=== PATIENT | female | born 1950 | race Caucasian/White ===

== ENCOUNTER 2016-11-23 06:41 | Day surgery (SDC) | payer MEDICARE, OTHER ==
[2016-11-20 14:09] VITALS: BMI 34.7
[~2016-11-23 06:41] MED LIST: LACTATED RINGERS 1,000 ML IV SCH
[2016-11-23 07:15] VITALS: TEMP 98
[2016-11-23 07:21] LABS: Glucose,Whole Blood 236 mg/dL (75-99)
[2016-11-23] MEDS ORDERED: INSULIN LISPRO (humaLOG) 300 UNIT/3 ML VIAL SQ ONE ×2 (07:42→07:45)
[2016-11-23] MEDS ORDERED: PROPOFOL 10 MG/ML 20 ML VIAL IV ONE (07:44)
[2016-11-23] MEDS ORDERED: MIDAZOLAM 2 MG/2 ML VIAL ONE (07:44)
[2016-11-23] MEDS ORDERED: fentaNYL (PF) 50 MCG/ML 2 ML AMP ONE (07:44)
[2016-11-23] MEDS ORDERED: LIDOCAINE 1% INJ 10MG/ML (20 ML MDV) ONE (07:44)
--- NOTE | 2016-11-23 07:48 | P.GSHP ---
History of Present Illness H&P Date: 11/23/16 Chief Complaint: Constipation, screening colonoscopy This is a 66-year-old female for from Dr. Tej Bojorquez. Patient presents today for screening colonoscopy. She's had issues with constipation. Patient states that she has had some pain in her pelvic area. The patient states that her last colonoscopy was approximately 10 years ago. - Constitutional Constitutional: Reports as per HPI Past Medical History Past Medical History: Diabetes Mellitus, GERD/Reflux, Hyperlipidemia, Hypertension, Skin Disorder Additional Past Medical History / Comment(s): uti(ecoli 02-04-16) chronic dermatitis, chronic pain,hiatal hernia History of Any Multi-Drug Resistant Organisms: None Reported Date of last positivie culture/infection: None MDRO Source:: None Past Surgical History: Cholecystectomy, Hysterectomy Additional Past Surgical History / Comment(s): 05-09-15 LAP CHOLEY. hemorroidectomy, colonoscopy-normal; egd, LAP GUCCI FUNDLOPLICATION Past Anesthesia/Blood Transfusion Reactions: No Reported Reaction Additional Past Anesthesia/Blood Transfusion Reaction / Comment(s): Pt has never recieved blood. CLAUSTERPHOBIA Past Psychological History: Anxiety, Depression Additional Psychological History / Comment(s): Pt states she lives with her daughter. She is normally independent. She no longer drives a car, her jorge drives her places. She has anxiety and depression and has had panic attacks in the past.currently denies any any thoughts of harming self. feels maintained by meds. Smoking Status: Never smoker Past Alcohol Use History: None Reported Past Drug Use History: None Reported - Past Family History Father Family Medical History: Diabetes Mellitus Mother Family Medical History: Diabetes Mellitus Medications and Allergies Home Medications Medication Instructions Recorded Confirmed Type Oxybutynin Chloride 5 mg PO BID 02/05/15 11/23/16 History Potassium Chloride [Klor-Con 20] 20 meq PO BID 02/28/15 11/23/16 History Cranberry Conc/C/Bacill Coag 1 tab PO BID 05/09/15 11/23/16 History [Cranberry Tablet] Multivitamins, Thera [Multivitamin] 1 tab PO DAILY 05/09/15 11/23/16 History Magnesium Gluconate [Magonate] 500 mg PO PC-SUPPER 05/29/15 11/23/16 History FLUoxetine HCL [PROzac] 20 mg PO BID 08/02/15 11/23/16 History busPIRone HCL 15 mg PO QID 08/03/15 11/23/16 History HYDROcodone/APAP 10-325MG [[place] 1 tab PO TID PRN 02/06/16 11/23/16 History 10-325] Omeprazole 20 mg PO DAILY 02/06/16 11/23/16 History ALPRAZolam 1 mg PO TID PRN 06/04/16 11/23/16 History Atorvastatin [Lipitor] 40 mg PO HS 11/20/16 11/23/16 History Cyclobenzaprine [Flexeril] 5 mg PO HS 11/20/16 11/23/16 History Empagliflozin [Jardiance] 10 mg PO DAILY 11/20/16 11/23/16 History Metoclopramide [Reglan] 10 mg PO ACHS 11/20/16 11/23/16 History Allergies Allergy/AdvReac Type Severity Reaction Status Date / Time benactyzine AdvReac Abdominal Verified 11/20/16 14:01 Pain levofloxacin [From Levaquin] AdvReac Abdominal Verified 11/20/16 14:01 Pain Penicillins AdvReac Confusion Verified 11/20/16 14:01 prednisone AdvReac anxiety Verified 11/20/16 14:01 sulfamethoxazole AdvReac Nausea & Verified 11/20/16 14:01 [From Bactrim] Vomiting tamsulosin HCl [From Flomax] AdvReac Nausea & Verified 11/20/16 14:01 Vomiting trimethoprim [From Bactrim] AdvReac Nausea & Verified 11/20/16 14:01 Vomiting Surgical - Exam Vital Signs Temp Pulse Resp BP Pulse Ox 98.0 F 91 18 129/80 95 11/23/16 07:09 11/23/16 07:09 11/23/16 07:09 11/23/16 07:09 11/23/16 07:09 - General well developed, no distress - Eyes PERRL - ENT normal pinna - Neck no masses - Respiratory normal expansion - Cardiovascular Rhythm: regular - Abdomen Abdomen: soft, non tender Results - Labs Abnormal Lab Results - Last 24 Hours (Table) 11/23/16 Range/Units 07:13 POC Glucose (mg/dL) 236 H (75-99) mg/dL Assessment and Plan Plan: Constipation We'll perform screening colonoscopy.
[2016-11-23] MEDS ORDERED: IV FLUID CONTINUATION 1,000 ML IV ONE (08:07)
--- NOTE | 2016-11-23 08:08 | P.OP ---
Date of Procedure: 11/23/16 Preoperative Diagnosis: Screening colonoscopy Constipation Postoperative Diagnosis: Mild diverticulosis Mild internal and external hemorrhoids Procedure(s) Performed: Colonoscopy Anesthesia: MAC Surgeon: Nick Kat Pathology: none sent Condition: stable Disposition: PACU Description of Procedure: The patient's placed on the endoscopy table in the lateral position. She received IV sedation. Digital rectal exam was performed which revealed internal and external hemorrhoids. Flexible colonoscope was then placed patient anus and passed throughout the entire colon. The ileocecal valve was visualized. The cecum, ascending and transverse colon appeared normal. In the descending and sigmoid colon There was mild diverticular changes. The scope was then brought back into the rectum and this appeared normal. The scope was then withdrawn from the rectum and internal and external hemorrhoids are noted.
[2016-11-23 08:15] LABS: Glucose,Whole Blood 207 mg/dL (75-99)
[2016-11-23 08:22] VITALS: BP 135/88; PULSE 79; RESP 18
== END 2016-11-23 08:53 | disposition home or self-care (01) ==
LOC: ORWHC2ENDO 06:41
PROVIDERS: ATTEND Surgery
DX: K64.8 Other hemorrhoids (principal); K64.4 Residual hemorrhoidal skin tags; K57.30 Diverticulosis of large intestine without perforation or abscess without bleeding; K59.00 Constipation, unspecified; E11.9 Type 2 diabetes mellitus without complications; K21.9 Gastro-esophageal reflux disease without esophagitis; E78.5 Hyperlipidemia, unspecified; I10 Essential (primary) hypertension; G89.29 Other chronic pain; F41.9 Anxiety disorder, unspecified; F32.9 Major depressive disorder, single episode, unspecified; Z79.84 Long term (current) use of oral hypoglycemic drugs; Z79.891 Long term (current) use of opiate analgesic; Z79.899 Other long term (current) drug therapy; Z88.1 Allergy status to other antibiotic agents; Z88.8 Allergy status to other drugs, medicaments and biological substances
CPT/HCPCS: 45378; J2250; J2001; J3010; J2704

== ENCOUNTER 2017-02-16 11:49 | Emergency (ER) | payer MEDICARE, OTHER ==
[2017-02-16] MEDS ORDERED: ONDANSETRON 4 MG/2 ML VIAL IVP STA (12:18)
[2017-02-16] MEDS ORDERED: HYDROmorphone 1 MG/ML 1 ML SYRINGE IVP STA (12:18)
--- NOTE | 2017-02-16 12:24 | ED ---
General Adult HPI - General Chief complaint: Abdominal Pain Stated complaint: CHEST PAIN, ABDOMINAL, BLADDER AND KIDNEY PAIN Time Seen by Provider: 02/16/17 12:02 Source: patient, family, RN notes reviewed, old records reviewed Mode of arrival: ambulatory Limitations: no limitations - History of Present Illness Initial comments: Chief complaint and history of present illness is a 66-year-old female to history of anxiety and depression. Here because of the suprapubic area pain. The patient took an [id number] medication and has turned the urine orange. The patient has had history of frequent urinary tract infections radiate toward the back. The patient's denying frequency urgency or dysuria at this time. States she is nauseated but not vomiting no diarrhea. Often has trouble with constipation she is on [place]. - Related Data Home Medications Medication Instructions Recorded Confirmed Oxybutynin Chloride 5 mg PO BID 02/05/15 02/16/17 Potassium Chloride [Klor-Con 20] 20 meq PO BID 02/28/15 02/16/17 Magnesium Gluconate [Magonate] 500 mg PO PC-SUPPER 05/29/15 02/16/17 FLUoxetine HCL [PROzac] 20 mg PO BID 08/02/15 02/16/17 busPIRone HCL 15 mg PO QID 08/03/15 02/16/17 HYDROcodone/APAP 10-325MG [[place] 1 tab PO TID PRN 02/06/16 02/16/17 10-325] Omeprazole 20 mg PO QAM 02/06/16 02/16/17 ALPRAZolam 1 mg PO QID 06/04/16 02/16/17 Atorvastatin [Lipitor] 40 mg PO QAM 11/20/16 02/16/17 Cyclobenzaprine [Flexeril] 5 mg PO DAILY PRN 11/20/16 02/16/17 Metoclopramide [Reglan] 10 mg PO AC-BRKFST 11/20/16 02/16/17 Cranberry Fruit Extract [Cranberry] 1,000 mg PO BID 02/16/17 02/16/17 Empagliflozin [Jardiance] 25 mg PO HS 02/16/17 02/16/17 Insulin Glargine [Lantus] 30 unit SQ HS 02/16/17 02/16/17 Metoclopramide [Reglan] 5 mg PO TID 02/16/17 02/16/17 Multivitamins, Thera [Multivitamin 1 tab PO DAILY 02/16/17 02/16/17 (formulary)] Allergies Allergy/AdvReac Type Severity Reaction Status Date / Time benactyzine AdvReac Abdominal Verified 02/16/17 11:57 Pain dicyclomine [From Bentyl] AdvReac Abdominal Verified 02/16/17 13:03 Pain levofloxacin [From Levaquin] AdvReac Abdominal Verified 02/16/17 13:03 Pain Penicillins AdvReac "Passed Verified 02/16/17 13:03 out" prednisone AdvReac Abdominal Verified 02/16/17 13:03 Pain sulfamethoxazole AdvReac Abdominal Verified 02/16/17 13:03 [From Bactrim] Pain tamsulosin HCl [From Flomax] AdvReac Abdominal Verified 02/16/17 13:03 Pain trimethoprim [From Bactrim] AdvReac Abdominal Verified 02/16/17 13:03 Pain Review of Systems ROS Statement: Those systems with pertinent positive or pertinent negative responses have been documented in the HPI. Review of systems patient's anxious, history of anxiety. Denying any headache or visual acuity changes she has chest pain and mild palpation of the anterior chest wall. Rare cough. Nausea no vomiting no diarrhea she states showed a bowel movement yesterday she is taking medications to treat her constipation problems. Low back discomfort and superior pubic area discomfort. No complaint of any discomfort to the extremities. All systems were reviewed. Past medical problems significant for insulin diabetes mellitus, GERD, hyperlipidemia, hypertension, patient picks at her skin due to anxiety. She also has frequent urinary tract infections. Positive for E. coli 2 years ago. The patient's surgeries include hemorrhoids, closed cystectomy, partial hysterectomy, knee some plication. Family history father and uncle also had colon cancer. The patient recently had a colonoscopy. Results are not available this time. The patient has ALLERGIES as listed. Mostly upset stomach symptoms. ROS Other: All systems not noted in ROS Statement are negative. Past Medical History Past Medical History: Diabetes Mellitus, GERD/Reflux, Hyperlipidemia, Hypertension, Skin Disorder Additional Past Medical History / Comment(s): uti(ecoli 5-14-16) chronic dermatitis, chronic pain,hiatal hernia History of Any Multi-Drug Resistant Organisms: None Reported Date of last positivie culture/infection: None MDRO Source:: None Past Surgical History: Cholecystectomy, Hysterectomy Additional Past Surgical History / Comment(s): 05-09-15 LAP CHOLEY. hemorroidectomy, colonoscopy-normal; egd, LAP GUCCI FUNDLOPLICATION Past Anesthesia/Blood Transfusion Reactions: No Reported Reaction Additional Past Anesthesia/Blood Transfusion Reaction / Comment(s): Pt has never recieved blood. CLAUSTERPHOBIA Past Psychological History: Anxiety, Depression Additional Psychological History / Comment(s): Pt states she lives with her daughter. She is normally independent. She no longer drives a car, her jorge drives her places. She has anxiety and depression and has had panic attacks in the past.currently denies any any thoughts of harming self. feels maintained by meds. Smoking Status: Never smoker Past Alcohol Use History: None Reported Past Drug Use History: None Reported - Past Family History Father Family Medical History: Diabetes Mellitus Mother Family Medical History: Diabetes Mellitus General Exam - General Exam Comments Initial Comments: General: The patient is awake and alert, history of anxiety. Patient is crying on and off. Complaining of suprapubic discomfort. States she's had the same symptoms for years. Gets treated for urinary tract infection goes away for short while. She states she has had a cystoscopy and colonoscopy. Patient's vital signs show temperature 98.2 pulse 107 respiratory rate 22 pulse ox 94% room air blood pressure 173/119. This will be repeated. Eye: Pupils are equal, round and reactive to light, extra-ocular movements are intact ; there is normal conjunctiva bilaterally. No signs of icterus. Ears, nose, mouth and throat: There are moist mucous membranes and no oral lesions. Neck: The neck is supple, there is no tenderness , no anterior cervical lymphadenopathy. Cardiovascular: There is a regular rate and rhythm. No murmur, rub or gallop is appreciated. Just mild palpation of the anterior chest wall causes discomfort. Respiratory: Lungs are clear to auscultation, respirations are non-labored, breath sounds are equal. No wheezes, stridor, rales, or rhonchi. Gastrointestinal: Complains discomfort with palpation in the suprapubic region. There is no rebound or guarding present. No CVA tenderness. Bowel sounds are unremarkable. Back: There is no tenderness to palpation in the midline. There is no obvious deformity. No rashes noted. Low back discomfort. No rashes noted. Musculoskeletal: Normal ROM, no tenderness, There is no pedal edema. There is no calf tenderness or swelling. Patient has a nervous habit of picking at her skin Neurological: No complaints of or any evidence of neuro deficits. Skin: Patient picks at her skin. Psychiatric: History of anxiety depression. On medications. Limitations: no limitations Course Vital Signs 02/16/17 02/16/17 11:54 12:49 Temperature 98.2 F Pulse Rate 107 H 98 Respiratory 22 20 Rate Blood Pressure 173/119 135/65 O2 Sat by Pulse 94 L 94 L Oximetry Medical Decision Making - Medical Decision Making Medical decision making; patient's white count 7.2 hemoglobin 15 hematocrit of 47 urine clean 4+ glucose. Patient's sugar is 196. Potassium 4.1 with a BUN 14 creatinine 0.8 GFR greater than 60. X-ray of the abdomen was done and reviewed by radiologist his impression is lung bases are clear there are air fluid levels without bowel distention. No pneumoperitoneum or bowel obstruction. Probable vascular calcifications within the pelvis. Impression; nonobstructive bowel gas pattern. Consider ileus, enteritis. As read by Dr. Hernandez Patient reports she's had this same problem on again off again. Usually give antibiotics and goes away. The patient will be treated with Cipro and Flagyl for one week. Advised to follow-up with her family physician. We discussed enteritis mild diverticulitis. In reviewing the patient's ALLERGIES she states her medications like Levaquin upset her stomach she does not have difficulty breathing she does not have low blood pressure she does not have hives with these medications. The patient will be placed on Cipro 500 twice a day for a week as well as Flagyl. Advised return emergency room if there are any changes. Otherwise follow-up with her family physician - Lab Data Result diagrams: 02/16/17 12:41 02/16/17 12:41 Lab Results 02/16/17 02/16/17 02/16/17 Range/Units 12:41 12:41 12:41 WBC 7.2 (3.8-10.6) k/uL RBC 4.87 (3.80-5.40) m/uL Hgb 15.3 (11.4-16.0) gm/dL Hct 47.8 H (34.0-46.0) % MCV 98.3 (80.0-100.0) fL MCH 31.4 (25.0-35.0) pg MCHC 32.0 (31.0-37.0) g/dL RDW 13.7 (11.5-15.5) % Plt Count 319 (150-450) k/uL Neutrophils % 59 % Lymphocytes % 32 % Monocytes % 5 % Eosinophils % 2 % Basophils % 1 % Neutrophils # 4.2 (1.3-7.7) k/uL Lymphocytes # 2.3 (1.0-4.8) k/uL Monocytes # 0.4 (0-1.0) k/uL Eosinophils # 0.2 (0-0.7) k/uL Basophils # 0.1 (0-0.2) k/uL Sodium 141 (137-145) mmol/L Potassium 4.1 (3.5-5.1) mmol/L Chloride 105 (98-107) mmol/L Carbon Dioxide 20 L (22-30) mmol/L Anion Gap 16 mmol/L BUN 14 (7-17) mg/dL Creatinine 0.78 (0.52-1.04) mg/dL Est GFR (MDRD) Af Amer >60 (>60 ml/min/1.73 sqM) Est GFR (MDRD) Non-Af >60 (>60 ml/min/1.73 sqM) Glucose 196 H (74-99) mg/dL Plasma Lactic Acid Reginald 1.6 (0.7-2.0) mmol/L Calcium 10.3 H (8.4-10.2) mg/dL Total Bilirubin 1.0 (0.2-1.3) mg/dL AST 27 (14-36) U/L ALT 31 (9-52) U/L Alkaline Phosphatase 89 (38-126) U/L Total Protein 8.4 H (6.3-8.2) g/dL Albumin 4.9 (3.5-5.0) g/dL Amylase 62 (30-110) U/L Lipase 113 (23-300) U/L Urine Color Urine Appearance (Clear) Urine pH (5.0-8.0) Ur Specific [place] (1.001-1.035) Urine Protein (Negative) Urine Glucose (UA) (Negative) Urine Ketones (Negative) Urine Blood (Negative) Urine Nitrite (Negative) Urine Bilirubin (Negative) Urine Urobilinogen (<2.0) mg/dL Ur Leukocyte Esterase (Negative) 02/16/17 Range/Units 12:41 WBC (3.8-10.6) k/uL RBC (3.80-5.40) m/uL Hgb (11.4-16.0) gm/dL Hct (34.0-46.0) % MCV (80.0-100.0) fL MCH (25.0-35.0) pg MCHC (31.0-37.0) g/dL RDW (11.5-15.5) % Plt Count (150-450) k/uL Neutrophils % % Lymphocytes % % Monocytes % % Eosinophils % % Basophils % % Neutrophils # (1.3-7.7) k/uL Lymphocytes # (1.0-4.8) k/uL Monocytes # (0-1.0) k/uL Eosinophils # (0-0.7) k/uL Basophils # (0-0.2) k/uL Sodium (137-145) mmol/L Potassium (3.5-5.1) mmol/L Chloride (98-107) mmol/L Carbon Dioxide (22-30) mmol/L Anion Gap mmol/L BUN (7-17) mg/dL Creatinine (0.52-1.04) mg/dL Est GFR (MDRD) Af Amer (>60 ml/min/1.73 sqM) Est GFR (MDRD) Non-Af (>60 ml/min/1.73 sqM) Glucose (74-99) mg/dL Plasma Lactic Acid Reginald (0.7-2.0) mmol/L Calcium (8.4-10.2) mg/dL Total Bilirubin (0.2-1.3) mg/dL AST (14-36) U/L ALT (9-52) U/L Alkaline Phosphatase (38-126) U/L Total Protein (6.3-8.2) g/dL Albumin (3.5-5.0) g/dL Amylase (30-110) U/L Lipase (23-300) U/L Urine Color Brown Urine Appearance Clear (Clear) Urine pH 5.0 (5.0-8.0) Ur Specific [place] 1.023 (1.001-1.035) Urine Protein Negative (Negative) Urine Glucose (UA) 4+ H (Negative) Urine Ketones Negative (Negative) Urine Blood Negative (Negative) Urine Nitrite Negative (Negative) Urine Bilirubin Negative (Negative) Urine Urobilinogen <2.0 (<2.0) mg/dL Ur Leukocyte Esterase Negative (Negative) Disposition Clinical Impression: Enteritis Disposition: HOME SELF-CARE Condition: Fair Instructions: Enteritis (ED) Referrals: Tej Bojorquez MD [Primary Care Provider] - 1-2 days Time of Disposition: 14:32
[2017-02-16 12:50] VITALS: RESP 20
[2017-02-16 13:00] LABS: Basophils # (A) 0.1 k/uL (0-0.2); Basophils % (A) 1 %; CH 32.7; CHCM 33.4; Eosinophils # (A) 0.2 k/uL (0-0.7); Eosinophils % (A) 2 %; HCT 47.8 % (34.0-46.0); HDW 2.48; HGB 15.3 gm/dL (11.4-16.0); Luc # (Auto) 0.14; Luc % (Auto) 2; Lymphocytes # (A) 2.3 k/uL (1.0-4.8); Lymphocytes % (A) 32 %; MCH 31.4 pg (25.0-35.0); MCV 98.3 fL (80.0-100.0); Monocytes # (A) 0.4 k/uL (0-1.0); Monocytes % (A) 5 %; Neutrophils # (A) 4.2 k/uL (1.3-7.7); Neutrophils % (A) 59 %; RBC 4.87 m/uL (3.80-5.40); RDW 13.7 % (11.5-15.5); WBC 7.2 k/uL (3.8-10.6); WBC (Perox) 7.12
[2017-02-16 13:01] LABS: Appearance,Urine Clear (Clear); Bilirubin,Urine Negative (Negative); Glucose,Urine (UA) 4+ (Negative); Ketones,Urine Negative (Negative); Leukocyte Esterase,Urine Negative (Negative); Nitrite,Urine Negative (Negative); Protein,Urine Negative (Negative); Specific Gravity,Urine 1.023 (1.001-1.035); UA Billing (MACRO vs. MICRO) CHEM; Urobilinogen,Urine <2.0 mg/dL (<2.0)
--- NOTE | 2017-02-16 13:10 | XR ---
2 view abdomen HISTORY: Lower abdominal pain 2 views of the abdomen on 3 images correlated to prior exam dated 04 March 2016 Lung bases are clear. There are air-fluid levels without bowel distention. No pneumoperitoneum or bow el obstruction. Probable vascular calcifications within the pelvis. IMPRESSION: Nonobstructive bowel gas pattern. Consider ileus, enteritis.
[2017-02-16 13:13] LABS: ALT 31 U/L (9-52); AST 27 U/L (14-36); Alkaline Phosphatase 89 U/L (38-126); Amylase 62 U/L (30-110); Anion Gap 16 mmol/L; Blood Urea Nitrogen 14 mg/dL (7-17); Calcium 10.3 mg/dL (8.4-10.2); Carbon Dioxide 20 mmol/L (22-30); Chloride 105 mmol/L (98-107); Glucose 196 mg/dL (74-99); Non-African American GFR(MDRD) >60 (>60 ml/min/1.73 sqM); Potassium 4.1 mmol/L (3.5-5.1); Sodium 141 mmol/L (137-145); Total Protein 8.4 g/dL (6.3-8.2)
[2017-02-16] MEDS ORDERED: metroNIDAZOLE-NS PMX 500 MG in SALINE 1 100ML.BAG IVPB STA (14:23)
[2017-02-16] MEDS ORDERED: CIPROFLOXACIN HCL 500 MG TAB PO STA (14:27)
[2017-02-16] MEDS ORDERED: metroNIDAZOLE 500 MG TAB PO STA (14:45)
[2017-02-16 14:58] VITALS: BP 133/65; PULSE 90; TEMP 98
== END 2017-02-16 14:56 | disposition home or self-care (01) ==
LOC: EC 11:49
DX: K52.9 Noninfective gastroenteritis and colitis, unspecified (principal); E11.9 Type 2 diabetes mellitus without complications; K21.9 Gastro-esophageal reflux disease without esophagitis; E78.5 Hyperlipidemia, unspecified; I10 Essential (primary) hypertension; F32.9 Major depressive disorder, single episode, unspecified; F41.9 Anxiety disorder, unspecified; Z79.4 Long term (current) use of insulin; Z79.899 Other long term (current) drug therapy; Z88.0 Allergy status to penicillin; Z88.2 Allergy status to sulfonamides; Z88.1 Allergy status to other antibiotic agents; Z88.8 Allergy status to other drugs, medicaments and biological substances; Z90.49 Acquired absence of other specified parts of digestive tract; Z90.710 Acquired absence of both cervix and uterus
CPT/HCPCS: 99284; 96374; 96375; 36415; 80053; 82150; 83605; 83690; 85025; 81003; 87086; 74020; J2405; J1170

== ENCOUNTER 2017-02-20 10:51 | Inpatient (IN) | payer MEDICARE, OTHER ==
[2017-02-20] MEDS ORDERED: SODIUM CHLORIDE 0.9% 1,000 ML IV ONE (12:24)
[2017-02-20 12:40] LABS: Basophils # (A) 0.1 k/uL (0-0.2); Basophils % (A) 1 %; CH 33.2; CHCM 34.1; Eosinophils # (A) 0.1 k/uL (0-0.7); Eosinophils % (A) 1 %; HCT 44.7 % (34.0-46.0); HDW 2.63; HGB 15.2 gm/dL (11.4-16.0); Luc # (Auto) 0.11; Luc % (Auto) 2; Lymphocytes # (A) 1.3 k/uL (1.0-4.8); Lymphocytes % (A) 22 %; MCH 33.2 pg (25.0-35.0); MCV 97.7 fL (80.0-100.0); Mean Platelet Volume 6.7; Monocytes # (A) 0.3 k/uL (0-1.0); Monocytes % (A) 5 %; Neutrophils # (A) 4.2 k/uL (1.3-7.7); Neutrophils % (A) 69 %; RBC 4.57 m/uL (3.80-5.40); RDW 13.4 % (11.5-15.5); WBC 6.1 k/uL (3.8-10.6); WBC (Perox) 5.71
[2017-02-20 12:59] LABS: ALT 42 U/L (9-52); AST 43 U/L (14-36); Alkaline Phosphatase 76 U/L (38-126); Amylase 47 U/L (30-110); Anion Gap 16 mmol/L; Blood Urea Nitrogen 11 mg/dL (7-17); Calcium 10.3 mg/dL (8.4-10.2); Carbon Dioxide 21 mmol/L (22-30); Chloride 105 mmol/L (98-107); Glucose 204 mg/dL (74-99); Magnesium 1.9 mg/dL (1.6-2.3); Non-African American GFR(MDRD) >60 (>60 ml/min/1.73 sqM); Potassium 4.5 mmol/L (3.5-5.1); Sodium 142 mmol/L (137-145); Total Bilirubin 0.9 mg/dL (0.2-1.3); Total Protein 8.2 g/dL (6.3-8.2)
[2017-02-20] MEDS ORDERED: RX INFO: IV CONTRAST WAS GIVEN 1 EACH MISC MISCELLANE PRN (13:04)
--- NOTE | 2017-02-20 13:07 | ED ---
Nausea/Vomiting/Diarrhea HPI <AndrewOrtiz - Last Filed: 02/20/17 15:53> - General Source: patient, RN notes reviewed Mode of arrival: wheelchair Limitations: no limitations <Rekha Pleitez - Last Filed: 02/20/17 16:12> - General Chief complaint: Nausea/Vomiting/Diarrhea Stated complaint: DIARRHEA, DARK IN COLOR, ABDOMINAL PAIN Time Seen by Provider: 02/20/17 12:24 - History of Present Illness Initial comments: Patient is a 66-year-old female presents emergency room for evaluation. Patient states he was here on Saturday for all over body pain, bladder pain. Patient states she was told she had enteritis was sent home with Cipro/Flagyl. Patient states on Saturday she began with excessive diarrhea. Patient states she has been having diarrhea 3 times a day for the past 2 days. Patient states she still having pain in her bladder. Patient states she thinks she is ALLERGIC to the antibiotics that were given to her. Patient denies fevers or chills. Patient denies nausea or vomiting. Patient states her stools are dark. Patient denies trying new foods. Patient denies recent travel outside the country. ( Rekha Pleitez) - Related Data Home Medications Medication Instructions Recorded Confirmed Oxybutynin Chloride 5 mg PO BID 02/05/15 02/20/17 Potassium Chloride [Klor-Con 20] 20 meq PO BID 02/28/15 02/20/17 Magnesium Gluconate [Magonate] 500 mg PO PC-SUPPER 05/29/15 02/20/17 FLUoxetine HCL [PROzac] 20 mg PO BID 08/02/15 02/20/17 busPIRone HCL 15 mg PO QID 08/03/15 02/20/17 HYDROcodone/APAP 10-325MG [Index 1 tab PO TID PRN 02/06/16 02/20/17 10-325] Omeprazole 20 mg PO QAM 02/06/16 02/20/17 ALPRAZolam 1 mg PO QID 06/04/16 02/20/17 Atorvastatin [Lipitor] 40 mg PO QAM 11/20/16 02/20/17 Cyclobenzaprine [Flexeril] 5 mg PO DAILY PRN 11/20/16 02/20/17 Metoclopramide [Reglan] 10 mg PO AC-BRKT 11/20/16 02/20/17 Cranberry Fruit Extract [Cranberry] 1,000 mg PO BID 02/16/17 02/20/17 Empagliflozin [Jardiance] 25 mg PO HS 02/16/17 02/20/17 Insulin Glargine [Lantus] 30 unit SQ HS 02/16/17 02/20/17 Metoclopramide [Reglan] 5 mg PO TID 02/16/17 02/20/17 Multivitamins, Thera [Multivitamin 1 tab PO DAILY 02/16/17 02/20/17 (formulary)] Previous Rx's Medication Instructions Recorded Ciprofloxacin HCl [Cipro] 500 mg PO Q12HR #14 tablet 02/16/17 metroNIDAZOLE [Flagyl] 500 mg PO QID #28 tab 02/16/17 Allergies Allergy/AdvReac Type Severity Reaction Status Date / Time benactyzine AdvReac Abdominal Verified 02/20/17 12:05 Pain dicyclomine [From Bentyl] AdvReac Abdominal Verified 02/20/17 12:05 Pain levofloxacin [From Levaquin] AdvReac Abdominal Verified 02/20/17 12:05 Pain Penicillins AdvReac "Passed Verified 02/20/17 12:05 out" prednisone AdvReac Abdominal Verified 02/20/17 12:05 Pain sulfamethoxazole AdvReac Abdominal Verified 02/20/17 12:05 [From Bactrim] Pain tamsulosin HCl [From Flomax] AdvReac Abdominal Verified 02/20/17 12:05 Pain trimethoprim [From Bactrim] AdvReac Abdominal Verified 02/20/17 12:05 Pain Review of Systems ROS Other: All systems not noted in ROS Statement are negative. <Ortiz Morales - Last Filed: 02/20/17 15:53> ROS Other: All systems not noted in ROS Statement are negative. <Rekha Pleitez - Last Filed: 02/20/17 16:12> ROS Statement: Those systems with pertinent positive or pertinent negative responses have been documented in the HPI. Past Medical History Past Medical History: Diabetes Mellitus, GERD/Reflux, Hyperlipidemia, Hypertension, Skin Disorder Additional Past Medical History / Comment(s): uti(ecoli 5-14-16) chronic dermatitis, chronic pain,hiatal hernia History of Any Multi-Drug Resistant Organisms: None Reported Date of last positivie culture/infection: None MDRO Source:: None Past Surgical History: Cholecystectomy, Hysterectomy Additional Past Surgical History / Comment(s): 05-09-15 LAP CHOLEY. hemorroidectomy, colonoscopy-normal; egd, LAP GUCCI FUNDLOPLICATION Past Anesthesia/Blood Transfusion Reactions: No Reported Reaction Additional Past Anesthesia/Blood Transfusion Reaction / Comment(s): Pt has never recieved blood. CLAUSTERPHOBIA Past Psychological History: Anxiety, Depression Additional Psychological History / Comment(s): Pt states she lives with her daughter. She is normally independent. She no longer drives a car, her jorge drives her places. She has anxiety and depression and has had panic attacks in the past.currently denies any any thoughts of harming self. feels maintained by meds. Smoking Status: Never smoker Past Alcohol Use History: None Reported Past Drug Use History: None Reported - Past Family History Father Family Medical History: Diabetes Mellitus Mother Family Medical History: Diabetes Mellitus <Rekha Pleitez - Last Filed: 02/20/17 16:12> General Exam <Ortiz Morales - Last Filed: 02/20/17 15:53> Limitations: no limitations General appearance: alert, in no apparent distress Head exam: Present: atraumatic, normocephalic, normal inspection Eye exam: Present: normal appearance ENT exam: Present: normal exam Neck exam: Present: normal inspection Respiratory exam: Present: normal lung sounds bilaterally. Absent: respiratory distress Cardiovascular Exam: Present: regular rate, normal rhythm, normal heart sounds GI/Abdominal exam: Present: soft, tenderness (diffuse tenderness on palpation), normal bowel sounds. Absent: distended, guarding, rebound, rigid Extremities exam: Present: normal inspection Back exam: Present: normal inspection Neurological exam: Present: alert, oriented X3, CN II-XII intact, normal gait Psychiatric exam: Present: normal affect, normal mood Skin exam: Present: warm, dry, intact, normal color. Absent: rash <Rekha Pleitez - Last Filed: 02/20/17 16:12> - General Exam Comments Initial Comments: sitting in exam room, no acute distress. (Rekha Pleitez) Medical Decision Making - Lab Data Result diagrams: 02/20/17 12:00 02/20/17 12:00 <Ortiz Morales - Last Filed: 02/20/17 15:53> - Lab Data Result diagrams: 02/20/17 12:00 02/20/17 12:00 <Rekha Pleitez - Last Filed: 02/20/17 16:12> - Medical Decision Making Medical decision making; patient return emergency room today after being on Flagyl and Cipro for several days. She states she's had on-again off-again diarrhea and some cramping. They noticed some what appeared to be some blood mixed in the loose stool today. Continues with mild lower abdominal cramping. Reexamination finds no guarding or rebound with examination but normal bowel sounds rectal examination done with the help med tech found reddish colored mucousy stool. Guaiac positive. Culture still pending. Case discussed with her attending Dr. Bojorquez patient admitted to his service with GI bleed, infectious diarrhea. Dr. Morales (Ortiz Morales) - Lab Data Lab Results 02/20/17 02/20/17 02/20/17 Range/Units 12:00 12:00 12:00 WBC 6.1 (3.8-10.6) k/uL RBC 4.57 (3.80-5.40) m/uL Hgb 15.2 (11.4-16.0) gm/dL Hct 44.7 (34.0-46.0) % MCV 97.7 (80.0-100.0) fL MCH 33.2 (25.0-35.0) pg MCHC 34.0 (31.0-37.0) g/dL RDW 13.4 (11.5-15.5) % Plt Count 351 (150-450) k/uL Neutrophils % 69 % Lymphocytes % 22 % Monocytes % 5 % Eosinophils % 1 % Basophils % 1 % Neutrophils # 4.2 (1.3-7.7) k/uL Lymphocytes # 1.3 (1.0-4.8) k/uL Monocytes # 0.3 (0-1.0) k/uL Eosinophils # 0.1 (0-0.7) k/uL Basophils # 0.1 (0-0.2) k/uL Sodium 142 (137-145) mmol/L Potassium 4.5 (3.5-5.1) mmol/L Chloride 105 (98-107) mmol/L Carbon Dioxide 21 L (22-30) mmol/L Anion Gap 16 mmol/L BUN 11 (7-17) mg/dL Creatinine 0.93 (0.52-1.04) mg/dL Est GFR (MDRD) Af Amer >60 (>60 ml/min/1.73 sqM) Est GFR (MDRD) Non-Af >60 (>60 ml/min/1.73 sqM) Glucose 204 H (74-99) mg/dL Plasma Lactic Acid Reginald 2.1 H (0.7-2.0) mmol/L Calcium 10.3 H (8.4-10.2) mg/dL Magnesium 1.9 (1.6-2.3) mg/dL Total Bilirubin 0.9 (0.2-1.3) mg/dL AST 43 H (14-36) U/L ALT 42 (9-52) U/L Alkaline Phosphatase 76 (38-126) U/L Total Protein 8.2 (6.3-8.2) g/dL Albumin 5.0 (3.5-5.0) g/dL Amylase 47 (30-110) U/L Lipase 151 (23-300) U/L Stool Occult Blood (Negative) 02/20/17 Range/Units 15:35 WBC (3.8-10.6) k/uL RBC (3.80-5.40) m/uL Hgb (11.4-16.0) gm/dL Hct (34.0-46.0) % MCV (80.0-100.0) fL MCH (25.0-35.0) pg MCHC (31.0-37.0) g/dL RDW (11.5-15.5) % Plt Count (150-450) k/uL Neutrophils % % Lymphocytes % % Monocytes % % Eosinophils % % Basophils % % Neutrophils # (1.3-7.7) k/uL Lymphocytes # (1.0-4.8) k/uL Monocytes # (0-1.0) k/uL Eosinophils # (0-0.7) k/uL Basophils # (0-0.2) k/uL Sodium (137-145) mmol/L Potassium (3.5-5.1) mmol/L Chloride (98-107) mmol/L Carbon Dioxide (22-30) mmol/L Anion Gap mmol/L BUN (7-17) mg/dL Creatinine (0.52-1.04) mg/dL Est GFR (MDRD) Af Amer (>60 ml/min/1.73 sqM) Est GFR (MDRD) Non-Af (>60 ml/min/1.73 sqM) Glucose (74-99) mg/dL Plasma Lactic Acid Reginald (0.7-2.0) mmol/L Calcium (8.4-10.2) mg/dL Magnesium (1.6-2.3) mg/dL Total Bilirubin (0.2-1.3) mg/dL AST (14-36) U/L ALT (9-52) U/L Alkaline Phosphatase (38-126) U/L Total Protein (6.3-8.2) g/dL Albumin (3.5-5.0) g/dL Amylase (30-110) U/L Lipase (23-300) U/L Stool Occult Blood Positive H (Negative) Disposition <Ortiz Morales - Last Filed: 02/20/17 15:53> Decision Date: 02/20/17 <Rekha Pleitez - Last Filed: 02/20/17 16:12> Clinical Impression: Infectious diarrhea Disposition: ADMITTED IP TO THIS [facility] Condition: Stable Referrals: Tej Bojorquez MD [Primary Care Provider] - 1-2 days
[2017-02-20] MEDS ORDERED: HYDROmorphone 1 MG/ML 1 ML SYRINGE IVP STA ×2 (13:52→15:37)
--- NOTE | 2017-02-20 13:56 | CT ---
EXAMINATION TYPE: CT abdomen pelvis w con DATE OF EXAM: 02/20/2017 COMPARISON: 06/03/2016 INDICATION: Diarrhea, dark in color, abdominal pain DLP: 1203.1 mGycm, Automated exposure control for dose reduction was used. CONTRAST: 100 mL of Omnipaque 300. Study performed without Oral Contrast TECHNIQUE: Axial images were obtained from above the diaphragm to the pubic rami in the axial plane a t 5 mm thick sections. Reconstructed images are reviewed on the computer in the coronal plane. FINDINGS: Limited CT sections are obtained the lung bases. The lung bases are clear. CT ABDOMEN: Liver: There is mild fatty infiltration liver. No discrete masses or cysts are evident. Spleen: Normal Pancreas: Normal Adrenal glands: There is a 2.0 cm intermediate to low density area on the posterior left adrenal glan d. Right adrenal gland is normal. Gallbladder: Absent Kidneys: No masses are evident. No hydronephrosis is present. No cysts are present. Delayed images were obtained through the kidneys, which remain unremarkable. Aorta: Vascular calcification is within the aorta. Inferior vena cava: Normal. CT PELVIS: Loops of bowel within the abdomen and pelvis are normal. There are some scattered diverticuli wit hin the sigmoid colon. No suspicious bowel loops are evident. Appendix: Not visualized Urinary bladder: Normal. Genitourinary structures: Uterus is not identified. Adnexal regions are clear. No free fluid is withi n the pelvis. Osseous structures: No suspicious lytic or sclerotic lesions. Couple of small sclerotic areas within the vertebral bodies could be related to bone islands. Hemangiomas within a mid left vertebral body. Degenerative disc changes are present L5-S1. IMPRESSIONS: 1. No suspicious acute changes CT abdomen pelvis
[2017-02-20] MEDS ORDERED: ONDANSETRON 4 MG/2 ML VIAL IVP PRN (15:56)
[2017-02-20] MEDS ORDERED: NALOXONE 0.4 MG/ML 1 ML VIAL IV PRN (15:56)
[2017-02-20] MEDS ORDERED: metroNIDAZOLE-NS PMX 500 MG in SALINE 1 100ML.BAG IVPB STA (15:59)
[2017-02-20] MEDS: SODIUM CHLORIDE 0.9% 1,000 ML IV SCH (17:11)
[2017-02-20] MEDS ORDERED: CYCLOBENZAPRINE 5 MG TAB PO PRN (17:28)
[2017-02-20] MEDS: ALPRAZolam 0.5 MG TAB PO SCH ×2 (18:37→20:46)
[2017-02-20] MEDS: busPIRone HCl 5 MG TAB PO SCH ×2 (18:37→20:46)
[2017-02-20] MEDS: OXYBUTYNIN CHLORIDE 5 MG TAB PO SCH (20:46)
[2017-02-20] MEDS: FLUoxetine HCL 20 MG CAP PO SCH (20:46)
[2017-02-20] MEDS: METOCLOPRAMIDE 5 MG TAB PO SCH (20:46)
[2017-02-20] MEDS: HYDROcodone/APAP 10-325MG 1 EACH TAB PO PRN (20:57)
[2017-02-20] MEDS ORDERED: NON-FORMULARY DRUG (Empagliflozin [Jardiance] 25 MG) PO SCH (21:00)
[2017-02-21] MEDS: HYDROmorphone 1 MG/ML 1 ML SYRINGE IV PRN ×3 (00:35→23:45)
[2017-02-21] MEDS: metroNIDAZOLE-NS PMX 500 MG in SALINE 1 100ML.BAG IVPB SCH ×4 (00:37→23:40)
[2017-02-21] MEDS: SODIUM CHLORIDE 0.9% 1,000 ML IV SCH ×3 (02:11→21:14)
[2017-02-21] MEDS: HYDROcodone/APAP 10-325MG 1 EACH TAB PO PRN ×3 (03:36→19:46)
[2017-02-21] MEDS: ALPRAZolam 0.5 MG TAB PO SCH ×4 (06:45→21:13)
--- NOTE | 2017-02-21 07:31 | HP ---
DATE OF ADMISSION: 02/20/2017 CHIEF COMPLAINT: A 66-year-old white female presents to the emergency room 3 to 4 days ago with body pain, bladder pain and sent home with Ayse and Abhinav for gastroenteritis. Saturday she began excessive diarrhea 3 times in the past 2 days. She was brought to the ER and found to have Hemoccult positive stools. She thought she was allergic to antibiotics I have given her. Denies fever or chills. Denies travel or new foods. MEDICATIONS: 1. Oxybutynin 5 mg b.i.d. 2. Potassium chloride 20 mEq b.i.d. 3. Magnesium 500 mg daily. 4. Prozac 20 mg b.i.d. 5. BuSpar 15 mg q.i.d. 6. Gillespie 10/325 t.i.d. 7. Omeprazole 20 daily. 8. Alprazolam 1 mg q.i.d. 9. Lipitor 40 daily. 10. Flexeril 5 mg daily. 11. Reglan 10 mg a.c. and at bedtime. 12. Jardiance 25 mg daily. 13. Lantus 30 ( ) daily. 14. Reglan as mentioned above. 15. Multivitamin daily. Allergies are to BENACTYZINE, BENTYL, LEVAQUIN, PENICILLINS, PREDNISONE, BACTRIM, FLOMAX. Fourteen-point review of systems negative except for as mentioned in HPI. PAST MEDICAL HISTORY: Diabetes mellitus, GERD, dyslipidemia, hypertension, chronic ( ) disorder, recurrent UTIs, hiatal hernia. SURGICAL HISTORY: Hysterectomy, cholecystectomy, lap cholecystectomy, hemorrhoidectomy, lap Yung. History of anxiety and depression. SOCIAL HISTORY: Lives with her daughter, independent, drives a care. Depression, panic attacks, not suicidal, no homicidal. No smoking. No alcohol. No illicit drugs. FAMILY HISTORY: Father had diabetes mellitus. PHYSICAL EXAM: Vital signs are reviewed. CARDIOVASCULAR: S1, S2. LUNGS: Clear. GI: Increased bowel sounds x4, soft, nontender. HEMATOLOGIC: Negative Homans. PSYCH: Fair mood and affect. NEUROLOGIC: Alert and oriented x3. OPHTHALMOLOGIC: Pupils equal, round and react to light and accommodation. NEUROLOGIC: Alert and oriented x3. VASCULAR: Normal dorsalis pedis, posterior tibial and radial pulse. : No suprapubic tenderness. INTEGUMENT: Some papules and pustules and sores. GI: Soft, nontender. Labs were reviewed. Stool cultures pending. ASSESSMENT AT THIS TIME: 1. Hemoccult positive stools, possible gastroenteritis, gastrointestinal bleed. 2. Rule out Clostridium difficile colitis. Stool cultures are pending. IV Flagyl has been ordered. Serial CBCs have been ordered.
[2017-02-21] MEDS: busPIRone HCl 5 MG TAB PO SCH ×4 (07:48→21:12)
[2017-02-21] MEDS: PANTOPRAZOLE 40 MG TABLET PO SCH (07:49)
[2017-02-21] MEDS: FLUoxetine HCL 20 MG CAP PO SCH ×2 (07:49→21:13)
[2017-02-21] MEDS: ATORVASTATIN 40 MG TAB PO SCH (07:49)
[2017-02-21] MEDS: METOCLOPRAMIDE 10 MG TAB PO SCH (07:49)
[2017-02-21] MEDS: OXYBUTYNIN CHLORIDE 5 MG TAB PO SCH ×2 (07:49→21:13)
[2017-02-21 09:28] LABS: Basophils % (A) 1 %; CHCM 33.8; Eosinophils # (A) 0.1 k/uL (0-0.7); Eosinophils % (A) 2 %; HCT 40.8 % (34.0-46.0); HDW 2.64; HGB 13.5 gm/dL (11.4-16.0); Luc # (Auto) 0.08; Luc % (Auto) 2; Lymphocytes # (A) 1.2 k/uL (1.0-4.8); Lymphocytes % (A) 24 %; MCH 32.4 pg (25.0-35.0); MCHC 33.1 g/dL (31.0-37.0); Mean Platelet Volume 6.4; Monocytes # (A) 0.2 k/uL (0-1.0); Monocytes % (A) 5 %; Neutrophils # (A) 3.5 k/uL (1.3-7.7); Neutrophils % (A) 67 %; RBC 4.16 m/uL (3.80-5.40); RDW 13.4 % (11.5-15.5); WBC 5.3 k/uL (3.8-10.6); WBC (Perox) 5.59
[2017-02-21 09:52] LABS: ALT 40 U/L (9-52); AST 40 U/L (14-36); Alkaline Phosphatase 52 U/L (38-126); Anion Gap 15 mmol/L; Blood Urea Nitrogen 8 mg/dL (7-17); Carbon Dioxide 18 mmol/L (22-30); Chloride 106 mmol/L (98-107); Glucose 136 mg/dL (74-99); Non-African American GFR(MDRD) >60 (>60 ml/min/1.73 sqM); Potassium 4.2 mmol/L (3.5-5.1); Sodium 139 mmol/L (137-145); Total Bilirubin 0.8 mg/dL (0.2-1.3)
[2017-02-21] MEDS: MULTIVITAMINS, THERA 1 EACH TAB PO SCH (12:01)
[2017-02-21] MEDS: METOCLOPRAMIDE 5 MG TAB PO SCH ×3 (12:01→21:13)
[2017-02-21 13:48] LABS: Hemoglobin A1C 9.3 % (4.2-6.1)
--- NOTE | 2017-02-21 14:24 | P.GSCN ---
History of Present Illness Consult date: 02/20/17 Reason for Consult: GI bleed Requesting physician: Tje Bojorquez History of present illness: Patient is a 66-year-old female, referred from Dr. Tej Bojorquez, admitted through the emergency department with chief complaint of "bladder pain radiating up into my chest" and diarrhea. Patient states abdominal pain started Saturday of last week. Patient states she was evaluated in the emergency department on Saturday where she was told she had enteritis and was discharged home on Cipro and Flag. Patient states that on Saturday she started having diarrhea and it was dark in color. Patient states she had a couple of episodes of dry heaves associated with nausea. Denies chills, fevers, shortness of breath, chest pain. KUB from 02/16/2017 with evidence of nonobstructive bowel gas pattern consider ileus, enteritis. CT of abdomen and pelvis from 02/20/2017 with evidence of scattered diverticuli within the sigmoid colon otherwise no suspicious acute changes. Stool for occult blood positive. C. difficile toxin negative. Patient afebrile. No evidence of leukocytosis. Upon exam, patient mostly complains of "bladder pain." Patient states she had one loose watery stool this morning. Currently denies chills, fevers, nausea, vomiting, shortness of breath, or chest pain. Patient denies dysuria, hematuria , or urgency. Patient's last colonoscopy in November 2016 with evidence of mild diverticulosis and mild internal and external hemorrhoids. Past Medical History Past Medical History: Diabetes Mellitus, GERD/Reflux, Hyperlipidemia, Hypertension, Skin Disorder Additional Past Medical History / Comment(s): uti(ecoli ) chronic dermatitis, chronic pain,hiatal hernia(had sx), diverticulosis History of Any Multi-Drug Resistant Organisms: None Reported Year Discovered:: None MDRO Source:: None Past Surgical History: Cholecystectomy, Hysterectomy Additional Past Surgical History / Comment(s): 05-09-15 LAP CHOLEY. hemorroidectomy, colonoscopy-normal; egd, LAP GUCCI FUNDLOPLICATION Past Anesthesia/Blood Transfusion Reactions: No Reported Reaction Additional Past Anesthesia/Blood Transfusion Reaction / Comm: Pt has never recieved blood. CLAUSTERPHOBIA Past Psychological History: Anxiety, Depression Additional Psychological History / Comment(s): Pt states she lives with her daughter kb in a single level home . no steps. no pets. She is normally independent. no homecare services, no medical equipment. She no longer drives a car, her jorge drives her places. She has anxiety and depression and has had panic attacks in the past.currently denies any any thoughts of harming self. feels maintained by meds. Smoking Status: Never smoker Past Alcohol Use History: None Reported Past Drug Use History: None Reported - Past Family History Father Family Medical History: Diabetes Mellitus Mother Family Medical History: Diabetes Mellitus Medications and Allergies Home Medications Medication Instructions Recorded Confirmed Type Oxybutynin Chloride 5 mg PO BID 02/05/15 02/20/17 History Potassium Chloride [Klor-Con 20] 20 meq PO BID 02/28/15 02/20/17 History Magnesium Gluconate [Magonate] 500 mg PO PC-SUPPER 05/29/15 02/20/17 History FLUoxetine HCL [PROzac] 20 mg PO BID 08/02/15 02/20/17 History busPIRone HCL 15 mg PO QID 08/03/15 02/20/17 History HYDROcodone/APAP 10-325MG [[place] 1 tab PO TID PRN 02/06/16 02/20/17 History 10-325] Omeprazole 20 mg PO QAM 02/06/16 02/20/17 History ALPRAZolam 1 mg PO QID 06/04/16 02/20/17 History Atorvastatin [Lipitor] 40 mg PO QAM 11/20/16 02/20/17 History Cyclobenzaprine [Flexeril] 5 mg PO DAILY PRN 11/20/16 02/20/17 History Metoclopramide [Reglan] 10 mg PO AC-BRKFST 11/20/16 02/20/17 History Cranberry Fruit Extract [Cranberry] 1,000 mg PO BID 02/16/17 02/20/17 History Empagliflozin [Jardiance] 25 mg PO HS 02/16/17 02/20/17 History Insulin Glargine [Lantus] 30 unit SQ HS 02/16/17 02/20/17 History Metoclopramide [Reglan] 5 mg PO TID 02/16/17 02/20/17 History Multivitamins, Thera [Multivitamin 1 tab PO DAILY 02/16/17 02/20/17 History (formulary)] Allergies Allergy/AdvReac Type Severity Reaction Status Date / Time benactyzine AdvReac Abdominal Verified 02/20/17 12:05 Pain dicyclomine [From Bentyl] AdvReac Abdominal Verified 02/20/17 12:05 Pain levofloxacin [From Levaquin] AdvReac Abdominal Verified 02/20/17 12:05 Pain Penicillins AdvReac "Passed Verified 02/20/17 12:05 out" prednisone AdvReac Abdominal Verified 02/20/17 12:05 Pain sulfamethoxazole AdvReac Abdominal Verified 02/20/17 12:05 [From Bactrim] Pain tamsulosin HCl [From Flomax] AdvReac Abdominal Verified 02/20/17 12:05 Pain trimethoprim [From Bactrim] AdvReac Abdominal Verified 02/20/17 12:05 Pain Surgical - Exam Vital Signs Temp Pulse Resp BP Pulse Ox 98.2 F 105 H 20 145/77 99 02/20/17 11:39 02/20/17 11:39 02/20/17 11:39 02/20/17 11:39 02/20/17 11:39 GENERAL: Pt awake and alert, well-appearing, well-nourished, and in no acute distress. LUNGS: Breath sounds clear to auscultation bilaterally. No wheezes, rales, or rhonchi. HEART: Heart S1, S2, no S3 or S4. Regular rate and rhythm. No murmurs, rubs or gallops. ABDOMEN: Soft, mild diffuse tenderness, nondistended, normoactive bowel sounds. No guarding, no rebound. NEUROLOGICAL: Pt oriented x 3. Results - Labs 02/21/17 08:25 02/21/17 08:25 Abnormal Lab Results - Last 24 Hours (Table) 02/20/17 02/21/17 02/21/17 Range/Units 15:35 08:25 08:25 Carbon Dioxide 18 L (22-30) mmol/L Glucose 136 H (74-99) mg/dL Hemoglobin A1c 9.3 H (4.2-6.1) % AST 40 H (14-36) U/L Stool Occult Blood Positive H (Negative) Diabetes panel 02/21/17 02/21/17 Range/Units 08:25 08:25 Sodium 139 (137-145) mmol/L Potassium 4.2 (3.5-5.1) mmol/L Chloride 106 (98-107) mmol/L Carbon Dioxide 18 L (22-30) mmol/L BUN 8 (7-17) mg/dL Creatinine 0.69 (0.52-1.04) mg/dL Glucose 136 H (74-99) mg/dL Hemoglobin A1c 9.3 H (4.2-6.1) % Calcium 9.0 (8.4-10.2) mg/dL AST 40 H (14-36) U/L ALT 40 (9-52) U/L Alkaline Phosphatase 52 (38-126) U/L Total Protein 7.0 (6.3-8.2) g/dL Albumin 4.2 (3.5-5.0) g/dL Calcium panel 02/21/17 Range/Units 08:25 Calcium 9.0 (8.4-10.2) mg/dL Albumin 4.2 (3.5-5.0) g/dL Pituitary panel 02/21/17 Range/Units 08:25 Sodium 139 (137-145) mmol/L Potassium 4.2 (3.5-5.1) mmol/L Chloride 106 (98-107) mmol/L Carbon Dioxide 18 L (22-30) mmol/L BUN 8 (7-17) mg/dL Creatinine 0.69 (0.52-1.04) mg/dL Glucose 136 H (74-99) mg/dL Calcium 9.0 (8.4-10.2) mg/dL Adrenal panel 02/21/17 Range/Units 08:25 Sodium 139 (137-145) mmol/L Potassium 4.2 (3.5-5.1) mmol/L Chloride 106 (98-107) mmol/L Carbon Dioxide 18 L (22-30) mmol/L BUN 8 (7-17) mg/dL Creatinine 0.69 (0.52-1.04) mg/dL Glucose 136 H (74-99) mg/dL Calcium 9.0 (8.4-10.2) mg/dL Total Bilirubin 0.8 (0.2-1.3) mg/dL AST 40 H (14-36) U/L ALT 40 (9-52) U/L Alkaline Phosphatase 52 (38-126) U/L Total Protein 7.0 (6.3-8.2) g/dL Albumin 4.2 (3.5-5.0) g/dL - Imaging Abdominal x-ray: report reviewed CT scan - abdomen: report reviewed CT scan - pelvis: report reviewed Assessment and Plan Plan: Impression: 1. Abdominal pain associated with diarrhea and nausea with stool positive for occult blood. C. difficile toxin negative. 2. History of diverticulosis. 3. History of internal and external hemorrhoids. 4. History of hiatal hernia. Plan: Patient will undergo EGD and colonoscopy tomorrow. Patient will be kept nothing by mouth after midnight. Patient will be started on GoLYTELY bowel prep this afternoon. Repeat labs in a.m. The above impression and plan have been discussed and directed by Dr. Reilly. Jhony GARCÍA acting as scribe for Dr. Kat.
[2017-02-21 14:47] VITALS: RESP 18
--- NOTE | 2017-02-21 15:35 | P.PN ---
Subjective 66-year-old female presented as a direct admission from Dr. Gao's office. Patient was in the emergency room 3-4 days prior. At that time the patient was seen for generalized body aches decreased endurance with bladder discomfort. Patient reportedly was given a prescription for antibiotics Cipro and Flagyl for treatment of gastroenteritis. Patient stated she had 3-4 loose watery stools. In the emergency room stool is noted to be positive for heel Hemoccult blood in stool obtained this admission was negative for C. diff it was noted the patient did have a CAT scan of the abdomen pelvis on the which showed evidence of diverticuli within the sigmoid colon otherwise no acute changes. Chief complaint this morning patient states continues to have loose stool improving. But reports having a bladder discomfort. He was noted to the patient's last colonoscopy was in November 2016 it showed evidence of mild diverticulosis with internal/external mild hemorrhoids surgical consultation has been requested. Objective - Vital Signs Vital signs: Vital Signs Temp 98.4 F 02/21/17 14:46 Pulse 95 02/21/17 14:46 Resp 18 02/21/17 14:46 BP 125/60 02/21/17 14:46 Pulse Ox 95 02/21/17 14:46 Intake & Output 02/20/17 02/21/17 02/21/17 18:59 06:59 18:59 Intake Total 240 Balance 240 Weight 81.647 kg Intake: Oral 240 Other: Voiding Method Toilet # Voids 1 3 # Bowel Movements 0 1 - Exam Physical exam 66-year-old female awake alert oriented 3 appears in no acute distress Lungs essentially clear adequate air movement Heart S1-S2 audible and regular Abdomen soft slight bilateral tenderness to the abdominal wall states urinating no difficulty no reports of nausea vomiting states had 1 liquid stool this morning no blood noted Extremities no edema - Labs CBC & Chem 7: 02/22/17 08:38 02/22/17 08:38 Labs: Abnormal Lab Results - Last 24 Hours (Table) 02/20/17 02/21/17 02/21/17 Range/Units 15:35 08:25 08:25 Carbon Dioxide 18 L (22-30) mmol/L Glucose 136 H (74-99) mg/dL Hemoglobin A1c 9.3 H (4.2-6.1) % AST 40 H (14-36) U/L Stool Occult Blood Positive H (Negative) Assessment and Plan Plan: Impression Present on admission diffuse abdominal pain with nausea and loose stool stool positive for occult blood History of esophageal reflux Colonoscopy November 2016 showed mild diverticulosis with mild internal/external hemorrhoids C. diff colitis ruled out stool specimen negative for C. diff Type 2 diabetes insulin requiring Plan Continue recommendations by surgical service Resume home meds as appropriate Pain control IV Flagyl as ordered DVT and GI prophylaxis Further recommendations pending will follow npo after midnight tonight for colonoscopy by surgical service The above dictated assessment and findings were discussed with dr gao . Impression and the plan of care have been dictated as directed. Soni Flower nurse practitioner acting as a scribe for dr gao
[2017-02-21 16:51] LABS: Glucose,Whole Blood 155 mg/dL (75-99)
[2017-02-21] MEDS ORDERED: PEG 3350-NA SULF,BICARB,CL/KCL 4,000 ML BOTTLE PO ONE ×2 (17:00)
[2017-02-21] MEDS: INSULIN LISPRO (humaLOG) 300 UNIT/3 ML VIAL SQ SCH ×2 (17:48→21:13)
[2017-02-21 20:41] LABS: Glucose,Whole Blood 169 mg/dL (75-99)
[2017-02-22] MEDS: HYDROmorphone 1 MG/ML 1 ML SYRINGE IV PRN ×4 (03:07→12:44)
[2017-02-22 07:18] LABS: Glucose,Whole Blood 197 mg/dL (75-99)
[2017-02-22] MEDS: ATORVASTATIN 40 MG TAB PO SCH (07:46)
[2017-02-22] MEDS: busPIRone HCl 5 MG TAB PO SCH ×2 (07:46→13:15)
[2017-02-22] MEDS: OXYBUTYNIN CHLORIDE 5 MG TAB PO SCH (07:46)
[2017-02-22] MEDS: METOCLOPRAMIDE 10 MG TAB PO SCH (07:46)
[2017-02-22] MEDS: PANTOPRAZOLE 40 MG TABLET PO SCH (07:47)
[2017-02-22] MEDS: ALPRAZolam 0.5 MG TAB PO SCH ×2 (07:47→13:15)
[2017-02-22] MEDS: FLUoxetine HCL 20 MG CAP PO SCH (07:47)
[2017-02-22] MEDS: metroNIDAZOLE-NS PMX 500 MG in SALINE 1 100ML.BAG IVPB SCH (07:47)
[2017-02-22] MEDS: INSULIN LISPRO (humaLOG) 300 UNIT/3 ML VIAL SQ SCH ×2 (07:51→13:14)
[2017-02-22] MEDS: SODIUM CHLORIDE 0.9% 1,000 ML IV SCH (07:52)
[2017-02-22 08:55] LABS: Basophils % (A) 1 %; CHCM 32.8; Eosinophils # (A) 0.1 k/uL (0-0.7); Eosinophils % (A) 2 %; HCT 43.4 % (34.0-46.0); HDW 2.47; HGB 14.1 gm/dL (11.4-16.0); Luc # (Auto) 0.07; Luc % (Auto) 1; Lymphocytes # (A) 1.1 k/uL (1.0-4.8); Lymphocytes % (A) 20 %; MCH 32.8 pg (25.0-35.0); MCHC 32.4 g/dL (31.0-37.0); MCV 101.2 fL (80.0-100.0); Macrocytosis Slight; Mean Platelet Volume 6.6; Monocytes # (A) 0.2 k/uL (0-1.0); Monocytes % (A) 4 %; Neutrophils # (A) 3.9 k/uL (1.3-7.7); Neutrophils % (A) 72 %; RBC 4.29 m/uL (3.80-5.40); RDW 13.8 % (11.5-15.5); WBC 5.5 k/uL (3.8-10.6); WBC (Perox) 5.71
[2017-02-22 09:16] LABS: Anion Gap 11 mmol/L; Blood Urea Nitrogen 9 mg/dL (7-17); Calcium 9.2 mg/dL (8.4-10.2); Carbon Dioxide 22 mmol/L (22-30); Chloride 108 mmol/L (98-107); Glucose 224 mg/dL (74-99); Non-African American GFR(MDRD) >60 (>60 ml/min/1.73 sqM); Potassium 4.1 mmol/L (3.5-5.1); Sodium 141 mmol/L (137-145)
[2017-02-22] MEDS ORDERED: ACETAMINOPHEN IV (For NPO) 1,000 MG in EMPTY BAG 1 BAG IVPB ONE (11:12)
[2017-02-22 12:03] LABS: Glucose,Whole Blood 158 mg/dL (75-99)
[2017-02-22] MEDS: METOCLOPRAMIDE 5 MG TAB PO SCH (13:15)
[2017-02-22] MEDS: MULTIVITAMINS, THERA 1 EACH TAB PO SCH (13:15)
[2017-02-22 13:22] VITALS: BMI 32.9
[2017-02-22] MEDS ORDERED: PROPOFOL 10 MG/ML 20 ML VIAL IV ONE (14:06)
[2017-02-22] MEDS ORDERED: LIDOCAINE 1% INJ 10MG/ML (20 ML MDV) ONE (14:06)
[2017-02-22] MEDS ORDERED: IV FLUID CONTINUATION 100 ML IV ONE (14:08)
[2017-02-22] MEDS ORDERED: LACTATED RINGERS 1,000 ML IV ONE (14:09)
--- NOTE | 2017-02-22 14:26 | P.DS ---
Providers Date of admission: 02/20/17 15:54 Expected date of discharge: 02/22/17 Attending physician: Tej Bojorquez Consults: 02/20/17 22:41 Consult Physician Routine Consulting Provider: Nick Rogers Consult Reason/Comments: gi bleed Do you want consulting provider notified?: Yes Primary care physician: [facility] Course: 66-year-old female who was a direct admission from Dr. Bojorquez's office on February 20 with a chief complaint of frequent loose stools. Additionally patient stated she was having bladder pain. Patient stated she had abdominal pain that started last Saturday of the prior week. Patient reportedly was seen in the emergency room on Saturday this week was told she had in the right as was discharged home on and . Patient stated within 24 hours started having diarrhea with start color. Patient states she had a couple episodes where she felt nauseated with dry heaves. A CAT scan of the abdomen and pelvis done on February 20 showed evidence of scattered diverticuli within the sigmoid colon otherwise no suspicious acute changes. The stool obtained this admission for occult blood was positive. C. diff toxin negative. Patient had no evidence of leukocytosis. Patient did undergo a colonoscopy on February [address] rogers patient reported the abdominal pain had improved. On February 22 the hemoglobin was 14.1. Electrolytes were normal no abnormality noted. In the white count 5.4. Patient was afebrile Patient was felt to be hemodynamically stable and appropriate to proceed with a discharge to home Impression Present on admission diffuse abdominal pain with nausea and loose stool stool positive for occult blood History of esophageal reflux Colonoscopy November 2016 showed mild diverticulosis with mild internal/external hemorrhoids C. diff colitis ruled out stool specimen negative for C. diff Type 2 diabetes insulin requiring hemoglobin A1c 9.3 Status post colonoscopy done on February 21 The above dictated assessment and findings were discussed with Dr. Sandoval as covering for Dr. Bojorquez Impression and the plan of care have been dictated as directed. Soni Flower nurse practitioner acting as a scribe for dr sandoval covering for Dr. Bojorquez Patient Condition at Discharge: Stable Plan - Discharge Summary New Discharge Prescriptions: Continue Oxybutynin Chloride 5 mg PO BID Potassium Chloride [Klor-Con 20] 20 meq PO BID Magnesium Gluconate [Magonate] 500 mg PO PC-SUPPER FLUoxetine HCL [PROzac] 20 mg PO BID busPIRone HCL 15 mg PO QID Omeprazole 20 mg PO QAM HYDROcodone/APAP 10-325MG [Kenefic 10-325] 1 tab PO TID PRN PRN Reason: Pain ALPRAZolam 1 mg PO QID Metoclopramide [Reglan] 10 mg PO AC-BRKFST Atorvastatin [Lipitor] 40 mg PO QAM Cyclobenzaprine [Flexeril] 5 mg PO DAILY PRN PRN Reason: Pain Cranberry Fruit Extract [Cranberry] 1,000 mg PO BID Empagliflozin [Jardiance] 25 mg PO HS Insulin Glargine [Lantus] 30 unit SQ HS Metoclopramide [Reglan] 5 mg PO TID Multivitamins, Thera [Multivitamin (formulary)] 1 tab PO DAILY Ciprofloxacin HCl [Cipro] 500 mg PO Q12HR #14 tablet metroNIDAZOLE [Flagyl] 500 mg PO QID #28 tab Discharge Medication List Oxybutynin Chloride 5 mg PO BID 02/05/15 [History] Potassium Chloride [Klor-Con 20] 20 meq PO BID 02/28/15 [History] Magnesium Gluconate [Magonate] 500 mg PO PC-SUPPER 05/29/15 [History] FLUoxetine HCL [PROzac] 20 mg PO BID 08/02/15 [History] busPIRone HCL 15 mg PO QID 08/03/15 [History] HYDROcodone/APAP 10-325MG [Kenefic 10-325] 1 tab PO TID PRN 02/06/16 [History] Omeprazole 20 mg PO QAM 02/06/16 [History] ALPRAZolam 1 mg PO QID 06/04/16 [History] Atorvastatin [Lipitor] 40 mg PO QAM 11/20/16 [History] Cyclobenzaprine [Flexeril] 5 mg PO DAILY PRN 11/20/16 [History] Metoclopramide [Reglan] 10 mg PO AC-BRKFST 11/20/16 [History] Ciprofloxacin HCl [Cipro] 500 mg PO Q12HR #14 tablet 02/16/17 [Rx] Cranberry Fruit Extract [Cranberry] 1,000 mg PO BID 02/16/17 [History] Empagliflozin [Jardiance] 25 mg PO HS 02/16/17 [History] Insulin Glargine [Lantus] 30 unit SQ HS 02/16/17 [History] Metoclopramide [Reglan] 5 mg PO TID 02/16/17 [History] Multivitamins, Thera [Multivitamin (formulary)] 1 tab PO DAILY 02/16/17 [History ] metroNIDAZOLE [Flagyl] 500 mg PO QID #28 tab 02/16/17 [Rx] Follow up Appointment(s)/Referral(s): Tej Bojorquez MD [Primary Care Provider] - 02/25/17 Nick Rogers MD [STAFF PHYSICIAN] - 1 Week Patient Instructions/Handouts: Diverticulosis Diet (GEN), Anxiety (GEN) Activity/Diet/Wound Care/Special Instructions: Cardiac, diabetic diet. Discharge Disposition: HOME SELF-CARE
--- NOTE | 2017-02-22 14:53 | P.OP ---
Date of Procedure: 02/22/17 Preoperative Diagnosis: Epigastric abdominal pain Dysphagia Diarrhea Postoperative Diagnosis: Mild antral gastritis No evidence of gastric outlet obstruction No evidence of GE junction stricture Diverticulosis Procedure(s) Performed: EGD with balloon dilation Colonoscopy Implants: Anesthesia: MAC Surgeon: Nick Kat Pathology: other (Antrum) Condition: stable Disposition: PACU Indications for Procedure: Operative Findings: Description of Procedure: The patient's placed on the endoscopy table lateral position. She received IV sedation. The gastroscope some placed oropharynx passed in the esophagus and into the stomach. Scope was then placed through the pylorus. The first and second portion of the duodenum appeared normal. Scope was then brought back the antrum and there was mild antral gastritis seen. This was biopsied. Scope was then retroflexed and the remainder of the stomach appeared normal. The patient had a previous hiatal hernia. The fundoplication appeared to be the appropriate position. There is no evidence of any stricture. The 20 mm balloon was placed across the GE junction and was passed easily back and forth above and below the GE junction. The distal esophagus. Normal. The proximal esophagus appeared normal. Scope was then withdrawn. Next digital rectal exam was performed which revealed no abnormalities. The flexible colonoscope was then placed the patient's anus and passed throughout the entire colon. The ileocecal valve was. There was a large amount stool in the right colon. The scope was withdrawn the right colon, transverse colon and descending colon appeared normal. In the sigmoid colon there is extensive diverticular changes. There is known to the active diverticulitis. Scope was then back the rectum and this appeared normal. Scope was withdrawn for patient.
[2017-02-22 15:33] VITALS: BP 132/70; PULSE 86; TEMP 97.4
== END 2017-02-22 15:36 | disposition home or self-care (01) | DRG 392 ==
LOC: EC 10:51 → 4MS4W 15:54
PROVIDERS: ADMIT Family Medicine; ATTEND Family Medicine
PROC: 0D748ZZ Dilation of Esophagogastric Junction, Via Natural or Artificial Opening Endoscopic (ICD-10-PCS; principal; 2017-02-22 14:30)
PROC: 0DJD8ZZ Inspection of Lower Intestinal Tract, Via Natural or Artificial Opening Endoscopic (ICD-10-PCS; 2017-02-22 14:30)
PROC: 0DB68ZX Excision of Stomach, Via Natural or Artificial Opening Endoscopic, Diagnostic (ICD-10-PCS; 2017-02-22 14:30)
DX: K57.30 Diverticulosis of large intestine without perforation or abscess without bleeding (principal); R13.10 Dysphagia, unspecified; I10 Essential (primary) hypertension; K29.60 Other gastritis without bleeding; K64.8 Other hemorrhoids; E78.5 Hyperlipidemia, unspecified; G89.29 Other chronic pain; L30.9 Dermatitis, unspecified; E11.9 Type 2 diabetes mellitus without complications; F32.9 Major depressive disorder, single episode, unspecified; F41.0 Panic disorder [episodic paroxysmal anxiety]; K21.9 Gastro-esophageal reflux disease without esophagitis; Z90.49 Acquired absence of other specified parts of digestive tract; Z87.440 Personal history of urinary (tract) infections; Z90.710 Acquired absence of both cervix and uterus; Z79.84 Long term (current) use of oral hypoglycemic drugs; Z79.4 Long term (current) use of insulin; Z79.899 Other long term (current) drug therapy
CPT/HCPCS: 36415; 43239; 43249; 74177; 80048; 80053; 82150; 82272; 83036; 83605; 83690; 83735; 85025; 87324; 88305; 88342; 89055; 96361; 96374; 99285

== ENCOUNTER → 2017-06-04 | Outpatient (CLI) | payer MEDICARE, OTHER ==
--- NOTE | 2017-06-04 14:19 | BD ---
EXAMINATION TYPE: MG DEXA axial skeleton. DATE OF EXAM: 06/04/2017 COMPARISON: Prior DEXA bone scan report November 30, 2004. CLINICAL HISTORY: Postmenopausal female Height: 194 Weight: 5 FT 3 1/2IN FRAX RISK QUESTIONS: Alcohol (3 or more units per day): NO Family History (Parent hip fracture): NO Glucocorticoids (More than 3mos): NO (Ex: prednisone, prednisolone, methylprednisolone, dexamethasone, and hydrocortisone). History of Fracture in Adulthood: YES Secondary Osteoporosis: 1. Type 1 Diabetes: NO 2. Hyperthyroidism: NO 3. Menopause before 45: YES 4. Malnutrition: NO 5. Chronic liver disease: NO Rheumatoid Arthritis: NO Current Tobacco Use: NO RISK FACTORS HISTORY OF: History of Wrist Fracture: RT WRIST X2 When: IN HER 30'S Active: YES Postmenopausal woman: PART HYST AGE 26 MEDICATIONS: Thyroid Medications: Which medication: How Long: Osteoporosis Medications: Which medication: How Long: Additional Medications: INSULIN, MUSCLE RELAXER NEEDED, XANAX, FLUOXITINE HCL, MAGNESIUM, OMEPRAZO LE, OXYBUTYNIN, POTASSIUM, BUSPAR, JARDIANCE, HYDROCODONE, METOCLOPRAMINE,ATORVASTATIN, ANXIETY MEDS, Additional History: EXAM MEASUREMENTS: Bone mineral densitometry was performed using the [employer] System. Bone mineral density as measured about the Lumbar spine is: ----- L1-L4(G/cm2): 0.926 T Score Values are as follows: ----- L2: -1.6 ----- L3: -1.5 ----- L4: -2.6 ----- L1-L4: -2.1 Bone mineral density has: Decreased -10.5% since study of: 2004 Bone mineral density about the R hip (g/cm2): 0.561 Bone mineral density about the L hip (g/cm2): 0.664 T Score values are as follows: -----R Neck: -3.4 -----L Neck: -2.7 -----R Total: -2.8 -----L Total: -2.0 Bone mineral density has: Decreased -24.2% since study of: 2004 IMPRESSION: Osteoporosis (T Score less than -2.5) as noted by T Score values at the femoral neck level in both hi ps. Bone density is is significantly decreased or diminished from prior study report. There is increa sed fracture risk and therapy is usually indicated based on age. Re-Screen 1-2 years. NOTE: T-SCORE=SD OF THE YOUNG ADULT MEAN.
--- NOTE | 2017-06-05 10:47 | MM ---
Reason for exam: screening (asymptomatic). Last mammogram was performed 9 years and 5 months ago. History: Patient is postmenopausal. Benign left mammotome panel of the left breast, December 27, 2006. Physical Findings: A clinical breast exam by your physician is recommended on an annual basis and results should be correlated with mammographic findings. MG Screening Mammo w CAD Bilateral CC and MLO view(s) were taken. XCCL view(s) were taken of the right breast. Prior study comparison: December 29, 2007, bilateral digital screening mammogram. August 26, 2007, left diagnostic mammogram w/CAD. There are scattered fibroglandular densities. Previous mammotome biopsy within the left breast. There is no discrete abnormality. No significant changes when compared with prior studies. ASSESSMENT: Negative, BI-RAD 1 RECOMMENDATION: Routine screening mammogram of both breasts in 1 year.
== END | disposition home or self-care (01) ==
LOC: RADMAMWWP 09:43
PROVIDERS: ATTEND Family Medicine
DX: Z12.31 Encounter for screening mammogram for malignant neoplasm of breast (principal); M81.0 Age-related osteoporosis without current pathological fracture; N95.1 Menopausal and female climacteric states
CPT/HCPCS: 77080; G0202

== ENCOUNTER → 2017-08-07 | Outpatient (CLI) | payer MEDICARE, OTHER ==
[2017-08-07 12:53] LABS: EKG EKG PERFORMED
[2017-08-07 13:57] LABS: CH 32.9; CHCM 32.6; HCT 44.6 % (34.0-46.0); HDW 2.52; HGB 14.5 gm/dL (11.4-16.0); MCH 32.9 pg (25.0-35.0); MCHC 32.5 g/dL (31.0-37.0); MCV 101.3 fL (80.0-100.0); WBC 6.4 k/uL (3.8-10.6)
[2017-08-07 14:03] LABS: Appearance,Urine Clear (Clear); Bilirubin,Urine Negative (Negative); Glucose,Urine (UA) 4+ (Negative); Ketones,Urine Negative (Negative); Leukocyte Esterase,Urine Moderate (Negative); Mucus,Urine Rare /hpf; Nitrite,Urine Negative (Negative); PH, Urine 5.5 (5.0-8.0); Particle Count 1318; Protein,Urine Negative (Negative); RBC,Urine 3 /hpf (0-5); Specific Gravity,Urine 1.027 (1.001-1.035); Squamous Epithelial Cell,Urine 3 /hpf (0-4); UA Billing (MACRO vs. MICRO) MICRO; Urobilinogen,Urine <2.0 mg/dL (<2.0); WBC,Urine 8 /hpf (0-5)
[2017-08-07 14:09] LABS: Prothrombin Time 10.6 sec (9.0-12.0)
[2017-08-07 14:13] LABS: ALT 33 U/L (9-52); AST 29 U/L (14-36); Alkaline Phosphatase 77 U/L (38-126); Anion Gap 12 mmol/L; Blood Urea Nitrogen 11 mg/dL (7-17); Calcium 10.5 mg/dL (8.4-10.2); Carbon Dioxide 27 mmol/L (22-30); Chloride 103 mmol/L (98-107); Glucose 189 mg/dL (74-99); Non-African American GFR(MDRD) >60 (>60 ml/min/1.73 sqM); Potassium 4.8 mmol/L (3.5-5.1); Sodium 142 mmol/L (137-145); Total Bilirubin 0.5 mg/dL (0.2-1.3); Total Protein 8.2 g/dL (6.3-8.2)
== END | disposition home or self-care (01) ==
LOC: LABPAT 12:17
PROVIDERS: ATTEND Orthopaedic Surgery
DX: Z01.810 Encounter for preprocedural cardiovascular examination (principal); R94.31 Abnormal electrocardiogram [ECG] [EKG]; Z79.01 Long term (current) use of anticoagulants; Z01.812 Encounter for preprocedural laboratory examination
CPT/HCPCS: 36415; 80053; 81001; 85027; 85610; 85730; 87070; 93005

== ENCOUNTER 2017-08-12 17:10 | Emergency (ER) | payer MEDICARE, OTHER ==
[2017-08-12 17:37] VITALS: BP 136/69; PULSE 108; RESP 20; TEMP 98.4
[2017-08-12] MEDS ORDERED: HYDROmorphone 0.5 MG/0.5 ML SYRINGE IM STA (18:30)
--- NOTE | 2017-08-12 18:39 | ED ---
Extremity Problem HPI - General Chief complaint: Extremity Problem,Nontraumatic Stated complaint: RT KNEE SWELLING Time Seen by Provider: 08/12/17 18:26 Source: patient, RN notes reviewed Mode of arrival: wheelchair Limitations: physical limitation - History of Present Illness Initial comments: 67-year-old female presents emergency department for right knee pain. Patient has Demetrio knee and states that she is scheduled for surgery but not until September 03. She states the pain has been worse last couple days with no injury. She states that she may have due to more walking usual. Patient denies any calf pain swelling. Patient states that this is his her chronic pain in her Dilworth is not helping. - Related Data Home Medications Medication Instructions Recorded Confirmed Oxybutynin Chloride 5 mg PO BID 02/05/15 02/20/17 Potassium Chloride [Klor-Con 20] 20 meq PO BID 02/28/15 02/20/17 Magnesium Gluconate [Magonate] 500 mg PO PC-SUPPER 05/29/15 02/20/17 FLUoxetine HCL [PROzac] 20 mg PO BID 08/02/15 02/20/17 busPIRone HCL 15 mg PO QID 08/03/15 02/20/17 HYDROcodone/APAP 10-325MG [Dilworth 1 tab PO TID PRN 02/06/16 02/20/17 10-325] Omeprazole 20 mg PO QAM 02/06/16 02/20/17 ALPRAZolam 1 mg PO QID 06/04/16 02/20/17 Atorvastatin [Lipitor] 40 mg PO QAM 11/20/16 02/20/17 Cyclobenzaprine [Flexeril] 5 mg PO DAILY PRN 11/20/16 02/20/17 Metoclopramide [Reglan] 10 mg PO AC-BRKFST 11/20/16 02/20/17 Cranberry Fruit Extract [Cranberry] 1,000 mg PO BID 02/16/17 02/20/17 Empagliflozin [Jardiance] 25 mg PO HS 02/16/17 02/20/17 Insulin Glargine [Lantus] 30 unit SQ HS 02/16/17 02/20/17 Metoclopramide [Reglan] 5 mg PO TID 02/16/17 02/20/17 Multivitamins, Thera [Multivitamin 1 tab PO DAILY 02/16/17 02/20/17 (formulary)] Previous Rx's Medication Instructions Recorded Ciprofloxacin HCl [Cipro] 500 mg PO Q12HR #14 tablet 02/16/17 metroNIDAZOLE [Flagyl] 500 mg PO QID #28 tab 02/16/17 Allergies Allergy/AdvReac Type Severity Reaction Status Date / Time benactyzine AdvReac Abdominal Verified 08/12/17 17:37 Pain dicyclomine [From Bentyl] AdvReac Abdominal Verified 08/12/17 17:37 Pain levofloxacin [From Levaquin] AdvReac Abdominal Verified 08/12/17 17:37 Pain Penicillins AdvReac "Passed Verified 08/12/17 17:37 out" prednisone AdvReac Abdominal Verified 08/12/17 17:37 Pain sulfamethoxazole AdvReac Abdominal Verified 08/12/17 17:37 [From Bactrim] Pain tamsulosin HCl [From Flomax] AdvReac Abdominal Verified 08/12/17 17:37 Pain trimethoprim [From Bactrim] AdvReac Abdominal Verified 08/12/17 17:37 Pain Review of Systems ROS Statement: Those systems with pertinent positive or pertinent negative responses have been documented in the HPI. ROS Other: All systems not noted in ROS Statement are negative. Past Medical History Past Medical History: Diabetes Mellitus, GERD/Reflux, Hyperlipidemia, Hypertension, Skin Disorder Additional Past Medical History / Comment(s): uti(ecoli ) chronic dermatitis, chronic pain,hiatal hernia(had sx), diverticulosis History of Any Multi-Drug Resistant Organisms: None Reported Date of last positivie culture/infection: None MDRO Source:: None Past Surgical History: Cholecystectomy, Hysterectomy Additional Past Surgical History / Comment(s): 05-09-15 LAP CHOLEY. hemorroidectomy, colonoscopy-normal; egd, LAP GUCCI FUNDLOPLICATION Past Anesthesia/Blood Transfusion Reactions: No Reported Reaction Additional Past Anesthesia/Blood Transfusion Reaction / Comment(s): Pt has never recieved blood. CLAUSTERPHOBIA Past Psychological History: Anxiety, Depression Smoking Status: Never smoker Past Alcohol Use History: None Reported Past Drug Use History: None Reported - Past Family History Father Family Medical History: Diabetes Mellitus Mother Family Medical History: Diabetes Mellitus General Exam Limitations: physical limitation General appearance: alert, in no apparent distress Respiratory exam: Present: normal lung sounds bilaterally. Absent: respiratory distress, wheezes, rales, rhonchi, stridor Cardiovascular Exam: Present: regular rate, normal rhythm, normal heart sounds. Absent: systolic murmur, diastolic murmur, rubs, gallop, clicks Extremities exam: Present: other (Right knee pain with range of motion neurovascular intact minimal swelling or erythema no warmth no rashes over the joint) Course Vital Signs 08/12/17 17:34 Temperature 98.4 F Pulse Rate 108 H Respiratory 20 Rate Blood Pressure 136/69 O2 Sat by Pulse 96 Oximetry Medical Decision Making - Medical Decision Making 59-year-old female was in the emergency from for right knee pain. Patient has tried multiple things at home including heat and ice elevation Dilworth with no relief. Patient be given an injection of pain medications at discharge. She is advised to follow-up with Dr. Becerra for change of her pain medication as she currently takes Dilworth 10/325. Patient is scheduled for surgery. Disposition Clinical Impression: Chronic knee pain Disposition: HOME SELF-CARE Condition: Stable Instructions: Knee Pain (ED) Additional Instructions: Follow-up with your PCP or orthopedic doctor for change in your pain medication or additional pain medications.Please return to the Emergency Department if symptoms worsen or any other concerns. Referrals: Tej Bojorquez MD [Primary Care Provider] - 1-2 days Time of Disposition: 18:38
== END 2017-08-12 18:50 | disposition home or self-care (01) ==
LOC: EC 17:10
DX: G89.29 Other chronic pain (principal); M25.561 Pain in right knee; M79.89 Other specified soft tissue disorders; E11.9 Type 2 diabetes mellitus without complications; K21.9 Gastro-esophageal reflux disease without esophagitis; E78.5 Hyperlipidemia, unspecified; I10 Essential (primary) hypertension; F41.9 Anxiety disorder, unspecified; F32.9 Major depressive disorder, single episode, unspecified; Z88.0 Allergy status to penicillin; Z88.1 Allergy status to other antibiotic agents; Z88.5 Allergy status to narcotic agent; Z79.4 Long term (current) use of insulin; Z79.84 Long term (current) use of oral hypoglycemic drugs; Z79.899 Other long term (current) drug therapy
CPT/HCPCS: 99283; 96372; J1170

== ENCOUNTER 2017-12-23 13:25 | Emergency (ER) | payer MEDICARE, OTHER ==
--- NOTE | 2017-12-23 13:43 | ED ---
General Adult HPI - General Chief complaint: Abdominal Pain Stated complaint: Abd/Lower Back Pain Time Seen by Provider: 12/23/17 13:42 Source: patient Mode of arrival: wheelchair Limitations: no limitations - History of Present Illness Initial comments: Sherly is a 67 yo F with PMH listed below who presents to the ED today for evaluation of abdominal pain, nausea, vomiting. Patient reports that she suffers from chronic diarrhea, today she has not had any bowel movements because it is experiencing extreme pain radiates throughout her entire abdomen into her back bilaterally. Patient describes it as feeling as though she has pain into her kidneys. Patient reports the pain began yesterday but has progressively worsened today. It is associated with persistent nausea and a couple of episodes of nonbloody nonbilious emesis. Pain is constant without relieving or exacerbating factors. Patient also reports she is experiencing urinary frequency, burning and hesitancy. Patient denies any chest pain, trouble breathing, any lightheadedness or passing out. She denies any history of bowel obstructions are bowel surgery. She has had a hysterectomy in the past. - Related Data Home Medications Medication Instructions Recorded Confirmed Oxybutynin Chloride 5 mg PO BID 02/05/15 12/23/17 Potassium Chloride [Klor-Con 20] 20 meq PO BID 02/28/15 12/23/17 FLUoxetine HCL [PROzac] 20 mg PO BID 08/02/15 12/23/17 busPIRone HCL 15 mg PO QID@01,07,,08/03/15 12/23/17 ALPRAZolam 1 mg PO QID@,07,,06/04/16 12/23/17 Atorvastatin [Lipitor] 40 mg PO QAM 11/20/16 12/23/17 Empagliflozin [Jardiance] 25 mg PO HS 02/16/17 12/23/17 Multivitamins, Thera [Multivitamin 1 tab PO DAILY 02/16/17 12/23/17 (formulary)] QUEtiapine [SEROquel] 12.5 mg PO BID 08/27/17 12/23/17 Insulin Glargine [Lantus] 40 unit SQ DAILY 09/03/17 12/23/17 Alendronate Sodium [Fosamax] 70 mg PO Q7D 12/23/17 12/23/17 Cranberry Fruit Extract [Cranberry] 1,000 mg PO BID 12/23/17 12/23/17 HYDROcodone/APAP 10-325MG [West 1 tab PO TID PRN 12/23/17 12/23/17 10-325] Magnesium Oxide [Mag-Ox] 500 mg PO AC-SUPPER 12/23/17 12/23/17 Omeprazole 20 mg PO DAILY 12/23/17 12/23/17 Previous Rx's Medication Instructions Recorded Cyclobenzaprine [Flexeril] 5 mg PO DAILY PRN tab 09/06/17 Nitrofurantoin Monohyd/M-Cryst 100 mg PO Q12HR #14 cap 12/23/17 [Macrobid] Phenazopyridine HCl [Pyridium] 200 mg PO BID #6 tablet 12/23/17 Allergies Allergy/AdvReac Type Severity Reaction Status Date / Time benactyzine AdvReac Abdominal Verified 12/23/17 14:36 Pain ciprofloxacin [From Cipro] AdvReac Abdominal Verified 12/23/17 14:36 Pain dicyclomine [From Bentyl] AdvReac Abdominal Verified 12/23/17 14:36 Pain levofloxacin [From Levaquin] AdvReac Abdominal Verified 12/23/17 14:36 Pain Penicillins AdvReac "Passed Verified 12/23/17 14:36 out" prednisone AdvReac Abdominal Verified 12/23/17 14:36 Pain sulfamethoxazole AdvReac Abdominal Verified 12/23/17 14:36 [From Bactrim] Pain tamsulosin HCl [From Flomax] AdvReac Abdominal Verified 12/23/17 14:36 Pain trimethoprim [From Bactrim] AdvReac Abdominal Verified 12/23/17 14:36 Pain Review of Systems ROS Statement: Those systems with pertinent positive or pertinent negative responses have been documented in the HPI. ROS Other: All systems not noted in ROS Statement are negative. Constitutional: Reports: chills. Denies: fever ENT: Denies: ear pain, throat pain Respiratory: Denies: cough, dyspnea Cardiovascular: Denies: chest pain, palpitations Endocrine: Reports: fatigue Gastrointestinal: Reports: abdominal pain, nausea, vomiting, diarrhea Genitourinary: Reports: urgency, dysuria, frequency Musculoskeletal: Denies: back pain Skin: Denies: rash, lesions Neurological: Denies: headache, weakness Psychiatric: Denies: anxiety, depression Hematological/Lymphatic: Denies: easy bleeding, easy bruising Past Medical History Past Medical History: Diabetes Mellitus, GERD/Reflux, Hyperlipidemia, Hypertension, Osteoarthritis (OA), Skin Disorder Additional Past Medical History / Comment(s): chronic dermatitis ,hx of hiatal hernia with surgery, diverticulosis, no current BP meds., constipation. History of Any Multi-Drug Resistant Organisms: None Reported Date of last positivie culture/infection: None MDRO Source:: None Past Surgical History: Cholecystectomy, Hysterectomy, Joint Replacement Additional Past Surgical History / Comment(s): hemorroidectomy, colonoscopy, egd , LAP GUCCI FUNDLOPLICATION knee replacement Past Anesthesia/Blood Transfusion Reactions: No Reported Reaction Additional Past Anesthesia/Blood Transfusion Reaction / Comment(s): . Past Psychological History: Anxiety, Depression Smoking Status: Never smoker Past Alcohol Use History: None Reported Past Drug Use History: None Reported - Past Family History Father Family Medical History: Diabetes Mellitus Mother Family Medical History: Diabetes Mellitus General Exam Limitations: no limitations General appearance: alert, other (appears uncomfortable) Head exam: Present: atraumatic, normocephalic Eye exam: Present: normal appearance, PERRL ENT exam: Absent: mucous membranes moist Neck exam: Present: normal inspection Respiratory exam: Present: normal lung sounds bilaterally. Absent: respiratory distress Cardiovascular Exam: Present: regular rate, tachycardia GI/Abdominal exam: Present: soft, distended, tenderness. Absent: guarding, rebound Rectal exam: Present: deferred Neurological exam: Present: alert, oriented X3 Psychiatric exam: Present: agitated Skin exam: Present: warm, dry, intact Course Vital Signs 12/23/17 12/23/17 12/23/17 13:36 15:33 17:32 Temperature 99.1 F 98.3 F 97.8 F Pulse Rate 108 H 99 89 Respiratory 18 20 16 Rate Blood Pressure 154/88 143/93 115/57 O2 Sat by Pulse 97 97 95 Oximetry Medical Decision Making - Medical Decision Making Patient was seen and evaluated, history obtained from patient and family at bedside Physical exam with somewhat distended abdomen with diffuse tenderness Labs, acute abdominal series ordered. Zofran, morphine and IV fluids ordered Labs with mild lactic acidosis of 2.2, no leukocytosis, normal kidney function Hypermagnesemia, hyperkalemia however there does note to be some hemolysis noted Urinalysis with evidence of a urinary tract infection, urine culture was ordered as well as IV Rocephin Acute abdominal series with air-fluid level suggestive of enteritis IV fluids infusing Patient was reevaluated, reports minimal improvement with Zofran and morphine At this time I will pursue a computed tomography scan for further evaluation CT with evidence of fluid in the bowel, consistent with patient's history of chronic diarrhea. Addition there is free air in the bladder which is consistent with her urinary tract infection. Urine cultures have been obtained patient has received an IV dose of Rocephin. Is also discussed with the patient and options for admission or discharge were discussed, at this time the patient will prefer to go home, I reviewed her ALLERGIES and determined that options for antibiotics including Keflex or Macrobid. She was prescribed Macrobid as well as Pyridium as I feel that most of her discomfort is secondary to urinary bladder discomfort. Advised the patient that she needs to take antibiotics as prescribed and follow up with her primary care physician for repeat evaluation and urinalysis. Advised patient that if she develops any worsening discomfort, fevers, chills, nausea, vomiting inability tolerate her oral antibiotics or any new or concerning symptoms she needs to return to the emergency department for reevaluation. All questions pertaining to care were answered best my ability patient was discharged home. - Lab Data Result diagrams: 12/23/17 14:10 12/23/17 14:10 Lab Results 12/23/17 12/23/17 12/23/17 Range/Units 14:10 14:10 14:10 WBC 5.4 (3.8-10.6) k/uL RBC 5.04 (3.80-5.40) m/uL Hgb 15.4 (11.4-16.0) gm/dL Hct 46.6 H (34.0-46.0) % MCV 92.5 (80.0-100.0) fL MCH 30.6 (25.0-35.0) pg MCHC 33.0 (31.0-37.0) g/dL RDW 14.5 (11.5-15.5) % Plt Count 273 (150-450) k/uL Neutrophils % 67 % Lymphocytes % 22 % Monocytes % 7 % Eosinophils % 2 % Basophils % 1 % Neutrophils # 3.6 (1.3-7.7) k/uL Lymphocytes # 1.2 (1.0-4.8) k/uL Monocytes # 0.4 (0-1.0) k/uL Eosinophils # 0.1 (0-0.7) k/uL Basophils # 0.0 (0-0.2) k/uL Sodium 142 (137-145) mmol/L Potassium 5.9 H (3.5-5.1) mmol/L Chloride 104 (98-107) mmol/L Carbon Dioxide 18 L (22-30) mmol/L Anion Gap 20 mmol/L BUN 13 (7-17) mg/dL Creatinine 0.80 (0.52-1.04) mg/dL Est GFR (CKD-EPI)AfAm 88 (>60 ml/min/1.73 sqM) Est GFR (CKD-EPI)NonAf 76 (>60 ml/min/1.73 sqM) Glucose 180 H (74-99) mg/dL Plasma Lactic Acid Reginald 2.2 H* (0.7-2.0) mmol/L Calcium 10.6 H (8.4-10.2) mg/dL Magnesium 3.1 H (1.6-2.3) mg/dL Total Bilirubin 0.8 (0.2-1.3) mg/dL AST 42 H (14-36) U/L ALT 26 (9-52) U/L Alkaline Phosphatase 78 (38-126) U/L Total Protein 8.6 H (6.3-8.2) g/dL Albumin 4.8 (3.5-5.0) g/dL Lipase 121 (23-300) U/L Urine Color Urine Appearance (Clear) Urine pH (5.0-8.0) Ur Specific [place] (1.001-1.035) Urine Protein (Negative) Urine Glucose (UA) (Negative) Urine Ketones (Negative) Urine Blood (Negative) Urine Nitrite (Negative) Urine Bilirubin (Negative) Urine Urobilinogen (<2.0) mg/dL Ur Leukocyte Esterase (Negative) Urine RBC (0-5) /hpf Urine WBC (0-5) /hpf Urine WBC Clumps (None) /hpf Ur Squamous Epith Cells (0-4) /hpf Urine Mucus (None) /hpf 12/23/17 Range/Units 14:10 WBC (3.8-10.6) k/uL RBC (3.80-5.40) m/uL Hgb (11.4-16.0) gm/dL Hct (34.0-46.0) % MCV (80.0-100.0) fL MCH (25.0-35.0) pg MCHC (31.0-37.0) g/dL RDW (11.5-15.5) % Plt Count (150-450) k/uL Neutrophils % % Lymphocytes % % Monocytes % % Eosinophils % % Basophils % % Neutrophils # (1.3-7.7) k/uL Lymphocytes # (1.0-4.8) k/uL Monocytes # (0-1.0) k/uL Eosinophils # (0-0.7) k/uL Basophils # (0-0.2) k/uL Sodium (137-145) mmol/L Potassium (3.5-5.1) mmol/L Chloride (98-107) mmol/L Carbon Dioxide (22-30) mmol/L Anion Gap mmol/L BUN (7-17) mg/dL Creatinine (0.52-1.04) mg/dL Est GFR (CKD-EPI)AfAm (>60 ml/min/1.73 sqM) Est GFR (CKD-EPI)NonAf (>60 ml/min/1.73 sqM) Glucose (74-99) mg/dL Plasma Lactic Acid Reginald (0.7-2.0) mmol/L Calcium (8.4-10.2) mg/dL Magnesium (1.6-2.3) mg/dL Total Bilirubin (0.2-1.3) mg/dL AST (14-36) U/L ALT (9-52) U/L Alkaline Phosphatase (38-126) U/L Total Protein (6.3-8.2) g/dL Albumin (3.5-5.0) g/dL Lipase (23-300) U/L Urine Color Yellow Urine Appearance Cloudy H (Clear) Urine pH 5.0 (5.0-8.0) Ur Specific [place] 1.021 (1.001-1.035) Urine Protein Negative (Negative) Urine Glucose (UA) 4+ H (Negative) Urine Ketones Negative (Negative) Urine Blood Trace H (Negative) Urine Nitrite Positive H (Negative) Urine Bilirubin Negative (Negative) Urine Urobilinogen <2.0 (<2.0) mg/dL Ur Leukocyte Esterase Large H (Negative) Urine RBC 14 H (0-5) /hpf Urine WBC >182 H (0-5) /hpf Urine WBC Clumps Moderate H (None) /hpf Ur Squamous Epith Cells 1 (0-4) /hpf Urine Mucus Rare H (None) /hpf Disposition Clinical Impression: Urinary tract infection Disposition: HOME SELF-CARE Condition: Good Prescriptions: Nitrofurantoin Monohyd/M-Cryst [Macrobid] 100 mg PO Q12HR #14 cap Phenazopyridine HCl [Pyridium] 200 mg PO BID #6 tablet Referrals: Tej Bojorquez MD [Primary Care Provider] - 1-2 days Time of Disposition: 17:21
[2017-12-23] MEDS ORDERED: MORPHINE SULF 5MG/10ML VL IVP STA (14:18)
[2017-12-23] MEDS ORDERED: SODIUM CHLORIDE 0.9% 1,000 ML IV ONE (14:18)
[2017-12-23] MEDS ORDERED: ONDANSETRON 4 MG/2 ML VIAL IVP STA (14:18)
[2017-12-23] MEDS ORDERED: MORPHINE SULF 5MG/10ML VL ONE (14:22)
[2017-12-23 14:41] LABS: Albumin 4.8 g/dL (3.5-5.0); Appearance,Urine Cloudy (Clear); Bilirubin,Urine Negative (Negative); Blood,Urine Trace (Negative); Calcium 10.6 mg/dL (8.4-10.2); Color,Urine Yellow; Glucose,Urine (UA) 4+ (Negative); Ketones,Urine Negative (Negative); Leukocyte Esterase,Urine Large (Negative); Magnesium 3.1 mg/dL (1.6-2.3); Mucus,Urine Rare /hpf; Nitrite,Urine Positive (Negative); Protein,Urine Negative (Negative); RBC,Urine 14 /hpf (0-5); Specific Gravity,Urine 1.021 (1.001-1.035); Squamous Epithelial Cell,Urine 1 /hpf (0-4); Total Bilirubin 0.8 mg/dL (0.2-1.3); Total Protein 8.6 g/dL (6.3-8.2); Urobilinogen,Urine <2.0 mg/dL (<2.0); WBC,Urine >182 /hpf (0-5)
--- NOTE | 2017-12-23 14:45 | XR ---
EXAMINATION TYPE: Acute abdominal series DATE OF EXAM: 12/23/2017 COMPARISON: NONE HISTORY: 67-year-old female chest and abdominal pain, constipation TECHNIQUE: 4 views FINDINGS: Frontal view of the chest shows normal heart size, aorta, and pulmonary vasculature. Mild interstitia l prominence as a chronic appearance. No consolidation or pleural effusion. No evidence for free intraperitoneal air. Colonic air-fluid levels are present throughout the right side of the abdomen and in the epigastric r egion. No dilated small bowel loops or small bowel air-fluid level seen. Some air is present within t he rectum. No suspicious calcifications identified. Pelvic phleboliths are noted. IMPRESSION: 1. Chest without acute cardiopulmonary process. 2. No evidence for free air or bowel obstruction. 3. Air-fluid levels throughout nondilated right hemicolon suggests enteritis with liquid stool or an ileus.
[2017-12-23 14:46] LABS: Potassium 5.9 mmol/L (3.5-5.1)
[2017-12-23] MEDS ORDERED: cefTRIAXone IN SWFI 1,000 MG/10 ML SYRINGE IVP STA (14:57)
[2017-12-23 14:58] LABS: Basophils % (A) 1 %; Eosinophils # (A) 0.1 k/uL (0-0.7); Eosinophils % (A) 2 %; HCT 46.6 % (34.0-46.0); HGB 15.4 gm/dL (11.4-16.0); Lymphocytes # (A) 1.2 k/uL (1.0-4.8); Lymphocytes % (A) 22 %; MCH 30.6 pg (25.0-35.0); MCV 92.5 fL (80.0-100.0); Mean Platelet Volume 7.8; Monocytes # (A) 0.4 k/uL (0-1.0); Monocytes % (A) 7 %; Neutrophils # (A) 3.6 k/uL (1.3-7.7); Neutrophils % (A) 67 %; Platelet Count 273 k/uL (150-450); RBC 5.04 m/uL (3.80-5.40); RDW 14.5 % (11.5-15.5); WBC 5.4 k/uL (3.8-10.6)
[2017-12-23] MEDS ORDERED: RX INFO: IV CONTRAST WAS GIVEN 1 EACH MISC MISCELLANE PRN (15:42)
--- NOTE | 2017-12-23 16:23 | CT ---
EXAMINATION TYPE: CT abdomen pelvis w con DATE OF EXAM: 12/23/2017 HISTORY: Stomach pains, back pain and hematuria CT DLP: 1326.9mGycm Automated Exposure Control for Dose Reduction was Utilized. CONTRAST: CT scan of the abdomen and pelvis is performed with IV Contrast, patient injected with 100 mL of Isov ue 300. COMPARISON: 03/01/2016 and 02/20/2017. FINDINGS: LUNG BASES: No significant abnormality is appreciated. LIVER/GB: No significant abnormality is appreciated. PANCREAS: No significant abnormality is seen. No ductal dilatation. SPLEEN: No significant abnormality is seen. Small splenule is present adjacent to the [place] spleen. ADRENALS: Left adrenal gland nodule again measures up to 1.6 cm, stable from the prior exam of 03/01/20 16. This remains indeterminant as it has a Hounsfield unit of 31. Right adrenal gland is unremarkable . KIDNEYS: No significant abnormality is seen. BOWEL: Postsurgical changes seen at the gastroesophageal junction. Postsurgical changes also seen in the cecum. Numerous air-fluid levels are noted within the nondilated colon. Stool is noted within the mildly dilated rectosigmoid junction measuring 6.3 cm. Fluid-filled loops of nondilated small bowel are also identified. UTERUS/ADNEXA: Uterus appears surgically absent. LYMPH NODES: No greater than 1cm abdominal or pelvic lymph nodes are appreciated. OSSEOUS STRUCTURES: Vertebral body hemangioma seen of L3. Osseous structures are grossly intact. OTHER: There is seen within the urinary bladder. IMPRESSION: 1. Air within the urinary bladder is concerning for infectious etiology without recent history of ins trumentation. Correlate with urinalysis. 2. Numerous colonic air-fluid levels are suggestive of colonic malabsorption and can be seen in the s etting of diarrhea with mild dilatation of the rectosigmoid junction up to 6.3 cm. No obstruction. 3. Indeterminate left adrenal gland nodule is stable dating back to 03/01/2016.
[2017-12-23 17:33] VITALS: BP 115/57; PULSE 89; RESP 16; TEMP 97.8
== END 2017-12-23 17:51 | disposition home or self-care (01) ==
LOC: EC 13:25
DX: N39.0 Urinary tract infection, site not specified (principal); E87.2 Acidosis; R45.1 Restlessness and agitation; R00.0 Tachycardia, unspecified; R14.0 Abdominal distension (gaseous); R11.2 Nausea with vomiting, unspecified; M54.5 Low back pain; E78.5 Hyperlipidemia, unspecified; I10 Essential (primary) hypertension; E11.9 Type 2 diabetes mellitus without complications; K21.9 Gastro-esophageal reflux disease without esophagitis; F32.9 Major depressive disorder, single episode, unspecified; F41.9 Anxiety disorder, unspecified; Z79.4 Long term (current) use of insulin; Z79.899 Other long term (current) drug therapy; Z88.0 Allergy status to penicillin; Z88.1 Allergy status to other antibiotic agents; Z88.8 Allergy status to other drugs, medicaments and biological substances; Z90.710 Acquired absence of both cervix and uterus; Z90.49 Acquired absence of other specified parts of digestive tract
CPT/HCPCS: 99284; 96374; 96375 ×2; 96361; 36415; 80053; 83605; 83690; 83735; 85025; 81001; 87086; 74022; 74177; J2405; J0696; Q9967; J2270; 87077; 87186

== ENCOUNTER 2018-02-06 10:02 | Observation (INO) | payer MEDICARE, OTHER ==
[2018-02-06] MEDS ORDERED: SODIUM CHLORIDE 0.9% 1,000 ML IV STA (10:38)
[2018-02-06] MEDS ORDERED: KETOROLAC 30 MG/ML 1 ML VIAL IVP STA ×2 (10:38→14:17)
--- NOTE | 2018-02-06 10:44 | ED ---
Chest Pain HPI - General Chief Complaint: Chest Pain Stated Complaint: Chest pain Time Seen by Provider: 02/06/18 10:05 Source: patient, family, RN notes reviewed Mode of arrival: wheelchair Limitations: no limitations - History of Present Illness Initial Comments: This is a 59-year-old female who presents with multiple complaints she first complains of chronic abdominal pain is on-and-off in the epigastric area for quite some time she states she had the onset this morning of sharp lower midsternal and upper epigastric pain around 3 AM this morning severe associated with any fevers chills or sweats some nausea. She states she's had decreased food intake but has been drinking fluids okay. She states she has had her gallbladder out she has had a hysterectomy. No history of heart or lung disease. No history of abdominal disease otherwise. No dysuria no hematuria she also states she has some bladder pain she points her lower abdominal area. She is very anxious on presentation. Also she is tearful. MD Complaint: chest pain, other - Related Data Home Medications Medication Instructions Recorded Confirmed Oxybutynin Chloride 5 mg PO BID 02/05/15 02/06/18 Potassium Chloride [Klor-Con 20] 20 meq PO BID 02/28/15 02/06/18 FLUoxetine HCL [PROzac] 20 mg PO BID 08/02/15 02/06/18 busPIRone HCL 15 mg PO QID@01,07,,08/03/15 02/06/18 ALPRAZolam 1 mg PO QID@01,07,,19 06/04/16 02/06/18 Atorvastatin [Lipitor] 40 mg PO QAM 11/20/16 02/06/18 Empagliflozin [Jardiance] 25 mg PO HS 02/16/17 02/06/18 Multivitamins, Thera [Multivitamin 1 tab PO DAILY 02/16/17 02/06/18 (formulary)] QUEtiapine [SEROquel] 12.5 mg PO BID 08/27/17 02/06/18 Insulin Glargine [Lantus] 40 unit SQ DAILY 09/03/17 02/06/18 Alendronate Sodium [Fosamax] 70 mg PO MO 12/23/17 02/06/18 Cranberry Fruit Extract [Cranberry] 1,000 mg PO BID 12/23/17 02/06/18 HYDROcodone/APAP 10-325MG [[place] 1 tab PO TID PRN 12/23/17 02/06/18 10-325] Magnesium Oxide [Mag-Ox] 500 mg PO AC-SUPPER 12/23/17 02/06/18 Omeprazole 20 mg PO DAILY 12/23/17 02/06/18 Previous Rx's Medication Instructions Recorded Cyclobenzaprine [Flexeril] 5 mg PO DAILY PRN tab 09/06/17 Allergies Allergy/AdvReac Type Severity Reaction Status Date / Time benactyzine AdvReac Abdominal Verified 02/06/18 11:07 Pain ciprofloxacin [From Cipro] AdvReac Abdominal Verified 02/06/18 11:07 Pain dicyclomine [From Bentyl] AdvReac Abdominal Verified 02/06/18 11:07 Pain levofloxacin [From Levaquin] AdvReac Abdominal Verified 02/06/18 11:07 Pain Penicillins AdvReac "Passed Verified 02/06/18 11:07 out" prednisone AdvReac Abdominal Verified 02/06/18 11:07 Pain sulfamethoxazole AdvReac Abdominal Verified 02/06/18 11:07 [From Bactrim] Pain tamsulosin HCl [From Flomax] AdvReac Abdominal Verified 02/06/18 11:07 Pain trimethoprim [From Bactrim] AdvReac Abdominal Verified 02/06/18 11:07 Pain Review of Systems ROS Statement: Those systems with pertinent positive or pertinent negative responses have been documented in the HPI. ROS Other: All systems not noted in ROS Statement are negative. EKG Findings - EKG Results: EKG: interpreted by ERMTrip, sinus rhythm (Sinus rhythm at 90. Interval 160 QRS duration 70 QT since QTC of 370/452 low-voltage QRS poor R-wave progression) Past Medical History Past Medical History: Diabetes Mellitus, GERD/Reflux, Hyperlipidemia, Hypertension, Osteoarthritis (OA), Skin Disorder Additional Past Medical History / Comment(s): chronic dermatitis ,hx of hiatal hernia with surgery, diverticulosis, no current BP meds., constipation. History of Any Multi-Drug Resistant Organisms: None Reported Date of last positivie culture/infection: None MDRO Source:: None Past Surgical History: Cholecystectomy, Hysterectomy, Joint Replacement Additional Past Surgical History / Comment(s): hemorroidectomy, colonoscopy, egd , LAP GUCCI FUNDLOPLICATION knee replacement Past Anesthesia/Blood Transfusion Reactions: No Reported Reaction Additional Past Anesthesia/Blood Transfusion Reaction / Comment(s): . Past Psychological History: Anxiety, Depression Smoking Status: Never smoker Past Alcohol Use History: None Reported Past Drug Use History: None Reported - Past Family History Father Family Medical History: Diabetes Mellitus Mother Family Medical History: Diabetes Mellitus General Exam - General Exam Comments Initial Comments: This is a well-developed well-nourished awake alert oriented 3 female Limitations: no limitations General appearance: alert, anxious Head exam: Present: atraumatic, normocephalic, normal inspection Eye exam: Present: normal appearance, PERRL, EOMI. Absent: scleral icterus, conjunctival injection, periorbital swelling ENT exam: Present: mucous membranes dry Neck exam: Present: normal inspection. Absent: tenderness, meningismus, lymphadenopathy Respiratory exam: Present: normal lung sounds bilaterally. Absent: respiratory distress, wheezes, rales, rhonchi, stridor Cardiovascular Exam: Present: regular rate, normal rhythm, normal heart sounds. Absent: systolic murmur, diastolic murmur, rubs, gallop, clicks GI/Abdominal exam: Present: soft, normal bowel sounds. Absent: distended, tenderness, guarding, rebound, rigid Extremities exam: Present: normal inspection, full ROM, normal capillary refill. Absent: tenderness, pedal edema, joint swelling, calf tenderness Back exam: Present: normal inspection Neurological exam: Present: alert, oriented X3, CN II-XII intact Psychiatric exam: Present: normal affect, normal mood Skin exam: Present: warm, dry, intact, normal color. Absent: rash Course Vital Signs 02/06/18 02/06/18 02/06/18 10:03 10:29 12:12 Temperature 100.5 F H Pulse Rate 94 88 86 Respiratory 20 16 24 Rate Blood Pressure 144/83 151/106 163/74 O2 Sat by Pulse 99 97 98 Oximetry 02/06/18 14:43 Temperature 98.8 F Pulse Rate 77 Respiratory 22 Rate Blood Pressure 170/77 O2 Sat by Pulse 97 Oximetry Chest Pain MDM - MDM I did review the imaging and reports no definite acute findings. I did reevaluate patient several occasions patient did require CT was shows no evidence of PE. Still having some chest pain there is some evidence of distal esophageal findings patient will be admitted for evaluation for chest pain also her surgical be consulted. Additionally there is some evidence of a urinary tract infection she'll be placed on IV antibiotics have an elevated temperature upon arrival she will have urine cultures Disposition Clinical Impression: Chest pain, Urinary tract infection, Abdominal pain Disposition: ADMITTED IP TO THIS HOSP Condition: Stable Referrals: Tej Bojorquez MD [Primary Care Provider] - 1-2 days
[2018-02-06] MEDS: SODIUM CHLORIDE 0.9% 1,000 ML IV STA ×2 (10:47→18:14)
[2018-02-06 10:57] LABS: Basophils # (A) 0.1 k/uL (0-0.2); Basophils % (A) 1 %; Eosinophils # (A) 0.2 k/uL (0-0.7); Eosinophils % (A) 3 %; HCT 43.8 % (34.0-46.0); HGB 14.3 gm/dL (11.4-16.0); Lymphocytes # (A) 2.3 k/uL (1.0-4.8); Lymphocytes % (A) 37 %; MCH 31.3 pg (25.0-35.0); MCHC 32.6 g/dL (31.0-37.0); MCV 96.2 fL (80.0-100.0); Mean Platelet Volume 6.6; Monocytes # (A) 0.3 k/uL (0-1.0); Monocytes % (A) 4 %; Neutrophils # (A) 3.3 k/uL (1.3-7.7); Neutrophils % (A) 53 %; Platelet Count 369 k/uL (150-450); RBC 4.56 m/uL (3.80-5.40); RDW 14.4 % (11.5-15.5); WBC 6.3 k/uL (3.8-10.6)
[2018-02-06 11:16] LABS: Albumin 4.5 g/dL (3.5-5.0); Calcium 10.1 mg/dL (8.4-10.2); Magnesium 2.4 mg/dL (1.6-2.3); Potassium 4.7 mmol/L (3.5-5.1); Total Bilirubin 0.4 mg/dL (0.2-1.3); Total Protein 7.5 g/dL (6.3-8.2)
[2018-02-06 11:19] LABS: Creatine Kinase 171 U/L (30-135)
--- NOTE | 2018-02-06 11:21 | XR ---
EXAMINATION TYPE: XR chest 2V DATE OF EXAM: 02/06/2018 COMPARISON: 06/04/2016 HISTORY: Chest pain TECHNIQUE: Frontal and lateral views of the chest are obtained. FINDINGS: There is no focal air space opacity, pleural effusion, or pneumothorax seen. The cardiac silhouette size is within normal limits. Prominent epicardial fat pad is seen on the left. This is s imilar to the prior exam. The osseous structures are intact. IMPRESSION: No acute cardiopulmonary process.
[2018-02-06 11:27] LABS: Partial Thromboplastin Time 23.6 sec (22.0-30.0); Prothrombin Time 9.7 sec (9.0-12.0)
--- NOTE | 2018-02-06 11:28 | XR ---
EXAMINATION TYPE: XR abdomen 1V DATE OF EXAM: 02/06/2018 11:13 AM CLINICAL HISTORY: Abdominal pain today. TECHNIQUE: Two Upright KUB images of the abdomen are obtained. COMPARISON: CT abdomen and pelvis December 23, 2017. FINDINGS: Scattered gas is seen in non-distended stomach and small bowel loops. Gas and fecal materia l is seen in non-distended colon. There is no visceromegaly, pneumoperitoneum, or abnormal calcificat ion appreciated. The lung bases are clear and the osseous structures are intact. IMPRESSION: Overall nonobstructive bowel gas pattern.
[2018-02-06 11:33] LABS: Troponin I <0.012 ng/mL (0.000-0.034)
[2018-02-06 11:34] LABS: Creatine Kinase MB 8.5 ng/mL (0.0-2.4)
[2018-02-06 11:55] LABS: D-Dimer 1.02 mg/L FEU (<0.60)
[2018-02-06] MEDS ORDERED: RX INFO: IV CONTRAST WAS GIVEN 1 EACH MISC MISCELLANE PRN (12:32)
[2018-02-06 13:51] LABS: Appearance,Urine Cloudy (Clear); Bacteria,Urine Many /hpf; Bilirubin,Urine Negative (Negative); Blood,Urine Trace (Negative); Color,Urine Yellow; Glucose,Urine (UA) 4+ (Negative); Ketones,Urine Trace (Negative); Leukocyte Esterase,Urine Large (Negative); Nitrite,Urine Negative (Negative); PH, Urine 6.5 (5.0-8.0); Protein,Urine Trace (Negative); RBC,Urine 3 /hpf (0-5); Specific Gravity,Urine 1.025 (1.001-1.035); Urobilinogen,Urine <2.0 mg/dL (<2.0); WBC,Urine 170 /hpf (0-5)
--- NOTE | 2018-02-06 14:55 | CT ---
EXAMINATION TYPE: CT angio chest DATE OF EXAM: 02/06/2018 COMPARISON: 12/23/2017 HISTORY: Epigastric pains CT DLP: 460.8 mGycm. Automated Exposure Control for Dose Reduction was Utilized. CONTRAST: CTA scan of the thorax is performed with IV Contrast, patient injected with 100 mL of Isovue 370, pul monary embolism protocol. MIP Images are created on CT scanner and reviewed. FINDINGS: LUNGS: The lungs are grossly clear, there is no concerning parenchymal mass or nodule identified. The re is minimal scattered subsegmental atelectasis. There is no pleural effusion or pneumothorax seen. The tracheobronchial tree is patent. MEDIASTINUM: There is satisfactory enhancement of the pulmonary artery and its branches, there is no CT evidence for pulmonary embolism. There are no greater than 1 cm hilar or mediastinal lymph nodes. No cardiomegaly or pericardial effusion is seen. OTHER: There is distal esophageal mucosal thickening that is mild circumferential this appears only m inimally increased in comparison to the prior. Surgical changes are seen of the Yung fundoplication . There is mild diffuse hypoattenuation of the hepatic parenchyma compatible with hepatic steatosis. 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 Small splenule seen adjacent to the [place] spleen. Prominent, Kaveh is a gain noted of the right kidney. Lower thoracic indeterminant sclerotic lesion is seen, however this m ost likely relates to benign bone island as it is solitary. IMPRESSION: 1. No evidence of pulmonary embolism. 2. Minimal increase in distal esophageal mucosal thickening in comparison to the prior exam. This cou ld relate to esophagitis although other etiologies are possible. If there is further clinical concern direct visualization could be performed. Postsurgical changes of a Yung fundoplication are seen di stal to this. No proximal dilatation of the esophagus to suggest stricture.
[2018-02-06] MEDS ORDERED: cefTRIAXone IN SWFI 1,000 MG/10 ML SYRINGE IVP STA (15:55)
[2018-02-06] MEDS ORDERED: HYDROmorphone 0.5 MG/0.5 ML SYRINGE IVP STA (15:57)
[2018-02-06] MEDS ORDERED: NITROGLYCERIN SL TABS 0.4 MG TAB SUBLINGUAL PRN (16:02)
[2018-02-06] MEDS ORDERED: HEPARIN SODIUM,PORCINE 5,000 UNIT/ML 1 ML VIAL IV ONE (16:02)
[2018-02-06] MEDS ORDERED: CYCLOBENZAPRINE 5 MG TAB PO PRN (16:05)
[2018-02-06] MEDS ORDERED: HEPARIN SODIUM,PORCINE/D5W PMX 25,000 UNIT in DEXTROSE/WATER 1 500ML.BAG IV SCH (16:15)
[2018-02-06] MEDS ORDERED: SODIUM CHLORIDE 0.9% 1,000 ML IV SCH (16:15)
[2018-02-06 17:22] LABS: Glucose,Whole Blood 94 mg/dL (75-99)
[2018-02-06] MEDS ORDERED: MAGNESIUM OXIDE 400 MG TAB PO SCH (17:30)
[2018-02-06 17:43] LABS: Creatine Kinase 144 U/L (30-135)
[2018-02-06 17:55] LABS: Troponin I <0.012 ng/mL (0.000-0.034)
[2018-02-06] MEDS: NITROGLYCERIN OINT 1 INCH/GM PACKET TOPICAL SCH (19:50)
[2018-02-06] MEDS: busPIRone HCl 5 MG TAB PO SCH (20:19)
[2018-02-06] MEDS: HYDROcodone/APAP 10-325MG 1 EACH TAB PO PRN (20:19)
[2018-02-06] MEDS: FLUoxetine HCL 20 MG CAP PO SCH (20:19)
[2018-02-06] MEDS: ALPRAZolam 1 MG TAB PO SCH (20:20)
[2018-02-06] MEDS: OXYBUTYNIN CHLORIDE 5 MG TAB PO SCH (20:20)
[2018-02-06] MEDS: POTASSIUM CHLORIDE ER 20 MEQ TAB.ER PO SCH (20:20)
[2018-02-06] MEDS: QUEtiapine 25 MG TAB PO SCH (20:20)
[2018-02-06] MEDS ORDERED: CRANBERRY FRUIT EXTRACT 1000 MG PO SCH (21:00)
[2018-02-06] MEDS ORDERED: NON-FORMULARY DRUG (Empagliflozin [Jardiance] 25 MG) PO SCH (21:00)
[2018-02-06 23:44] LABS: Creatine Kinase 139 U/L (30-135)
[2018-02-06 23:57] LABS: Troponin I <0.012 ng/mL (0.000-0.034)
[2018-02-06 23:58] LABS: Creatine Kinase MB 5.5 ng/mL (0.0-2.4)
[2018-02-07] MEDS: NITROGLYCERIN OINT 1 INCH/GM PACKET TOPICAL SCH ×2 (00:41→05:31)
[2018-02-07] MEDS: busPIRone HCl 5 MG TAB PO SCH ×3 (00:47→13:09)
[2018-02-07] MEDS: ALPRAZolam 1 MG TAB PO SCH ×3 (00:47→13:09)
[2018-02-07 01:45] LABS: Cholesterol 183 mg/dL (<200); HDL Cholesterol 56 mg/dL (40-60); Triglycerides 439 mg/dL (<150)
[2018-02-07] MEDS: HYDROcodone/APAP 10-325MG 1 EACH TAB PO PRN ×2 (05:53→11:42)
[2018-02-07 06:46] LABS: Glucose,Whole Blood 128 mg/dL (75-99)
[2018-02-07] MEDS ORDERED: PANTOPRAZOLE 40 MG TABLET PO SCH (07:30)
[2018-02-07 08:12] VITALS: RESP 16
--- NOTE | 2018-02-07 08:52 | P.CRDCN ---
History of Present Illness History of present illness: Patient admitted with chest discomfort. ECG normal. Troponins normal and CPK elevated. Febrile. When I examined her she told me she had chest pain and she pointed to her epigastrium. When I touch the epigastrium she winced. She has epigastric discomfort no chest discomfort Proceed with abdominal evaluation and evaluation of fever. 2-D echo and Doppler studies been ordered Past Medical History Past Medical History: Diabetes Mellitus, GERD/Reflux, Hyperlipidemia, Hypertension, Osteoarthritis (OA), Skin Disorder Additional Past Medical History / Comment(s): chronic dermatitis/past cellulitis arms/ace, past falls,gout ,hx of hiatal hernia with surgery, diverticulosis, no current BP meds., constipation.djd rt knee, History of Any Multi-Drug Resistant Organisms: None Reported Date of last positivie culture/infection: None MDRO Source:: None Past Surgical History: Cholecystectomy, Hysterectomy, Joint Replacement Additional Past Surgical History / Comment(s): hemorroidectomy, colonoscopy, egd , LAP GUCCI FUNDLOPLICATION,rt knee replacement Past Anesthesia/Blood Transfusion Reactions: No Reported Reaction Additional Past Anesthesia/Blood Transfusion Reaction / Comment(s): . Smoking Status: Never smoker - Past Family History Father Family Medical History: Diabetes Mellitus Mother Family Medical History: Diabetes Mellitus Medications and Allergies Home Medications Medication Instructions Recorded Confirmed Type Oxybutynin Chloride 5 mg PO BID 02/05/15 02/06/18 History Potassium Chloride [Klor-Con 20] 20 meq PO BID 02/28/15 02/06/18 History FLUoxetine HCL [PROzac] 20 mg PO BID 08/02/15 02/06/18 History busPIRone HCL 15 mg PO QID@,07,,19 08/03/15 02/06/18 History ALPRAZolam 1 mg PO QID@,07,13,19 06/04/16 02/06/18 History Atorvastatin [Lipitor] 40 mg PO QAM 11/20/16 02/06/18 History Empagliflozin [Jardiance] 25 mg PO HS 02/16/17 02/06/18 History Multivitamins, Thera [Multivitamin 1 tab PO DAILY 02/16/17 02/06/18 History (formulary)] QUEtiapine [SEROquel] 12.5 mg PO BID 08/27/17 02/06/18 History Insulin Glargine [Lantus] 40 unit SQ DAILY 09/03/17 02/06/18 History Cyclobenzaprine [Flexeril] 5 mg PO DAILY PRN tab 09/06/17 02/06/18 Rx Alendronate Sodium [Fosamax] 70 mg PO MO 12/23/17 02/06/18 History Cranberry Fruit Extract [Cranberry] 1,000 mg PO BID 12/23/17 02/06/18 History HYDROcodone/APAP 10-325MG [[place] 1 tab PO TID PRN 12/23/17 02/06/18 History 10-325] Magnesium Oxide [Mag-Ox] 500 mg PO AC-SUPPER 12/23/17 02/06/18 History Omeprazole 20 mg PO DAILY 12/23/17 02/06/18 History Allergies Allergy/AdvReac Type Severity Reaction Status Date / Time benactyzine AdvReac Abdominal Verified 02/06/18 11:07 Pain ciprofloxacin [From Cipro] AdvReac Abdominal Verified 02/06/18 11:07 Pain dicyclomine [From Bentyl] AdvReac Abdominal Verified 02/06/18 11:07 Pain levofloxacin [From Levaquin] AdvReac Abdominal Verified 02/06/18 11:07 Pain Penicillins AdvReac "Passed Verified 02/06/18 11:07 out" prednisone AdvReac Abdominal Verified 02/06/18 11:07 Pain sulfamethoxazole AdvReac Abdominal Verified 02/06/18 11:07 [From Bactrim] Pain tamsulosin HCl [From Flomax] AdvReac Abdominal Verified 02/06/18 11:07 Pain trimethoprim [From Bactrim] AdvReac Abdominal Verified 02/06/18 11:07 Pain Physical Exam Vitals: Vital Signs Temp Pulse Pulse Resp BP BP Pulse Ox 02/07/18 08:00 99 F 81 16 129/63 97 02/07/18 03:30 97.7 F 62 16 93/55 95 02/07/18 00:00 97.5 F L 78 16 94/55 94 L 02/06/18 20:00 18 02/06/18 17:29 98.8 F 76 18 117/56 97 02/06/18 17:00 98.8 F 72 18 130/60 98 02/06/18 16:10 56 L 18 139/67 98 02/06/18 14:43 98.8 F 77 22 170/77 97 02/06/18 12:12 86 24 163/74 98 02/06/18 10:29 88 16 151/106 97 02/06/18 10:03 100.5 F H 94 20 144/83 99 Intake and Output 02/06/18 02/07/18 02/07/18 22:59 06:59 14:59 Other: # Voids 1 1 Weight 93.1 kg Results 02/06/18 10:24 02/06/18 10:24 Cardiac Enzymes 02/06/18 02/06/18 02/06/18 Range/Units 10:24 10:24 17:01 AST 28 (14-36) U/L CK-MB (CK-2) 8.5 H* 6.0 H* (0.0-2.4) ng/mL Troponin I <0.012 <0.012 (0.000-0.034) ng/mL 02/06/18 Range/Units 23:17 AST (14-36) U/L CK-MB (CK-2) 5.5 H* (0.0-2.4) ng/mL Troponin I <0.012 (0.000-0.034) ng/mL Coagulation 02/06/18 02/06/18 02/07/18 Range/Units 10:24 23:17 06:25 PT 9.7 (9.0-12.0) sec APTT 23.6 70.7 H 45.8 H (22.0-30.0) sec Lipids 02/06/18 Range/Units 10:24 Triglycerides 439 H (<150) mg/dL Cholesterol 183 (<200) mg/dL HDL Cholesterol 56 (40-60) mg/dL CBC 02/06/18 Range/Units 10:24 WBC 6.3 (3.8-10.6) k/uL RBC 4.56 (3.80-5.40) m/uL Hgb 14.3 (11.4-16.0) gm/dL Hct 43.8 (34.0-46.0) % Plt Count 369 (150-450) k/uL Comprehensive Metabolic Panel 02/06/18 Range/Units 10:24 Sodium 141 (137-145) mmol/L Potassium 4.7 (3.5-5.1) mmol/L Chloride 102 (98-107) mmol/L Carbon Dioxide 23 (22-30) mmol/L BUN 17 (7-17) mg/dL Creatinine 0.90 (0.52-1.04) mg/dL Glucose 160 H (74-99) mg/dL Calcium 10.1 (8.4-10.2) mg/dL AST 28 (14-36) U/L ALT 34 (9-52) U/L Alkaline Phosphatase 85 (38-126) U/L Total Protein 7.5 (6.3-8.2) g/dL Albumin 4.5 (3.5-5.0) g/dL Current Medications Generic Name Dose Route Start Last Admin Trade Name Freq PRN Reason Stop Dose Admin Hydrocodone Bitart/Acetaminophen 1 each 02/06/18 16:05 02/07/18 05:53 [place] 10 PO 1 each TID PRN Administration Pain Alprazolam 1 mg 02/06/18 19:00 02/07/18 05:54 Xanax PO 1 mg 0100,0700,1300,1900 [facility] Administration Aspirin 325 mg 02/07/18 09:00 Aspirin PO DAILY [facility] Atorvastatin Calcium 40 mg 02/07/18 09:00 Lipitor PO QAM [facility] Buspirone HCl 15 mg 02/06/18 19:00 02/07/18 05:53 Buspar PO 15 mg 0100,0700,1300,1900 [facility] Administration Ceftriaxone Sodium 1,000 mg 02/07/18 09:00 Rocephin IVP Q24HR [facility] Cyclobenzaprine HCl 5 mg 02/06/18 16:05 Flexeril PO DAILY PRN MUSCLE Pain Fluoxetine HCl 20 mg 02/06/18 21:00 02/06/18 20:19 Prozac PO 20 mg BID [facility] Administration Heparin Sodium/Dextrose 25,000 500 mls @ 20 mls/hr 02/06/18 16:15 02/06/18 18 :09 unit/ IV Solution IV 11.604 units/kg/hr .Q24H [facility] 20 mls/hr Protocol Administration 11.604 UNITS/KG/HR Sodium Chloride 1,000 mls @ 20 mls/hr 02/06/18 16:15 02/06/18 18:22 Saline 0.9% IV Not Given .Q24H [facility] Insulin Detemir 40 unit 02/07/18 09:00 Levemir SQ DAILY [facility] Magnesium Oxide 400 mg 02/06/18 17:30 02/06/18 20:20 Mag-Ox PO 400 mg AC-SUPPER [facility] Administration Miscellaneous Information 1 each 02/06/18 12:32 Rx Info: Iv Contrast Was Given MISCELLANE 02/08/18 12:32 DAILY PRN Per Protocol Multivitamins 1 each 02/07/18 12:00 Theragran PO DAILY@1200 [facility] Nitroglycerin 1 inch 02/06/18 18:00 02/07/18 05:31 Nitro-Bid Oint TOPICAL Not Given Q6HR [facility] Nitroglycerin 0.4 mg 02/06/18 16:02 Nitrostat SUBLINGUAL Q5M PRN Chest Pain Non-Formulary Medication 70 mg 02/10/18 12:00 Alendronate Sodium [Fosamax] PO MO [facility] Non-Formulary Medication 25 mg 02/06/18 21:00 02/06/18 20:20 Empagliflozin [Jardiance] PO Not Given HS [facility] Oxybutynin Chloride 5 mg 02/06/18 21:00 02/06/18 20:20 Ditropan PO 5 mg BID [facility] Administration Pantoprazole Sodium 40 mg 02/07/18 07:30 02/07/18 07:33 Protonix PO 40 mg AC-BRKFST [facility] Administration Potassium Chloride 20 meq 02/06/18 21:00 02/06/18 20:20 K-Dur 20 PO 20 meq BID [facility] Administration Quetiapine Fumarate 12.5 mg 02/06/18 21:00 02/06/18 20:20 Seroquel PO 12.5 mg BID [facility] Administration Intake and Output 02/06/18 02/07/18 02/07/18 22:59 06:59 14:59 Other: # Voids 1 1 Weight 93.1 kg 02/06/18 10:24 02/06/18 10:24
[2018-02-07] MEDS ORDERED: ASPIRIN 325 MG TAB PO SCH (09:00)
[2018-02-07] MEDS ORDERED: ATORVASTATIN 40 MG TAB PO SCH (09:00)
[2018-02-07] MEDS ORDERED: INSULIN DETEMIR 100 UNIT/ML 10 ML VIAL SQ SCH (09:00)
[2018-02-07] MEDS ORDERED: cefTRIAXone IN SWFI 1,000 MG/10 ML SYRINGE IVP SCH (09:00)
[2018-02-07] MEDS: FLUoxetine HCL 20 MG CAP PO SCH (09:10)
[2018-02-07] MEDS: OXYBUTYNIN CHLORIDE 5 MG TAB PO SCH (09:11)
[2018-02-07] MEDS: QUEtiapine 25 MG TAB PO SCH (09:11)
[2018-02-07] MEDS: POTASSIUM CHLORIDE ER 20 MEQ TAB.ER PO SCH (09:11)
--- NOTE | 2018-02-07 09:39 | ECHOF ---
Referral Reason:cp, lower extremity edema MEASUREMENTS -------- HEIGHT: 157.5 cm WEIGHT: 93.0 kg BP: 129/63 RVIDd: 3.2 cm (< 3.3) IVSd: 1.0 cm (0.6 - 1.1) LVIDd: 4.2 cm (3.9 - 5.3) LVPWd: 1.1 cm (0.6 - 1.1) IVSs: 1.4 cm LVIDs: 2.9 cm LVPWs: 1.5 cm LA Diam: 3.2 cm (2.7 - 3.8) LAESV Index (A-L): 28.38 ml/m Ao Diam: 3.3 cm (2.0 - 3.7) AV Cusp: 2.2 cm (1.5 - 2.6) MV EXCURSION: 14.881 mm (> 18.000) MV EF SLOPE: 112 mm/s (70 - 150) EPSS: 0.3 cm MV E Rico: 0.80 m/s MV DecT: 226 ms MV A Rico: 0.90 m/s MV E/A Ratio: 0.89 RAP: 5.00 mmHg RVSP: 27.32 mmHg FINDINGS -------- Sinus rhythm. This was a technically adequate study. The left ventricular size is normal. Left ventricular wall thickness is normal. Overall left vent ricular systolic function is normal with, an EF between 55 - 60 %. The right ventricle is normal in size. Normal LA size by volume 22+/-6 ml/m2. The right atrium is normal in size. The aortic valve is trileaflet and appears structurally normal. There is trace to mild mitral regurgitation. Mild tricuspid regurgitation present. Right ventricular systolic pressure is normal at < 35 mmHg. There is no pulmonic regurgitation present. The aortic root size is normal. IVC Not well visulized. There is no pericardial effusion. CONCLUSIONS -------- 1. Sinus rhythm. 2. This was a technically adequate study. 3. The left ventricular size is normal. 4. Left ventricular wall thickness is normal. 5. Overall left ventricular systolic function is normal with, an EF between 55 - 60 %. 6. The right ventricle is normal in size. 7. Normal LA size by volume 22+/-6 ml/m2. 8. The right atrium is normal in size. 9. The aortic valve is trileaflet and appears structurally normal. 10. There is trace to mild mitral regurgitation. 11. Mild tricuspid regurgitation present. 12. Right ventricular systolic pressure is normal at < 35 mmHg. 13. There is no pulmonic regurgitation present. 14. The aortic root size is normal. 15. IVC Not well visulized. 16. There is no pericardial effusion. DIRECTOR LOSS PREVENTION: Antonella Liu RDCS
--- NOTE | 2018-02-07 10:01 | P.CRDCN ---
History of Present Illness Consult date: 02/07/18 History of present illness: Mrs. Currie is a pleasant 67-year-old female past medical history hypertension, dyslipidemia, diabetes mellitus, anxiety, depression and obesity. She denies history of coronary artery disease and has never seen a miter sawyer for any reason. We have been asked to see her in consultation for chest pain. She states last night while laying in bed she developed sharp, stabbing type epigastric pain that radiated down the left arm. She states she has been having lower abdominal pain off and on for 2-3 days with nausea, dizziness, palpitations, fever/chills. Upon arrival temperature of 100.5F with evidence of a urinary tract infection. She has been started on antibiotics. She has had no further symptoms of epigastric pain since admission. On examination the epigastric region is tender to palpation. EKG reveals sinus mechanism with no acute ST or T-wave abnormalities. Chest x-ray is negative for an acute cardiopulmonary process. CT angios negative for pulmonary embolism. Laboratory data reviewed, cardiac enzymes negative 3, hemoglobin 14.3, platelets 369, d-dimer 1.02, sodium 141, potassium 4.7, creatinine 0.9, lactic acid on admission 2. 3 repeat 1.8, elevated CK-MB a 0.5, 6.0, 5.5. Current cardiac medications include atorvastatin 40 mg daily. Review of Systems At the time of my exam: CONSTITUTIONAL: Denies fever. Denies chills. EYES: Denies blurred vision. Denies vision changes. Denies eye pain. EARS, NOSE, MOUTH & THROAT: Denies headache. Denies sore throat. Denies ear pain. CARDIOVASCULAR: Denies chest pain. Denies shortness of breath. Denies orthopnea. Denies PND. Denies palpitations. RESPIRATORY: Denies cough. GASTROINTESTINAL: Denies abdominal pain. Denies diarrhea. Denies constipation. Denies nausea. Denies vomiting. MUSCULOSKELETAL: Denies myalgias. INTEGUMENTARY: Denies pruitis. Denies rash. NEUROLOGIC: Denies numbness. Denies tingling. Denies weakness. PSYCHIATRIC: Denies anxiety. Denies depression. ENDOCRINE: Denies fatigue. Denies weight change. Denies polydipsia. Denies polyurina. GENITOURINARY: Denies burning, hematuria or urgency with micturation. HEMATOLOGIC: Denies history of anemia. Denies bleeding. Past Medical History Past Medical History: Diabetes Mellitus, GERD/Reflux, Hyperlipidemia, Hypertension, Osteoarthritis (OA), Skin Disorder Additional Past Medical History / Comment(s): chronic dermatitis/past cellulitis arms/ace, past falls,gout ,hx of hiatal hernia with surgery, diverticulosis, no current BP meds., constipation.djd rt knee, History of Any Multi-Drug Resistant Organisms: None Reported Date of last positivie culture/infection: None MDRO Source:: None Past Surgical History: Cholecystectomy, Hysterectomy, Joint Replacement Additional Past Surgical History / Comment(s): hemorroidectomy, colonoscopy, egd , LAP GUCCI FUNDLOPLICATION,rt knee replacement Past Anesthesia/Blood Transfusion Reactions: No Reported Reaction Additional Past Anesthesia/Blood Transfusion Reaction / Comment(s): . Smoking Status: Never smoker - Past Family History Father Family Medical History: Diabetes Mellitus Mother Family Medical History: Diabetes Mellitus Medications and Allergies Home Medications Medication Instructions Recorded Confirmed Type Oxybutynin Chloride 5 mg PO BID 02/05/15 02/06/18 History Potassium Chloride [Klor-Con 20] 20 meq PO BID 02/28/15 02/06/18 History FLUoxetine HCL [PROzac] 20 mg PO BID 08/02/15 02/06/18 History busPIRone HCL 15 mg PO QID@01,07,,19 08/03/15 02/06/18 History ALPRAZolam 1 mg PO QID@01,07,13,19 06/04/16 02/06/18 History Atorvastatin [Lipitor] 40 mg PO QAM 11/20/16 02/06/18 History Empagliflozin [Jardiance] 25 mg PO HS 02/16/17 02/06/18 History Multivitamins, Thera [Multivitamin 1 tab PO DAILY 02/16/17 02/06/18 History (formulary)] QUEtiapine [SEROquel] 12.5 mg PO BID 08/27/17 02/06/18 History Insulin Glargine [Lantus] 40 unit SQ DAILY 09/03/17 02/06/18 History Cyclobenzaprine [Flexeril] 5 mg PO DAILY PRN tab 09/06/17 02/06/18 Rx Alendronate Sodium [Fosamax] 70 mg PO MO 12/23/17 02/06/18 History Cranberry Fruit Extract [Cranberry] 1,000 mg PO BID 12/23/17 02/06/18 History HYDROcodone/APAP 10-325MG [[place] 1 tab PO TID PRN 12/23/17 02/06/18 History 10-325] Magnesium Oxide [Mag-Ox] 500 mg PO AC-SUPPER 12/23/17 02/06/18 History Omeprazole 20 mg PO DAILY 12/23/17 02/06/18 History Allergies Allergy/AdvReac Type Severity Reaction Status Date / Time benactyzine AdvReac Abdominal Verified 02/06/18 11:07 Pain ciprofloxacin [From Cipro] AdvReac Abdominal Verified 02/06/18 11:07 Pain dicyclomine [From Bentyl] AdvReac Abdominal Verified 02/06/18 11:07 Pain levofloxacin [From Levaquin] AdvReac Abdominal Verified 02/06/18 11:07 Pain Penicillins AdvReac "Passed Verified 02/06/18 11:07 out" prednisone AdvReac Abdominal Verified 02/06/18 11:07 Pain sulfamethoxazole AdvReac Abdominal Verified 02/06/18 11:07 [From Bactrim] Pain tamsulosin HCl [From Flomax] AdvReac Abdominal Verified 02/06/18 11:07 Pain trimethoprim [From Bactrim] AdvReac Abdominal Verified 02/06/18 11:07 Pain Physical Exam Vitals: Vital Signs Temp Pulse Pulse Resp BP BP Pulse Ox 02/07/18 08:00 99 F 81 16 129/63 97 02/07/18 03:30 97.7 F 62 16 93/55 95 02/07/18 00:00 97.5 F L 78 16 94/55 94 L 02/06/18 20:00 18 02/06/18 17:29 98.8 F 76 18 117/56 97 02/06/18 17:00 98.8 F 72 18 130/60 98 02/06/18 16:10 56 L 18 139/67 98 02/06/18 14:43 98.8 F 77 22 170/77 97 02/06/18 12:12 86 24 163/74 98 02/06/18 10:29 88 16 151/106 97 02/06/18 10:03 100.5 F H 94 20 144/83 99 Intake and Output 02/06/18 02/07/18 02/07/18 22:59 06:59 14:59 Other: # Voids 1 1 Weight 93.1 kg Blood pressure 129/63 heart rate 81 afebrile maintaining oxygen saturation on room air GENERAL: This is a 67-year-old female in no apparent distress at the time of my examination. Obese. HEENT: Head is atraumatic, normocephalic. Pupils are equal, round. Sclerae anicteric. Conjunctivae are clear. Mucous membranes of the mouth are moist. Neck is supple. There is no jugular venous distention. No carotid bruit is heard. LUNGS: Clear to auscultation no wheezes, rales or rhonchi. No chest wall tenderness is noted on palpation or with deep breathing. HEART: Regular rate and rhythm without murmurs, rubs or gallops. S1 and S2 heard. ABDOMEN: Soft, nontender. Bowel sounds are heard. No organomegaly noted. EXTREMITIES: Trace bilateral lower extremity nonpitting peripheral edema and no calf tenderness noted. VASCULAR: Radial and dorsalis pedis pulses palpated, no evidence of clubbing. NEUROLOGIC: Patient is awake, alert and oriented x3. Results 02/06/18 10:24 02/06/18 10:24 Cardiac Enzymes 02/06/18 02/06/18 02/06/18 Range/Units 10:24 10:24 17:01 AST 28 (14-36) U/L CK-MB (CK-2) 8.5 H* 6.0 H* (0.0-2.4) ng/mL Troponin I <0.012 <0.012 (0.000-0.034) ng/mL 02/06/18 Range/Units 23:17 AST (14-36) U/L CK-MB (CK-2) 5.5 H* (0.0-2.4) ng/mL Troponin I <0.012 (0.000-0.034) ng/mL Coagulation 02/06/18 02/06/18 02/07/18 Range/Units 10:24 23:17 06:25 PT 9.7 (9.0-12.0) sec APTT 23.6 70.7 H 45.8 H (22.0-30.0) sec Lipids 02/06/18 Range/Units 10:24 Triglycerides 439 H (<150) mg/dL Cholesterol 183 (<200) mg/dL HDL Cholesterol 56 (40-60) mg/dL CBC 02/06/18 Range/Units 10:24 WBC 6.3 (3.8-10.6) k/uL RBC 4.56 (3.80-5.40) m/uL Hgb 14.3 (11.4-16.0) gm/dL Hct 43.8 (34.0-46.0) % Plt Count 369 (150-450) k/uL Comprehensive Metabolic Panel 02/06/18 Range/Units 10:24 Sodium 141 (137-145) mmol/L Potassium 4.7 (3.5-5.1) mmol/L Chloride 102 (98-107) mmol/L Carbon Dioxide 23 (22-30) mmol/L BUN 17 (7-17) mg/dL Creatinine 0.90 (0.52-1.04) mg/dL Glucose 160 H (74-99) mg/dL Calcium 10.1 (8.4-10.2) mg/dL AST 28 (14-36) U/L ALT 34 (9-52) U/L Alkaline Phosphatase 85 (38-126) U/L Total Protein 7.5 (6.3-8.2) g/dL Albumin 4.5 (3.5-5.0) g/dL Current Medications Generic Name Dose Route Start Last Admin Trade Name Freq PRN Reason Stop Dose Admin Hydrocodone Bitart/Acetaminophen 1 each 02/06/18 16:05 02/07/18 05:53 [place] 10 PO 1 each TID PRN Administration Pain Alprazolam 1 mg 02/06/18 19:00 02/07/18 05:54 Xanax PO 1 mg 0100,0700,1300,1900 [facility] Administration Aspirin 325 mg 02/07/18 09:00 Aspirin PO DAILY [facility] Atorvastatin Calcium 40 mg 02/07/18 09:00 Lipitor PO QAM [facility] Buspirone HCl 15 mg 02/06/18 19:00 02/07/18 05:53 Buspar PO 15 mg 0100,0700,1300,1900 [facility] Administration Ceftriaxone Sodium 1,000 mg 02/07/18 09:00 Rocephin IVP Q24HR [facility] Cyclobenzaprine HCl 5 mg 02/06/18 16:05 Flexeril PO DAILY PRN MUSCLE Pain Fluoxetine HCl 20 mg 02/06/18 21:00 02/06/18 20:19 Prozac PO 20 mg BID [facility] Administration Heparin Sodium/Dextrose 25,000 500 mls @ 20 mls/hr 02/06/18 16:15 02/06/18 18 :09 unit/ IV Solution IV 11.604 units/kg/hr .Q24H [facility] 20 mls/hr Protocol Administration 11.604 UNITS/KG/HR Sodium Chloride 1,000 mls @ 20 mls/hr 02/06/18 16:15 02/06/18 18:22 Saline 0.9% IV Not Given .Q24H [facility] Insulin Detemir 40 unit 02/07/18 09:00 Levemir SQ DAILY [facility] Magnesium Oxide 400 mg 02/06/18 17:30 02/06/18 20:20 Mag-Ox PO 400 mg AC-SUPPER [facility] Administration Miscellaneous Information 1 each 02/06/18 12:32 Rx Info: Iv Contrast Was Given MISCELLANE 02/08/18 12:32 DAILY PRN Per Protocol Multivitamins 1 each 02/07/18 12:00 Theragran PO DAILY@1200 [facility] Nitroglycerin 1 inch 02/06/18 18:00 02/07/18 05:31 Nitro-Bid Oint TOPICAL Not Given Q6HR [facility] Nitroglycerin 0.4 mg 02/06/18 16:02 Nitrostat SUBLINGUAL Q5M PRN Chest Pain Non-Formulary Medication 70 mg 02/10/18 12:00 Alendronate Sodium [Fosamax] PO MO [facility] Non-Formulary Medication 25 mg 02/06/18 21:00 02/06/18 20:20 Empagliflozin [Jardiance] PO Not Given HS [facility] Oxybutynin Chloride 5 mg 02/06/18 21:00 02/06/18 20:20 Ditropan PO 5 mg BID [facility] Administration Pantoprazole Sodium 40 mg 02/07/18 07:30 02/07/18 07:33 Protonix PO 40 mg AC-BRKFST [facility] Administration Potassium Chloride 20 meq 02/06/18 21:00 02/06/18 20:20 K-Dur 20 PO 20 meq BID [facility] Administration Quetiapine Fumarate 12.5 mg 02/06/18 21:00 02/06/18 20:20 Seroquel PO 12.5 mg BID [facility] Administration Intake and Output 02/06/18 02/07/18 02/07/18 22:59 06:59 14:59 Other: # Voids 1 1 Weight 93.1 kg 02/06/18 10:24 02/06/18 10:24 Assessment and Plan Assessment: ASSESSMENT 1. Epigastric pain, reproducible 2. Hypertension 3. Dyslipidemia 4. Diabetes mellitus 5. Anxiety 6. Obesity PLAN Acute coronary event has been ruled out with EKG evidence of ischemia and abnormal cardiac enzymes. Presentation very atypical for an acute coronary syndrome. Obtain 2-D echo cardiogram and Doppler study to assess cardiac structure and function. Ongoing medical management of epigastric pain, fever and urinary tract infection. Follow-up with primary care physician upon discharge. Thank you kindly for this consultation. Nurse Practitioner note has been reviewed, I agree with a documented findings and plan of care. Patient was seen and examined.
[2018-02-07] MEDS ORDERED: ASPIRIN 81 MG PO SCH (10:15)
[2018-02-07 11:49] VITALS: BP 140/70; PULSE 74; TEMP 97.9
[2018-02-07] MEDS ORDERED: MULTIVITAMINS, THERA 1 EACH TAB PO SCH (12:00)
[2018-02-07 12:42] LABS: Glucose,Whole Blood 96 mg/dL (75-99)
[2018-02-10] MEDS ORDERED: NON-FORMULARY DRUG (Alendronate Sodium [Fosamax] 70 MG) PO SCH (12:00)
--- NOTE | 2018-04-03 22:18 | HP ---
HISTORY AND PHYSICAL CHIEF COMPLAINT: This is a 67-year-old white female with chronic abdominal pain. She presented to the hospital with low midsternal epigastric pain of unclear etiology. She had severe pain, at which time she was admitted to the hospital for recommendations for surgical. HOME MEDICINES: 1. Oxybutynin. 2. Klor-Constitutional. 3. Prozac. 4. BuSpar. 5. Lipitor. 6. Jardiance. 7. Multivitamin. 8. Seroquel. 9. Lantus. 10.Fosamax. 11.Cranberry. 12.[place]. 13.Mag oxide. ALLERGIES: 1. BENACTYZINE. 2. CIPRO. 3. BENTYL. 4. LEVAQUIN. PENICILLIN. 5. PREDNISONE. 6. BACTRIM. 7. FLOMAX. REVIEW OF SYSTEMS: Fourteen-point review of systems negative except for mentioned in HPI. PAST MEDICAL HISTORY: 1. Diabetes mellitus. 2. GERD. 3. Dyslipidemia. 4. Hypertension. 5. Osteoarthritis. 6. Skin disorder. 7. Chronic dermatitis. 8. Diverticulosis. 9. Constipation. 10.Cholecystectomy. 11.Hysterectomy. 12.Joint replacement. 13.Hemorrhoidectomy. 14.Colonoscopy. 15.Laparoscopic [place]ung. 16.Anxiety. 17.Depression. SOCIAL HISTORY: Never smoked. No alcohol. No illicit drugs. FAMILY HISTORY: Father had diabetes mellitus. PHYSICAL EXAMINATION: VITAL SIGNS: Temperature 100.5, pulse 86 to 94, respiratory rate 16 to 24, blood pressures 140s to 160s over 70s to 80s. Oxygen 97% to 99% on room air. CARDIOVASCULAR: S1, S2. Lungs show scattered wheeze x4/ GI: Diffuse tenderness to palpation. EXTREMITIES: No cyanosis, clubbing, edema. Integument shows some areas where you can see fresh scabs and scars and open wounds from picking. She is well nourished, well developed. No acute distress. PSYCH: Fair mood and affect. ASSESSMENT: 1. Chest pain. 2. Urinary tract infection. 3. Abdominal pain. PLAN: Admit the patient to hospital. IV antibiotics. Rule out myocardial infarction. Await urine cultures. See cardiology and infectious disease consults. MMODL / IJN: [id number] /
--- NOTE | 2018-04-03 23:33 | DS ---
DISCHARGE SUMMARY DATE OF ADMISSION: 02/06/2018 DATE OF DISCHARGE: 02/07/2018. HOME MEDICATIONS: Oxybutynin 5 mg b.i.d., Klor-Con 20 mEq b.i.d., Prozac 20 mg b.i.d., BuSpar 15 q.i.d., Alprazolam 1 mg q.i.d., Lipitor 40 mg daily, 25 mg daily, multivitamin one daily, Seroquel XR 12.5 b.i.d., Lantus 40 units daily, Flexeril 5 mg daily, cranberry extract daily, Fosamax 70 mg weekly, omeprazole 20 mg daily, Mag oxide 500 mg supper, [place] 10/325 t.i.d. CONDITION: Stable. PROGNOSIS: Guarded. Ambulate as tolerated. Discharged to follow up Dr. Bojorquez in 1-2 days. DISCHARGE DIAGNOSES: 1. Atypical chest pain. 2. Urinary tract infection. 3. Anxiety, depression. 4. Pancreas disease. 5. Insulin-dependent diabetes mellitus. She was admitted to hospital. Cardiac saw and ruled her out for myocardial infarction. Echo showed preserved ejection fraction. Cleared by Cardiology for discharge home. Antibiotics were arranged. Chest CTA showed no pulmonary embolism. After stabilized, discharged home to follow up as an outpatient. MMODL / IJN: [id number] /
== END 2018-02-07 14:12 | disposition home or self-care (01) ==
LOC: EC 10:02 → 3OBS 16:02
PROVIDERS: ADMIT Family Medicine; ATTEND Family Medicine
DX: R07.89 Other chest pain (principal); R10.13 Epigastric pain; R10.30 Lower abdominal pain, unspecified; N39.0 Urinary tract infection, site not specified; E11.9 Type 2 diabetes mellitus without complications; G89.29 Other chronic pain; R74.8 Abnormal levels of other serum enzymes; R11.0 Nausea; R42 Dizziness and giddiness; R00.2 Palpitations; R61 Generalized hyperhidrosis; R50.9 Fever, unspecified; K21.9 Gastro-esophageal reflux disease without esophagitis; E78.5 Hyperlipidemia, unspecified; I10 Essential (primary) hypertension; M19.90 Unspecified osteoarthritis, unspecified site; F41.9 Anxiety disorder, unspecified; F32.9 Major depressive disorder, single episode, unspecified; E66.9 Obesity, unspecified; Z68.37 Body mass index [BMI] 37.0-37.9, adult; M10.9 Gout, unspecified; M17.11 Unilateral primary osteoarthritis, right knee; Z79.899 Other long term (current) drug therapy; Z79.4 Long term (current) use of insulin; Z79.83 Long term (current) use of bisphosphonates; Z79.84 Long term (current) use of oral hypoglycemic drugs; Z88.1 Allergy status to other antibiotic agents; Z88.0 Allergy status to penicillin; Z88.2 Allergy status to sulfonamides; Z88.8 Allergy status to other drugs, medicaments and biological substances; Z98.890 Other specified postprocedural states; Z91.81 History of falling; Z86.19 Personal history of other infectious and parasitic diseases; Z90.49 Acquired absence of other specified parts of digestive tract; K86.9 Disease of pancreas, unspecified
CPT/HCPCS: 96375 ×4; 96376 ×3; 96361 ×4; 96374 ×2; 99285 ×2; 93005 ×2; 36415; 93306; 85379; 83880; 80061; 80053; 82150; 82550; 82553; 83605; 83690; 83735; 84484; 85025; 85610; 85730 ×2; 81001; 87040; 71046; 74018; 71275; G0378 ×2; J1644 ×2; J0696 ×2; J1885; J1170; Q9967

== ENCOUNTER 2018-03-27 03:53 | Inpatient (IN) | payer MEDICARE, OTHER ==
[2018-03-27] MEDS ORDERED: HYDROcodone/APAP 10-325MG 1 EACH TAB PO ONE (04:43)
[2018-03-27 04:59] LABS: Basophils # (A) 0.1 k/uL (0-0.2); Basophils % (A) 1 %; Eosinophils # (A) 0.4 k/uL (0-0.7); Eosinophils % (A) 4 %; HCT 47.4 % (34.0-46.0); HGB 15.5 gm/dL (11.4-16.0); Lymphocytes # (A) 2.4 k/uL (1.0-4.8); Lymphocytes % (A) 29 %; MCH 31.4 pg (25.0-35.0); MCHC 32.8 g/dL (31.0-37.0); MCV 95.8 fL (80.0-100.0); Mean Platelet Volume 6.8; Monocytes # (A) 0.4 k/uL (0-1.0); Monocytes % (A) 5 %; Neutrophils # (A) 5.1 k/uL (1.3-7.7); Neutrophils % (A) 61 %; Platelet Count 388 k/uL (150-450); RBC 4.94 m/uL (3.80-5.40); RDW 13.4 % (11.5-15.5); WBC 8.4 k/uL (3.8-10.6)
--- NOTE | 2018-03-27 05:06 | ED ---
Fall HPI - General Chief Complaint: Fall Stated Complaint: Fall Time Seen by Provider: 03/27/18 04:25 Source: patient, family Mode of arrival: wheelchair - History of Present Illness Initial Comments: This patient is 67-year-old woman who presents with complaint that she is having "pain all over." The patient attributes this to having a fall. She states that yesterday, a bit over 24 hours ago she had gotten out of bed, and fallen on between 2 beds in the room and was unable to get up. The patient states that they contacted EMS and EMS came and got her up. The patient was denying any pain or injury at the time. She states over the course of tonight she is having worsening pain "everywhere." MD Complaint: fall Onset/Timin -: hour(s) When Fall Occurred: 24 hours [employer]EE [employer] Fall Witnessed: yes, by family Place Fall Occurred: home Loss of Consciousness: none Prolonged Down Time?: no Symptoms Prior to Fall: none Location: back Severity: severe Quality: aching - Related Data Home Medications Medication Instructions Recorded Confirmed Oxybutynin Chloride 5 mg PO BID 02/05/15 03/27/18 Potassium Chloride [Klor-Con 20] 20 meq PO BID 02/28/15 03/27/18 busPIRone HCL 15 mg PO QID@,,,08/03/15 03/27/18 ALPRAZolam 1 mg PO QID@,,,06/04/16 03/27/18 Atorvastatin [Lipitor] 40 mg PO QAM 11/20/16 03/27/18 Empagliflozin [Jardiance] 25 mg PO HS 02/16/17 03/27/18 Multivitamins, Thera [Multivitamin 1 tab PO DAILY 02/16/17 03/27/18 (formulary)] Insulin Glargine [Lantus] 40 unit SQ BID 09/03/17 03/27/18 Cranberry Fruit Extract [Cranberry] 1,000 mg PO BID 12/23/17 03/27/18 HYDROcodone/APAP 10-325MG [[place] 1 tab PO TID@0700,1300,1900 12/23/17 03/27/18 10-325] Magnesium Oxide [Mag-Ox] 500 mg PO AC-SUPPER 12/23/17 03/27/18 Omeprazole 20 mg PO DAILY 12/23/17 03/27/18 Aspirin 81 mg PO DAILY 03/27/18 03/27/18 QUEtiapine [SEROquel] 50 mg PO BID 03/27/18 03/27/18 Sucralfate [Carafate] 1 gm PO AC-TID 03/27/18 03/27/18 Vortioxetine Hydrobromide 10 mg PO DAILY 03/27/18 03/27/18 [Trintellix] Previous Rx's Medication Instructions Recorded Cyclobenzaprine [Flexeril] 5 mg PO DAILY PRN tab 09/06/17 Allergies Allergy/AdvReac Type Severity Reaction Status Date / Time benactyzine AdvReac Abdominal Verified 03/27/18 06:56 Pain ciprofloxacin [From Cipro] AdvReac Abdominal Verified 03/27/18 06:56 Pain dicyclomine [From Bentyl] AdvReac Abdominal Verified 03/27/18 06:56 Pain levofloxacin [From Levaquin] AdvReac Abdominal Verified 03/27/18 06:56 Pain Penicillins AdvReac "Passed Verified 03/27/18 06:56 out" prednisone AdvReac Abdominal Verified 03/27/18 06:56 Pain sulfamethoxazole AdvReac Abdominal Verified 03/27/18 06:56 [From Bactrim] Pain tamsulosin HCl [From Flomax] AdvReac Abdominal Verified 03/27/18 06:56 Pain trimethoprim [From Bactrim] AdvReac Abdominal Verified 03/27/18 06:56 Pain Review of Systems ROS Statement: Those systems with pertinent positive or pertinent negative responses have been documented in the HPI. ROS Other: All systems not noted in ROS Statement are negative. Constitutional: Denies: fever, weakness Respiratory: Denies: cough, dyspnea Cardiovascular: Denies: chest pain, palpitations, edema Gastrointestinal: Denies: abdominal pain Musculoskeletal: Reports: as per HPI, back pain, myalgia Skin: Denies: rash Neurological: Denies: headache, weakness, numbness Past Medical History Past Medical History: Diabetes Mellitus, GERD/Reflux, Hyperlipidemia, Hypertension, Osteoarthritis (OA), Skin Disorder Additional Past Medical History / Comment(s): chronic dermatitis/past cellulitis arms/ace, past falls,gout ,hx of hiatal hernia with surgery, diverticulosis, no current BP meds., constipation.djd rt knee, History of Any Multi-Drug Resistant Organisms: None Reported Date of last positivie culture/infection: None MDRO Source:: None Past Surgical History: Cholecystectomy, Hysterectomy, Joint Replacement Additional Past Surgical History / Comment(s): hemorroidectomy, colonoscopy, egd , LAP GUCCI FUNDLOPLICATION,rt knee replacement Past Anesthesia/Blood Transfusion Reactions: No Reported Reaction Additional Past Anesthesia/Blood Transfusion Reaction / Comment(s): . Past Psychological History: Anxiety, Depression Smoking Status: Never smoker - Past Family History Father Family Medical History: Diabetes Mellitus Mother Family Medical History: Diabetes Mellitus General Exam Limitations: no limitations General appearance: alert, in no apparent distress Head exam: Present: atraumatic, normocephalic Eye exam: Present: normal appearance. Absent: scleral icterus, conjunctival injection Neck exam: Present: normal inspection, full ROM. Absent: tenderness Respiratory exam: Present: normal lung sounds bilaterally. Absent: respiratory distress, wheezes, rales, rhonchi, stridor, chest wall tenderness Cardiovascular Exam: Present: regular rate, normal rhythm, normal heart sounds. Absent: systolic murmur, diastolic murmur, rubs, gallop GI/Abdominal exam: Present: soft. Absent: distended, tenderness, guarding, rebound, mass Back exam: Present: normal inspection, paraspinal tenderness. Absent: CVA tenderness (R), CVA tenderness (L), vertebral tenderness Neurological exam: Present: alert Skin exam: Present: warm, dry, intact, normal color. Absent: rash Course Vital Signs 03/27/18 03/27/18 03/27/18 04:13 05:46 06:00 Temperature 98.2 F Pulse Rate 111 H 98 100 Respiratory 28 H 20 22 Rate Blood Pressure 137/89 149/66 136/99 O2 Sat by Pulse 98 97 95 Oximetry 03/27/18 03/27/18 03/27/18 06:21 06:28 07:23 Temperature 98 F Pulse Rate 89 94 99 Respiratory 20 18 20 Rate Blood Pressure 178/78 136/69 129/93 O2 Sat by Pulse 97 97 95 Oximetry Medical Decision Making - Lab Data Result diagrams: 03/27/18 04:45 03/27/18 04:45 Lab Results 07/05/18 07/05/18 07/05/18 Range/Units 04:45 04:45 04:45 WBC 8.4 (3.8-10.6) k/uL RBC 4.94 (3.80-5.40) m/uL Hgb 15.5 (11.4-16.0) gm/dL Hct 47.4 H (34.0-46.0) % MCV 95.8 (80.0-100.0) fL MCH 31.4 (25.0-35.0) pg MCHC 32.8 (31.0-37.0) g/dL RDW 13.4 (11.5-15.5) % Plt Count 388 (150-450) k/uL Neutrophils % 61 % Lymphocytes % 29 % Monocytes % 5 % Eosinophils % 4 % Basophils % 1 % Neutrophils # 5.1 (1.3-7.7) k/uL Lymphocytes # 2.4 (1.0-4.8) k/uL Monocytes # 0.4 (0-1.0) k/uL Eosinophils # 0.4 (0-0.7) k/uL Basophils # 0.1 (0-0.2) k/uL D-Dimer (<0.60) mg/L FEU Sodium 144 (137-145) mmol/L Potassium 4.7 (3.5-5.1) mmol/L Chloride 105 (98-107) mmol/L Carbon Dioxide 22 (22-30) mmol/L Anion Gap 17 mmol/L BUN 12 (7-17) mg/dL Creatinine 0.99 (0.52-1.04) mg/dL Est GFR (CKD-EPI)AfAm 68 (>60 ml/min/1.73 sqM) Est GFR (CKD-EPI)NonAf 59 (>60 ml/min/1.73 sqM) Glucose 209 H (74-99) mg/dL Calcium 10.0 (8.4-10.2) mg/dL Magnesium 2.4 H (1.6-2.3) mg/dL Total Bilirubin 0.5 (0.2-1.3) mg/dL AST 153 H (14-36) U/L ALT 50 (9-52) U/L Alkaline Phosphatase 93 (38-126) U/L Total Creatine Kinase 71222 H (30-135) U/L CK-MB (CK-2) 13.6 H* (0.0-2.4) ng/mL CK-MB (CK-2) Rel Index Troponin I <0.012 (0.000-0.034) ng/mL Total Protein 7.5 (6.3-8.2) g/dL Albumin 4.6 (3.5-5.0) g/dL 03/27/18 Range/Units 04:45 WBC (3.8-10.6) k/uL RBC (3.80-5.40) m/uL Hgb (11.4-16.0) gm/dL Hct (34.0-46.0) % MCV (80.0-100.0) fL MCH (25.0-35.0) pg MCHC (31.0-37.0) g/dL RDW (11.5-15.5) % Plt Count (150-450) k/uL Neutrophils % % Lymphocytes % % Monocytes % % Eosinophils % % Basophils % % Neutrophils # (1.3-7.7) k/uL Lymphocytes # (1.0-4.8) k/uL Monocytes # (0-1.0) k/uL Eosinophils # (0-0.7) k/uL Basophils # (0-0.2) k/uL D-Dimer 0.80 H (<0.60) mg/L FEU Sodium (137-145) mmol/L Potassium (3.5-5.1) mmol/L Chloride (98-107) mmol/L Carbon Dioxide (22-30) mmol/L Anion Gap mmol/L BUN (7-17) mg/dL Creatinine (0.52-1.04) mg/dL Est GFR (CKD-EPI)AfAm (>60 ml/min/1.73 sqM) Est GFR (CKD-EPI)NonAf (>60 ml/min/1.73 sqM) Glucose (74-99) mg/dL Calcium (8.4-10.2) mg/dL Magnesium (1.6-2.3) mg/dL Total Bilirubin (0.2-1.3) mg/dL AST (14-36) U/L ALT (9-52) U/L Alkaline Phosphatase (38-126) U/L Total Creatine Kinase (30-135) U/L CK-MB (CK-2) (0.0-2.4) ng/mL CK-MB (CK-2) Rel Index Troponin I (0.000-0.034) ng/mL Total Protein (6.3-8.2) g/dL Albumin (3.5-5.0) g/dL - EKG Data -: EKG Interpreted by Me EKG shows normal: sinus rhythm, axis (Normal), intervals (Normal), QRS complexes (Low-voltage), ST-T waves (Normal) Rate: tachycardia (Rate approximately 103 bpm) Disposition Clinical Impression: Fall, Back pain, Traumatic rhabdomyolysis Disposition: ADMITTED IP TO THIS HOSP Condition: Fair Is patient prescribed a controlled substance at d/c from ED?: No Referrals: Tej Bojorquez MD [Primary Care Provider] - 1-2 days
[2018-03-27 05:07] LABS: Albumin 4.6 g/dL (3.5-5.0); Magnesium 2.4 mg/dL (1.6-2.3); Potassium 4.7 mmol/L (3.5-5.1); Total Bilirubin 0.5 mg/dL (0.2-1.3); Total Protein 7.5 g/dL (6.3-8.2)
[2018-03-27 05:30] LABS: Troponin I <0.012 ng/mL (0.000-0.034)
[2018-03-27] MEDS ORDERED: MORPHINE SULFATE 2 MG/ML SYRINGE IV STA ×2 (05:39→07:39)
[2018-03-27] MEDS ORDERED: MORPHINE SULFATE 2 MG/ML SYRINGE IVP STA (05:43)
[2018-03-27 05:52] LABS: Creatine Kinase 10033 U/L (30-135); Creatine Kinase MB 13.6 ng/mL (0.0-2.4)
[2018-03-27] MEDS ORDERED: SODIUM CHLORIDE 0.9% 2,000 ML IV ONE (06:09)
[2018-03-27] MEDS ORDERED: MORPHINE SULFATE 2 MG/ML SYRINGE IV PRN (07:22)
[2018-03-27] MEDS ORDERED: NALOXONE 0.4 MG/ML 1 ML VIAL IV PRN (07:22)
[2018-03-27] MEDS ORDERED: ONDANSETRON 4 MG/2 ML VIAL IVP PRN (07:22)
[2018-03-27] MEDS: ACETAMINOPHEN TAB 325 MG TAB PO PRN (08:02)
[2018-03-27] MEDS ORDERED: FAMOTIDINE 20 MG TAB PO SCH (09:00)
[2018-03-27] MEDS: HEPARIN SODIUM,PORCINE 5,000 UNIT/ML 1 ML VIAL SQ SCH ×2 (10:21→15:54)
[2018-03-27] MEDS: HYDROcodone/APAP 7.5-325MG 1 EACH TAB PO PRN ×2 (11:25→15:51)
[2018-03-27] MEDS: QUEtiapine 50 MG TAB PO SCH ×2 (11:26→21:27)
[2018-03-27] MEDS: SODIUM CHLORIDE 0.9% 1,000 ML IV SCH ×3 (11:27→19:38)
--- NOTE | 2018-03-27 11:29 | P.NPCON ---
History of Present Illness - Reason for Consult acute renal failure - History of Present Illness Reason for consultation: Rhabdomyolysis History of present illness: Patient is a 67-year-old female seen in renal consultation for rhabdomyolysis. Patient states she got up from her bed to answer phone call but subsequently fell. He should not pain all over. Patient states she was down for about 2 hours before she could get help getting up. She denies any significant nausea vomiting or diarrhea. Denies chest pain or shortness of breath. Her CK level was greater than 10,000 on admission. She is currently maintained on normal saline at 150 mL an hour. Her creatinine is 0.99. She denies regular use of NSAIDs. Denies any personal or family history of kidney disease. Admits to good urine output. Denies any hematuria or dysuria. No fever or chills. Denies cough. No abdominal pain. Vital signs are stable. General: The patient appeared well nourished and normally developed. HEENT: Head exam is unremarkable. Neck is without jugular venous distension. LUNGS: Lungs are clear to auscultation and percussion. Breath sounds decreased. HEART: Rate and Rhythm are regular. First and second heart sounds normal. No murmurs, rubs or gallops. ABDOMEN: Abdominal exam reveals normal bowel sounds. Non-tender and non- distended. No evidence of peritonitis. EXTREMITITES: No clubbing, cyanosis, or edema. Past Medical History Past Medical History: Diabetes Mellitus, GERD/Reflux, Hyperlipidemia, Hypertension, Osteoarthritis (OA), Skin Disorder Additional Past Medical History / Comment(s): IDDM type II, chronic dermatitis/ past cellulitis arms/hands, past falls, gout ,hx of hiatal hernia with surgery, diverticulosis, constipation, arthritis multiple joints, recurrent UTIs, occasionally incontinent. History of Any Multi-Drug Resistant Organisms: None Reported Date of last positivie culture/infection: None MDRO Source:: None Past Surgical History: Cholecystectomy, Hysterectomy, Joint Replacement Additional Past Surgical History / Comment(s): hemorroidectomy, colonoscopy, egd , LAP GUCCI FUNDLOPLICATION,rt knee replacement Past Anesthesia/Blood Transfusion Reactions: No Reported Reaction Additional Past Anesthesia/Blood Transfusion Reaction / Comment(s): . Smoking Status: Never smoker - Past Family History Father Family Medical History: Diabetes Mellitus Additional Family Medical History / Comment(s): Father in his 80s. Mother Family Medical History: Diabetes Mellitus Additional Family Medical History / Comment(s): Mother in her 80s Medications and Allergies Home Medications Medication Instructions Recorded Confirmed Type Oxybutynin Chloride 5 mg PO BID 02/05/15 03/27/18 History Potassium Chloride [Klor-Con 20] 20 meq PO BID 02/28/15 03/27/18 History busPIRone HCL 15 mg PO QID@,,,08/03/15 03/27/18 History ALPRAZolam 1 mg PO QID@,,,06/04/16 03/27/18 History Atorvastatin [Lipitor] 40 mg PO QAM 11/20/16 03/27/18 History Empagliflozin [Jardiance] 25 mg PO HS 02/16/17 03/27/18 History Multivitamins, Thera [Multivitamin 1 tab PO DAILY 02/16/17 03/27/18 History (formulary)] Insulin Glargine [Lantus] 40 unit SQ BID 09/03/17 03/27/18 History Cyclobenzaprine [Flexeril] 5 mg PO DAILY PRN tab 09/06/17 03/27/18 Rx Cranberry Fruit Extract [Cranberry] 1,000 mg PO BID 12/23/17 03/27/18 History HYDROcodone/APAP 10-325MG [[place] 1 tab PO TID@0700,1300,1900 12/23/17 03/27/18 History 10-325] Magnesium Oxide [Mag-Ox] 500 mg PO AC-SUPPER 12/23/17 03/27/18 History Omeprazole 20 mg PO DAILY 12/23/17 03/27/18 History Aspirin 81 mg PO DAILY 03/27/18 03/27/18 History QUEtiapine [SEROquel] 50 mg PO BID 03/27/18 03/27/18 History Sucralfate [Carafate] 1 gm PO AC-TID 03/27/18 03/27/18 History Vortioxetine Hydrobromide 10 mg PO DAILY 03/27/18 03/27/18 History [Trintellix] Allergies Allergy/AdvReac Type Severity Reaction Status Date / Time benactyzine AdvReac Abdominal Verified 03/27/18 06:56 Pain ciprofloxacin [From Cipro] AdvReac Abdominal Verified 03/27/18 06:56 Pain dicyclomine [From Bentyl] AdvReac Abdominal Verified 03/27/18 06:56 Pain levofloxacin [From Levaquin] AdvReac Abdominal Verified 03/27/18 06:56 Pain Penicillins AdvReac "Passed Verified 03/27/18 06:56 out" prednisone AdvReac Abdominal Verified 03/27/18 06:56 Pain sulfamethoxazole AdvReac Abdominal Verified 03/27/18 06:56 [From Bactrim] Pain tamsulosin HCl [From Flomax] AdvReac Abdominal Verified 03/27/18 06:56 Pain trimethoprim [From Bactrim] AdvReac Abdominal Verified 03/27/18 06:56 Pain Physical Exam Vitals: Vital Signs Temp Pulse Pulse Resp BP BP Pulse Ox 03/27/18 09:25 97.5 F L 92 16 133/56 95 03/27/18 07:56 103 H 22 151/71 96 03/27/18 07:23 99 20 129/93 95 03/27/18 06:28 94 18 136/69 97 03/27/18 06:21 98 F 89 20 178/78 97 03/27/18 06:00 100 22 136/99 95 03/27/18 05:46 98 20 149/66 97 03/27/18 04:13 98.2 F 111 H 28 H 137/89 98 Intake and Output 03/26/18 03/27/18 03/27/18 22:59 06:59 14:59 Other: Weight 81.647 kg Results - Lab Results Most recent lab results Calcium 10.0 mg/dL (8.4-10.2) 03/27/18 04:45 Magnesium 2.4 mg/dL (1.6-2.3) H 03/27/18 04:45 03/27/18 04:45 03/27/18 04:45 Assessment and Plan Plan: Assessment: #1. Rhabdomyolysis secondary to fall. CK level greater than 10,000 on admission. #2. Insulin-dependent diabetes mellitus. #3. Status post mechanical fall. Plan: Continue normal saline at 150 mL an hour. Repeat CK level in the morning. Check urinalysis. Thank you for the consultation. I will continue to follow the patient with you during her hospital stay.
[2018-03-27 11:35] LABS: Glucose,Whole Blood 111 mg/dL (75-99)
[2018-03-27 13:05] LABS: Amorphous Sediment,Urine Rare /hpf; Appearance,Urine Clear (Clear); Bilirubin,Urine Negative (Negative); Blood,Urine Negative (Negative); Color,Urine Yellow; Glucose,Urine (UA) 4+ (Negative); Ketones,Urine Trace (Negative); Leukocyte Esterase,Urine Trace (Negative); Nitrite,Urine Negative (Negative); Protein,Urine Negative (Negative); RBC,Urine 1 /hpf (0-5); Squamous Epithelial Cell,Urine 1 /hpf (0-4); Urobilinogen,Urine <2.0 mg/dL (<2.0); WBC,Urine 2 /hpf (0-5)
[2018-03-27] MEDS: INSULIN ASPART 100 UNIT/ML 1 ML 10 ML VIAL SQ SCH ×3 (13:36→21:26)
[2018-03-27] MEDS: busPIRone HCl 5 MG TAB PO SCH ×2 (13:36→19:14)
[2018-03-27] MEDS ORDERED: CYCLOBENZAPRINE 5 MG TAB PO PRN (17:04)
[2018-03-27 17:18] LABS: Glucose,Whole Blood 155 mg/dL (75-99)
[2018-03-27] MEDS: SUCRALFATE 1 GM TAB PO SCH (17:30)
[2018-03-27] MEDS: MAGNESIUM OXIDE 400 MG TAB PO SCH (17:30)
--- NOTE | 2018-03-27 17:53 | XR ---
EXAMINATION TYPE: XR lumbar spine 2 or 3V DATE OF EXAM: 03/27/2018 COMPARISON: NONE HISTORY: Fall. Back pain TECHNIQUE: 3 views FINDINGS: There is osteopenia. Vertebra have normal alignment. There is 15% wedging of T12 vertebra. The posterior elements are intact. Sacroiliac joints are intact. IMPRESSION: Mild wedging of T12 probably due to osteoporosis. Minimal spondylotic changes. I do not s ee a definite acute fracture.
--- NOTE | 2018-03-27 17:54 | XR ---
EXAMINATION TYPE: XR shoulder complete LT DATE OF EXAM: 03/27/2018 COMPARISON: NONE HISTORY: Fell. Shoulder pain. TECHNIQUE: 3 views FINDINGS: I see no fracture nor dislocation. Joint spaces are fairly normal. There are no pathologic calcifications. IMPRESSION: Negative left shoulder exam
[2018-03-27] MEDS ORDERED: busPIRone HCl 5 MG TAB PO SCH (19:00)
[2018-03-27] MEDS: ALPRAZolam 1 MG TAB PO SCH (19:14)
[2018-03-27 19:49] LABS: Hemoglobin A1C 6.9 % (4.0-6.0)
--- NOTE | 2018-03-27 20:59 | HP ---
HISTORY AND PHYSICAL CHIEF COMPLAINT: A 67-year-old white female with rhabdomyolysis. HISTORY OF PRESENT ILLNESS: A 67-year-old white female with rhabdomyolysis. She subsequently fell, could not get out of bed. She was caught in between 2 beds, where she stayed for 2 hours until EMS pulled her out. CPK level was greater than 10,000 on admission. She was started on normal saline at 150 an hour. Her creatinine is 0.98. She is extremely anxious and nervous and having a bipolar attack. She has had no medicines all day. She is complaining of severe shoulder pain, lower back pain after fall. No abdominal pain. X- rays are pending. REVIEW OF SYSTEMS: Otherwise negative x14. PAST MEDICAL HISTORY: Diabetes mellitus, GERD, dyslipidemia, hypertension, osteoarthritis, skin disorder, hiatal hernia, type 2 insulin-dependent diabetes mellitus. Chronic dermatitis, cellulitis, diverticulosis, constipation, arthritis, recurrent UTIs. SURGICAL HISTORY: Cholecystectomy, hysterectomy, joint replacement, hemorrhoidectomy, colonoscopy, Yung fundoplication, right knee replacement. FAMILY HISTORY: Father with diabetes mellitus, mother with diabetes mellitus. HOME MEDICATIONS: 1. Oxybutynin. 2. Potassium chloride. 3. BuSpar. 4. Alprazolam. 5. Lipitor. 6. Jardiance. 7. Multivitamin. 8. Lantus. 9. Flexeril. 10.Cranberry extract. 11.Mag oxide. 12.[place] 10. 13.Aspirin. 14.Seroquel. 15.Carafate. 16.Trintellix. ALLERGIES: BENACTYZINE, CIPROFLOXACIN, BENTYL, LEVAQUIN, PENICILLIN, PREDNISONE, , FLOMAX, BACTRIM. PHYSICAL EXAM: Temp 97.5, pulse 92, respirations 16-18, blood pressure 133/65, O2 95%. MUSCULOSKELETAL: Tenderness to palpation of left shoulder, limited range of motion, minimal to horizon. Cervical tenderness to palpation. CARDIOVASCULAR: S1, S2. LUNGS: Clear. GI: Soft. HEMATOLOGY: Negative Homans'. MUSCULOSKELETAL: Decreased range of motion. OPHTHALMOLOGIC: Pupils equal, round, react to light and accommodation. NEUROLOGIC: Alert and oriented x3. PSYCH: Fair mood and affect. OPHTHALMOLOGICAL: Pupils equal, round, reactive. ASSESSMENT: 1. Acute rhabdomyolysis. 2. Anxiety. 3. Insulin-dependent diabetes mellitus. 4. Shoulder pain. 5. Cervical stenosis. 6. Diabetes mellitus. 7. Gastroesophageal reflux disease. 8. Dyslipidemia. 9. Hypertension. 10.Osteoarthritis. Continue current treatments. IV fluids. Renal consult. MMODL / IJN: [id number] /
[2018-03-27] MEDS ORDERED: CRANBERRY FRUIT EXTRACT 1000 MG PO SCH (21:00)
[2018-03-27] MEDS ORDERED: QUEtiapine 50 MG TAB PO SCH (21:00)
[2018-03-27 21:09] LABS: Glucose,Whole Blood 138 mg/dL (75-99)
[2018-03-27 21:18] LABS: Basophils # (A) 0.1 k/uL (0-0.2); Basophils % (A) 1 %; Eosinophils # (A) 0.4 k/uL (0-0.7); Eosinophils % (A) 6 %; HCT 38.3 % (34.0-46.0); Lymphocytes # (A) 2.4 k/uL (1.0-4.8); Lymphocytes % (A) 41 %; MCH 31.8 pg (25.0-35.0); MCHC 32.3 g/dL (31.0-37.0); MCV 98.4 fL (80.0-100.0); Mean Platelet Volume 6.7; Monocytes # (A) 0.3 k/uL (0-1.0); Monocytes % (A) 5 %; Neutrophils # (A) 2.6 k/uL (1.3-7.7); Neutrophils % (A) 44 %; Platelet Count 288 k/uL (150-450); RBC 3.89 m/uL (3.80-5.40); RDW 13.5 % (11.5-15.5); WBC 5.9 k/uL (3.8-10.6)
[2018-03-27 21:19] LABS: HGB 12.4 gm/dL (11.4-16.0)
[2018-03-27] MEDS: INSULIN DETEMIR 100 UNIT/ML 10 ML VIAL SQ SCH (21:26)
[2018-03-27] MEDS: OXYBUTYNIN CHLORIDE 5 MG TAB PO SCH (21:27)
[2018-03-27] MEDS: POTASSIUM CHLORIDE ER 20 MEQ TAB.ER PO SCH (21:27)
[2018-03-27] MEDS: EMPAGLIFLOZIN 25 MG PO SCH (21:28)
[2018-03-27 21:29] LABS: Albumin 3.5 g/dL (3.5-5.0); Calcium 8.6 mg/dL (8.4-10.2); Potassium 4.8 mmol/L (3.5-5.1); Total Bilirubin 0.3 mg/dL (0.2-1.3); Total Protein 5.8 g/dL (6.3-8.2)
[2018-03-28] MEDS: HEPARIN SODIUM,PORCINE 5,000 UNIT/ML 1 ML VIAL SQ SCH ×4 (00:10→23:50)
[2018-03-28] MEDS: busPIRone HCl 5 MG TAB PO SCH ×5 (00:52→23:50)
[2018-03-28] MEDS: ALPRAZolam 1 MG TAB PO SCH ×5 (00:52→23:50)
[2018-03-28] MEDS: SODIUM CHLORIDE 0.9% 1,000 ML IV SCH ×4 (00:54→21:55)
[2018-03-28] MEDS: SUCRALFATE 1 GM TAB PO SCH ×3 (06:16→17:38)
[2018-03-28] MEDS: PANTOPRAZOLE 40 MG TABLET PO SCH (06:16)
[2018-03-28 06:18] LABS: Glucose,Whole Blood 72 mg/dL (75-99)
[2018-03-28] MEDS: INSULIN ASPART 100 UNIT/ML 1 ML 10 ML VIAL SQ SCH ×4 (06:23→20:27)
[2018-03-28 06:29] LABS: Anion Gap 11 mmol/L; Blood Urea Nitrogen 9 mg/dL (7-17); Calcium 8.7 mg/dL (8.4-10.2); Carbon Dioxide 23 mmol/L (22-30); Chloride 110 mmol/L (98-107); Glucose 71 mg/dL (74-99); Potassium 3.9 mmol/L (3.5-5.1); Sodium 144 mmol/L (137-145)
[2018-03-28 07:12] LABS: Creatine Kinase 5448 U/L (30-135)
--- NOTE | 2018-03-28 08:33 | P.PN ---
Subjective Patient is seen in follow-up for rhabdomyolysis. Her CK level was greater than 10,000 on admission and is down to 5448 today. Patient presented with a fall. Still admits to generalized soreness in her body. Admits to good urine output. Vital signs are stable. General: The patient appeared well nourished and normally developed. HEENT: Head exam is unremarkable. Neck is without jugular venous distension. LUNGS: Lungs are clear to auscultation and percussion. Breath sounds decreased. HEART: Rate and Rhythm are regular. First and second heart sounds normal. No murmurs, rubs or gallops. ABDOMEN: Abdominal exam reveals normal bowel sounds. Non-tender and non- distended. No evidence of peritonitis. EXTREMITITES: No clubbing, cyanosis, or edema. Objective - Vital Signs Vital signs: Vital Signs Temp 98.4 F 03/28/18 01:30 Pulse 81 03/28/18 01:30 Resp 18 03/28/18 01:30 BP 129/84 03/28/18 01:30 Pulse Ox 97 03/28/18 01:30 Intake & Output 03/27/18 03/28/18 03/28/18 18:59 06:59 18:59 Intake Total 120 Balance 120 Intake: Oral 120 Other: Voiding Method Toilet # Voids 1 1 - Labs CBC & Chem 7: 03/27/18 20:42 03/28/18 06:02 Labs: Abnormal Lab Results - Last 24 Hours (Table) 03/27/18 03/27/18 03/27/18 Range/Units 04:45 11:23 12:32 Chloride (98-107) mmol/L Glucose (74-99) mg/dL POC Glucose (mg/dL) 111 H (75-99) mg/dL Hemoglobin A1c 6.9 H (4.0-6.0) % AST (14-36) U/L Creatine Kinase (30-135) U/L CK-MB (CK-2) (0.0-2.4) ng/mL Total Protein (6.3-8.2) g/dL Urine Glucose (UA) 4+ H (Negative) Urine Ketones Trace H (Negative) Ur Leukocyte Esterase Trace H (Negative) Amorphous Sediment Rare H (None) /hpf 03/27/18 03/27/18 03/27/18 Range/Units 17:14 18:21 20:42 Chloride (98-107) mmol/L Glucose 139 H (74-99) mg/dL POC Glucose (mg/dL) 155 H (75-99) mg/dL Hemoglobin A1c (4.0-6.0) % AST 112 H (14-36) U/L Creatine Kinase (30-135) U/L CK-MB (CK-2) 7.8 H* (0.0-2.4) ng/mL Total Protein 5.8 L (6.3-8.2) g/dL Urine Glucose (UA) (Negative) Urine Ketones (Negative) Ur Leukocyte Esterase (Negative) Amorphous Sediment (None) /hpf 03/27/18 03/28/18 03/28/18 Range/Units 21:06 06:02 06:02 Chloride 110 H (98-107) mmol/L Glucose 71 L (74-99) mg/dL POC Glucose (mg/dL) 138 H (75-99) mg/dL Hemoglobin A1c (4.0-6.0) % AST (14-36) U/L Creatine Kinase 5448 H (30-135) U/L CK-MB (CK-2) 6.0 H* (0.0-2.4) ng/mL Total Protein (6.3-8.2) g/dL Urine Glucose (UA) (Negative) Urine Ketones (Negative) Ur Leukocyte Esterase (Negative) Amorphous Sediment (None) /hpf 03/28/18 Range/Units 06:17 Chloride (98-107) mmol/L Glucose (74-99) mg/dL POC Glucose (mg/dL) 72 L (75-99) mg/dL Hemoglobin A1c (4.0-6.0) % AST (14-36) U/L Creatine Kinase (30-135) U/L CK-MB (CK-2) (0.0-2.4) ng/mL Total Protein (6.3-8.2) g/dL Urine Glucose (UA) (Negative) Urine Ketones (Negative) Ur Leukocyte Esterase (Negative) Amorphous Sediment (None) /hpf Assessment and Plan Plan: Assessment: #1. Rhabdomyolysis secondary to fall. CK level greater than 10,000 on admission - down to 5448 today. #2. Insulin-dependent diabetes mellitus. #3. Status post mechanical fall. Plan: I will decrease rate of normal saline to 100 mL an hour. Stable to be discharged home from nephrology standpoint.
[2018-03-28] MEDS: ASPIRIN 81 MG PO SCH (08:43)
[2018-03-28] MEDS: ATORVASTATIN 40 MG TAB PO SCH (08:43)
[2018-03-28] MEDS: POTASSIUM CHLORIDE ER 20 MEQ TAB.ER PO SCH ×2 (08:44→20:08)
[2018-03-28] MEDS: OXYBUTYNIN CHLORIDE 5 MG TAB PO SCH ×2 (08:44→20:08)
[2018-03-28] MEDS: QUEtiapine 50 MG TAB PO SCH ×2 (08:45→20:08)
[2018-03-28] MEDS: VORTIOXETINE HYDROBROMIDE 10 MG PO SCH (08:45)
[2018-03-28] MEDS ORDERED: FAMOTIDINE 20 MG TAB PO SCH (09:00)
[2018-03-28] MEDS: INSULIN DETEMIR 100 UNIT/ML 10 ML VIAL SQ SCH ×2 (09:00→20:27)
[2018-03-28] MEDS: HYDROcodone/APAP 7.5-325MG 1 EACH TAB PO PRN ×3 (10:50→23:50)
[2018-03-28 11:57] LABS: Glucose,Whole Blood 78 mg/dL (75-99)
[2018-03-28] MEDS: MULTIVITAMINS, THERA 1 EACH TAB PO SCH (12:41)
[2018-03-28] MEDS: ACETAMINOPHEN TAB 325 MG TAB PO PRN ×2 (14:01→20:07)
[2018-03-28 16:50] LABS: Glucose,Whole Blood 80 mg/dL (75-99)
[2018-03-28] MEDS: MAGNESIUM OXIDE 400 MG TAB PO SCH (17:38)
[2018-03-28] MEDS: EMPAGLIFLOZIN 25 MG PO SCH (20:07)
[2018-03-28 20:12] LABS: Glucose,Whole Blood 133 mg/dL (75-99)
[2018-03-29] MEDS: ALPRAZolam 1 MG TAB PO SCH ×3 (06:24→20:42)
[2018-03-29] MEDS: SUCRALFATE 1 GM TAB PO SCH ×3 (06:24→17:27)
[2018-03-29] MEDS: PANTOPRAZOLE 40 MG TABLET PO SCH (06:24)
[2018-03-29] MEDS: busPIRone HCl 5 MG TAB PO SCH ×3 (06:24→20:43)
[2018-03-29] MEDS: SODIUM CHLORIDE 0.9% 1,000 ML IV SCH ×2 (06:26→21:36)
[2018-03-29 06:31] LABS: Glucose,Whole Blood 57 mg/dL (75-99)
[2018-03-29] MEDS: INSULIN ASPART 100 UNIT/ML 1 ML 10 ML VIAL SQ SCH ×4 (06:36→21:36)
[2018-03-29 06:52] LABS: Glucose,Whole Blood 64 mg/dL (75-99)
[2018-03-29 07:07] LABS: Glucose,Whole Blood 103 mg/dL (75-99)
[2018-03-29 07:27] LABS: ALT 51 U/L (9-52); AST 102 U/L (14-36); Albumin 3.3 g/dL (3.5-5.0); Alkaline Phosphatase 42 U/L (38-126); Anion Gap 10 mmol/L; Blood Urea Nitrogen 6 mg/dL (7-17); Calcium 9.1 mg/dL (8.4-10.2); Carbon Dioxide 25 mmol/L (22-30); Chloride 108 mmol/L (98-107); Glucose 87 mg/dL (74-99); Potassium 4.5 mmol/L (3.5-5.1); Sodium 143 mmol/L (137-145); Total Bilirubin 0.2 mg/dL (0.2-1.3); Total Protein 5.6 g/dL (6.3-8.2)
[2018-03-29] MEDS: INSULIN DETEMIR 100 UNIT/ML 10 ML VIAL SQ SCH ×2 (09:33→20:42)
[2018-03-29] MEDS: POTASSIUM CHLORIDE ER 20 MEQ TAB.ER PO SCH ×2 (09:34→20:43)
[2018-03-29] MEDS: ASPIRIN 81 MG PO SCH (09:34)
[2018-03-29] MEDS: OXYBUTYNIN CHLORIDE 5 MG TAB PO SCH ×2 (09:34→20:42)
[2018-03-29] MEDS: ATORVASTATIN 40 MG TAB PO SCH (09:34)
[2018-03-29] MEDS: QUEtiapine 50 MG TAB PO SCH ×2 (09:34→20:42)
[2018-03-29] MEDS: HEPARIN SODIUM,PORCINE 5,000 UNIT/ML 1 ML VIAL SQ SCH ×2 (09:34→16:01)
[2018-03-29] MEDS: VORTIOXETINE HYDROBROMIDE 10 MG PO SCH (09:36)
--- NOTE | 2018-03-29 10:47 | P.PN ---
Subjective Progress Note Date: 03/29/18 Principal diagnosis: This 67-year-old female is seen because of rhabdomyolysis without kidney injury. CPK total was down to 5475 but none has been drawn since yesterday. Patient fell from her bed and was stuck in between to bedside about 2 hours on her left arm and has some soreness. In the rest of her level other limbs she has chronic mild paresthesias with hypersensitivity to touch. This is not new. She has good appetite no shortness of breath no fever chills no abdominal pain no chest pain. While signs are unremarkable. Objective - Vital Signs Vital signs: Vital Signs Temp 97.9 F 03/29/18 08:20 Pulse 82 03/29/18 08:20 Resp 17 03/29/18 08:20 BP 128/79 03/29/18 08:20 Pulse Ox 95 03/29/18 08:20 Intake & Output 03/28/18 03/29/18 03/29/18 18:59 06:59 18:59 Intake Total 1642 Balance 1642 Intake: Oral 1642 Other: # Voids 3 On exam she is awake alert oriented HEENT exam no JVP neck is supple no facial asymmetry Lungs clear to auscultation good air entry bilaterally Heart sounds are unremarkable for any murmur rub gallop Abdomen soft nontender. She complains of constipation and lower abdominal discomfort. Extremity exam was no edema. Soft to touch. There is some aches or to her left arm. Neurologically awake alert oriented - Labs CBC & Chem 7: 03/27/18 20:42 03/29/18 06:58 Labs: Abnormal Lab Results - Last 24 Hours (Table) 03/28/18 03/28/18 03/28/18 Range/Units 06:02 18:04 20:11 Chloride (98-107) mmol/L BUN (7-17) mg/dL POC Glucose (mg/dL) 133 H (75-99) mg/dL AST (14-36) U/L Creatine Kinase 5475 H (30-135) U/L CK-MB (CK-2) 8.1 H* (0.0-2.4) ng/mL Total Protein (6.3-8.2) g/dL Albumin (3.5-5.0) g/dL 03/29/18 03/29/18 03/29/18 Range/Units 06:30 06:51 06:58 Chloride (98-107) mmol/L BUN (7-17) mg/dL POC Glucose (mg/dL) 57 L 64 L (75-99) mg/dL AST (14-36) U/L Creatine Kinase (30-135) U/L CK-MB (CK-2) 4.8 H* (0.0-2.4) ng/mL Total Protein (6.3-8.2) g/dL Albumin (3.5-5.0) g/dL 03/29/18 03/29/18 Range/Units 06:58 07:06 Chloride 108 H (98-107) mmol/L BUN 6 L (7-17) mg/dL POC Glucose (mg/dL) 103 H (75-99) mg/dL AST 102 H (14-36) U/L Creatine Kinase (30-135) U/L CK-MB (CK-2) (0.0-2.4) ng/mL Total Protein 5.6 L (6.3-8.2) g/dL Albumin 3.3 L (3.5-5.0) g/dL Assessment and Plan Assessment: Impression 1. Rhabdomyolysis from trauma after a fall from the bed. CPK was 56101 on 01/2018, subsequently has been 5448, and 5475 yesterday. Creatinine is normal at 0.6 for rest of the electrolytes are unremarkable calcium is 9.1 phosphorus is not available, AST slightly high of 102 ALTs normal at 51 On IV fluids at 100 mL of normal saline per hour. Recommendation. Redo total CPK today. Add serum phosphorus
[2018-03-29 10:53] LABS: Glucose,Whole Blood 130 mg/dL (75-99)
[2018-03-29 11:00] LABS: Phosphorus 4.8 mg/dL (2.5-4.5)
--- NOTE | 2018-03-29 11:24 | P.CNOR ---
History of Present Illness - HPI Consult date: 03/29/18 History of present illness: This is a 59-year-old female admitted to [facility] on 2017 after a fall in her home. She states that she went to get up in the morning and fell between 2 beds. She was apparently pinned between the 2 beds for a couple of hours before she was found by family. She was brought to the emergency department for evaluation. She complains of pain about the neck and left shoulder. She initially had pain to her low back which is now improved. We're consulted for orthopedic evaluation. Past Medical History Past Medical History: Diabetes Mellitus, GERD/Reflux, Hyperlipidemia, Hypertension, Osteoarthritis (OA), Skin Disorder Additional Past Medical History / Comment(s): IDDM type II, chronic dermatitis/ past cellulitis arms/hands, past falls, gout ,hx of hiatal hernia with surgery, diverticulosis, constipation, arthritis multiple joints, recurrent UTIs, occasionally incontinent. History of Any Multi-Drug Resistant Organisms: None Reported Year Discovered:: None MDRO Source:: None Past Surgical History: Cholecystectomy, Hysterectomy, Joint Replacement Additional Past Surgical History / Comment(s): hemorroidectomy, colonoscopy, egd , LAP GUCCI FUNDLOPLICATION,rt knee replacement Past Anesthesia/Blood Transfusion Reactions: No Reported Reaction Additional Past Anesthesia/Blood Transfusion Reaction / Comm: . Smoking Status: Never smoker - Past Family History Father Family Medical History: Diabetes Mellitus Additional Family Medical History / Comment(s): Father in his 80s. Mother Family Medical History: Diabetes Mellitus Additional Family Medical History / Comment(s): Mother in her 80s Medications and Allergies Home Medications Medication Instructions Recorded Confirmed Type Oxybutynin Chloride 5 mg PO BID 02/05/15 03/27/18 History Potassium Chloride [Klor-Con 20] 20 meq PO BID 02/28/15 03/27/18 History busPIRone HCL 15 mg PO QID@,,,08/03/15 03/27/18 History ALPRAZolam 1 mg PO QID@,,,06/04/16 03/27/18 History Atorvastatin [Lipitor] 40 mg PO QAM 11/20/16 03/27/18 History Empagliflozin [Jardiance] 25 mg PO HS 02/16/17 03/27/18 History Multivitamins, Thera [Multivitamin 1 tab PO DAILY 02/16/17 03/27/18 History (formulary)] Insulin Glargine [Lantus] 40 unit SQ BID 09/03/17 03/27/18 History Cyclobenzaprine [Flexeril] 5 mg PO DAILY PRN tab 09/06/17 03/27/18 Rx Cranberry Fruit Extract [Cranberry] 1,000 mg PO BID 12/23/17 03/27/18 History HYDROcodone/APAP 10-325MG [[place] 1 tab PO TID@0700,1300,1900 12/23/17 03/27/18 History 10-325] Magnesium Oxide [Mag-Ox] 500 mg PO AC-SUPPER 12/23/17 03/27/18 History Omeprazole 20 mg PO DAILY 12/23/17 03/27/18 History Aspirin 81 mg PO DAILY 03/27/18 03/27/18 History QUEtiapine [SEROquel] 50 mg PO BID 03/27/18 03/27/18 History Sucralfate [Carafate] 1 gm PO AC-TID 03/27/18 03/27/18 History Vortioxetine Hydrobromide 10 mg PO DAILY 03/27/18 03/27/18 History [Trintellix] Allergies Allergy/AdvReac Type Severity Reaction Status Date / Time benactyzine AdvReac Abdominal Verified 03/27/18 06:56 Pain ciprofloxacin [From Cipro] AdvReac Abdominal Verified 03/27/18 06:56 Pain dicyclomine [From Bentyl] AdvReac Abdominal Verified 03/27/18 06:56 Pain levofloxacin [From Levaquin] AdvReac Abdominal Verified 03/27/18 06:56 Pain Penicillins AdvReac "Passed Verified 03/27/18 06:56 out" prednisone AdvReac Abdominal Verified 03/27/18 06:56 Pain sulfamethoxazole AdvReac Abdominal Verified 03/27/18 06:56 [From Bactrim] Pain tamsulosin HCl [From Flomax] AdvReac Abdominal Verified 03/27/18 06:56 Pain trimethoprim [From Bactrim] AdvReac Abdominal Verified 03/27/18 06:56 Pain Physical Examination This is a 67-year-old female in no acute distress. She is alert and oriented 3. Exam of the head neck reveal no obvious deformity. She has significant limitation in cervical spine rotation secondary to pain and stiffness. She has full flexion and limited extension of cervical spine. There is pain with palpation about the left paraspinal musculature. Exam the upper extremities reveals full forward flexion and abduction of the left shoulder. She has full elbow, wrist and finger motion without difficulty or pain. Neurovascular status the upper extremities is intact. She has good strength to the bilateral upper extremities. No neurologic deficits noted. Exam of the thoracic and lumbar spine reveal no obvious deformity. There is no pain with palpation or percussion about the thoracic or lumbar spine or paraspinal musculature. Exam the lower extremities reveals no obvious deformity. She is able to lift each leg off the bed independently. There is no pain with logroll bilaterally. She has full foot and ankle motion without difficulty or pain. No neurologic deficits noted to the lower extremities. Results X-rays of the left shoulder reveal no acute fracture. X-rays of the lumbar spine reveal an old L1 compression fracture in stable position. No acute fractures identified. Mild to moderate degenerative changes noted. - Labs Labs: Abnormal Lab Results - Last 24 Hours (Table) 03/28/18 03/28/18 03/28/18 Range/Units 06:02 18:04 20:11 Chloride (98-107) mmol/L BUN (7-17) mg/dL POC Glucose (mg/dL) 133 H (75-99) mg/dL AST (14-36) U/L Creatine Kinase 5475 H (30-135) U/L CK-MB (CK-2) 8.1 H* (0.0-2.4) ng/mL Total Protein (6.3-8.2) g/dL Albumin (3.5-5.0) g/dL 03/29/18 03/29/18 03/29/18 Range/Units 06:30 06:51 06:58 Chloride (98-107) mmol/L BUN (7-17) mg/dL POC Glucose (mg/dL) 57 L 64 L (75-99) mg/dL AST (14-36) U/L Creatine Kinase (30-135) U/L CK-MB (CK-2) 4.8 H* (0.0-2.4) ng/mL Total Protein (6.3-8.2) g/dL Albumin (3.5-5.0) g/dL 03/29/18 03/29/18 03/29/18 Range/Units 06:58 07:06 10:51 Chloride 108 H (98-107) mmol/L BUN 6 L (7-17) mg/dL POC Glucose (mg/dL) 103 H 130 H (75-99) mg/dL AST 102 H (14-36) U/L Creatine Kinase (30-135) U/L CK-MB (CK-2) (0.0-2.4) ng/mL Total Protein 5.6 L (6.3-8.2) g/dL Albumin 3.3 L (3.5-5.0) g/dL H & H 03/27/18 03/27/18 Range/Units 04:45 20:42 Hgb 15.5 12.4 D (11.4-16.0) gm/dL Hct 47.4 H 38.3 (34.0-46.0) % Result Diagrams: 03/27/18 20:42 03/29/18 06:58 Assessment and Plan (1) Cervical muscle strain Current Visit: Yes Status: Acute Code(s): S16.1XXA - STRAIN OF MUSCLE, FASCIA AND TENDON AT NECK LEVEL, INIT SNOMED Code(s): 881417315 (2) Fall Current Visit: Yes Status: Acute Code(s): W19.XXXA - UNSPECIFIED FALL, INITIAL ENCOUNTER SNOMED Code(s): 6311800 (3) Traumatic rhabdomyolysis Current Visit: Yes Status: Acute Code(s): T79.6XXA - TRAUMATIC ISCHEMIA OF MUSCLE, INITIAL ENCOUNTER SNOMED Code(s): 396725591 Plan: The clinical and x-ray findings are discussed with the patient. A soft cervical collar is ordered for comfort. She is to follow-up in our office in 2 weeks for reevaluation. She is to call sooner if symptoms worsen or she has new complaints.
[2018-03-29] MEDS: HYDROcodone/APAP 7.5-325MG 1 EACH TAB PO PRN ×2 (12:41→22:47)
[2018-03-29] MEDS: MULTIVITAMINS, THERA 1 EACH TAB PO SCH (12:42)
--- NOTE | 2018-03-29 13:50 | P.PN ---
Subjective Progress Note Date: 03/29/18 03/29/2018, patient seen eval examined during the rounds clinically patient has been doing relatively well is still however complaining of soreness and pain in the back and evaluated by orthopedic services as well as renal services patient has been tolerating clear liquid diet as well as fluid is very well she has been on IV fluid 100 mL an hour she has a significant edema of the lower extremity would stop the IV fluid and encourage patient to take by mouth and observe if remains stable possible discharge in next 24-48 hours Objective - Vital Signs Vital signs: Vital Signs Temp 98.4 F 03/29/18 12:33 Pulse 82 03/29/18 12:33 Resp 17 03/29/18 12:33 BP 124/80 03/29/18 12:33 Pulse Ox 96 03/29/18 12:33 Intake & Output 03/28/18 03/29/18 03/29/18 18:59 06:59 18:59 Intake Total 1642 Balance 1642 Intake: Oral 1642 Other: # Voids 3 - Exam exam she is awake alert oriented HEENT exam no JVP neck is supple no facial asymmetry Lungs clear to auscultation good air entry bilaterally Heart sounds are unremarkable for any murmur rub gallop Abdomen soft nontender. She complains of constipation and lower abdominal discomfort. Extremity exam was significant +2 edema. Soft to touch. . Neurologically awake alert oriented - Labs CBC & Chem 7: 03/27/18 20:42 03/29/18 06:58 Labs: Abnormal Lab Results - Last 24 Hours (Table) 03/28/18 03/28/18 03/29/18 Range/Units 18:04 20:11 06:30 Chloride (98-107) mmol/L BUN (7-17) mg/dL POC Glucose (mg/dL) 133 H 57 L (75-99) mg/dL Phosphorus (2.5-4.5) mg/dL AST (14-36) U/L Creatine Kinase (30-135) U/L CK-MB (CK-2) 8.1 H* (0.0-2.4) ng/mL Total Protein (6.3-8.2) g/dL Albumin (3.5-5.0) g/dL 03/29/18 03/29/18 03/29/18 Range/Units 06:51 06:58 06:58 Chloride 108 H (98-107) mmol/L BUN 6 L (7-17) mg/dL POC Glucose (mg/dL) 64 L (75-99) mg/dL Phosphorus (2.5-4.5) mg/dL AST 102 H (14-36) U/L Creatine Kinase (30-135) U/L CK-MB (CK-2) 4.8 H* (0.0-2.4) ng/mL Total Protein 5.6 L (6.3-8.2) g/dL Albumin 3.3 L (3.5-5.0) g/dL 03/29/18 03/29/18 03/29/18 Range/Units 06:58 07:06 10:51 Chloride (98-107) mmol/L BUN (7-17) mg/dL POC Glucose (mg/dL) 103 H 130 H (75-99) mg/dL Phosphorus 4.8 H (2.5-4.5) mg/dL AST (14-36) U/L Creatine Kinase 4103 H (30-135) U/L CK-MB (CK-2) (0.0-2.4) ng/mL Total Protein (6.3-8.2) g/dL Albumin (3.5-5.0) g/dL Assessment and Plan Assessment: Acute rhabdomyolysis Intravascular volume depletion and dehydration Muscular pain predominantly in the bed related to falls Significant lower extremity edema Plan: Stop IV fluids Increase activity as tolerated Repeat labs tomorrow If remains stable possible discharge tomorrow Time with Patient: Greater than 30
[2018-03-29 17:25] LABS: Glucose,Whole Blood 130 mg/dL (75-99)
[2018-03-29] MEDS: MAGNESIUM OXIDE 400 MG TAB PO SCH (17:27)
[2018-03-29 20:42] LABS: Glucose,Whole Blood 166 mg/dL (75-99)
[2018-03-29] MEDS: EMPAGLIFLOZIN 25 MG PO SCH (20:43)
[2018-03-30] MEDS: HEPARIN SODIUM,PORCINE 5,000 UNIT/ML 1 ML VIAL SQ SCH ×2 (01:00→09:00)
[2018-03-30] MEDS: busPIRone HCl 5 MG TAB PO SCH ×2 (01:01→06:21)
[2018-03-30] MEDS: ALPRAZolam 1 MG TAB PO SCH ×2 (01:01→06:21)
[2018-03-30] MEDS: HYDROcodone/APAP 7.5-325MG 1 EACH TAB PO PRN (06:20)
[2018-03-30] MEDS: SUCRALFATE 1 GM TAB PO SCH (06:21)
[2018-03-30] MEDS: PANTOPRAZOLE 40 MG TABLET PO SCH (06:21)
[2018-03-30 06:26] LABS: Glucose,Whole Blood 68 mg/dL (75-99)
[2018-03-30] MEDS: INSULIN ASPART 100 UNIT/ML 1 ML 10 ML VIAL SQ SCH (06:28)
[2018-03-30 06:56] LABS: Basophils % (A) 1 %; Eosinophils # (A) 0.3 k/uL (0-0.7); Eosinophils % (A) 6 %; HCT 41.5 % (34.0-46.0); HGB 13.1 gm/dL (11.4-16.0); Hypochromasia Slight; Lymphocytes # (A) 2.3 k/uL (1.0-4.8); Lymphocytes % (A) 42 %; MCH 31.4 pg (25.0-35.0); MCHC 31.6 g/dL (31.0-37.0); MCV 99.4 fL (80.0-100.0); Mean Platelet Volume 6.6; Monocytes # (A) 0.3 k/uL (0-1.0); Monocytes % (A) 6 %; Neutrophils # (A) 2.3 k/uL (1.3-7.7); Neutrophils % (A) 44 %; Platelet Count 333 k/uL (150-450); RBC 4.17 m/uL (3.80-5.40); RDW 13.4 % (11.5-15.5); WBC 5.4 k/uL (3.8-10.6)
[2018-03-30 07:07] LABS: ALT 49 U/L (9-52); AST 97 U/L (14-36); Albumin 3.6 g/dL (3.5-5.0); Alkaline Phosphatase 51 U/L (38-126); Anion Gap 10 mmol/L; Blood Urea Nitrogen 9 mg/dL (7-17); Calcium 9.7 mg/dL (8.4-10.2); Carbon Dioxide 27 mmol/L (22-30); Chloride 106 mmol/L (98-107); Glucose 67 mg/dL (74-99); Potassium 4.4 mmol/L (3.5-5.1); Sodium 143 mmol/L (137-145); Total Bilirubin 0.3 mg/dL (0.2-1.3)
[2018-03-30] MEDS: SODIUM CHLORIDE 0.9% 1,000 ML IV SCH (08:57)
[2018-03-30] MEDS: INSULIN DETEMIR 100 UNIT/ML 10 ML VIAL SQ SCH (08:57)
[2018-03-30] MEDS: OXYBUTYNIN CHLORIDE 5 MG TAB PO SCH (09:01)
[2018-03-30] MEDS: POTASSIUM CHLORIDE ER 20 MEQ TAB.ER PO SCH (09:01)
[2018-03-30] MEDS: ATORVASTATIN 40 MG TAB PO SCH (09:01)
[2018-03-30] MEDS: ASPIRIN 81 MG PO SCH (09:01)
[2018-03-30] MEDS: QUEtiapine 50 MG TAB PO SCH (09:02)
[2018-03-30] MEDS: VORTIOXETINE HYDROBROMIDE 10 MG PO SCH (09:02)
[2018-03-30 09:32] VITALS: BP 120/76; PULSE 75; RESP 18; TEMP 98.3
--- NOTE | 2018-03-30 10:23 | P.PN ---
Subjective Principal diagnosis: This 67-year-old female is seen because of rhabdomyolysis, from a fall and being trapped on her left arm for 2 hours. Her renal function is normal therefore this rhabdomyolysis is without kidney injury. CPK total was down from the 100,000 range to 5475, and further to 4000 range as of yesterday. Her urinalysis shows no RBCs biomicroscopy normal on dipstick and her creatinine is normal therefore there is no renal dysfunction. Patient fell from her bed and was stuck in between to bedside about 2 hours on her left arm and has some soreness. In the rest of her level other limbs she has chronic mild paresthesias with hypersensitivity to touch. This is not new. She has good appetite no shortness of breath no fever chills no abdominal pain no chest pain. Her vital signs are unremarkable. Objective - Vital Signs Vital signs: Vital Signs Temp 98.3 F 03/30/18 09:32 Pulse 75 03/30/18 09:32 Resp 18 03/30/18 09:32 BP 120/76 03/30/18 09:32 Pulse Ox 96 03/30/18 09:32 Intake & Output 03/29/18 03/30/18 03/30/18 18:59 06:59 18:59 Intake Total 240 1300 Balance 240 1300 Intake: Oral 240 1300 Other: # Voids 1 On examination she is awake alert oriented comfortable HEENT exam no JVP neck is supple no facial asymmetry Lungs clear to auscultation good air entry bilaterally Heart sounds are unremarkable Abdomen soft nontender Exam was possibly trace edema Neurologically awake alert oriented. - Labs CBC & Chem 7: 03/30/18 06:40 03/30/18 06:40 Labs: Abnormal Lab Results - Last 24 Hours (Table) 03/29/18 03/29/18 03/29/18 Range/Units 06:58 10:51 17:21 Glucose (74-99) mg/dL POC Glucose (mg/dL) 130 H 130 H (75-99) mg/dL Phosphorus 4.8 H (2.5-4.5) mg/dL AST (14-36) U/L Creatine Kinase 4103 H (30-135) U/L CK-MB (CK-2) (0.0-2.4) ng/mL Total Protein (6.3-8.2) g/dL 03/29/18 03/29/18 03/30/18 Range/Units 17:49 20:40 06:24 Glucose (74-99) mg/dL POC Glucose (mg/dL) 166 H 68 L (75-99) mg/dL Phosphorus (2.5-4.5) mg/dL AST (14-36) U/L Creatine Kinase (30-135) U/L CK-MB (CK-2) 6.4 H* (0.0-2.4) ng/mL Total Protein (6.3-8.2) g/dL 03/30/18 03/30/18 Range/Units 06:40 06:40 Glucose 67 L (74-99) mg/dL POC Glucose (mg/dL) (75-99) mg/dL Phosphorus (2.5-4.5) mg/dL AST 97 H (14-36) U/L Creatine Kinase (30-135) U/L CK-MB (CK-2) 3.7 H* (0.0-2.4) ng/mL Total Protein 6.0 L (6.3-8.2) g/dL Assessment and Plan Assessment: Impression 1. Rhabdomyolysis from trauma after a fall from the bed, on her left arm and was immobilized every 12 hours. [place] 01455 on 03/27/2018, subsequently has been 5448, and 5475, and down to 4003 yesterday. Creatinine is normal at 0.76 for rest of the electrolytes are unremarkable calcium is 9.7 phosphorus is 4.8 AST slightly high of 102 ALTs normal at 51. All her medications have been checked and are not known to cause any rhabdomyolysis She has been off of IV fluids since yesterday. Plan- 1. Patient can be discharged. Avoid medication that could cause rhabdomyolysis secondary to statins for right now. 2. Oral intake should be high until CPK comes down to normal range. 3. Follow-up CPK in 2-4 days' time. I have given her a prescription and asked her to call my office. She does not need a follow-up visit but I'll be happy to see her.
--- NOTE | 2018-03-30 10:31 | P.DS ---
Providers Date of admission: 03/27/18 07:22 Expected date of discharge: 03/30/18 Attending physician: Tej Bojorquez Consults: 03/27/18 07:24 Consult Physician Routine Consulting Provider: Samara Patrick Consult Reason/Comments: Possible rhabdomyolysis Do you want consulting provider notified?: Yes 03/27/18 17:03 Consult Physician Routine Consulting Provider: Leonides Moon Consult Reason/Comments: pain in L shoulder and Lumbar area Do you want consulting provider notified?: Yes Primary care physician: [place] Hospital Course: Female patient admitted to [facility] on 03/27/2018 after a fall at home. She was stuck in between 2 beds for approximately 2 hours before she was found by family. She is brought into the emergency room for workup and evaluation. The patient was found to have back pain with possible rhabdomyolysis. She has been seen and cleared by orthopedics as well as nephrology. Her pain is controlled. She did take 1 [place] 7.5 in the last 24 hours. She does have home [place] 10 mg 3 times a day at home currently. Orthostatic did give her a soft c-collar for comfort which she states is helping. Pertinent Studies: EKG Shoulder x-ray Lumbar spine x-ray Procedures: None Patient Condition at Discharge: Fair Plan - Discharge Summary Discharge Rx Participant: No New Discharge Prescriptions: Continue Oxybutynin Chloride 5 mg PO BID Potassium Chloride [Klor-Con 20] 20 meq PO BID busPIRone HCL 15 mg PO QID@,,, ALPRAZolam 1 mg PO QID@,,, Atorvastatin [Lipitor] 40 mg PO QAM Empagliflozin [Jardiance] 25 mg PO HS Multivitamins, Thera [Multivitamin (formulary)] 1 tab PO DAILY Insulin Glargine [Lantus] 40 unit SQ BID Cyclobenzaprine [Flexeril] 5 mg PO DAILY PRN tab PRN Reason: MUSCLE Pain Cranberry Fruit Extract [Cranberry] 1,000 mg PO BID HYDROcodone/APAP 10-325MG [[place] 10-325] 1 tab PO TID@0700,1300,1900 Omeprazole 20 mg PO DAILY Magnesium Oxide [Mag-Ox] 500 mg PO AC-SUPPER Aspirin 81 mg PO DAILY Sucralfate [Carafate] 1 gm PO AC-TID Vortioxetine Hydrobromide [Trintellix] 10 mg PO DAILY QUEtiapine [SEROquel] 50 mg PO BID Discharge Medication List Oxybutynin Chloride 5 mg PO BID 02/05/15 [History] Potassium Chloride [Klor-Con 20] 20 meq PO BID 02/28/15 [History] busPIRone HCL 15 mg PO QID@,,,08/03/15 [History] ALPRAZolam 1 mg PO QID@,,,06/04/16 [History] Atorvastatin [Lipitor] 40 mg PO QAM 11/20/16 [History] Empagliflozin [Jardiance] 25 mg PO HS 02/16/17 [History] Multivitamins, Thera [Multivitamin (formulary)] 1 tab PO DAILY 02/16/17 [History ] Insulin Glargine [Lantus] 40 unit SQ BID 09/03/17 [History] Cyclobenzaprine [Flexeril] 5 mg PO DAILY PRN tab 09/06/17 [Rx] Cranberry Fruit Extract [Cranberry] 1,000 mg PO BID 12/23/17 [History] HYDROcodone/APAP 10-325MG [[place] 10-325] 1 tab PO TID@0700,1300,1900 12/23/17 [ History] Magnesium Oxide [Mag-Ox] 500 mg PO AC-SUPPER 12/23/17 [History] Omeprazole 20 mg PO DAILY 12/23/17 [History] Aspirin 81 mg PO DAILY 03/27/18 [History] QUEtiapine [SEROquel] 50 mg PO BID 03/27/18 [History] Sucralfate [Carafate] 1 gm PO AC-TID 03/27/18 [History] Vortioxetine Hydrobromide [Trintellix] 10 mg PO DAILY 03/27/18 [History] Follow up Appointment(s)/Referral(s): Tej Bojorquez MD [Primary Care Provider] - 1-2 days Leonides Moon MD [Medical Doctor] - 2 Weeks Patient Instructions/Handouts: Back Pain (GEN) Activity/Diet/Wound Care/Special Instructions: Diet as tolerated Soft c-collar for comfort Discharge Disposition: HOME SELF-CARE
[2018-03-30 11:08] LABS: Glucose,Whole Blood 88 mg/dL (75-99)
== END 2018-03-30 12:48 | disposition home or self-care (01) | DRG 566 ==
LOC: EC 03:53 → 5MS5E 07:22 → 6PED 03-28 03:34
PROVIDERS: ADMIT Family Medicine; ATTEND Family Medicine
DX: T79.6XXA Traumatic ischemia of muscle, initial encounter (principal); M48.02 Spinal stenosis, cervical region; S16.1XXA Strain of muscle, fascia and tendon at neck level, initial encounter; E86.0 Dehydration; K59.00 Constipation, unspecified; M19.91 Primary osteoarthritis, unspecified site; E11.9 Type 2 diabetes mellitus without complications; K21.9 Gastro-esophageal reflux disease without esophagitis; E78.5 Hyperlipidemia, unspecified; I10 Essential (primary) hypertension; L30.9 Dermatitis, unspecified; F32.9 Major depressive disorder, single episode, unspecified; F41.9 Anxiety disorder, unspecified; K57.90 Diverticulosis of intestine, part unspecified, without perforation or abscess without bleeding; Z79.82 Long term (current) use of aspirin; Z79.4 Long term (current) use of insulin; Z79.891 Long term (current) use of opiate analgesic; Z79.899 Other long term (current) drug therapy; Z87.39 Personal history of other diseases of the musculoskeletal system and connective tissue; Z90.49 Acquired absence of other specified parts of digestive tract; Z90.710 Acquired absence of both cervix and uterus; Z96.651 Presence of right artificial knee joint; Z87.440 Personal history of urinary (tract) infections; Z88.1 Allergy status to other antibiotic agents; Z88.0 Allergy status to penicillin; Z88.2 Allergy status to sulfonamides; Z88.8 Allergy status to other drugs, medicaments and biological substances; Z83.3 Family history of diabetes mellitus; W06.XXXA Fall from bed, initial encounter; Y92.003 Bedroom of unspecified non-institutional (private) residence as the place of occurrence of the external cause; Z87.311 Personal history of (healed) other pathological fracture
CPT/HCPCS: 36415; 72100; 80048; 80053; 81001; 82550; 82553; 83036; 83735; 84100; 84484; 85025; 85379; 93005; 96361; 96374; 99284

== ENCOUNTER 2018-04-12 23:53 | Inpatient (IN) | payer MEDICARE, OTHER ==
[2018-04-13 00:50] LABS: Appearance,Urine Turbid (Clear); Bacteria,Urine Moderate /hpf; Bilirubin,Urine Negative (Negative); Blood,Urine Small (Negative); Color,Urine Dark Brown; Glucose,Urine (UA) 4+ (Negative); Ketones,Urine Negative (Negative); Leukocyte Esterase,Urine Large (Negative); Nitrite,Urine Positive (Negative); PH, Urine 5.5 (5.0-8.0); Protein,Urine 1+ (Negative); RBC,Urine 170 /hpf (0-5); Specific Gravity,Urine 1.025 (1.001-1.035); WBC,Urine >182 /hpf (0-5)
[2018-04-13] MEDS ORDERED: SODIUM CHLORIDE 0.9% 1,000 ML IV ONE (00:51)
[2018-04-13] MEDS ORDERED: MORPHINE SULFATE 4 MG/ML SYRINGE IVP STA (00:57)
[2018-04-13] MEDS ORDERED: cefTRIAXone IN SWFI 1,000 MG/10 ML SYRINGE IVP STA ×2 (00:58→02:17)
--- NOTE | 2018-04-13 01:01 | ED ---
General Adult HPI - General Chief complaint: Urogenital Stated complaint: urogenital Time Seen by Provider: 04/13/18 00:45 Source: patient, family, RN notes reviewed Mode of arrival: ambulatory Limitations: no limitations - History of Present Illness Initial comments: 67-year-old female presents to the emergency department for a chief complaint of pain with urination. Patient states she feels like she has a urinary tract infection. Patient states she saw her doctor yesterday who is supposed to send a prescription but did not. Patient states she is in significant pain. She states she has back pain as well. Patient denies fevers or chills at home.Patient has no other complaints at this time including shortness of breath , chest pain, abdominal pain, nausea or vomiting, headache, or visual changes. - Related Data Home Medications Medication Instructions Recorded Confirmed Oxybutynin Chloride 5 mg PO BID 02/05/15 04/13/18 Potassium Chloride [Klor-Con 20] 20 meq PO BID 02/28/15 04/13/18 busPIRone HCL 15 mg PO QID@,,,08/03/15 04/13/18 ALPRAZolam 1 mg PO QID@,07,,06/04/16 04/13/18 Atorvastatin [Lipitor] 40 mg PO QAM 11/20/16 04/13/18 Empagliflozin [Jardiance] 25 mg PO HS 02/16/17 04/13/18 Multivitamins, Thera [Multivitamin 1 tab PO DAILY 02/16/17 04/13/18 (formulary)] Insulin Glargine [Lantus] 40 unit SQ BID 09/03/17 04/13/18 Cranberry Fruit Extract [Cranberry] 1,000 mg PO BID 12/23/17 04/13/18 HYDROcodone/APAP 10-325MG [[place] 1 tab PO TID@0700,1300,1900 12/23/17 04/13/18 10-325] Magnesium Oxide [Mag-Ox] 500 mg PO AC-SUPPER 12/23/17 04/13/18 Omeprazole 20 mg PO DAILY 12/23/17 04/13/18 Aspirin 81 mg PO DAILY 03/27/18 04/13/18 QUEtiapine [SEROquel] 50 mg PO BID 03/27/18 04/13/18 Sucralfate [Carafate] 1 gm PO AC-TID 03/27/18 04/13/18 Vortioxetine Hydrobromide 10 mg PO DAILY 03/27/18 04/13/18 [Trintellix] Previous Rx's Medication Instructions Recorded Cyclobenzaprine [Flexeril] 5 mg PO DAILY PRN tab 09/06/17 Allergies Allergy/AdvReac Type Severity Reaction Status Date / Time benactyzine AdvReac Abdominal Verified 04/13/18 00:09 Pain ciprofloxacin [From Cipro] AdvReac Abdominal Verified 04/13/18 00:09 Pain dicyclomine [From Bentyl] AdvReac Abdominal Verified 04/13/18 00:09 Pain levofloxacin [From Levaquin] AdvReac Abdominal Verified 04/13/18 00:09 Pain Penicillins AdvReac "Passed Verified 04/13/18 00:09 out" prednisone AdvReac Abdominal Verified 04/13/18 00:09 Pain sulfamethoxazole AdvReac Abdominal Verified 04/13/18 00:09 [From Bactrim] Pain tamsulosin HCl [From Flomax] AdvReac Abdominal Verified 04/13/18 00:09 Pain trimethoprim [From Bactrim] AdvReac Abdominal Verified 04/13/18 00:09 Pain Review of Systems ROS Statement: Those systems with pertinent positive or pertinent negative responses have been documented in the HPI. ROS Other: All systems not noted in ROS Statement are negative. Past Medical History Past Medical History: Diabetes Mellitus, GERD/Reflux, Hyperlipidemia, Hypertension, Osteoarthritis (OA), Skin Disorder Additional Past Medical History / Comment(s): IDDM type II, chronic dermatitis/ past cellulitis arms/hands, past falls, gout ,hx of hiatal hernia with surgery, diverticulosis, constipation, arthritis multiple joints, recurrent UTIs, occasionally incontinent. History of Any Multi-Drug Resistant Organisms: None Reported Date of last positivie culture/infection: None MDRO Source:: None Past Surgical History: Cholecystectomy, Hysterectomy, Joint Replacement Additional Past Surgical History / Comment(s): hemorroidectomy, colonoscopy, egd , LAP GUCCI FUNDLOPLICATION,rt knee replacement Past Anesthesia/Blood Transfusion Reactions: No Reported Reaction Additional Past Anesthesia/Blood Transfusion Reaction / Comment(s): . Past Psychological History: Anxiety, Depression Smoking Status: Never smoker Past Alcohol Use History: None Reported Past Drug Use History: None Reported - Past Family History Father Family Medical History: Diabetes Mellitus Additional Family Medical History / Comment(s): Father in his 80s. Mother Family Medical History: Diabetes Mellitus Additional Family Medical History / Comment(s): Mother in her 80s General Exam Limitations: no limitations General appearance: alert, anxious (Patient appears to be in pain) Head exam: Present: atraumatic, normocephalic, normal inspection Eye exam: Present: normal appearance Neck exam: Present: normal inspection, full ROM. Absent: tenderness, meningismus, lymphadenopathy Respiratory exam: Present: normal lung sounds bilaterally. Absent: respiratory distress, wheezes, rales, rhonchi, stridor Cardiovascular Exam: Present: regular rate, normal rhythm, normal heart sounds. Absent: systolic murmur, diastolic murmur, rubs, gallop, clicks GI/Abdominal exam: Present: soft, tenderness (Suprapubic tenderness), normal bowel sounds. Absent: distended, guarding, rebound, rigid Back exam: Present: CVA tenderness (R), CVA tenderness (L) Course Vital Signs 04/13/18 04/13/18 00:05 01:54 Temperature 98.8 F 98.6 F Pulse Rate 118 H 86 Respiratory 20 15 Rate Blood Pressure 133/79 130/80 O2 Sat by Pulse 95 84 L Oximetry Medical Decision Making - Medical Decision Making 67-year-old female since to the emergency department for a chief complaint of urinary symptoms. Patient has had pain with urination as well as blood in the urine. Patient also has back pain. No fevers or chills at home. On exam patient does have CVA tenderness and suprapubic tenderness. Urine is positive for infection at this time. Culture sent. CBC unremarkable. CMP unremarkable. Plasma lactic acid is 2.5. Urine shows large leukocyte esterase, positive nitrites, and over 182 white blood cells. Patient also CVA tenderness. Patient will be admitted with Roceptnn for urosepsis. - Lab Data Result diagrams: 04/13/18 01:05 04/13/18 01:05 Lab Results 04/13/18 04/13/18 04/13/18 Range/Units 00:37 01:05 01:05 WBC 7.2 (3.8-10.6) k/uL RBC 4.57 (3.80-5.40) m/uL Hgb 14.3 (11.4-16.0) gm/dL Hct 43.8 (34.0-46.0) % MCV 95.7 (80.0-100.0) fL MCH 31.2 (25.0-35.0) pg MCHC 32.6 (31.0-37.0) g/dL RDW 13.3 (11.5-15.5) % Plt Count 315 (150-450) k/uL Neutrophils % 54 % Lymphocytes % 33 % Monocytes % 5 % Eosinophils % 6 % Basophils % 1 % Neutrophils # 3.9 (1.3-7.7) k/uL Lymphocytes # 2.4 (1.0-4.8) k/uL Monocytes # 0.3 (0-1.0) k/uL Eosinophils # 0.5 (0-0.7) k/uL Basophils # 0.1 (0-0.2) k/uL Sodium 139 (137-145) mmol/L Potassium 4.4 (3.5-5.1) mmol/L Chloride 105 (98-107) mmol/L Carbon Dioxide 22 (22-30) mmol/L Anion Gap 12 mmol/L BUN 14 (7-17) mg/dL Creatinine 0.90 (0.52-1.04) mg/dL Est GFR (CKD-EPI)AfAm 76 (>60 ml/min/1.73 sqM) Est GFR (CKD-EPI)NonAf 66 (>60 ml/min/1.73 sqM) Glucose 180 H (74-99) mg/dL Plasma Lactic Acid Reginald (0.7-2.0) mmol/L Calcium 9.6 (8.4-10.2) mg/dL Total Bilirubin 0.5 (0.2-1.3) mg/dL AST 28 (14-36) U/L ALT 38 (9-52) U/L Alkaline Phosphatase 79 (38-126) U/L Total Protein 6.7 (6.3-8.2) g/dL Albumin 4.0 (3.5-5.0) g/dL Urine Color Dark Brown Urine Appearance Turbid H (Clear) Urine pH 5.5 (5.0-8.0) Ur Specific [place] 1.025 (1.001-1.035) Urine Protein 1+ H (Negative) Urine Glucose (UA) 4+ H (Negative) Urine Ketones Negative (Negative) Urine Blood Small H (Negative) Urine Nitrite Positive H (Negative) Urine Bilirubin Negative (Negative) Urine Urobilinogen 2.0 (<2.0) mg/dL Ur Leukocyte Esterase Large H (Negative) Urine RBC 170 H (0-5) /hpf Urine WBC >182 H (0-5) /hpf Urine WBC Clumps Many H (None) /hpf Urine Bacteria Moderate H (None) /hpf 04/13/18 Range/Units 01:05 WBC (3.8-10.6) k/uL RBC (3.80-5.40) m/uL Hgb (11.4-16.0) gm/dL Hct (34.0-46.0) % MCV (80.0-100.0) fL MCH (25.0-35.0) pg MCHC (31.0-37.0) g/dL RDW (11.5-15.5) % Plt Count (150-450) k/uL Neutrophils % % Lymphocytes % % Monocytes % % Eosinophils % % Basophils % % Neutrophils # (1.3-7.7) k/uL Lymphocytes # (1.0-4.8) k/uL Monocytes # (0-1.0) k/uL Eosinophils # (0-0.7) k/uL Basophils # (0-0.2) k/uL Sodium (137-145) mmol/L Potassium (3.5-5.1) mmol/L Chloride (98-107) mmol/L Carbon Dioxide (22-30) mmol/L Anion Gap mmol/L BUN (7-17) mg/dL Creatinine (0.52-1.04) mg/dL Est GFR (CKD-EPI)AfAm (>60 ml/min/1.73 sqM) Est GFR (CKD-EPI)NonAf (>60 ml/min/1.73 sqM) Glucose (74-99) mg/dL Plasma Lactic Acid Reginald 2.5 H* (0.7-2.0) mmol/L Calcium (8.4-10.2) mg/dL Total Bilirubin (0.2-1.3) mg/dL AST (14-36) U/L ALT (9-52) U/L Alkaline Phosphatase (38-126) U/L Total Protein (6.3-8.2) g/dL Albumin (3.5-5.0) g/dL Urine Color Urine Appearance (Clear) Urine pH (5.0-8.0) Ur Specific [place] (1.001-1.035) Urine Protein (Negative) Urine Glucose (UA) (Negative) Urine Ketones (Negative) Urine Blood (Negative) Urine Nitrite (Negative) Urine Bilirubin (Negative) Urine Urobilinogen (<2.0) mg/dL Ur Leukocyte Esterase (Negative) Urine RBC (0-5) /hpf Urine WBC (0-5) /hpf Urine WBC Clumps (None) /hpf Urine Bacteria (None) /hpf Disposition Clinical Impression: Urinary tract infection Disposition: ADMITTED IP TO THIS HOSP Is patient prescribed a controlled substance at d/c from ED?: No Referrals: Tej Bojorquez MD [Primary Care Provider] - 1-2 days Time of Disposition: 02:17
[2018-04-13 01:16] LABS: Basophils # (A) 0.1 k/uL (0-0.2); Basophils % (A) 1 %; Eosinophils # (A) 0.5 k/uL (0-0.7); Eosinophils % (A) 6 %; HCT 43.8 % (34.0-46.0); HGB 14.3 gm/dL (11.4-16.0); Lymphocytes # (A) 2.4 k/uL (1.0-4.8); Lymphocytes % (A) 33 %; MCH 31.2 pg (25.0-35.0); MCHC 32.6 g/dL (31.0-37.0); MCV 95.7 fL (80.0-100.0); Mean Platelet Volume 6.5; Monocytes # (A) 0.3 k/uL (0-1.0); Monocytes % (A) 5 %; Neutrophils # (A) 3.9 k/uL (1.3-7.7); Neutrophils % (A) 54 %; Platelet Count 315 k/uL (150-450); RBC 4.57 m/uL (3.80-5.40); RDW 13.3 % (11.5-15.5); WBC 7.2 k/uL (3.8-10.6)
[2018-04-13 01:26] LABS: Calcium 9.6 mg/dL (8.4-10.2); Potassium 4.4 mmol/L (3.5-5.1); Total Bilirubin 0.5 mg/dL (0.2-1.3); Total Protein 6.7 g/dL (6.3-8.2)
[2018-04-13] MEDS ORDERED: SODIUM CHLORIDE 0.9% 1,000 ML IV STA (01:27)
[2018-04-13] MEDS ORDERED: IBUPROFEN 400 MG TAB PO PRN (02:17)
[2018-04-13] MEDS ORDERED: ONDANSETRON 4 MG/2 ML VIAL IVP PRN (02:17)
[2018-04-13] MEDS ORDERED: ACETAMINOPHEN TAB 325 MG TAB PO PRN (02:17)
[2018-04-13] MEDS ORDERED: NALOXONE 0.4 MG/ML 1 ML VIAL IV PRN (02:17)
[2018-04-13] MEDS ORDERED: CYCLOBENZAPRINE 5 MG TAB PO PRN (02:21)
[2018-04-13] MEDS ORDERED: HYDROcodone/APAP 10-325MG 1 EACH TAB PO ONE (02:29)
[2018-04-13] MEDS ORDERED: 0.9% NACL WITH KCL 20 MEQ/L 1,000 ML IV SCH (02:30)
[2018-04-13] MEDS: SODIUM CHLORIDE 0.9% 1,000 ML IV SCH ×2 (02:49→15:13)
[2018-04-13] MEDS: MORPHINE SULFATE 4 MG/ML SYRINGE IV PRN ×3 (06:30→23:10)
[2018-04-13 07:28] LABS: Glucose,Whole Blood 100 mg/dL (75-99)
[2018-04-13] MEDS ORDERED: INSULIN DETEMIR 100 UNIT/ML 10 ML VIAL SQ SCH ×2 (09:00→10:13)
[2018-04-13] MEDS: HYDROcodone/APAP 10-325MG 1 EACH TAB PO SCH ×3 (10:14→18:46)
[2018-04-13] MEDS: PANTOPRAZOLE 40 MG TABLET PO SCH (10:15)
[2018-04-13] MEDS: ALPRAZolam 1 MG TAB PO SCH ×3 (10:15→18:46)
[2018-04-13] MEDS: ASPIRIN 81 MG PO SCH (10:15)
[2018-04-13] MEDS: busPIRone HCl 5 MG TAB PO SCH ×3 (10:15→18:46)
[2018-04-13] MEDS: ATORVASTATIN 40 MG TAB PO SCH (10:15)
[2018-04-13] MEDS: INSULIN DETEMIR 100 UNIT/ML 10 ML VIAL SQ SCH ×2 (11:06→22:35)
[2018-04-13 12:09] LABS: Glucose,Whole Blood 115 mg/dL (75-99)
[2018-04-13 15:52] VITALS: BMI 34.7
[2018-04-13 17:18] LABS: Glucose,Whole Blood 119 mg/dL (75-99)
[2018-04-13 20:16] LABS: Glucose,Whole Blood 133 mg/dL (75-99)
[2018-04-14] MEDS: SODIUM CHLORIDE 0.9% 1,000 ML IV SCH ×3 (01:05→20:38)
[2018-04-14] MEDS: busPIRone HCl 5 MG TAB PO SCH ×4 (01:09→20:08)
[2018-04-14] MEDS: ALPRAZolam 1 MG TAB PO SCH ×4 (01:10→20:08)
[2018-04-14] MEDS: MORPHINE SULFATE 4 MG/ML SYRINGE IV PRN ×4 (05:13→17:45)
--- NOTE | 2018-04-14 06:53 | HP ---
HISTORY AND PHYSICAL CHIEF COMPLAINT: A 67-year-old white female with urosepsis, difficulty with urination, significant bladder pain and sepsis. She was admitted to the hospital. No fevers, abdominal pain, nausea, vomiting, headache or visual change. HOME MEDICATIONS: 1. Oxybutynin. 2. Potassium chloride. 3. BuSpar. 4. Alprazolam. 5. Lipitor. 6. Jardiance. 7. Multivitamin. 8. Lantus. 9. Cranberry. 10.[place]. 11.Mag-Oxide. 12.Omeprazole. 13.Aspirin. 14.Seroquel. 15.Carafate. 16.Trintellix. ALLERGIES: BENACTYZINE, CIPRO. REVIEW OF SYSTEMS: Fourteen point review of systems negative except for mentioned in HPI. PAST MEDICAL HISTORY: Diabetes mellitus, GERD, dyslipidemia, hypertension, osteoarthritis, skin disorder, insulin-dependent diabetes mellitus, chronic dermatitis, hiatal hernia, diverticulosis, constipation, arthritis, recurrent UTIs. SURGERIES: Cholecystectomy, hysterectomy, joint replacement, Yung fundoplication, right knee replacement, hemorrhoidectomy, colonoscopy. Anxiety, depression. No smoking. No alcohol. No illicit drugs. FAMILY HISTORY: Father diabetes mellitus. Mother diabetes mellitus. PHYSICAL EXAMINATION: Alert and oriented, in no acute distress. CARDIOVASCULAR: S1, S2. GI: Soft. HEMATOLOGY: Negative Homans. PSYCH: Fair mood and affect. VASCULAR: Normal dorsalis pedis, posterior tibial and radial pulse. OPHTHALMOLOGIC: Pupils equal, round, react to light and accommodation. Temp 98.6, pulse is 86 and 118, respiratory 15 to 20, blood pressure 130s over 70s to 80s, O2 of 95 to 84. ASSESSMENT: Acute pyelonephritis. Urinary tract infection with possible sepsis with elevated lactic acid, white cells over 182. She has CVA tenderness. Start Rocephin for urosepsis. Fluid rehydration. Possible stop Jardiance due to recurrent urinary tract infections. Please see further orders. Await Infectious Disease consult. MMODL / IJN: [id number] /
[2018-04-14 07:00] LABS: Glucose,Whole Blood 110 mg/dL (75-99)
[2018-04-14] MEDS: HYDROcodone/APAP 10-325MG 1 EACH TAB PO SCH ×3 (07:08→20:09)
[2018-04-14] MEDS: PANTOPRAZOLE 40 MG TABLET PO SCH (07:47)
[2018-04-14] MEDS: ATORVASTATIN 40 MG TAB PO SCH (07:47)
[2018-04-14] MEDS: ASPIRIN 81 MG PO SCH (07:47)
[2018-04-14] MEDS: INSULIN DETEMIR 100 UNIT/ML 10 ML VIAL SQ SCH ×2 (09:13→20:11)
[2018-04-14 11:34] LABS: Glucose,Whole Blood 121 mg/dL (75-99)
[2018-04-14 16:57] LABS: Glucose,Whole Blood 141 mg/dL (75-99)
[2018-04-14] MEDS: cefTRIAXone IN SWFI 1,000 MG/10 ML SYRINGE IVP SCH (17:40)
--- NOTE | 2018-04-14 18:08 | CONS ---
CONSULTATION DATE OF SERVICE: 04/14/2018. REASON FOR CONSULTATION: Urinary tract infection. The patient does have history of recurrent UTI. HISTORY OF PRESENT ILLNESS: The patient is a 67-year-old female who presented to the ER with chief complaint of burning urination. The patient decided that she did have a recurrent UTI and has been treated with multiple antibiotic therapy. She started having pain on urination with frequency and some urgency. Also complaining of some pain in the lower abdominal/lower pubic area. Pain is mostly a dull aching pain almost sometimes colicky and intensity about 5 to 6/10 and no radiation. The patient denies having any nausea, no vomiting. Denies any chest pain or shortness of breath or cough or any diarrhea. With these symptoms, the patient was evaluated by the ER physician. On arrival to the ER, the patient has been afebrile. The patient did have a normal white count. However, the urine was turbid with large leukocyte esterase, more than 1-2 WBC. The patient has been admitted to the hospital with diagnoses of urinary tract infection. Because of multiple antibiotic allergies, Infectious Disease was consulted for further recommendation of antibiotic therapy. The patient currently does have ALLERGIES TO PENICILLIN, SULFAMETHOXAZOLE AND CIPROFLOXACIN; however, the patient has tolerated Rocephin in the past. REVIEW OF SYSTEMS: CONSTITUTIONAL: Positive for weakness and some chills. No fever. EYES: No complaint. ENT: No complaint. RESPIRATORY: As per HPI. CARDIOVASCULAR: No complaint. GENITOURINARY: As per HPI. GASTROINTESTINAL: As per HPI. MUSCULOSKELETAL: No complaint. INTEGUMENTARY: No complaint. PSYCHOLOGICAL: No complaint. ENDOCRINE: No complaint. NEUROLOGIC: No complaint. PAST MEDICAL HISTORY: Diabetes mellitus, hypertension, hyperlipidemia, recurrent UTI, C difficile colitis. PAST SURGICAL HISTORY: Hysterectomy, cholecystectomy, hemorrhoidectomy. SOCIAL HISTORY: Denies smoking, drinking, or drug use. FAMILY HISTORY: Both parents with history of diabetes mellitus. ALLERGIES: QUINOLONES, PENICILLIN, SULFAMETHOXAZOLE, no history of rash and no history of anaphylaxis. MEDICATIONS: The patient is currently on Tylenol, [place], Xanax, aspirin, Lipitor, BuSpar, Flexeril, Motrin, Levemir, morphine sulfate, Narcan, Zofran, Protonix. EXAMINATION: Blood pressure 122/70 with a pulse of 95, temperature 97.6. She is 93% on room air. General description is an elderly female up in the bed in no distress. No tachypnea or accessory muscle of respiration use. HEENT: Shows no pallor or scleral icterus. Oral mucosa membrane is moist. No pharyngeal erythema or thrush. NECK: Trachea central. No thyromegaly. LUNGS: Unlabored breathing. Clear to auscultation anteriorly. No wheeze or crackle. HEART: S1, S2. Regular rate and rhythm. ABDOMEN: Soft, no tenderness. No guarding, no rigidity. No organomegaly. EXTREMITIES: No edema feet. SKIN EXAMINATION: No rash or mass palpable. NEUROLOGICAL: Patient is awake, alert, oriented x3. Mood and affect normal. LABS: Hemoglobin is 14, white count 7.2. BUN of 14, creatinine 0.90. Lactic acid was 2.5. Liver enzymes are normal. Electrolytes are normal. Urine has been turbid with large leukocyte esterase, more than 1-2 WBC with moderate bacteria. Cultures currently gram- negative bacilli. Blood culture obtained currently negative. DIAGNOSTIC IMPRESSION AND PLAN: 1. Patient admitted to the hospital with significant burning of urine, frequency, urgency and suprapubic discomfort likely representing a symptomatic urinary tract infection and likely from enteric gram-negative pathogen in a patient who does have history of recurrent urinary tract infections. 2. Patient who does have multiple antibiotic allergies that will limit the number of antibiotics that could be safely used. PLAN: 1. Rocephin 1 g IV piggyback daily while waiting for the culture to finalize. 2. Discussion with the patient how to prevent recurrent UTI including cranberry juice, increasing fluid intake, personal hygiene and if those fail an intravaginal estrogen cream will be of therapeutic benefit. 3. We will follow up on clinical condition and culture to further adjust medication if needed. Family was present at bedside. Their questions were sought and answered. MMODL / IJN: [id number] /
[2018-04-14 20:54] LABS: Glucose,Whole Blood 193 mg/dL (75-99)
--- NOTE | 2018-04-15 00:22 | PN ---
PROGRESS NOTE SUBJECTIVE: 67-year-old white female. Remains on IV Rocephin for urinary tract infection with sepsis. Temp 97.2, blood pressure 114 to 122 over 60s to 70s, O2 93 to 94% on room air, respiratory 14 to 16, pulse 70s to 90s, 86. Remains on IV Rocephin. Urine culture shows gram-negative bacilli. CARDIOVASCULAR: S1, S2. LUNGS: Transmitted upper sounds. Hematology negative Homans. Psych fair mood and affect. ASSESSMENT: 1. Urinary tract infection, sepsis. 2. Insulin-dependent diabetes mellitus. 3. Anxiety, depression, bipolar. Continue current treatment. No Jardiance will be needed at home due to recurrent UTI, this will need to be stopped. Continue with Rocephin. Await for cultures. MMODL / IJN: [id number] /
[2018-04-15] MEDS: busPIRone HCl 5 MG TAB PO SCH ×4 (01:29→18:15)
[2018-04-15] MEDS: ALPRAZolam 1 MG TAB PO SCH ×4 (01:29→18:15)
[2018-04-15] MEDS: MORPHINE SULFATE 4 MG/ML SYRINGE IV PRN ×2 (05:32→16:30)
[2018-04-15] MEDS: SODIUM CHLORIDE 0.9% 1,000 ML IV SCH ×2 (05:36→16:29)
[2018-04-15 07:18] LABS: Glucose,Whole Blood 77 mg/dL (75-99)
[2018-04-15 07:38] LABS: Glucose,Whole Blood 108 mg/dL (75-99)
[2018-04-15] MEDS: ATORVASTATIN 40 MG TAB PO SCH (08:20)
[2018-04-15] MEDS: PANTOPRAZOLE 40 MG TABLET PO SCH (08:20)
[2018-04-15] MEDS: ASPIRIN 81 MG PO SCH (08:20)
[2018-04-15] MEDS: cefTRIAXone IN SWFI 1,000 MG/10 ML SYRINGE IVP SCH (08:21)
[2018-04-15] MEDS: INSULIN DETEMIR 100 UNIT/ML 10 ML VIAL SQ SCH ×2 (08:21→21:59)
[2018-04-15] MEDS: HYDROcodone/APAP 10-325MG 1 EACH TAB PO SCH ×3 (08:21→18:15)
[2018-04-15 11:44] LABS: Glucose,Whole Blood 112 mg/dL (75-99)
[2018-04-15 17:10] LABS: Glucose,Whole Blood 135 mg/dL (75-99)
[2018-04-15 21:11] LABS: Glucose,Whole Blood 141 mg/dL (75-99)
[2018-04-15] MEDS: MORPHINE ORAL SOLN 10 MG/5 ML CUP PO PRN (21:57)
--- NOTE | 2018-04-15 22:11 | PN ---
PROGRESS NOTE SUBJECTIVE: A 67-year-old white female with urinary tract infection, pyelonephritis, sepsis secondary to UTI. Jardiance will be discontinued as an outpatient. She will be possibly sent home on oral cefazolin tomorrow. VITAL SIGNS: Stable, afebrile. CARDIOVASCULAR: S1, S2. LUNGS: Clear. GI: Soft. HEMATOLOGY: Negative Homans'. ASSESSMENT: 1. Urosepsis. 2. Insulin-dependent diabetes mellitus. 3. Hypertension. 4. Anxiety. 5. syndrome. Continue current treatments. Home on oral antibiotics tomorrow. MMODL / IJN: [id number] /
--- NOTE | 2018-04-15 22:56 | PN ---
PROGRESS NOTE DATE OF SERVICE: 04/15/2018. REASON FOR FOLLOWUP: E. coli urinary tract infection. INTERVAL HISTORY: The patient is afebrile. She is breathing comfortably. Denies having any chest pain or shortness of breath or abdominal pain. Still complaining of lower abdominal pressure. No diarrhea. EXAMINATION: Blood pressure 128/84 with a pulse of 82, temperature 98.1. She is 95% on room air. General description is an elderly female up in the bed in no distress. RESPIRATORY SYSTEM: Unlabored breathing. Clear to auscultation anteriorly. HEART: S1, S2. Regular rate and rhythm. ABDOMEN: Soft. No tenderness. EXTREMITIES: No edema of the feet. LABS: Urine finalized as an E coli that is sensitive pathogen. Blood culture has been negative. DIAGNOSTIC IMPRESSION AND PLAN: Patient with an Escherichia coli urinary tract infection with sensitive pathogen, currently on Rocephin that can be transitioned to oral Ceftin 500 mg twice a day for about 5 days to finish a course of therapy. Plan of care was discussed with the admitting physician. Continue supportive care. MMODL / IJN: [id number] /
[2018-04-16] MEDS: busPIRone HCl 5 MG TAB PO SCH ×3 (01:16→13:43)
[2018-04-16] MEDS: ALPRAZolam 1 MG TAB PO SCH ×3 (01:16→13:44)
[2018-04-16] MEDS: MORPHINE ORAL SOLN 10 MG/5 ML CUP PO PRN (05:54)
[2018-04-16] MEDS: HYDROcodone/APAP 10-325MG 1 EACH TAB PO SCH ×2 (07:06→13:44)
[2018-04-16 07:20] LABS: Glucose,Whole Blood 67 mg/dL (75-99)
[2018-04-16 07:26] LABS: Glucose,Whole Blood 73 mg/dL (75-99)
[2018-04-16 08:23] LABS: Glucose,Whole Blood 167 mg/dL (75-99)
[2018-04-16] MEDS: ASPIRIN 81 MG PO SCH (09:07)
[2018-04-16] MEDS: PANTOPRAZOLE 40 MG TABLET PO SCH (09:07)
[2018-04-16] MEDS: ATORVASTATIN 40 MG TAB PO SCH (09:07)
[2018-04-16] MEDS: INSULIN DETEMIR 100 UNIT/ML 10 ML VIAL SQ SCH (09:09)
[2018-04-16] MEDS: cefTRIAXone IN SWFI 1,000 MG/10 ML SYRINGE IVP SCH (09:14)
[2018-04-16 10:29] VITALS: RESP 16
[2018-04-16 12:02] LABS: Glucose,Whole Blood 112 mg/dL (75-99)
--- NOTE | 2018-04-16 12:29 | PN ---
PROGRESS NOTE DATE OF SERVICE: 04/16/2018 REASON FOR FOLLOWUP: E coli urinary tract infection. INTERVAL HISTORY: The patient is afebrile. She is breathing comfortably. Denies having any chest pain or shortness of breath or cough. Her urinary symptoms especially hematuria has improved and no , still has some abdominal pain though. PHYSICAL EXAMINATION: On examination, blood pressure 115/73 with a pulse of 88, temperature 98.1. She is 95% on room air. General description is an elderly female lying in bed in no distress. RESPIRATORY SYSTEM: Unlabored breathing, clear to auscultation anteriorly. HEART: S1, S2. Regular rate and rhythm. ABDOMEN: Soft, no tenderness. LABS: Urine culture with E coli sensitive pathogen. Blood culture has been negative. DIAGNOSTIC IMPRESSION AND PLAN: Patient with Escherichia coli urinary tract infection. Plan will be to finish therapy with oral Ceftin 500 mg twice a day for about a week with close outpatient followup. MMODL / IJN: [id number] /
[2018-04-16 12:47] VITALS: BP 122/71; PULSE 67; TEMP 98.6
== END 2018-04-16 16:10 | disposition home or self-care (01) | DRG 872 ==
LOC: EC 23:53 → 3SUR 04-13 02:08 → OBSVTOIN 04-13 02:08 → 3SUR 04-13 06:39 → 6PED 04-15 15:03
PROVIDERS: ADMIT Family Medicine; ATTEND Family Medicine
DX: A41.51 Sepsis due to Escherichia coli [E. coli] (principal); N10 Acute pyelonephritis; E11.9 Type 2 diabetes mellitus without complications; E78.5 Hyperlipidemia, unspecified; F32.9 Major depressive disorder, single episode, unspecified; F41.9 Anxiety disorder, unspecified; I10 Essential (primary) hypertension; K21.9 Gastro-esophageal reflux disease without esophagitis; Z79.4 Long term (current) use of insulin; Z79.82 Long term (current) use of aspirin; Z83.3 Family history of diabetes mellitus; Z87.440 Personal history of urinary (tract) infections; Z88.0 Allergy status to penicillin; Z88.1 Allergy status to other antibiotic agents; Z90.710 Acquired absence of both cervix and uterus; Z96.651 Presence of right artificial knee joint; Z79.891 Long term (current) use of opiate analgesic; Z79.899 Other long term (current) drug therapy; Z88.2 Allergy status to sulfonamides; Z88.8 Allergy status to other drugs, medicaments and biological substances
CPT/HCPCS: 36415; 80053; 81001; 83605; 85025; 87040; 87077; 87086; 87186; 96361; 96374; 96375; 96376; 99284

== ENCOUNTER 2018-05-28 16:20 | Emergency (ER) | payer MEDICARE, OTHER ==
[2018-05-28 16:55] VITALS: RESP 18; TEMP 99.6
[2018-05-28 17:55] LABS: Basophils # (A) 0.1 k/uL (0-0.2); Basophils % (A) 1 %; Eosinophils # (A) 0.2 k/uL (0-0.7); Eosinophils % (A) 3 %; HCT 42.2 % (34.0-46.0); HGB 13.5 gm/dL (11.4-16.0); Lymphocytes # (A) 1.4 k/uL (1.0-4.8); Lymphocytes % (A) 26 %; MCH 30.3 pg (25.0-35.0); MCV 94.6 fL (80.0-100.0); Mean Platelet Volume 6.7; Monocytes # (A) 0.2 k/uL (0-1.0); Monocytes % (A) 5 %; Neutrophils # (A) 3.4 k/uL (1.3-7.7); Neutrophils % (A) 64 %; Platelet Count 362 k/uL (150-450); RBC 4.46 m/uL (3.80-5.40); RDW 13.7 % (11.5-15.5); WBC 5.3 k/uL (3.8-10.6)
[2018-05-28] MEDS ORDERED: MORPHINE SULFATE 4 MG/ML SYRINGE IV STA (17:58)
[2018-05-28] MEDS ORDERED: ONDANSETRON 4 MG/2 ML VIAL IVP STA (17:58)
[2018-05-28] MEDS ORDERED: SODIUM CHLORIDE 0.9% 1,000 ML IV STA ×2 (17:58→19:42)
[2018-05-28 18:03] LABS: ALT 60 U/L (9-52); AST 34 U/L (14-36); Alkaline Phosphatase 97 U/L (38-126); Amylase 38 U/L (30-110); Anion Gap 14 mmol/L; Blood Urea Nitrogen 14 mg/dL (7-17); Calcium 9.7 mg/dL (8.4-10.2); Carbon Dioxide 21 mmol/L (22-30); Chloride 104 mmol/L (98-107); Glucose 242 mg/dL (74-99); Lipase 61 U/L (23-300); Potassium 4.4 mmol/L (3.5-5.1); Sodium 139 mmol/L (137-145); Total Bilirubin 0.6 mg/dL (0.2-1.3); Total Protein 7.1 g/dL (6.3-8.2)
--- NOTE | 2018-05-28 18:29 | ED ---
General Adult HPI - General Chief complaint: Fall Stated complaint: fall, pain all over Time Seen by Provider: 05/28/18 17:42 Source: patient, family, RN notes reviewed Mode of arrival: ambulatory Limitations: no limitations - History of Present Illness Initial comments: Patient is a 68-year-old female presented to the emergency room today with a chief complaint of a fall that occurred 10 days ago. She states that she was walking her daughter's dog when she got tripped up over the leash and fell down. She states she hit her head. She states she does not believe there is any loss conscious. She does not that she's had some headache since. Patient also admits to some abdominal pain greatest on the left lower quadrant. She missed a history of diverticulitis. He states that she has had diarrhea. Patient denies any other complaints or symptoms at this time. Patient denies any recent fever, chills, shortness of breath, chest pain, back pain, numbness or tingling, dysuria or hematuria, constipation, visual changes, or any other complaints. - Related Data Home Medications Medication Instructions Recorded Confirmed Oxybutynin Chloride 5 mg PO BID 02/05/15 05/28/18 Potassium Chloride [Klor-Con 20] 20 meq PO BID 02/28/15 05/28/18 busPIRone HCL 15 mg PO QID@,,,08/03/15 05/28/18 ALPRAZolam 1 mg PO QID@,,,06/04/16 05/28/18 Atorvastatin [Lipitor] 40 mg PO QAM 11/20/16 05/28/18 Multivitamins, Thera [Multivitamin 1 tab PO DAILY 02/16/17 05/28/18 (formulary)] Insulin Glargine [Lantus] 40 unit SQ BID 09/03/17 05/28/18 Cranberry Fruit Extract [Cranberry] 1,000 mg PO BID 12/23/17 05/28/18 HYDROcodone/APAP 10-325MG [[place] 1 tab PO TID@0700,1300,1900 12/23/17 05/28/18 10-325] Magnesium Oxide [Mag-Ox] 500 mg PO AC-SUPPER 12/23/17 05/28/18 Omeprazole 20 mg PO DAILY 12/23/17 05/28/18 Aspirin 81 mg PO DAILY 03/27/18 05/28/18 QUEtiapine [SEROquel] 50 mg PO BID 03/27/18 05/28/18 Sucralfate [Carafate] 1 gm PO AC-TID 03/27/18 05/28/18 Vortioxetine Hydrobromide 10 mg PO DAILY 03/27/18 05/28/18 [Trintellix] Previous Rx's Medication Instructions Recorded Acetaminophen Tab [Tylenol] 1,000 mg PO TID 5 Days tablet 05/28/18 Loperamide [Imodium] 2 mg PO DIRECTED #20 capsule 05/28/18 Ondansetron Odt [Zofran ODT] 4 mg PO Q8HR PRN #20 tab 05/28/18 Allergies Allergy/AdvReac Type Severity Reaction Status Date / Time benactyzine AdvReac Abdominal Verified 05/28/18 18:44 Pain ciprofloxacin [From Cipro] AdvReac Abdominal Verified 05/28/18 18:44 Pain dicyclomine [From Bentyl] AdvReac Abdominal Verified 05/28/18 18:44 Pain levofloxacin [From Levaquin] AdvReac Abdominal Verified 05/28/18 18:44 Pain Penicillins AdvReac "Passed Verified 05/28/18 18:44 out" prednisone AdvReac Abdominal Verified 05/28/18 18:44 Pain sulfamethoxazole AdvReac Abdominal Verified 05/28/18 18:44 [From Bactrim] Pain tamsulosin HCl [From Flomax] AdvReac Abdominal Verified 05/28/18 18:44 Pain trimethoprim [From Bactrim] AdvReac Abdominal Verified 05/28/18 18:44 Pain Review of Systems ROS Statement: Those systems with pertinent positive or pertinent negative responses have been documented in the HPI. ROS Other: All systems not noted in ROS Statement are negative. Past Medical History Past Medical History: Diabetes Mellitus, GERD/Reflux, Hyperlipidemia, Hypertension, Osteoarthritis (OA), Skin Disorder Additional Past Medical History / Comment(s): IDDM type II, chronic dermatitis/ past cellulitis arms/hands, past falls, gout ,hx of hiatal hernia with surgery, diverticulosis, constipation, arthritis multiple joints, recurrent UTIs, occasionally incontinent. History of Any Multi-Drug Resistant Organisms: None Reported Date of last positivie culture/infection: None MDRO Source:: None Past Surgical History: Cholecystectomy, Hysterectomy, Joint Replacement Additional Past Surgical History / Comment(s): hemorroidectomy, colonoscopy, egd , LAP GUCCI FUNDLOPLICATION,rt knee replacement Past Anesthesia/Blood Transfusion Reactions: No Reported Reaction Additional Past Anesthesia/Blood Transfusion Reaction / Comment(s): . Past Psychological History: Anxiety, Depression Smoking Status: Never smoker Past Alcohol Use History: None Reported Past Drug Use History: None Reported - Past Family History Father Family Medical History: Diabetes Mellitus Additional Family Medical History / Comment(s): Father in his 80s. Mother Family Medical History: Diabetes Mellitus Additional Family Medical History / Comment(s): Mother in her 80s General Exam - General Exam Comments Initial Comments: General: The patient is awake and alert, in mild distress. Eye: Pupils are equal, round and reactive to light. Extra-ocular movements are intact. No nystagmus. There is normal conjunctiva bilaterally. No signs of icterus. Ears, nose, mouth and throat: There are moist mucous membranes and no oral lesions. Neck: The neck is supple, there is no tenderness or JVD. Cardiovascular: There is a regular rate and rhythm. No murmur, rub or gallop is appreciated. Respiratory: Lungs are clear to auscultation, respirations are non-labored, breath sounds are equal. No wheezes, stridor, rales, or rhonchi. Gastrointestinal: Abdomen soft on palpation. Patient does have tenderness in the left lower quadrant. No rebound, guarding or CVA tenderness. Musculoskeletal: Normal ROM, no tenderness. Sensation intact. Strength 5/5. Pulses equal bilaterally 2+. Neurological: A&O x 3. CN II-XII intact, There are no obvious motor or sensory deficits. Coordination appears grossly intact. Speech is normal. Skin: Skin is warm and dry and no rashes or lesions are noted. Psychiatric: Cooperative, appropriate mood & affect, normal judgment. Limitations: no limitations Course Vital Signs 05/28/18 05/28/18 16:51 19:44 Temperature 99.6 F Pulse Rate 94 71 Respiratory 18 18 Rate Blood Pressure 151/90 141/65 O2 Sat by Pulse 97 99 Oximetry Medical Decision Making - Medical Decision Making CT the abdomen and pelvis reviewed shows sigmoid diverticulosis no evidence of diverticulitis. Stable left adrenal mass suggestive of benign disease. Cleaning of dilated fluid-filled loops of bowel compared to an old exam. No evidence of traumatic injury as read by radiology. Patient's CT of the head reviewed and shows cerebral atrophy. Shows small area of white matter ischemic in the left parietal lobe needed compared to an old exam from 2013. There is no hemorrhage no sign of traumatic injury. There is spondylitic changes of the cervical spine with some spinal stenosis at C4-5 no acute fracture. Attending physician had seen patient and discussed with on-call radiologist Dr. Sam states that he believes this is a old lacunar infarct. Patient has a negative NIH scale here in the emergency room. Options were discussed with patient about admission due to abdominal pain and discomfort. She has declined. She states she does have a family doctor appointment in 2 days. She is comfortable being discharged and followed up outpatient. - Lab Data Result diagrams: 05/28/18 17:41 05/28/18 17:41 Lab Results 05/28/18 05/28/18 05/28/18 Range/Units 17:41 17:41 17:41 WBC 5.3 (3.8-10.6) k/uL RBC 4.46 (3.80-5.40) m/uL Hgb 13.5 (11.4-16.0) gm/dL Hct 42.2 (34.0-46.0) % MCV 94.6 (80.0-100.0) fL MCH 30.3 (25.0-35.0) pg MCHC 32.0 (31.0-37.0) g/dL RDW 13.7 (11.5-15.5) % Plt Count 362 (150-450) k/uL Neutrophils % 64 % Lymphocytes % 26 % Monocytes % 5 % Eosinophils % 3 % Basophils % 1 % Neutrophils # 3.4 (1.3-7.7) k/uL Lymphocytes # 1.4 (1.0-4.8) k/uL Monocytes # 0.2 (0-1.0) k/uL Eosinophils # 0.2 (0-0.7) k/uL Basophils # 0.1 (0-0.2) k/uL PT 9.5 (9.0-12.0) sec INR 1.0 (<1.2) APTT 23.0 (22.0-30.0) sec Sodium 139 (137-145) mmol/L Potassium 4.4 (3.5-5.1) mmol/L Chloride 104 (98-107) mmol/L Carbon Dioxide 21 L (22-30) mmol/L Anion Gap 14 mmol/L BUN 14 (7-17) mg/dL Creatinine 0.70 (0.52-1.04) mg/dL Est GFR (CKD-EPI)AfAm >90 (>60 ml/min/1.73 sqM) Est GFR (CKD-EPI)NonAf 89 (>60 ml/min/1.73 sqM) Glucose 242 H (74-99) mg/dL Plasma Lactic Acid Reginald (0.7-2.0) mmol/L Calcium 9.7 (8.4-10.2) mg/dL Total Bilirubin 0.6 (0.2-1.3) mg/dL AST 34 (14-36) U/L ALT 60 H (9-52) U/L Alkaline Phosphatase 97 (38-126) U/L Total Protein 7.1 (6.3-8.2) g/dL Albumin 4.0 (3.5-5.0) g/dL Amylase 38 (30-110) U/L Lipase 61 (23-300) U/L Urine Color Urine Appearance (Clear) Urine pH (5.0-8.0) Ur Specific [place] (1.001-1.035) Urine Protein (Negative) Urine Glucose (UA) (Negative) Urine Ketones (Negative) Urine Blood (Negative) Urine Nitrite (Negative) Urine Bilirubin (Negative) Urine Urobilinogen (<2.0) mg/dL Ur Leukocyte Esterase (Negative) Urine RBC (0-5) /hpf Urine WBC (0-5) /hpf Ur Squamous Epith Cells (0-4) /hpf Urine Bacteria (None) /hpf Urine Mucus (None) /hpf 05/28/18 05/28/18 Range/Units 18:00 18:47 WBC (3.8-10.6) k/uL RBC (3.80-5.40) m/uL Hgb (11.4-16.0) gm/dL Hct (34.0-46.0) % MCV (80.0-100.0) fL MCH (25.0-35.0) pg MCHC (31.0-37.0) g/dL RDW (11.5-15.5) % Plt Count (150-450) k/uL Neutrophils % % Lymphocytes % % Monocytes % % Eosinophils % % Basophils % % Neutrophils # (1.3-7.7) k/uL Lymphocytes # (1.0-4.8) k/uL Monocytes # (0-1.0) k/uL Eosinophils # (0-0.7) k/uL Basophils # (0-0.2) k/uL PT (9.0-12.0) sec INR (<1.2) APTT (22.0-30.0) sec Sodium (137-145) mmol/L Potassium (3.5-5.1) mmol/L Chloride (98-107) mmol/L Carbon Dioxide (22-30) mmol/L Anion Gap mmol/L BUN (7-17) mg/dL Creatinine (0.52-1.04) mg/dL Est GFR (CKD-EPI)AfAm (>60 ml/min/1.73 sqM) Est GFR (CKD-EPI)NonAf (>60 ml/min/1.73 sqM) Glucose (74-99) mg/dL Plasma Lactic Acid Reginald 2.6 H* (0.7-2.0) mmol/L Calcium (8.4-10.2) mg/dL Total Bilirubin (0.2-1.3) mg/dL AST (14-36) U/L ALT (9-52) U/L Alkaline Phosphatase (38-126) U/L Total Protein (6.3-8.2) g/dL Albumin (3.5-5.0) g/dL Amylase (30-110) U/L Lipase (23-300) U/L Urine Color Yellow Urine Appearance Clear (Clear) Urine pH 5.5 (5.0-8.0) Ur Specific [place] 1.018 (1.001-1.035) Urine Protein Negative (Negative) Urine Glucose (UA) 2+ H (Negative) Urine Ketones Negative (Negative) Urine Blood Negative (Negative) Urine Nitrite Negative (Negative) Urine Bilirubin Negative (Negative) Urine Urobilinogen <2.0 (<2.0) mg/dL Ur Leukocyte Esterase Large H (Negative) Urine RBC 2 (0-5) /hpf Urine WBC 21 H (0-5) /hpf Ur Squamous Epith Cells 2 (0-4) /hpf Urine Bacteria Rare H (None) /hpf Urine Mucus Rare H (None) /hpf Disposition Clinical Impression: Fall, Abdominal pain, Acute diarrhea Disposition: HOME SELF-CARE Condition: Good Instructions: Abdominal Pain (ED) Additional Instructions: Please use medication as discussed. Please follow-up with family doctor in the next 2 days. Please return to emergency room if the symptoms increase or worsen or for any other concerns. Prescriptions: Acetaminophen Tab [Tylenol] 1,000 mg PO TID 5 Days tablet Loperamide [Imodium] 2 mg PO DIRECTED #20 capsule Ondansetron Odt [Zofran ODT] 4 mg PO Q8HR PRN #20 tab PRN Reason: Nausea Is patient prescribed a controlled substance at d/c from ED?: No Referrals: Tej Bojorquez MD [Primary Care Provider] - 1-2 days Time of Disposition: 20:41
[2018-05-28 18:43] LABS: Prothrombin Time 9.5 sec (9.0-12.0)
[2018-05-28 19:10] LABS: Appearance,Urine Clear (Clear); Bacteria,Urine Rare /hpf; Bilirubin,Urine Negative (Negative); Blood,Urine Negative (Negative); Color,Urine Yellow; Glucose,Urine (UA) 2+ (Negative); Ketones,Urine Negative (Negative); Leukocyte Esterase,Urine Large (Negative); Mucus,Urine Rare /hpf; Nitrite,Urine Negative (Negative); PH, Urine 5.5 (5.0-8.0); Protein,Urine Negative (Negative); RBC,Urine 2 /hpf (0-5); Specific Gravity,Urine 1.018 (1.001-1.035); Squamous Epithelial Cell,Urine 2 /hpf (0-4); Urobilinogen,Urine <2.0 mg/dL (<2.0)
[2018-05-28 19:45] VITALS: BP 141/65; PULSE 71
--- NOTE | 2018-05-28 19:55 | CT ---
EXAMINATION TYPE: CT brain karyn farrar con DATE OF EXAM: 05/28/2018 COMPARISON: CT brain 09/16/2013 HISTORY: Pain after fall injury x1 week ago CT DLP: 1654 mGycm Automated exposure control for dose reduction was used. TECHNIQUE: CT scan of the head and cervical spine are performed without contrast. FINDINGS: There is mild cerebral cortical atrophy. There is no mass effect nor midline shift. There is no sign of intracranial hemorrhage. There is minimal white matter 2 cm area of hypodensity in the left parietal lobe. The calvarium is intact. There is mild straightening of the cervical spine. There is mild degenerative disc space narrowing fr om C4 to C7 with spurring of the endplates. There is moderate posterior spurring at C4-5 and some enc roachment on the spinal canal. Spinal canal measures 6 mm. The skull base is intact. Facet joints are intact. IMPRESSION: Cerebral atrophy. Small area of white matter ischemia in the left parietal lobe is new compared to ol d exam. No hemorrhage. No sign of traumatic injury. Spondylotic changes in the cervical spine with some spinal stenosis at C4-5. No fracture.
--- NOTE | 2018-05-28 20:05 | CT ---
EXAMINATION TYPE: CT abdomen pelvis w con DATE OF EXAM: 05/28/2018 COMPARISON: December 23, 2017 HISTORY: Abdominal pain after fall injury x1 week ago CT DLP: 1741 mGycm Automated exposure control for dose reduction was used. TECHNIQUE: Helical acquisition of images was performed from the lung bases through the pelvis. CONTRAST: Performed without Oral Contrast and with IV Contrast, patient injected with 100 mL of Isovue 300. FINDINGS: Lung bases are clear. There are small hiatal hernia. There is previous surgery at the gastroesophagea l junction. There is fatty infiltration of the liver. There is no discrete liver mass. Spleen appears normal. There is no pancreatic mass. Gallbladder is absent. Bile ducts are not dilated. There is 2 cm low density left adrenal mass. Kidneys show satisfactory contrast opacification. There is no hydronephrosis. There is no retroperitoneal adenopathy. 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 There is umbilical hernia that contains fat. There are sigmoid diverticula. Bladder distends smoothly. There is a tiny amount of free fluid in the pelvis. I see no intestinal wa ll thickening. There is no evidence of bowel obstruction. Appendix is not seen. There is no sign of a ppendicitis. There is no evidence of a bowel obstruction. IMPRESSION: SIGMOID DIVERTICULOSIS. NO EVIDENCE OF DIVERTICULITIS. STABLE LEFT ADRENAL MASS SUGGESTIVE OF BENIGN DISEASE. THERE IS CLEARING OF THE DILATED FLUID-FILLED LOOPS OF BOWEL COMPARED TO OLD EXAM. No evidence of tra umatic injury.
== END 2018-05-28 21:03 | disposition home or self-care (01) ==
LOC: EC 16:20
DX: R10.32 Left lower quadrant pain (principal); R19.7 Diarrhea, unspecified; K57.30 Diverticulosis of large intestine without perforation or abscess without bleeding; E27.8 Other specified disorders of adrenal gland; G31.9 Degenerative disease of nervous system, unspecified; R90.82 White matter disease, unspecified; M48.02 Spinal stenosis, cervical region; R51 Headache; M47.812 Spondylosis without myelopathy or radiculopathy, cervical region; E78.5 Hyperlipidemia, unspecified; I10 Essential (primary) hypertension; E11.9 Type 2 diabetes mellitus without complications; M13.0 Polyarthritis, unspecified; M10.9 Gout, unspecified; K21.9 Gastro-esophageal reflux disease without esophagitis; F32.9 Major depressive disorder, single episode, unspecified; F41.9 Anxiety disorder, unspecified; Z88.0 Allergy status to penicillin; Z88.1 Allergy status to other antibiotic agents; Z88.2 Allergy status to sulfonamides; Z88.8 Allergy status to other drugs, medicaments and biological substances; Z79.4 Long term (current) use of insulin; Z79.82 Long term (current) use of aspirin; Z79.891 Long term (current) use of opiate analgesic; Z79.899 Other long term (current) drug therapy; Z87.448 Personal history of other diseases of urinary system; Z90.49 Acquired absence of other specified parts of digestive tract; W01.0XXA Fall on same level from slipping, tripping and stumbling without subsequent striking against object, initial encounter; Y93.K1 Activity, walking an animal; Y92.009 Unspecified place in unspecified non-institutional (private) residence as the place of occurrence of the external cause
CPT/HCPCS: 36415; 80053; 82150; 83605; 83690; 85025; 85610; 85730; 81001; 87040; 87086; 72125; 70450; 74177; 99284; 96374; 96375; 96361 ×2; J2270; J2405; Q9967

== ENCOUNTER 2018-06-21 20:20 | Emergency (ER) | payer MEDICARE, OTHER ==
[2018-06-21 20:25] VITALS: TEMP 99.2
[2018-06-21 21:00] LABS: Basophils # (A) 0.1 k/uL (0-0.2); Basophils % (A) 1 %; Eosinophils # (A) 0.4 k/uL (0-0.7); Eosinophils % (A) 7 %; HCT 40.7 % (34.0-46.0); HGB 13.3 gm/dL (11.4-16.0); Lymphocytes # (A) 2.2 k/uL (1.0-4.8); Lymphocytes % (A) 35 %; MCHC 32.7 g/dL (31.0-37.0); MCV 94.6 fL (80.0-100.0); Mean Platelet Volume 6.9; Monocytes # (A) 0.2 k/uL (0-1.0); Monocytes % (A) 4 %; Neutrophils # (A) 3.4 k/uL (1.3-7.7); Neutrophils % (A) 53 %; Platelet Count 328 k/uL (150-450); RDW 14.1 % (11.5-15.5); WBC 6.4 k/uL (3.8-10.6)
[2018-06-21 21:09] LABS: ALT 31 U/L (9-52); AST 35 U/L (14-36); Albumin 3.9 g/dL (3.5-5.0); Alkaline Phosphatase 87 U/L (38-126); Anion Gap 11 mmol/L; Blood Urea Nitrogen 13 mg/dL (7-17); Calcium 9.6 mg/dL (8.4-10.2); Carbon Dioxide 22 mmol/L (22-30); Chloride 105 mmol/L (98-107); Glucose 208 mg/dL (74-99); Lipase 74 U/L (23-300); Magnesium 1.5 mg/dL (1.6-2.3); Potassium 4.4 mmol/L (3.5-5.1); Sodium 138 mmol/L (137-145); Total Bilirubin 0.3 mg/dL (0.2-1.3); Total Protein 6.7 g/dL (6.3-8.2)
[2018-06-21 21:11] LABS: Creatine Kinase 84 U/L (30-135)
--- NOTE | 2018-06-21 21:14 | ED ---
General Adult HPI - General Chief complaint: Chest Pain Stated complaint: Chest pain Time Seen by Provider: 06/21/18 20:27 Source: patient, RN notes reviewed, old records reviewed Mode of arrival: wheelchair Limitations: no limitations - History of Present Illness Initial comments: This is a 66-year-old female complaining of multiple issues and areas of pain. Patient has history of chronic pain. Patient's complaining of chest pain back pain diffuse body pain and myalgias and states that everything is sore. A she has history of diabetes hypertension high cholesterol as well as: Hysterectomy. No recent travel history no sick contacts. Patient has no modifying factors for pain currently also admits to anxiety - Related Data Home Medications Medication Instructions Recorded Confirmed Oxybutynin Chloride 5 mg PO BID 02/05/15 05/28/18 Potassium Chloride [Klor-Con 20] 20 meq PO BID 02/28/15 05/28/18 busPIRone HCL 15 mg PO QID@01,07,,08/03/15 05/28/18 ALPRAZolam 1 mg PO QID@,07,,06/04/16 05/28/18 Atorvastatin [Lipitor] 40 mg PO QAM 11/20/16 05/28/18 Multivitamins, Thera [Multivitamin 1 tab PO DAILY 02/16/17 05/28/18 (formulary)] Insulin Glargine [Lantus] 40 unit SQ BID 09/03/17 05/28/18 Cranberry Fruit Extract [Cranberry] 1,000 mg PO BID 12/23/17 05/28/18 HYDROcodone/APAP 10-325MG [[place] 1 tab PO TID@0700,1300,1900 12/23/17 05/28/18 10-325] Magnesium Oxide [Mag-Ox] 500 mg PO AC-SUPPER 12/23/17 05/28/18 Omeprazole 20 mg PO DAILY 12/23/17 05/28/18 Aspirin 81 mg PO DAILY 03/27/18 05/28/18 QUEtiapine [SEROquel] 50 mg PO BID 03/27/18 05/28/18 Sucralfate [Carafate] 1 gm PO AC-TID 03/27/18 05/28/18 Vortioxetine Hydrobromide 10 mg PO DAILY 03/27/18 05/28/18 [Trintellix] Previous Rx's Medication Instructions Recorded Acetaminophen Tab [Tylenol] 1,000 mg PO TID 5 Days tablet 05/28/18 Loperamide [Imodium] 2 mg PO DIRECTED #20 capsule 05/28/18 Ondansetron Odt [Zofran ODT] 4 mg PO Q8HR PRN #20 tab 05/28/18 Allergies Allergy/AdvReac Type Severity Reaction Status Date / Time benactyzine AdvReac Abdominal Verified 06/21/18 20:25 Pain ciprofloxacin [From Cipro] AdvReac Abdominal Verified 06/21/18 20:25 Pain dicyclomine [From Bentyl] AdvReac Abdominal Verified 06/21/18 20:25 Pain levofloxacin [From Levaquin] AdvReac Abdominal Verified 06/21/18 20:25 Pain Penicillins AdvReac "Passed Verified 06/21/18 20:25 out" prednisone AdvReac Abdominal Verified 06/21/18 20:25 Pain sulfamethoxazole AdvReac Abdominal Verified 06/21/18 20:25 [From Bactrim] Pain tamsulosin HCl [From Flomax] AdvReac Abdominal Verified 06/21/18 20:25 Pain trimethoprim [From Bactrim] AdvReac Abdominal Verified 06/21/18 20:25 Pain Review of Systems ROS Statement: Those systems with pertinent positive or pertinent negative responses have been documented in the HPI. ROS Other: All systems not noted in ROS Statement are negative. Past Medical History Past Medical History: Diabetes Mellitus, GERD/Reflux, Hyperlipidemia, Hypertension, Osteoarthritis (OA), Skin Disorder Additional Past Medical History / Comment(s): IDDM type II, chronic dermatitis/ past cellulitis arms/hands, past falls, gout ,hx of hiatal hernia with surgery, diverticulosis, constipation, arthritis multiple joints, recurrent UTIs, occasionally incontinent. History of Any Multi-Drug Resistant Organisms: None Reported Date of last positivie culture/infection: None MDRO Source:: None Past Surgical History: Cholecystectomy, Hysterectomy, Joint Replacement Additional Past Surgical History / Comment(s): hemorroidectomy, colonoscopy, egd , LAP GUCCI FUNDLOPLICATION,rt knee replacement Past Anesthesia/Blood Transfusion Reactions: No Reported Reaction Additional Past Anesthesia/Blood Transfusion Reaction / Comment(s): . Past Psychological History: Anxiety, Depression Smoking Status: Never smoker Past Alcohol Use History: None Reported Past Drug Use History: None Reported - Past Family History Father Family Medical History: Diabetes Mellitus Additional Family Medical History / Comment(s): Father in his 80s. Mother Family Medical History: Diabetes Mellitus Additional Family Medical History / Comment(s): Mother in her 80s General Exam Limitations: no limitations General appearance: alert, in no apparent distress, anxious Head exam: Present: atraumatic, normocephalic, normal inspection Eye exam: Present: normal appearance, PERRL, EOMI. Absent: scleral icterus, conjunctival injection, periorbital swelling ENT exam: Present: normal exam, mucous membranes moist Neck exam: Present: normal inspection. Absent: tenderness, meningismus, lymphadenopathy Respiratory exam: Present: normal lung sounds bilaterally. Absent: respiratory distress, wheezes, rales, rhonchi, stridor Cardiovascular Exam: Present: regular rate, normal rhythm, normal heart sounds. Absent: systolic murmur, diastolic murmur, rubs, gallop, clicks GI/Abdominal exam: Present: soft, normal bowel sounds. Absent: distended, tenderness, guarding, rebound, rigid Extremities exam: Present: normal inspection, full ROM, normal capillary refill. Absent: tenderness, pedal edema, joint swelling, calf tenderness Back exam: Present: normal inspection Neurological exam: Present: alert, oriented X3, CN II-XII intact Psychiatric exam: Present: normal affect, normal mood Skin exam: Present: warm, dry, intact, normal color. Absent: rash Course Vital Signs 06/21/18 06/21/18 06/21/18 20:23 21:50 23:11 Temperature 99.2 F Pulse Rate 91 96 91 Respiratory 18 18 16 Rate Blood Pressure 146/84 123/80 119/64 O2 Sat by Pulse 96 96 97 Oximetry - Reevaluation(s) Reevaluation #1: Patient has current adequate pain control Medical record is reviewed EKG Findings - EKG Comments: EKG Findings:: EKG shows sinus tachycardia rate of 101, AK 150, QRS 70, QTc 422 Medical Decision Making - Medical Decision Making 68 female the ER with history of chronic pain issues coming in with pain today. Patient's pain is now controlled CTs are negative and patient can be discharged home - Lab Data Result diagrams: 06/21/18 20:44 06/21/18 20:44 Lab Results 06/21/18 06/21/18 06/21/18 Range/Units 20:44 20:44 20:44 WBC 6.4 (3.8-10.6) k/uL RBC 4.30 (3.80-5.40) m/uL Hgb 13.3 (11.4-16.0) gm/dL Hct 40.7 (34.0-46.0) % MCV 94.6 (80.0-100.0) fL MCH 31.0 (25.0-35.0) pg MCHC 32.7 (31.0-37.0) g/dL RDW 14.1 (11.5-15.5) % Plt Count 328 (150-450) k/uL Neutrophils % 53 % Lymphocytes % 35 % Monocytes % 4 % Eosinophils % 7 % Basophils % 1 % Neutrophils # 3.4 (1.3-7.7) k/uL Lymphocytes # 2.2 (1.0-4.8) k/uL Monocytes # 0.2 (0-1.0) k/uL Eosinophils # 0.4 (0-0.7) k/uL Basophils # 0.1 (0-0.2) k/uL PT (9.0-12.0) sec INR (<1.2) APTT (22.0-30.0) sec Sodium 138 (137-145) mmol/L Potassium 4.4 (3.5-5.1) mmol/L Chloride 105 (98-107) mmol/L Carbon Dioxide 22 (22-30) mmol/L Anion Gap 11 mmol/L BUN 13 (7-17) mg/dL Creatinine 0.71 (0.52-1.04) mg/dL Est GFR (CKD-EPI)AfAm >90 (>60 ml/min/1.73 sqM) Est GFR (CKD-EPI)NonAf 88 (>60 ml/min/1.73 sqM) Glucose 208 H (74-99) mg/dL Calcium 9.6 (8.4-10.2) mg/dL Magnesium 1.5 L (1.6-2.3) mg/dL Total Bilirubin 0.3 (0.2-1.3) mg/dL AST 35 (14-36) U/L ALT 31 (9-52) U/L Alkaline Phosphatase 87 (38-126) U/L Total Creatine Kinase 84 (30-135) U/L CK-MB (CK-2) 3.9 H (0.0-2.4) ng/mL CK-MB (CK-2) Rel Index 4.6 Troponin I <0.012 (0.000-0.034) ng/mL NT-Pro-B Natriuret Pep pg/mL Total Protein 6.7 (6.3-8.2) g/dL Albumin 3.9 (3.5-5.0) g/dL Lipase 74 (23-300) U/L 06/21/18 06/21/18 Range/Units 20:44 20:44 WBC (3.8-10.6) k/uL RBC (3.80-5.40) m/uL Hgb (11.4-16.0) gm/dL Hct (34.0-46.0) % MCV (80.0-100.0) fL MCH (25.0-35.0) pg MCHC (31.0-37.0) g/dL RDW (11.5-15.5) % Plt Count (150-450) k/uL Neutrophils % % Lymphocytes % % Monocytes % % Eosinophils % % Basophils % % Neutrophils # (1.3-7.7) k/uL Lymphocytes # (1.0-4.8) k/uL Monocytes # (0-1.0) k/uL Eosinophils # (0-0.7) k/uL Basophils # (0-0.2) k/uL PT 10.2 (9.0-12.0) sec INR 1.0 (<1.2) APTT 23.6 (22.0-30.0) sec Sodium (137-145) mmol/L Potassium (3.5-5.1) mmol/L Chloride (98-107) mmol/L Carbon Dioxide (22-30) mmol/L Anion Gap mmol/L BUN (7-17) mg/dL Creatinine (0.52-1.04) mg/dL Est GFR (CKD-EPI)AfAm (>60 ml/min/1.73 sqM) Est GFR (CKD-EPI)NonAf (>60 ml/min/1.73 sqM) Glucose (74-99) mg/dL Calcium (8.4-10.2) mg/dL Magnesium (1.6-2.3) mg/dL Total Bilirubin (0.2-1.3) mg/dL AST (14-36) U/L ALT (9-52) U/L Alkaline Phosphatase (38-126) U/L Total Creatine Kinase (30-135) U/L CK-MB (CK-2) (0.0-2.4) ng/mL CK-MB (CK-2) Rel Index Troponin I (0.000-0.034) ng/mL NT-Pro-B Natriuret Pep 31 pg/mL Total Protein (6.3-8.2) g/dL Albumin (3.5-5.0) g/dL Lipase (23-300) U/L - Radiology Data Radiology results: report reviewed (CTA chest abdomen pelvis negative for acute disease), image reviewed Disposition Clinical Impression: Chest pain, Abdominal pain, Weakness, Anxiety reaction Disposition: HOME SELF-CARE Condition: Good Instructions: Chest Pain (ED), Abdominal Pain (ED) Is patient prescribed a controlled substance at d/c from ED?: No Referrals: Tej Bojorquez MD [Primary Care Provider] - 1-2 days
[2018-06-21 21:24] LABS: Creatine Kinase MB 3.9 ng/mL (0.0-2.4); Troponin I <0.012 ng/mL (0.000-0.034)
[2018-06-21 21:31] LABS: Partial Thromboplastin Time 23.6 sec (22.0-30.0); Prothrombin Time 10.2 sec (9.0-12.0)
--- NOTE | 2018-06-21 22:43 | CT ---
EXAMINATION TYPE: CT abdomen pelvis w con DATE OF EXAM: 06/21/2018 COMPARISON: 05/28/2018 HISTORY: Prior on synapse, chest and abd pain CT DLP: 1582.90 mGycm Automated exposure control for dose reduction was used. TECHNIQUE: Helical acquisition of images was performed from the lung bases through the pelvis. CONTRAST: Performed without Oral Contrast and with IV Contrast, patient injected with 100 mL of Isovue 370. FINDINGS: Lung bases are clear. There is no pleural effusion. Heart size is normal. There is no pericardial eff usion. There are clips at the gastroesophageal junction. There are small hiatal hernia. Liver spleen pancreas appear normal. Bile ducts are not dilated. Gallbladder is absent. There is 1.5 cm low-density left adrenal mass. This suggests benign disease. Kidneys show satisfactor y contrast opacification. There is no hydronephrosis. Ureters are not dilated. There is no evidence o f a renal mass. There is no retroperitoneal adenopathy. There is no mesenteric adenopathy. There is n o intestinal wall thickening. There are no dilated loops. There are sigmoid diverticula without evide nce of diverticulitis. Bladder distends smoothly. Appendix is not seen. There is no sign of appendici tis. There is umbilical hernia that contains fat. There are diverticula in the descending colon. Lumb ar spine is intact. Bony pelvis appears intact. Abdominal soft tissues are unremarkable. IMPRESSION: SMALL HIATAL HERNIA. NO SIGN OF ACUTE ABDOMEN AND PELVIS. SMALL UMBILICAL HERNIA. COLONIC DIVERTICULO SIS WITHOUT DIVERTICULITIS. No adverse change compared to old exam.
--- NOTE | 2018-06-21 22:51 | CT ---
EXAMINATION TYPE: CT angio chest DATE OF EXAM: 06/21/2018 10:23 PM COMPARISON: 02/06/2018 HISTORY: R/O PE, Prior on synapse, chest and abd pain CT DLP: 300.30 mGycm Automated exposure control for dose reduction was used. CONTRAST: CTA scan of the thorax is performed with IV Contrast, patient injected with 100 mL of Isovue 370, pul monary embolism protocol. There are 3-D post processed images.. FINDINGS: There is no pleural effusion. Lungs are clear of infiltrate. Heart size is normal. Ascending aorta me asures 3.9 cm. There is no evidence of dissection. There are no filling defects in the pulmonary gómez jaclyn. There are paratracheal and anterior mediastinal lymph nodes that measure less than 1 cm. There is no pericardial effusion. There is hiatal hernia. IMPRESSION: NO EVIDENCE OF PULMONARY EMBOLISM. HIATAL HERNIA. THICKENED WALL OF THE DISTAL ESOPHAGUS SIMILAR TO O LD EXAM.
[2018-06-21] MEDS ORDERED: LORazepam 2 MG/ML INJ IV STA (22:57)
[2018-06-21] MEDS ORDERED: ONDANSETRON 4 MG/2 ML VIAL IVP STA (22:57)
[2018-06-21] MEDS ORDERED: MORPHINE SULFATE 4 MG/ML SYRINGE IVP STA (22:57)
[2018-06-21 23:11] VITALS: BP 119/64; PULSE 91; RESP 16
== END 2018-06-21 23:21 | disposition home or self-care (01) ==
LOC: EC 20:20
DX: R07.9 Chest pain, unspecified (principal); R10.9 Unspecified abdominal pain; R53.1 Weakness; F41.9 Anxiety disorder, unspecified; E11.9 Type 2 diabetes mellitus without complications; K21.9 Gastro-esophageal reflux disease without esophagitis; E78.5 Hyperlipidemia, unspecified; I10 Essential (primary) hypertension; M19.90 Unspecified osteoarthritis, unspecified site; F32.9 Major depressive disorder, single episode, unspecified; Z79.82 Long term (current) use of aspirin; Z79.891 Long term (current) use of opiate analgesic; Z79.4 Long term (current) use of insulin; Z79.899 Other long term (current) drug therapy; Z88.0 Allergy status to penicillin; Z88.1 Allergy status to other antibiotic agents; Z88.2 Allergy status to sulfonamides; Z88.8 Allergy status to other drugs, medicaments and biological substances; Z96.651 Presence of right artificial knee joint; Z90.710 Acquired absence of both cervix and uterus
CPT/HCPCS: 36415; 93005; 83880; 80053; 82550; 82553; 83690; 83735; 84484; 85025; 85610; 85730; 71275; 74177; 99285; 96374; 96375 ×2; J2060; J2270; J2405; Q9967

== ENCOUNTER 2018-07-01 13:36 | Emergency (ER) | payer MEDICARE, OTHER ==
[2018-07-01 14:17] LABS: Glucose,Whole Blood 178 mg/dL (75-99)
[2018-07-01 14:18] LABS: Appearance,Urine Clear (Clear); Bilirubin,Urine Negative (Negative); Blood,Urine Negative (Negative); Color,Urine Dark Brown; Glucose,Urine (UA) Negative (Negative); Ketones,Urine Negative (Negative); Leukocyte Esterase,Urine Moderate (Negative); Mucus,Urine Rare /hpf; Nitrite,Urine Positive (Negative); PH, Urine 5.5 (5.0-8.0); Protein,Urine Negative (Negative); RBC,Urine <1 /hpf (0-5); Squamous Epithelial Cell,Urine 1 /hpf (0-4); Urobilinogen,Urine <2.0 mg/dL (<2.0)
[2018-07-01] MEDS ORDERED: SODIUM CHLORIDE 0.9% 1,000 ML IV STA (14:22)
[2018-07-01] MEDS ORDERED: KETOROLAC 30 MG/ML 1 ML VIAL IVP STA (14:22)
[2018-07-01] MEDS ORDERED: PHENAZOPYRIDINE 100 MG TAB PO STA (14:22)
--- NOTE | 2018-07-01 15:34 | ED ---
Female Urogenital HPI - General Chief complaint: Urogenital Stated complaint: bladder infection Time Seen by Provider: 07/01/18 13:48 Source: patient, RN notes reviewed, old records reviewed, Caregiver Mode of arrival: ambulatory Limitations: no limitations - History of Present Illness Initial comments: Patient is 68-year-old female presents return to chief complaint of dysuria, lower abdominal pain for the past few days. She complains of severe dysuria. She states her symptoms became progressively worse yesterday. She did take one leftover Pyridium at that time. Patient states that she's had history of urinary tract infection and she is incontinent. She wears depends briefs at all times. Patient states that her last UTI was 2 months ago. Patient states that she's had chills, and reported fevers. Patient has had no nausea or vomiting. She also complains of some diarrhea.Patient has history of diabetes, GERD, hyperlipidemia, hypertension. - Related Data Home Medications Medication Instructions Recorded Confirmed Oxybutynin Chloride 5 mg PO BID 02/05/15 07/01/18 Potassium Chloride [Klor-Con 20] 20 meq PO BID 02/28/15 07/01/18 busPIRone HCL 15 mg PO QID@,,,08/03/15 07/01/18 ALPRAZolam 1 mg PO QID@,,,06/04/16 07/01/18 Atorvastatin [Lipitor] 40 mg PO QAM 11/20/16 07/01/18 Multivitamins, Thera [Multivitamin 1 tab PO DAILY 02/16/17 07/01/18 (formulary)] Insulin Glargine [Lantus] 40 unit SQ BID 09/03/17 07/01/18 Cranberry Fruit Extract [Cranberry] 1,000 mg PO BID 12/23/17 07/01/18 HYDROcodone/APAP 10-325MG [[place] 1 tab PO TID@0700,1300,1900 12/23/17 07/01/18 10-325] Magnesium Oxide [Mag-Ox] 500 mg PO AC-SUPPER 12/23/17 07/01/18 Omeprazole 20 mg PO DAILY 12/23/17 07/01/18 Aspirin 81 mg PO DAILY 03/27/18 07/01/18 QUEtiapine [SEROquel] 50 mg PO BID 03/27/18 07/01/18 Sucralfate [Carafate] 1 gm PO AC-TID 03/27/18 07/01/18 Vortioxetine Hydrobromide 10 mg PO DAILY 03/27/18 07/01/18 [Trintellix] Azo Urinary Pain Relief 2 tab PO BID PRN 07/01/18 07/01/18 Cyclobenzaprine [Flexeril] 5 mg PO TID PRN 07/01/18 07/01/18 Previous Rx's Medication Instructions Recorded Cephalexin [Keflex] 500 mg PO Q8HR #30 cap 07/01/18 Ondansetron Odt [Zofran Odt] 4 mg PO Q8HR PRN #12 tab 07/01/18 Phenazopyridine [Pyridium] 100 mg PO TID #9 tablet 07/01/18 Allergies Allergy/AdvReac Type Severity Reaction Status Date / Time benactyzine AdvReac Abdominal Verified 07/01/18 14:12 Pain ciprofloxacin [From Cipro] AdvReac Abdominal Verified 07/01/18 14:12 Pain dicyclomine [From Bentyl] AdvReac Abdominal Verified 07/01/18 14:12 Pain levofloxacin [From Levaquin] AdvReac Abdominal Verified 07/01/18 14:12 Pain Penicillins AdvReac "Passed Verified 07/01/18 14:12 out" prednisone AdvReac Abdominal Verified 07/01/18 14:12 Pain sulfamethoxazole AdvReac Abdominal Verified 07/01/18 14:12 [From Bactrim] Pain tamsulosin HCl [From Flomax] AdvReac Abdominal Verified 07/01/18 14:12 Pain trimethoprim [From Bactrim] AdvReac Abdominal Verified 07/01/18 14:12 Pain Review of Systems ROS Statement: Those systems with pertinent positive or pertinent negative responses have been documented in the HPI. ROS Other: All systems not noted in ROS Statement are negative. Past Medical History Past Medical History: Diabetes Mellitus, GERD/Reflux, Hyperlipidemia, Hypertension, Osteoarthritis (OA), Skin Disorder Additional Past Medical History / Comment(s): IDDM type II, chronic dermatitis/ past cellulitis arms/hands, past falls, gout ,hx of hiatal hernia with surgery, diverticulosis, constipation, arthritis multiple joints, recurrent UTIs, occasionally incontinent. History of Any Multi-Drug Resistant Organisms: None Reported Date of last positivie culture/infection: None MDRO Source:: None Past Surgical History: Cholecystectomy, Hysterectomy, Joint Replacement Additional Past Surgical History / Comment(s): hemorroidectomy, colonoscopy, egd , LAP GUCCI FUNDLOPLICATION,rt knee replacement Past Anesthesia/Blood Transfusion Reactions: No Reported Reaction Additional Past Anesthesia/Blood Transfusion Reaction / Comment(s): . Past Psychological History: Anxiety, Depression Smoking Status: Never smoker Past Alcohol Use History: None Reported Past Drug Use History: None Reported - Past Family History Father Family Medical History: Diabetes Mellitus Additional Family Medical History / Comment(s): Father in his 80s. Mother Family Medical History: Diabetes Mellitus Additional Family Medical History / Comment(s): Mother in her 80s General Exam - General Exam Comments Initial Comments: 68-year-old female. Alert and oriented. Patient appears in mild to moderate discomfort. Limitations: no limitations General appearance: alert, in no apparent distress Head exam: Present: atraumatic, normocephalic, normal inspection Eye exam: Present: normal appearance, PERRL, EOMI. Absent: scleral icterus, conjunctival injection, periorbital swelling ENT exam: Present: normal exam, mucous membranes moist Neck exam: Present: normal inspection. Absent: tenderness, meningismus, lymphadenopathy Respiratory exam: Present: normal lung sounds bilaterally. Absent: respiratory distress, wheezes, rales, rhonchi, stridor Cardiovascular Exam: Present: regular rate, normal rhythm, normal heart sounds. Absent: systolic murmur, diastolic murmur, rubs, gallop, clicks GI/Abdominal exam: Present: soft, tenderness (Suprapubic abdominal tenderness.) , normal bowel sounds. Absent: distended, guarding, rebound, rigid Extremities exam: Present: normal inspection, full ROM, normal capillary refill. Absent: tenderness, pedal edema, joint swelling, calf tenderness Back exam: Present: normal inspection, CVA tenderness (L) (Patient has left CVA tenderness.) Neurological exam: Present: alert, oriented X3, CN II-XII intact Psychiatric exam: Present: normal affect, normal mood Skin exam: Present: warm, dry, intact, normal color. Absent: rash Course Vital Signs 07/01/18 07/01/18 07/01/18 13:38 16:36 17:05 Temperature 98.8 F 98.0 F Pulse Rate 97 76 77 Respiratory 20 20 16 Rate Blood Pressure 124/84 139/74 141/76 O2 Sat by Pulse 96 98 100 Oximetry Medical Decision Making - Medical Decision Making Patient is 68-year-old female presents return to chief complaint of dysuria, lower abdominal pain for the past few days. She complains of severe dysuria. She states her symptoms became progressively worse yesterday. She did take one leftover Pyridium at that time. Patient states that she's had history of urinary tract infection and she is incontinent. She wears depends briefs at all times. Patient states that her last UTI was 2 months ago. Patient has suprapubic tenderness, and left CVA tenderness. Patient has normal vitals, and she appears in minor discomfort. She has had a positive Ua for infection, with nitrate. Patient has urine culture pending. CBC and BMP are within normal limits. Patient was given IV rocephin at this time. Due to multiple drug allergies, will start patient on keflex and for a prolonged period to cover for early pyelonephritis. Discussed close PCP follow up and return parameters discussed. - Lab Data Result diagrams: 07/01/18 15:27 07/01/18 15:27 Lab Results 07/01/18 07/01/18 07/01/18 Range/Units 13:45 14:08 15:27 WBC 7.7 (3.8-10.6) k/uL RBC 4.40 (3.80-5.40) m/uL Hgb 13.5 (11.4-16.0) gm/dL Hct 41.2 (34.0-46.0) % MCV 93.6 (80.0-100.0) fL MCH 30.7 (25.0-35.0) pg MCHC 32.8 (31.0-37.0) g/dL RDW 14.7 (11.5-15.5) % Plt Count 341 (150-450) k/uL Neutrophils % 59 % Lymphocytes % 30 % Monocytes % 5 % Eosinophils % 3 % Basophils % 1 % Neutrophils # 4.6 (1.3-7.7) k/uL Lymphocytes # 2.3 (1.0-4.8) k/uL Monocytes # 0.4 (0-1.0) k/uL Eosinophils # 0.2 (0-0.7) k/uL Basophils # 0.1 (0-0.2) k/uL Sodium (137-145) mmol/L Potassium (3.5-5.1) mmol/L Chloride (98-107) mmol/L Carbon Dioxide (22-30) mmol/L Anion Gap mmol/L BUN (7-17) mg/dL Creatinine (0.52-1.04) mg/dL Est GFR (CKD-EPI)AfAm (>60 ml/min/1.73 sqM) Est GFR (CKD-EPI)NonAf (>60 ml/min/1.73 sqM) Glucose (74-99) mg/dL POC Glucose (mg/dL) 178 H (75-99) mg/dL POC Glu Computer Technologist ID Calcium (8.4-10.2) mg/dL Total Bilirubin (0.2-1.3) mg/dL AST (14-36) U/L ALT (9-52) U/L Alkaline Phosphatase (38-126) U/L Total Protein (6.3-8.2) g/dL Albumin (3.5-5.0) g/dL Lipase (23-300) U/L Urine Color Dark Brown Urine Appearance Clear (Clear) Urine pH 5.5 (5.0-8.0) Ur Specific [place] 1.010 (1.001-1.035) Urine Protein Negative (Negative) Urine Glucose (UA) Negative (Negative) Urine Ketones Negative (Negative) Urine Blood Negative (Negative) Urine Nitrite Positive H (Negative) Urine Bilirubin Negative (Negative) Urine Urobilinogen <2.0 (<2.0) mg/dL Ur Leukocyte Esterase Moderate H (Negative) Urine RBC <1 (0-5) /hpf Urine WBC 21 H (0-5) /hpf Ur Squamous Epith Cells 1 (0-4) /hpf Urine Mucus Rare H (None) /hpf 07/01/18 Range/Units 15:27 WBC (3.8-10.6) k/uL RBC (3.80-5.40) m/uL Hgb (11.4-16.0) gm/dL Hct (34.0-46.0) % MCV (80.0-100.0) fL MCH (25.0-35.0) pg MCHC (31.0-37.0) g/dL RDW (11.5-15.5) % Plt Count (150-450) k/uL Neutrophils % % Lymphocytes % % Monocytes % % Eosinophils % % Basophils % % Neutrophils # (1.3-7.7) k/uL Lymphocytes # (1.0-4.8) k/uL Monocytes # (0-1.0) k/uL Eosinophils # (0-0.7) k/uL Basophils # (0-0.2) k/uL Sodium 138 (137-145) mmol/L Potassium 4.9 (3.5-5.1) mmol/L Chloride 102 (98-107) mmol/L Carbon Dioxide 21 L (22-30) mmol/L Anion Gap 15 mmol/L BUN 21 H (7-17) mg/dL Creatinine 0.68 (0.52-1.04) mg/dL Est GFR (CKD-EPI)AfAm >90 (>60 ml/min/1.73 sqM) Est GFR (CKD-EPI)NonAf 90 (>60 ml/min/1.73 sqM) Glucose 165 H (74-99) mg/dL POC Glucose (mg/dL) (75-99) mg/dL POC Glu Computer Technologist ID Calcium 10.0 (8.4-10.2) mg/dL Total Bilirubin 0.8 (0.2-1.3) mg/dL AST 31 (14-36) U/L ALT 21 (9-52) U/L Alkaline Phosphatase 60 (38-126) U/L Total Protein 7.4 (6.3-8.2) g/dL Albumin 4.3 (3.5-5.0) g/dL Lipase 105 (23-300) U/L Urine Color Urine Appearance (Clear) Urine pH (5.0-8.0) Ur Specific [place] (1.001-1.035) Urine Protein (Negative) Urine Glucose (UA) (Negative) Urine Ketones (Negative) Urine Blood (Negative) Urine Nitrite (Negative) Urine Bilirubin (Negative) Urine Urobilinogen (<2.0) mg/dL Ur Leukocyte Esterase (Negative) Urine RBC (0-5) /hpf Urine WBC (0-5) /hpf Ur Squamous Epith Cells (0-4) /hpf Urine Mucus (None) /hpf Disposition Clinical Impression: UTI (urinary tract infection) Disposition: HOME SELF-CARE Condition: Good Instructions: Urinary Tract Infection in Women (ED) Additional Instructions: Patient advised follow-up with primary care provider. Return to emergency department if any alarming signs or symptoms occur. Prescriptions: Cephalexin [Keflex] 500 mg PO Q8HR #30 cap Ondansetron Odt [Zofran Odt] 4 mg PO Q8HR PRN #12 tab PRN Reason: Nausea Phenazopyridine [Pyridium] 100 mg PO TID #9 tablet Is patient prescribed a controlled substance at d/c from ED?: No Referrals: Tej Bojorquez MD [Primary Care Provider] - 1-2 days Time of Disposition: 16:32
[2018-07-01 15:52] LABS: Basophils # (A) 0.1 k/uL (0-0.2); Basophils % (A) 1 %; Eosinophils # (A) 0.2 k/uL (0-0.7); Eosinophils % (A) 3 %; HCT 41.2 % (34.0-46.0); HGB 13.5 gm/dL (11.4-16.0); Lymphocytes # (A) 2.3 k/uL (1.0-4.8); Lymphocytes % (A) 30 %; MCH 30.7 pg (25.0-35.0); MCHC 32.8 g/dL (31.0-37.0); MCV 93.6 fL (80.0-100.0); Mean Platelet Volume 6.4; Monocytes # (A) 0.4 k/uL (0-1.0); Monocytes % (A) 5 %; Neutrophils # (A) 4.6 k/uL (1.3-7.7); Neutrophils % (A) 59 %; Platelet Count 341 k/uL (150-450); RDW 14.7 % (11.5-15.5); WBC 7.7 k/uL (3.8-10.6)
[2018-07-01 16:00] LABS: ALT 21 U/L (9-52); AST 31 U/L (14-36); Albumin 4.3 g/dL (3.5-5.0); Alkaline Phosphatase 60 U/L (38-126); Anion Gap 15 mmol/L; Blood Urea Nitrogen 21 mg/dL (7-17); Carbon Dioxide 21 mmol/L (22-30); Chloride 102 mmol/L (98-107); Glucose 165 mg/dL (74-99); Lipase 105 U/L (23-300); Potassium 4.9 mmol/L (3.5-5.1); Sodium 138 mmol/L (137-145); Total Bilirubin 0.8 mg/dL (0.2-1.3); Total Protein 7.4 g/dL (6.3-8.2)
[2018-07-01] MEDS ORDERED: ONDANSETRON 4 MG/2 ML VIAL IVP STA (16:27)
[2018-07-01 17:06] VITALS: BP 141/76; PULSE 77; RESP 16; TEMP 98
== END 2018-07-01 17:05 | disposition home or self-care (01) ==
LOC: EC 13:36
DX: N39.0 Urinary tract infection, site not specified (principal); R32 Unspecified urinary incontinence; R19.7 Diarrhea, unspecified; E78.5 Hyperlipidemia, unspecified; I10 Essential (primary) hypertension; E11.9 Type 2 diabetes mellitus without complications; K21.9 Gastro-esophageal reflux disease without esophagitis; M10.9 Gout, unspecified; M19.90 Unspecified osteoarthritis, unspecified site; F32.9 Major depressive disorder, single episode, unspecified; F41.9 Anxiety disorder, unspecified; Z88.0 Allergy status to penicillin; Z88.1 Allergy status to other antibiotic agents; Z88.2 Allergy status to sulfonamides; Z88.8 Allergy status to other drugs, medicaments and biological substances; Z79.4 Long term (current) use of insulin; Z79.82 Long term (current) use of aspirin; Z79.891 Long term (current) use of opiate analgesic; Z79.899 Other long term (current) drug therapy; Z90.49 Acquired absence of other specified parts of digestive tract
CPT/HCPCS: 36415; 80053; 83690; 85025; 81001; 87040; 87086; 99284; 96365; 96375 ×2; 96361; J2405; J0696; J1885

== ENCOUNTER 2018-07-14 11:50 | Observation (INO) | payer MEDICARE, OTHER ==
[2018-07-14] MEDS ORDERED: SODIUM CHLORIDE 0.9% 1,000 ML IV STA (12:22)
[2018-07-14] MEDS ORDERED: MORPHINE SULFATE 4 MG/ML SYRINGE IV STA (12:22)
[2018-07-14] MEDS ORDERED: PANTOPRAZOLE 40 MG/10 ML VIAL IVP STA (12:25)
--- NOTE | 2018-07-14 12:28 | ED ---
Abdominal Pain HPI - General Chief Complaint: Abdominal Pain Stated Complaint: female Time Seen by Provider: 07/14/18 12:17 Source: patient, RN notes reviewed, old records reviewed Mode of arrival: ambulatory Limitations: no limitations - History of Present Illness Initial Comments: 68-year-old female presenting for generalized abdominal pain. Patient has history of recent urinary tract infection. She complains of continued dysuria and bilateral lower back pain associated with her anterior abdominal pain. She reports diarrhea which is chronic and unchanged from baseline. No vomiting. She also reports subjective fever and chills. Patient has been seen in the emergency department on several occasions over the past month with the same complaint. She states this is unchanged and not improved. She completed a two- week course of antibiotics with no improvement in her symptoms. - Related Data Home Medications Medication Instructions Recorded Confirmed Oxybutynin Chloride 5 mg PO BID 02/05/15 07/14/18 Potassium Chloride [Klor-Con 20] 20 meq PO BID 02/28/15 07/14/18 busPIRone HCL 15 mg PO QID@,,,08/03/15 07/14/18 ALPRAZolam 1 mg PO QID@,,,19 06/04/16 07/14/18 Atorvastatin [Lipitor] 40 mg PO QAM 11/20/16 07/14/18 Multivitamins, Thera [Multivitamin 1 tab PO DAILY 02/16/17 07/14/18 (formulary)] Insulin Glargine [Lantus] 40 unit SQ BID 09/03/17 07/14/18 Cranberry Fruit Extract [Cranberry] 1,000 mg PO BID 12/23/17 07/14/18 HYDROcodone/APAP 10-325MG [[place] 1 tab PO TID@0700,1300,1900 12/23/17 07/14/18 10-325] Magnesium Oxide [Mag-Ox] 500 mg PO AC-SUPPER 12/23/17 07/14/18 Omeprazole 20 mg PO DAILY 12/23/17 07/14/18 Aspirin 81 mg PO DAILY 03/27/18 07/14/18 QUEtiapine [SEROquel] 50 mg PO BID 03/27/18 07/14/18 Sucralfate [Carafate] 1 gm PO AC-TID 03/27/18 07/14/18 Vortioxetine Hydrobromide 10 mg PO DAILY 03/27/18 07/14/18 [Trintellix] Cyclobenzaprine [Flexeril] 5 mg PO TID PRN 07/01/18 07/14/18 Previous Rx's Medication Instructions Recorded Ondansetron Odt [Zofran Odt] 4 mg PO Q8HR PRN #12 tab 07/01/18 Allergies Allergy/AdvReac Type Severity Reaction Status Date / Time benactyzine AdvReac Abdominal Verified 07/14/18 12:32 Pain ciprofloxacin [From Cipro] AdvReac Abdominal Verified 07/14/18 12:32 Pain dicyclomine [From Bentyl] AdvReac Abdominal Verified 07/14/18 12:32 Pain levofloxacin [From Levaquin] AdvReac Abdominal Verified 07/14/18 12:32 Pain Penicillins AdvReac "Passed Verified 07/14/18 12:32 out" prednisone AdvReac Abdominal Verified 07/14/18 12:32 Pain sulfamethoxazole AdvReac Abdominal Verified 07/14/18 12:32 [From Bactrim] Pain tamsulosin HCl [From Flomax] AdvReac Abdominal Verified 07/14/18 12:32 Pain trimethoprim [From Bactrim] AdvReac Abdominal Verified 07/14/18 12:32 Pain Review of Systems ROS Statement: Those systems with pertinent positive or pertinent negative responses have been documented in the HPI. ROS Other: All systems not noted in ROS Statement are negative. Past Medical History Past Medical History: Diabetes Mellitus, GERD/Reflux, Hyperlipidemia, Hypertension, Osteoarthritis (OA), Skin Disorder Additional Past Medical History / Comment(s): IDDM type II, chronic dermatitis/ past cellulitis arms/hands, past falls, gout ,hx of hiatal hernia with surgery, diverticulosis, constipation, arthritis multiple joints, recurrent UTIs, occasionally incontinent. History of Any Multi-Drug Resistant Organisms: None Reported Date of last positivie culture/infection: None MDRO Source:: None Past Surgical History: Cholecystectomy, Hysterectomy, Joint Replacement Additional Past Surgical History / Comment(s): hemorroidectomy, colonoscopy, egd , LAP GUCCI FUNDLOPLICATION,rt knee replacement Past Anesthesia/Blood Transfusion Reactions: No Reported Reaction Additional Past Anesthesia/Blood Transfusion Reaction / Comment(s): . Past Psychological History: Anxiety, Depression Smoking Status: Never smoker Past Alcohol Use History: None Reported Past Drug Use History: None Reported - Past Family History Father Family Medical History: Diabetes Mellitus Additional Family Medical History / Comment(s): Father in his 80s. Mother Family Medical History: Diabetes Mellitus Additional Family Medical History / Comment(s): Mother in her 80s General Exam Limitations: no limitations General appearance: alert, in no apparent distress Head exam: Present: atraumatic, normocephalic Eye exam: Present: normal appearance, PERRL ENT exam: Present: normal exam Neck exam: Present: normal inspection. Absent: tenderness, meningismus Respiratory exam: Present: normal lung sounds bilaterally. Absent: respiratory distress, wheezes Cardiovascular Exam: Present: regular rate, normal rhythm GI/Abdominal exam: Present: soft, tenderness (Mild generalized tenderness palpation, no rebound or guarding). Absent: distended, guarding, rebound Extremities exam: Present: normal inspection, normal capillary refill, other ( Distal pulses intact). Absent: pedal edema Back exam: Present: normal inspection Neurological exam: Present: alert, oriented X3, CN II-XII intact. Absent: motor sensory deficit Skin exam: Present: warm, dry, intact. Absent: cyanosis, diaphoretic Course Vital Signs 07/14/18 07/14/18 12:01 15:18 Temperature 99.7 F H 99.5 F Pulse Rate 111 H 88 Respiratory 20 18 Rate Blood Pressure 138/103 123/86 O2 Sat by Pulse 97 96 Oximetry Medical Decision Making - Medical Decision Making 68-year-old female presenting with abdominal pain, recent history of UTI. Workup in the emergency department reveals normal CBC, normal CMP, urinalysis is negative for signs of infection, urine culture and blood culture pending. X- rays obtained, negative for obstruction or free air. Patient remains symptomatic, CT is obtained which is negative for any acute intra-abdominal pathology. Patient continues to be symptomatic on reevaluation, she is given morphine, Protonix, and Reglan. She continues to have severe pain. Case is discussed with her primary care physician who is familiar with this patient. She will be placed in observation with GI on consult. - Lab Data Result diagrams: 07/14/18 12:34 07/14/18 12:34 Lab Results 07/14/18 07/14/18 07/14/18 Range/Units 12:34 12:34 12:34 WBC 6.4 (3.8-10.6) k/uL RBC 4.19 (3.80-5.40) m/uL Hgb 13.0 (11.4-16.0) gm/dL Hct 41.0 (34.0-46.0) % MCV 98.0 (80.0-100.0) fL MCH 31.2 (25.0-35.0) pg MCHC 31.8 (31.0-37.0) g/dL RDW 14.4 (11.5-15.5) % Plt Count 377 (150-450) k/uL Neutrophils % 52 % Lymphocytes % 38 % Monocytes % 4 % Eosinophils % 4 % Basophils % 1 % Neutrophils # 3.3 (1.3-7.7) k/uL Lymphocytes # 2.4 (1.0-4.8) k/uL Monocytes # 0.3 (0-1.0) k/uL Eosinophils # 0.2 (0-0.7) k/uL Basophils # 0.1 (0-0.2) k/uL PT (9.0-12.0) sec INR (<1.2) APTT (22.0-30.0) sec Sodium 139 (137-145) mmol/L Potassium 4.6 (3.5-5.1) mmol/L Chloride 103 (98-107) mmol/L Carbon Dioxide 24 (22-30) mmol/L Anion Gap 12 mmol/L BUN 23 H (7-17) mg/dL Creatinine 0.78 (0.52-1.04) mg/dL Est GFR (CKD-EPI)AfAm >90 (>60 ml/min/1.73 sqM) Est GFR (CKD-EPI)NonAf 78 (>60 ml/min/1.73 sqM) Glucose 224 H (74-99) mg/dL Plasma Lactic Acid Reginald (0.7-2.0) mmol/L Calcium 10.2 (8.4-10.2) mg/dL Total Bilirubin 0.5 (0.2-1.3) mg/dL AST 34 (14-36) U/L ALT 30 (9-52) U/L Alkaline Phosphatase 73 (38-126) U/L Total Creatine Kinase 73 (30-135) U/L CK-MB (CK-2) 4.5 H (0.0-2.4) ng/mL CK-MB (CK-2) Rel Index 6.2 Troponin I <0.012 (0.000-0.034) ng/mL Total Protein 7.2 (6.3-8.2) g/dL Albumin 4.3 (3.5-5.0) g/dL Amylase 41 (30-110) U/L Lipase 104 (23-300) U/L Urine Color Urine Appearance (Clear) Urine pH (5.0-8.0) Ur Specific [place] (1.001-1.035) Urine Protein (Negative) Urine Glucose (UA) (Negative) Urine Ketones (Negative) Urine Blood (Negative) Urine Nitrite (Negative) Urine Bilirubin (Negative) Urine Urobilinogen (<2.0) mg/dL Ur Leukocyte Esterase (Negative) 07/14/18 07/14/18 07/14/18 Range/Units 12:34 12:34 12:34 WBC (3.8-10.6) k/uL RBC (3.80-5.40) m/uL Hgb (11.4-16.0) gm/dL Hct (34.0-46.0) % MCV (80.0-100.0) fL MCH (25.0-35.0) pg MCHC (31.0-37.0) g/dL RDW (11.5-15.5) % Plt Count (150-450) k/uL Neutrophils % % Lymphocytes % % Monocytes % % Eosinophils % % Basophils % % Neutrophils # (1.3-7.7) k/uL Lymphocytes # (1.0-4.8) k/uL Monocytes # (0-1.0) k/uL Eosinophils # (0-0.7) k/uL Basophils # (0-0.2) k/uL PT 9.8 (9.0-12.0) sec INR 1.0 (<1.2) APTT 22.8 (22.0-30.0) sec Sodium (137-145) mmol/L Potassium (3.5-5.1) mmol/L Chloride (98-107) mmol/L Carbon Dioxide (22-30) mmol/L Anion Gap mmol/L BUN (7-17) mg/dL Creatinine (0.52-1.04) mg/dL Est GFR (CKD-EPI)AfAm (>60 ml/min/1.73 sqM) Est GFR (CKD-EPI)NonAf (>60 ml/min/1.73 sqM) Glucose (74-99) mg/dL Plasma Lactic Acid Reginald 1.9 (0.7-2.0) mmol/L Calcium (8.4-10.2) mg/dL Total Bilirubin (0.2-1.3) mg/dL AST (14-36) U/L ALT (9-52) U/L Alkaline Phosphatase (38-126) U/L Total Creatine Kinase (30-135) U/L CK-MB (CK-2) (0.0-2.4) ng/mL CK-MB (CK-2) Rel Index Troponin I (0.000-0.034) ng/mL Total Protein (6.3-8.2) g/dL Albumin (3.5-5.0) g/dL Amylase (30-110) U/L Lipase (23-300) U/L Urine Color Dark Brown Urine Appearance Clear (Clear) Urine pH 5.0 (5.0-8.0) Ur Specific [place] 1.010 (1.001-1.035) Urine Protein Negative (Negative) Urine Glucose (UA) 1+ H (Negative) Urine Ketones Negative (Negative) Urine Blood Negative (Negative) Urine Nitrite Negative (Negative) Urine Bilirubin Negative (Negative) Urine Urobilinogen <2.0 (<2.0) mg/dL Ur Leukocyte Esterase Negative (Negative) Disposition Clinical Impression: Abdominal pain Disposition: ADMITTED IP TO THIS HOSP Condition: Stable Is patient prescribed a controlled substance at d/c from ED?: No Referrals: Tej Bojorquez MD [Primary Care Provider] - 1-2 days Decision to Admit Reason: Admit from EC Decision Date: 07/14/18 Decision Time: 16:35
[2018-07-14 12:50] LABS: Appearance,Urine Clear (Clear); Basophils # (A) 0.1 k/uL (0-0.2); Basophils % (A) 1 %; Bilirubin,Urine Negative (Negative); Blood,Urine Negative (Negative); Color,Urine Dark Brown; Eosinophils # (A) 0.2 k/uL (0-0.7); Eosinophils % (A) 4 %; Glucose,Urine (UA) 1+ (Negative); Ketones,Urine Negative (Negative); Leukocyte Esterase,Urine Negative (Negative); Lymphocytes # (A) 2.4 k/uL (1.0-4.8); Lymphocytes % (A) 38 %; MCH 31.2 pg (25.0-35.0); MCHC 31.8 g/dL (31.0-37.0); Mean Platelet Volume 6.4; Monocytes # (A) 0.3 k/uL (0-1.0); Monocytes % (A) 4 %; Neutrophils # (A) 3.3 k/uL (1.3-7.7); Neutrophils % (A) 52 %; Nitrite,Urine Negative (Negative); Platelet Count 377 k/uL (150-450); Protein,Urine Negative (Negative); RBC 4.19 m/uL (3.80-5.40); RDW 14.4 % (11.5-15.5); Urobilinogen,Urine <2.0 mg/dL (<2.0); WBC 6.4 k/uL (3.8-10.6)
[2018-07-14 13:00] LABS: ALT 30 U/L (9-52); AST 34 U/L (14-36); Albumin 4.3 g/dL (3.5-5.0); Alkaline Phosphatase 73 U/L (38-126); Amylase 41 U/L (30-110); Anion Gap 12 mmol/L; Blood Urea Nitrogen 23 mg/dL (7-17); Calcium 10.2 mg/dL (8.4-10.2); Carbon Dioxide 24 mmol/L (22-30); Chloride 103 mmol/L (98-107); Glucose 224 mg/dL (74-99); Lipase 104 U/L (23-300); Potassium 4.6 mmol/L (3.5-5.1); Sodium 139 mmol/L (137-145); Total Bilirubin 0.5 mg/dL (0.2-1.3); Total Protein 7.2 g/dL (6.3-8.2)
[2018-07-14 13:16] LABS: Creatine Kinase 73 U/L (30-135)
[2018-07-14 13:24] LABS: Partial Thromboplastin Time 22.8 sec (22.0-30.0); Prothrombin Time 9.8 sec (9.0-12.0)
[2018-07-14 13:29] LABS: Creatine Kinase MB 4.5 ng/mL (0.0-2.4); Troponin I <0.012 ng/mL (0.000-0.034)
--- NOTE | 2018-07-14 13:33 | XR ---
EXAMINATION TYPE: XR KUB DATE OF EXAM: 07/14/2018 COMPARISON: NONE HISTORY: Pain TECHNIQUE: Single supine KUB image of the abdomen is obtained FINDINGS: Small bowel demonstrates no evidence for dilatation or air fluid levels. Gas and fecal material is seen in non-distended colon. No convincing evidence for pneumoperitoneum. No unusual calcifications. The lung bases are clear. The osseous structures are intact. IMPRESSION: 1. Overall nonobstructive bowel gas pattern.
[2018-07-14] MEDS ORDERED: MORPHINE SULFATE 4 MG/ML SYRINGE IVP STA (14:36)
--- NOTE | 2018-07-14 15:25 | CT ---
EXAMINATION TYPE: CT abdomen pelvis w con DATE OF EXAM: 07/14/2018 HISTORY: ab pain/bladder pain for weeks. CT DLP: 1177.7mGycm Automated Exposure Control for Dose Reduction was Utilized. CONTRAST: CT scan of the abdomen and pelvis is performed with IV Contrast, patient injected with 100 mL of Isov ue 370. COMPARISON: 06/21/2018 FINDINGS: LUNG BASES: No significant abnormality is appreciated. LIVER/GB: Hepatic parenchyma is diffusely hypoattenuated in comparison to that of the spleen, most co mmonly seen in hepatic steatosis. This finding limits evaluation for hepatic masses. No gross evidenc e of hepatic mass is seen. No intrahepatic biliary ductal dilatation. No cholelithiasis . PANCREAS: No significant abnormality is seen. SPLEEN: No significant abnormality is seen. Small splenule is seen adjacent to the [place] spleen. ADRENALS: There is a low-density macroscopic fat-containing left adrenal gland lesion measuring appro ximately 1.6 cm compatible with either a lipid rich benign adrenal adenoma or myelolipoma. Right adre nal gland is unremarkable. KIDNEYS: Dual collecting system is seen on the right. Kidneys enhance and excrete symmetrically witho ut hydronephrosis. No evidence of pyelonephritis is seen. No urinary bladder wall thickening is appre ciated. No calculi are seen within the urinary bladder. BOWEL: No dilated large or small bowel. Appendix is not definitely identified, however no right lowe r quadrant fat stranding changes are seen. UTERUS/ADNEXA: Uterus appears surgically absent. LYMPH NODES: No greater than 1cm abdominal or pelvic lymph nodes are appreciated. OSSEOUS STRUCTURES: There is a solitary sclerotic focus within the T11 vertebral body measuring 5 mm. This is stable from the prior and could represent a small bone island. OTHER: There is a small hiatal hernia and surgical clips seen at the gastroesophageal junction. There is a small ventral fat-containing hernia superimposed upon diastases recti. Mild atherosclerosis is seen of the abdominal aorta and its branches. IMPRESSION: 1. No hydronephrosis or nephrolithiasis. No CT findings of pyelonephritis. No urinary bladder wall th ickening or air within the urinary bladder. No urinary bladder calculi. 2. Incidentally noted hepatic steatosis, benign left adrenal gland lesion, dual collecting system on the right, and small hiatal hernia.
[2018-07-14] MEDS ORDERED: METOCLOPRAMIDE 5 MG/ML 2 ML VIAL IVP STA (16:34)
[2018-07-14] MEDS ORDERED: NALOXONE 0.4 MG/ML 1 ML VIAL IV PRN (16:36)
[2018-07-14] MEDS ORDERED: ONDANSETRON 4 MG/2 ML VIAL IVP PRN (16:36)
[2018-07-14] MEDS: SODIUM CHLORIDE 0.9% 1,000 ML IV SCH (16:51)
[2018-07-14] MEDS: MORPHINE SULFATE 4 MG/ML SYRINGE IV PRN (18:06)
[2018-07-14] MEDS ORDERED: CYCLOBENZAPRINE 5 MG TAB PO PRN (18:54)
[2018-07-14 19:51] LABS: Appearance,Urine Clear (Clear); Bilirubin,Urine Negative (Negative); Blood,Urine Negative (Negative); Color,Urine Dark Yellow; Glucose,Urine (UA) Negative (Negative); Ketones,Urine Negative (Negative); Leukocyte Esterase,Urine Negative (Negative); Nitrite,Urine Negative (Negative); Protein,Urine Negative (Negative); Specific Gravity,Urine 1.032 (1.001-1.035); Urobilinogen,Urine <2.0 mg/dL (<2.0)
[2018-07-14] MEDS: OXYBUTYNIN CHLORIDE 5 MG TAB PO SCH (20:11)
[2018-07-14] MEDS: QUEtiapine 50 MG TAB PO SCH (20:11)
[2018-07-14] MEDS: POTASSIUM CHLORIDE ER 20 MEQ TAB.ER PO SCH (20:11)
[2018-07-14] MEDS: busPIRone HCl 5 MG TAB PO SCH ×2 (20:11→23:27)
[2018-07-14] MEDS: ALPRAZolam 1 MG TAB PO SCH ×2 (20:11→23:27)
[2018-07-14] MEDS: HYDROcodone/APAP 10-325MG 1 EACH TAB PO SCH (20:11)
[2018-07-14] MEDS: METOCLOPRAMIDE 5 MG/ML 2 ML VIAL IVP SCH ×2 (20:11→23:27)
[2018-07-14 22:02] LABS: Glucose,Whole Blood 162 mg/dL (75-99)
[2018-07-14] MEDS: INSULIN DETEMIR 100 UNIT/ML 10 ML VIAL SQ SCH (22:07)
[2018-07-15] MEDS: MORPHINE SULFATE 4 MG/ML SYRINGE IV PRN (02:33)
[2018-07-15] MEDS: HYDROcodone/APAP 10-325MG 1 EACH TAB PO SCH ×3 (06:13→17:54)
[2018-07-15] MEDS: busPIRone HCl 5 MG TAB PO SCH ×3 (06:13→17:53)
[2018-07-15] MEDS: ALPRAZolam 1 MG TAB PO SCH ×3 (06:13→17:54)
[2018-07-15] MEDS: METOCLOPRAMIDE 5 MG/ML 2 ML VIAL IVP SCH ×4 (06:14→23:13)
[2018-07-15 07:02] LABS: Glucose,Whole Blood 64 mg/dL (75-99)
--- NOTE | 2018-07-15 07:15 | HP ---
HISTORY AND PHYSICAL CHIEF COMPLAINT: A 68-year-old white female who was admitted to the hospital with acute abdominal pain of significant nature, multiple recurrent admissions for abdominal pain, admitted to rule out any significant abdominal findings. She is requesting a scope into her bowel. She is requesting surgical consult. Discussed with her the CT scan of her abdomen is negative. Discussed possibly an MRI and possibly starting Reglan for gastroparesis was done. We ordered MRI of abdomen and await for GI and Surgical consult. UA was negative. HOME MEDICATIONS: See old chart. PAST MEDICAL HISTORY: Of dyslipidemia, severe anxiety, bipolar, urinary incontinence, chronic neuropathy, chronic degenerative disc disease, insulin-dependent diabetes mellitus, GERD, mood disorder. ALLERGIES: CIPRO, BENTYL, LEVAQUIN, PENICILLIN, PREDNISONE, BACTRIM, FLOMAX, . 14 POINT REVIEW OF SYSTEMS: Negative except for mentioned in HPI. PAST MEDICAL HISTORY: As mentioned above. SURGERY: Cholecystectomy, hysterectomy, joint replacement, C7 fundoplication, hemorrhoidectomy. SOCIAL HISTORY: Anxiety, depression. She has never smoked. No alcohol. No illicit drugs. FAMILY HISTORY: Father had diabetes mellitus. PHYSICAL EXAM: Vital signs stable, afebrile. CARDIOVASCULAR: S1, S2. LUNGS: Transmitted upper sounds. GI: Soft. HEMATOLOGY: Negative Homans. PSYCH: Poor mood and affect, appears nervous and anxious, holding her belly. ABDOMEN: Shows some minimal tenderness to palpation, which is minimal palpation of her abdomen, diffuse across the whole abdomen. Normal bowel sounds. T-max is 99.7, pulse rate 88-111, respiratory rate 18-20, blood pressure 120 to 130s/80s to 100, O2 is 96% on room air. is 23, creatinine 0.78. ASSESSMENT: 1. Acute abdominal pain, unclear etiology. Will do MRI of the abdomen. Start Reglan for gastroparesis in the IV. Get surgical and GI consult. 2. Anxiety, depression, bipolar disorder. 3. Hypothyroidism. 4. Insulin-dependent diabetes mellitus. Continue current treatment. Please see further orders in the chart. MMODL / IJN: [id number] /
[2018-07-15] MEDS ORDERED: INSULIN ASPART 100 UNIT/ML 1 ML 10 ML VIAL SQ SCH (07:30)
[2018-07-15] MEDS ORDERED: NON-FORMULARY DRUG (Omeprazole [Omeprazole] 20 MG) PO SCH (09:00)
[2018-07-15] MEDS ORDERED: PANTOPRAZOLE 40 MG/10 ML VIAL IV SCH (09:00)
[2018-07-15] MEDS: ASPIRIN 81 MG PO SCH (09:03)
[2018-07-15] MEDS: OXYBUTYNIN CHLORIDE 5 MG TAB PO SCH ×2 (09:03→21:14)
[2018-07-15] MEDS: POTASSIUM CHLORIDE ER 20 MEQ TAB.ER PO SCH ×2 (09:03→21:14)
[2018-07-15] MEDS: ATORVASTATIN 40 MG TAB PO SCH (09:03)
[2018-07-15] MEDS: MULTIVITAMINS, THERA 1 EACH TAB PO SCH (09:03)
[2018-07-15] MEDS: INSULIN DETEMIR 100 UNIT/ML 10 ML VIAL SQ SCH ×2 (09:03→21:20)
[2018-07-15] MEDS: SUCRALFATE 1 GM TAB PO SCH ×3 (09:03→21:13)
[2018-07-15] MEDS: QUEtiapine 50 MG TAB PO SCH ×2 (09:04→21:14)
[2018-07-15] MEDS: Vortioxetine Hydrobromide [Trintellix] 10 MG PO SCH (09:04)
[2018-07-15] MEDS: PANTOPRAZOLE 40 MG/10 ML VIAL IV SCH (09:04)
--- NOTE | 2018-07-15 12:05 | P.GSCN ---
History of Present Illness Consult date: 07/15/18 Reason for Consult: Abdominal pain History of present illness: 68-year-old female presented on the day of admission to the emergency room with a reported experiencing bilateral lower abdominal pain radiating to the back. Given the above clinical presentation the attending has requested a surgical eval. Patient states that she has chronic lower back pain and lower abdominal pain has had it for months when questioning patient points to the lower abdominal wall states the pain is bilateral. Daughter at bedside patient has poor recall. According to the daughter who lives with the patient patient wakes up at 4 AM most daily reports having abdominal pain to the lower abdominal wall. Patient reports no unintentional weight loss no change in bowel habits. Not certain when she's had her last bowel movement. Does report having frequent urinary tract infections. Reportedly just completed 2 week course of antibiotic therapy on Saturday. Patient has a difficult time pinpointing where the abdominal pain is or the duration abdomen currently is soft no facial grimacing with palpitation to the abdominal wall reports a nausea sensation but states is hungry. Patient denies any heartburn symptoms difficulty in swallowing CAT scan of the abdomen and pelvis with contrast was obtained in the emergency room. Reviewing the report in summary no hydronephrosis, no CT findings of polynephritis, small hiatal hernia. Bowel showed no dilated small or large bowel pancreas spleen no abnormality Labs reviewed lipase 104, amylase 41 Patient is requesting an EGD and a colonoscopy to be done to evaluate symptoms MR of the abdomen pelvis is been ordered by the attending Patient reportedly had an EGD and a colonoscopy done on February 2017 reviewing the operative report the EGD showed mild antral gastritis, no evidence of GE stricture, no evidence of gastric outlet obstruction colonoscopy showed transverse and descending colon normal in the sigmoid extensive diverticular changes no evidence of active diverticulitis Past surgical history cholecystectomy, hysterectomy, orthopedic procedures, EGD , colonoscopy, hemorrhoidectomy, gucci fundloplication Review of Systems Essentially unremarkable except as mentioned in the present illness Past Medical History Past Medical History: Diabetes Mellitus, GERD/Reflux, Hyperlipidemia, Hypertension, Osteoarthritis (OA), Skin Disorder Additional Past Medical History / Comment(s): IDDM type II, chronic dermatitis/ past cellulitis arms/hands, past falls, gout ,hx of hiatal hernia with surgery, diverticulosis, constipation, arthritis multiple joints, recurrent UTIs, occasionally incontinent.uti, cataracts. "wears depends just in case",edentulous History of Any Multi-Drug Resistant Organisms: None Reported Year Discovered:: None MDRO Source:: None Past Surgical History: Cholecystectomy, Hysterectomy, Joint Replacement Additional Past Surgical History / Comment(s): hemorroidectomy, colonoscopy, egd , LAP GUCCI FUNDLOPLICATION,rt knee replacement Past Anesthesia/Blood Transfusion Reactions: No Reported Reaction Additional Past Anesthesia/Blood Transfusion Reaction / Comm: . Smoking Status: Never smoker - Past Family History Father Family Medical History: Diabetes Mellitus Additional Family Medical History / Comment(s): Father in his 80s. Mother Family Medical History: Diabetes Mellitus Additional Family Medical History / Comment(s): Mother in her 80s Medications and Allergies Home Medications Medication Instructions Recorded Confirmed Type Oxybutynin Chloride 5 mg PO BID 02/05/15 07/14/18 History Potassium Chloride [Klor-Con 20] 20 meq PO BID 02/28/15 07/14/18 History busPIRone HCL 15 mg PO QID@,,,08/03/15 07/14/18 History ALPRAZolam 1 mg PO QID@,,,19 06/04/16 07/14/18 History Atorvastatin [Lipitor] 40 mg PO QAM 11/20/16 07/14/18 History Multivitamins, Thera [Multivitamin 1 tab PO DAILY 02/16/17 07/14/18 History (formulary)] Insulin Glargine [Lantus] 40 unit SQ BID 09/03/17 07/14/18 History Cranberry Fruit Extract [Cranberry] 1,000 mg PO BID 12/23/17 07/14/18 History HYDROcodone/APAP 10-325MG [[place] 1 tab PO TID@0700,1300,1900 12/23/17 07/14/18 History 10-325] Magnesium Oxide [Mag-Ox] 500 mg PO AC-SUPPER 12/23/17 07/14/18 History Omeprazole 20 mg PO DAILY 12/23/17 07/14/18 History Aspirin 81 mg PO DAILY 03/27/18 07/14/18 History QUEtiapine [SEROquel] 50 mg PO BID 03/27/18 07/14/18 History Sucralfate [Carafate] 1 gm PO AC-TID 03/27/18 07/14/18 History Vortioxetine Hydrobromide 10 mg PO DAILY 03/27/18 07/14/18 History [Trintellix] Cyclobenzaprine [Flexeril] 5 mg PO TID PRN 07/01/18 07/14/18 History Ondansetron Odt [Zofran Odt] 4 mg PO Q8HR PRN #12 tab 07/01/18 07/14/18 Rx Allergies Allergy/AdvReac Type Severity Reaction Status Date / Time benactyzine AdvReac Abdominal Verified 07/14/18 12:32 Pain ciprofloxacin [From Cipro] AdvReac Abdominal Verified 07/14/18 12:32 Pain dicyclomine [From Bentyl] AdvReac Abdominal Verified 07/14/18 12:32 Pain levofloxacin [From Levaquin] AdvReac Abdominal Verified 07/14/18 12:32 Pain Penicillins AdvReac "Passed Verified 07/14/18 12:32 out" prednisone AdvReac Abdominal Verified 07/14/18 12:32 Pain sulfamethoxazole AdvReac Abdominal Verified 07/14/18 12:32 [From Bactrim] Pain tamsulosin HCl [From Flomax] AdvReac Abdominal Verified 07/14/18 12:32 Pain trimethoprim [From Bactrim] AdvReac Abdominal Verified 07/14/18 12:32 Pain Surgical - Exam Vital Signs Temp Pulse Resp BP Pulse Ox 99.7 F H 111 H 20 138/103 97 07/14/18 12:01 07/14/18 12:01 07/14/18 12:01 07/14/18 12:01 07/14/18 12:01 GENERAL APPEARANCE: 68 -year-old female patient is alert, oriented, in no acute distress. VITAL SIGNS: Reviewed HEENT: Head is normocephalic and atraumatic. Pupils are equal and reactive. The nares are patent. Oropharynx is clear without lesions. NECK: Supple without lymphadenopathy. Traches midline. HEART: S1, S2. Regular rate and rhythm. No murmur denying chest pain LUNGS: No crackles or wheezes are heard. Essentially clear no shortness of breath ABDOMEN: Soft, no flank pain no facial grimacing with palpitation to the abdominal wall nontender, nondistended with good bowel sounds. No peritoneal signs. No palpable organomegaly or masses. Denies any nausea vomiting denies any burning on urination frequency urgency EXTREMITIES: Normal skin color and turgor. No cyanosis, rash, ulceration, clubbing or edema. Radial pedal pulses are 2/4 bilaterally. NEUROLOGICAL: No focal deficits. Strength and sensation are grossly intact. Results - Labs 07/14/18 12:34 07/14/18 12:34 Abnormal Lab Results - Last 24 Hours (Table) 07/14/18 07/14/18 07/14/18 Range/Units 12:34 12:34 12:34 BUN 23 H (7-17) mg/dL Glucose 224 H (74-99) mg/dL POC Glucose (mg/dL) (75-99) mg/dL CK-MB (CK-2) 4.5 H (0.0-2.4) ng/mL Urine Glucose (UA) 1+ H (Negative) 07/14/18 07/15/18 Range/Units 22:01 06:49 BUN (7-17) mg/dL Glucose (74-99) mg/dL POC Glucose (mg/dL) 162 H 64 L (75-99) mg/dL CK-MB (CK-2) (0.0-2.4) ng/mL Urine Glucose (UA) (Negative) Microbiology - Last 24 Hours (Table) 07/14/18 12:34 Urine Culture - Preliminary Urine,Voided Diabetes panel 07/14/18 Range/Units 12:34 Sodium 139 (137-145) mmol/L Potassium 4.6 (3.5-5.1) mmol/L Chloride 103 (98-107) mmol/L Carbon Dioxide 24 (22-30) mmol/L BUN 23 H (7-17) mg/dL Creatinine 0.78 (0.52-1.04) mg/dL Glucose 224 H (74-99) mg/dL Calcium 10.2 (8.4-10.2) mg/dL AST 34 (14-36) U/L ALT 30 (9-52) U/L Alkaline Phosphatase 73 (38-126) U/L Total Protein 7.2 (6.3-8.2) g/dL Albumin 4.3 (3.5-5.0) g/dL Calcium panel 07/14/18 Range/Units 12:34 Calcium 10.2 (8.4-10.2) mg/dL Albumin 4.3 (3.5-5.0) g/dL Pituitary panel 07/14/18 Range/Units 12:34 Sodium 139 (137-145) mmol/L Potassium 4.6 (3.5-5.1) mmol/L Chloride 103 (98-107) mmol/L Carbon Dioxide 24 (22-30) mmol/L BUN 23 H (7-17) mg/dL Creatinine 0.78 (0.52-1.04) mg/dL Glucose 224 H (74-99) mg/dL Calcium 10.2 (8.4-10.2) mg/dL Adrenal panel 07/14/18 Range/Units 12:34 Sodium 139 (137-145) mmol/L Potassium 4.6 (3.5-5.1) mmol/L Chloride 103 (98-107) mmol/L Carbon Dioxide 24 (22-30) mmol/L BUN 23 H (7-17) mg/dL Creatinine 0.78 (0.52-1.04) mg/dL Glucose 224 H (74-99) mg/dL Calcium 10.2 (8.4-10.2) mg/dL Total Bilirubin 0.5 (0.2-1.3) mg/dL AST 34 (14-36) U/L ALT 30 (9-52) U/L Alkaline Phosphatase 73 (38-126) U/L Total Protein 7.2 (6.3-8.2) g/dL Albumin 4.3 (3.5-5.0) g/dL Assessment and Plan Assessment: Impression Present on admission bilateral lower abdominal pain unclear etiology recent UTI completed antibiotic course on SaturdayJuly 13 History of an EGD and colonoscopy done in November 2016 showed diverticulosis sigmoid colon Anxiety depressive disorder Type 2 diabetes History of cholecystectomy History of frequent UTIs Plan Follow up on the MRI of the abdomen pelvis currently pending DVT and GI prophylaxis No evidence of an acute surgical abdomen at this time We'll follow with you with further surgical recommendations Surgical consultation note dictated for dr rogers The above impression and plan of care have been discussed and directed by signing physician. Soni Flower nurse practitioner acting as scribe for signing physician.
--- NOTE | 2018-07-15 12:18 | P.CONS ---
History of Present Illness - Reason for Consult Consult date: 07/15/18 abdominal pain Requesting physician: Tej Bojorquez - Chief Complaint abdominal pain - History of Present Illness 68 year old female with a history of diabetes mellitus, cholecystectomy, anxiety , depression, chronic abdominal back pain more than 2 years duration presents with acute lower abdominal pain without nausea vomiting fever chills hematemesis hematochezia melena changes in bowel habits or weight loss. History of GERD Gucci fundoplication. EGD colonoscopy February [address] Kat with findings of no evidence of gastric outlet obstruction mild antral gastritis no evidence of GE junction stricture, evidence of colonic diverticulosis. CT abdomen no hydronephrosis or nephrolithiasis. Hepatic steatosis. Benign left adrenal gland lesion. White count 6.4. Hemoglobin 13. Platelet 377. INR 1.0. BUN 23. Creatinine 0.7. LFTs within normal limits. Lipase 104. MRI abdomen scheduled for this afternoon. Review of Systems Constitutional: Denies fever, chills, sweats, weight gain, or loss. HEENT: Negative for migraines, blurred vision or loss, earaches, drainage, tinnitus, oral mucosal lesions, dysphagia, or odynophagia. CARDIAC: Negative for chest pain, arrhythmias, or palpitation. RESPIRATORY: Negative for shortness of breath, hemoptysis, cough, or sputum production. GI: See HPI for pertinent findings. : Negative for hematuria, urgency, frequency, polyuria, or dysuria. GYNc: Denies possibility of . Negative vaginal discharge. MUSCULOSKELETAL: Negative for muscle aches, swelling, arthritis, and arthralgias. NEUROLOGIC: Negative for stroke or TIA. ENDOCRINE: Negative for thyroid problems. SKIN: Negative for rash or itching. PSYCHIATRIC: Negative history for depression and anxiety Past Medical History Past Medical History: Diabetes Mellitus, GERD/Reflux, Hyperlipidemia, Hypertension, Osteoarthritis (OA), Skin Disorder Additional Past Medical History / Comment(s): IDDM type II, chronic dermatitis/ past cellulitis arms/hands, past falls, gout ,hx of hiatal hernia with surgery, diverticulosis, constipation, arthritis multiple joints, recurrent UTIs, occasionally incontinent.uti, cataracts. "wears depends just in case",edentulous History of Any Multi-Drug Resistant Organisms: None Reported Year Discovered:: None MDRO Source:: None Past Surgical History: Cholecystectomy, Hysterectomy, Joint Replacement Additional Past Surgical History / Comment(s): hemorroidectomy, colonoscopy, egd , LAP GUCCI FUNDLOPLICATION,rt knee replacement Past Anesthesia/Blood Transfusion Reactions: No Reported Reaction Additional Past Anesthesia/Blood Transfusion Reaction / Comm: . Smoking Status: Never smoker - Past Family History Father Family Medical History: Diabetes Mellitus Additional Family Medical History / Comment(s): Father in his 80s. Mother Family Medical History: Diabetes Mellitus Additional Family Medical History / Comment(s): Mother in her 80s Medications and Allergies Home Medications Medication Instructions Recorded Confirmed Type Oxybutynin Chloride 5 mg PO BID 02/05/15 07/14/18 History Potassium Chloride [Klor-Con 20] 20 meq PO BID 02/28/15 07/14/18 History busPIRone HCL 15 mg PO QID@,,,08/03/15 07/14/18 History ALPRAZolam 1 mg PO QID@,,,06/04/16 07/14/18 History Atorvastatin [Lipitor] 40 mg PO QAM 11/20/16 07/14/18 History Multivitamins, Thera [Multivitamin 1 tab PO DAILY 02/16/17 07/14/18 History (formulary)] Insulin Glargine [Lantus] 40 unit SQ BID 09/03/17 07/14/18 History Cranberry Fruit Extract [Cranberry] 1,000 mg PO BID 12/23/17 07/14/18 History HYDROcodone/APAP 10-325MG [[place] 1 tab PO TID@0700,1300,1900 12/23/17 07/14/18 History 10-325] Magnesium Oxide [Mag-Ox] 500 mg PO AC-SUPPER 12/23/17 07/14/18 History Omeprazole 20 mg PO DAILY 12/23/17 07/14/18 History Aspirin 81 mg PO DAILY 03/27/18 07/14/18 History QUEtiapine [SEROquel] 50 mg PO BID 03/27/18 07/14/18 History Sucralfate [Carafate] 1 gm PO AC-TID 03/27/18 07/14/18 History Vortioxetine Hydrobromide 10 mg PO DAILY 03/27/18 07/14/18 History [Trintellix] Cyclobenzaprine [Flexeril] 5 mg PO TID PRN 07/01/18 07/14/18 History Ondansetron Odt [Zofran Odt] 4 mg PO Q8HR PRN #12 tab 07/01/18 07/14/18 Rx Allergies Allergy/AdvReac Type Severity Reaction Status Date / Time benactyzine AdvReac Abdominal Verified 07/14/18 12:32 Pain ciprofloxacin [From Cipro] AdvReac Abdominal Verified 07/14/18 12:32 Pain dicyclomine [From Bentyl] AdvReac Abdominal Verified 07/14/18 12:32 Pain levofloxacin [From Levaquin] AdvReac Abdominal Verified 07/14/18 12:32 Pain Penicillins AdvReac "Passed Verified 07/14/18 12:32 out" prednisone AdvReac Abdominal Verified 07/14/18 12:32 Pain sulfamethoxazole AdvReac Abdominal Verified 07/14/18 12:32 [From Bactrim] Pain tamsulosin HCl [From Flomax] AdvReac Abdominal Verified 07/14/18 12:32 Pain trimethoprim [From Bactrim] AdvReac Abdominal Verified 07/14/18 12:32 Pain Physical Exam Vitals: Vital Signs Temp Pulse Pulse Resp BP BP Pulse Ox 07/15/18 08:00 82 16 07/15/18 07:58 98.6 F 82 16 107/73 93 L 07/15/18 03:42 18 07/15/18 00:00 18 07/14/18 23:30 97.6 F 86 18 111/73 94 L 07/14/18 20:00 16 07/14/18 18:45 99.1 F 83 16 111/74 96 07/14/18 18:09 99.1 F 87 18 115/83 96 07/14/18 15:18 99.5 F 88 18 123/86 96 Intake and Output 07/14/18 07/15/18 07/15/18 22:59 06:59 14:59 Intake Total 1000 Balance 1000 Intake: Amount of Fluid Infused ( 1000 ml) Other: Voiding Method Toilet Toilet Toilet Incontinent Incontinent # Voids 3 General appearance: The patient is alert, oriented, in no acute distress. HET: Head is normocephalic and atraumatic. Pupils are equal and reactive. Oropharynx is clear without lesions. Neck: Supple without lymphadenopathy. Trachea midline. Heart: S1 S2. Regular rate and rhythm. Lungs: No crackles or wheezes are heard. Abdomen: Soft, mild tenderness bilateral lower abdomen, nondistended with bowel sounds. No peritoneal signs. No palpable organomegaly or masses. Extremities: Normal skin color and turgor. No cyanosis, rash, ulceration, clubbing, or edema. Radial and pedal pulses are 2/4 bilaterally. Neurological: No focal deficits. Strength and sensation are grossly intact. Results CBC & Chem 7: 07/14/18 12:34 07/14/18 12:34 Labs: Abnormal Lab Results - Last 24 Hours (Table) 07/14/18 07/14/18 07/14/18 Range/Units 12:34 12:34 12:34 BUN 23 H (7-17) mg/dL Glucose 224 H (74-99) mg/dL POC Glucose (mg/dL) (75-99) mg/dL CK-MB (CK-2) 4.5 H (0.0-2.4) ng/mL Urine Glucose (UA) 1+ H (Negative) 07/14/18 07/15/18 Range/Units 22:01 06:49 BUN (7-17) mg/dL Glucose (74-99) mg/dL POC Glucose (mg/dL) 162 H 64 L (75-99) mg/dL CK-MB (CK-2) (0.0-2.4) ng/mL Urine Glucose (UA) (Negative) Microbiology - Last 24 Hours (Table) 07/14/18 12:34 Urine Culture - Preliminary Urine,Voided CT scan - abdomen: report reviewed (Dr. Dailey) Assessment and Plan (1) Abdominal pain Narrative/Plan: 68-year-old female with acute on chronic abdominal pain greater than 2 years duration with unremarkable CT imaging of the abdomen scheduled for MRI abdomen this afternoon. Possible IBS etiology of abdominal pain is unclear at this time. EGD colonoscopy 2016 no evidence of peptic ulcer disease gastric outlet obstruction or esophageal stricture disease. Evidence of colonic diverticulosis. Current Visit: Yes Status: Acute Code(s): R10.9 - UNSPECIFIED ABDOMINAL PAIN SNOMED Code(s): 75939749 Plan: 1. MRI abdomen this afternoon. General surgical consult. Supportive measures. GI prophylaxis. We'll continue to follow. Thank you for this kind referral and the opportunity to participate in the care of your patient. This consultation was discussed with Dr. Dailey. The impression and plan of care have been directed as dictated.
[2018-07-15 12:22] LABS: Glucose,Whole Blood 96 mg/dL (75-99)
[2018-07-15 14:13] LABS: Hemoglobin A1C 8.2 % (4.0-6.0)
--- NOTE | 2018-07-15 16:06 | MR ---
EXAMINATION TYPE: MR abdomen wo/w con DATE OF EXAM: 07/15/2018 COMPARISON: CT 07/14/2018 HISTORY: 68-year-old female with abdominal pain Technique: Multiplanar, multisequence images of the abdomen were obtained before and after administra tion of 8.5 mL intravenous Gadavist gadolinium contrast. FINDINGS: Heart normal size without pericardial effusion. Suggestion of a small hiatal hernia. There is some postsurgical susceptibility artifact at the GE imani ction which can be correlated clinically. Liver is enlarged measuring 20.1 cm. There is diffuse loss of signal on T1-weighted out of phase sequ ence compatible with hepatic steatosis signal drops from 601 down to 294. There is an enhancing 8 mm lesion in the peripheral right liver lobe that shows mild T2 hyperintensit y and T1 weighted low signal. Second vague irregular area of enhancement in the right hepatic lobe measuring 1.8 cm within segment 5, posteriorly No biliary ductal dilatation. Portal venous system is patent. Cholecystectomy clips. Right adrenal gland, spleen, and pancreas appear within normal limits. Hilar splenule is noted. Right-sided renal duplication redemonstrated. Redemonstrated lesion measuring 2 cm in the left adrenal gland. Signal intensity moves from 1000 down to 700 on out of phase sequence suggesting an adrenal adenoma. No upper abdominal lymphadenopathy, ascites fluid, or gross bowel abnormality. Mild left-sided colon ic diverticulosis. IMPRESSION: 1. Small hiatal hernia. There seems to be some post surgical change at the GE junction. Query prior h ernia repair. 2. Hepatomegaly (20.1 cm) with at least moderate hepatic steatosis. Correlate with LFTs, lipid profil e, and patient risk factors. 3. A tiny 8 mm enhancing lesion peripheral right liver lobe and a larger 1.8 cm vague irregular area of enhancement more centrally in the right liver lobe. These are nonspecific and could represent april ngiomas. They are not clearly seen on the patient's recent CTs. A 6-12 month follow-up can be conside red. Benign etiology is suspected. 4. Stable 2 cm left adrenal nodule, likely adrenal adenoma, right-sided renal collecting system dupli cation, and mild left sided colonic diverticulosis.
[2018-07-15 17:05] LABS: Glucose,Whole Blood 112 mg/dL (75-99)
[2018-07-15] MEDS: SODIUM CHLORIDE 0.9% 1,000 ML IV SCH (17:11)
[2018-07-15] MEDS ORDERED: MAGNESIUM OXIDE 400 MG TAB PO SCH (17:30)
--- NOTE | 2018-07-15 20:04 | PN ---
PROGRESS NOTE SUBJECTIVE: This is a 68-year-old white female with intractable abdominal pain. She had an MRI of the abdomen which showed no significant acute abdominal pathology. GI saw her, thought it was possibly irritable bowel syndrome. The patient is improving, possibly due to Reglan, and is being given 10 mg before meals and at bedtime for gastroparesis. Vital signs are stable. Afebrile. CARDIOVASCULAR: S1, S2. LUNGS: Clear. GI: Increased bowel sounds. HEMATOLOGY: Negative Homans. ASSESSMENT: Acute abdominal pain, possibly irritable bowel syndrome versus gastroparesis. Will discharge home in the morning on Reglan. Follow up in the next 24-48 hours. MMODL / IJN: [id number] /
[2018-07-15 21:21] LABS: Glucose,Whole Blood 124 mg/dL (75-99)
[2018-07-16] MEDS: busPIRone HCl 5 MG TAB PO SCH ×2 (01:07→06:29)
[2018-07-16] MEDS: ALPRAZolam 1 MG TAB PO SCH ×2 (01:07→06:29)
[2018-07-16] MEDS: HYDROcodone/APAP 10-325MG 1 EACH TAB PO SCH (06:29)
[2018-07-16] MEDS: METOCLOPRAMIDE 5 MG/ML 2 ML VIAL IVP SCH (06:30)
[2018-07-16 06:46] LABS: Glucose,Whole Blood 114 mg/dL (75-99)
[2018-07-16 07:28] VITALS: BP 117/81; PULSE 88; RESP 16; TEMP 98.9
[2018-07-16] MEDS: POTASSIUM CHLORIDE ER 20 MEQ TAB.ER PO SCH (08:56)
[2018-07-16] MEDS: ASPIRIN 81 MG PO SCH (08:56)
[2018-07-16] MEDS: PANTOPRAZOLE 40 MG/10 ML VIAL IV SCH (08:56)
[2018-07-16] MEDS: MULTIVITAMINS, THERA 1 EACH TAB PO SCH (08:56)
[2018-07-16] MEDS: ATORVASTATIN 40 MG TAB PO SCH (08:56)
[2018-07-16] MEDS: QUEtiapine 50 MG TAB PO SCH (08:56)
[2018-07-16] MEDS: INSULIN DETEMIR 100 UNIT/ML 10 ML VIAL SQ SCH (08:57)
[2018-07-16] MEDS: Vortioxetine Hydrobromide [Trintellix] 10 MG PO SCH (08:57)
[2018-07-16] MEDS: OXYBUTYNIN CHLORIDE 5 MG TAB PO SCH (08:57)
[2018-07-16] MEDS: SUCRALFATE 1 GM TAB PO SCH (08:57)
== END 2018-07-16 11:43 | disposition home or self-care (01) ==
LOC: EC 11:50 → 1SOBS 16:37
PROVIDERS: ADMIT Family Medicine; ATTEND Family Medicine
DX: R10.84 Generalized abdominal pain (principal); K31.84 Gastroparesis; F41.9 Anxiety disorder, unspecified; F31.9 Bipolar disorder, unspecified; E03.9 Hypothyroidism, unspecified; E11.43 Type 2 diabetes mellitus with diabetic autonomic (poly)neuropathy; E78.5 Hyperlipidemia, unspecified; E11.40 Type 2 diabetes mellitus with diabetic neuropathy, unspecified; K21.9 Gastro-esophageal reflux disease without esophagitis; R32 Unspecified urinary incontinence; R30.0 Dysuria; M54.5 Low back pain; K52.9 Noninfective gastroenteritis and colitis, unspecified; R10.32 Left lower quadrant pain; R10.31 Right lower quadrant pain; R50.9 Fever, unspecified; K57.30 Diverticulosis of large intestine without perforation or abscess without bleeding; G89.29 Other chronic pain; M19.90 Unspecified osteoarthritis, unspecified site; I10 Essential (primary) hypertension; M10.9 Gout, unspecified; Z87.440 Personal history of urinary (tract) infections; Z90.49 Acquired absence of other specified parts of digestive tract; Z79.899 Other long term (current) drug therapy; Z79.4 Long term (current) use of insulin; Z79.82 Long term (current) use of aspirin; Z79.891 Long term (current) use of opiate analgesic; Z88.1 Allergy status to other antibiotic agents; Z88.8 Allergy status to other drugs, medicaments and biological substances; Z88.0 Allergy status to penicillin; Z88.2 Allergy status to sulfonamides; Z91.81 History of falling
CPT/HCPCS: 99285; 96374 ×2; 96375 ×3; 96361 ×3; 96376 ×6; 36415; 80053; 82150; 82550; 82553; 83605; 83690; 84484; 85025; 85610; 85730; 81003; 87040; 87086; 83036; 74018; 74177; 74183; G0378 ×3; J2270 ×2; J2765 ×3; C9113 ×3; A9585; Q9967

== ENCOUNTER 2018-08-23 18:36 | Observation (INO) | payer MEDICARE, OTHER ==
[2018-08-23] MEDS ORDERED: ASPIRIN 81 MG PO STA (18:58)
[2018-08-23] MEDS ORDERED: NITROGLYCERIN SL TABS 0.4 MG TAB SUBLINGUAL STA (19:06)
[2018-08-23] MEDS ORDERED: MAG HYDROX/AL HYDROX/SIMETH 30 ML, HYOSCYAMINE ELIXIR 10 ML, CIMETIDINE HCL 300 MG PO STA ×3 (19:30)
[2018-08-23 19:31] LABS: Basophils # (A) 0.1 k/uL (0-0.2); Basophils % (A) 1 %; Eosinophils # (A) 0.2 k/uL (0-0.7); Eosinophils % (A) 3 %; HCT 41.2 % (34.0-46.0); HGB 13.7 gm/dL (11.4-16.0); Lymphocytes # (A) 1.7 k/uL (1.0-4.8); Lymphocytes % (A) 22 %; MCH 32.3 pg (25.0-35.0); MCHC 33.2 g/dL (31.0-37.0); MCV 97.4 fL (80.0-100.0); Mean Platelet Volume 6.8; Monocytes # (A) 0.4 k/uL (0-1.0); Monocytes % (A) 5 %; Neutrophils % (A) 68 %; Platelet Count 300 k/uL (150-450); RBC 4.23 m/uL (3.80-5.40); RDW 13.6 % (11.5-15.5); WBC 7.5 k/uL (3.8-10.6)
--- NOTE | 2018-08-23 19:33 | ED ---
Chest Pain HPI - General Chief Complaint: Chest Pain Stated Complaint: Chest Pain Time Seen by Provider: 08/23/18 18:57 Source: patient, RN notes reviewed Mode of arrival: wheelchair Limitations: no limitations - History of Present Illness Initial Comments: 68-year-old female presents emergency Department chief complaint of chest discomfort. Patient states it started 3-4 hours prior arrival. Patient states centralized in her epigastric region. She's had pain medicine the past. She states that she has no history of [place]. Patient states she does have a history of hyperlipidemia, hypertension, diabetes. Patient states that she felt short of breath. Patient states is more than just hurts to take a deep breath. Patient had recent CTA which is negative for PE. Patient denies any back pain the usual. Denies any nausea vomiting diarrhea constipation. Patient not take anything for discomfort. She does have known GERD symptoms - Related Data Home Medications Medication Instructions Recorded Confirmed Oxybutynin Chloride 5 mg PO BID 02/05/15 07/14/18 Potassium Chloride [Klor-Con 20] 20 meq PO BID 02/28/15 07/14/18 busPIRone HCL 15 mg PO QID@,,,08/03/15 07/14/18 ALPRAZolam 1 mg PO QID@,,,19 06/04/16 07/14/18 Atorvastatin [Lipitor] 40 mg PO QAM 11/20/16 07/14/18 Multivitamins, Thera [Multivitamin 1 tab PO DAILY 02/16/17 07/14/18 (formulary)] Insulin Glargine [Lantus] 40 unit SQ BID 09/03/17 07/14/18 Cranberry Fruit Extract [Cranberry] 1,000 mg PO BID 12/23/17 07/14/18 HYDROcodone/APAP 10-325MG [[place] 1 tab PO TID@0700,1300,1900 12/23/17 07/14/18 10-325] Magnesium Oxide [Mag-Ox] 500 mg PO AC-SUPPER 12/23/17 07/14/18 Omeprazole 20 mg PO DAILY 12/23/17 07/14/18 Aspirin 81 mg PO DAILY 03/27/18 07/14/18 QUEtiapine [SEROquel] 50 mg PO BID 03/27/18 07/14/18 Sucralfate [Carafate] 1 gm PO AC-TID 03/27/18 07/14/18 Vortioxetine Hydrobromide 10 mg PO DAILY 03/27/18 07/14/18 [Trintellix] Cyclobenzaprine [Flexeril] 5 mg PO TID PRN 07/01/18 07/14/18 Previous Rx's Medication Instructions Recorded Ondansetron Odt [Zofran Odt] 4 mg PO Q8HR PRN #12 tab 07/01/18 Allergies Allergy/AdvReac Type Severity Reaction Status Date / Time benactyzine AdvReac Abdominal Verified 08/23/18 18:46 Pain ciprofloxacin [From Cipro] AdvReac Abdominal Verified 08/23/18 18:46 Pain dicyclomine [From Bentyl] AdvReac Abdominal Verified 08/23/18 18:46 Pain levofloxacin [From Levaquin] AdvReac Abdominal Verified 08/23/18 18:46 Pain Penicillins AdvReac "Passed Verified 08/23/18 18:46 out" prednisone AdvReac Abdominal Verified 08/23/18 18:46 Pain sulfamethoxazole AdvReac Abdominal Verified 08/23/18 18:46 [From Bactrim] Pain tamsulosin HCl [From Flomax] AdvReac Abdominal Verified 08/23/18 18:46 Pain trimethoprim [From Bactrim] AdvReac Abdominal Verified 08/23/18 18:46 Pain Review of Systems ROS Statement: Those systems with pertinent positive or pertinent negative responses have been documented in the HPI. ROS Other: All systems not noted in ROS Statement are negative. EKG Findings - EKG Comments: EKG Findings:: EKG performed at 18:59 normal sinus rhythm with rate of 91. pr 162 QRS 80 QT/QTC 338/4:15 Past Medical History Past Medical History: Diabetes Mellitus, GERD/Reflux, Hyperlipidemia, Hypertension, Osteoarthritis (OA), Skin Disorder Additional Past Medical History / Comment(s): IDDM type II, chronic dermatitis/ past cellulitis arms/hands, past falls, gout ,hx of hiatal hernia with surgery, diverticulosis, constipation, arthritis multiple joints, recurrent UTIs, occasionally incontinent.uti, cataracts. "wears depends just in case",edentulous History of Any Multi-Drug Resistant Organisms: None Reported Date of last positivie culture/infection: None MDRO Source:: None Past Surgical History: Cholecystectomy, Hysterectomy, Joint Replacement Additional Past Surgical History / Comment(s): hemorroidectomy, colonoscopy, egd , LAP GUCCI FUNDLOPLICATION,rt knee replacement Past Anesthesia/Blood Transfusion Reactions: No Reported Reaction Additional Past Anesthesia/Blood Transfusion Reaction / Comment(s): . Past Psychological History: Anxiety, Depression Smoking Status: Never smoker Past Alcohol Use History: None Reported Past Drug Use History: None Reported - Past Family History Father Family Medical History: Diabetes Mellitus Additional Family Medical History / Comment(s): Father in his 80s. Mother Family Medical History: Diabetes Mellitus Additional Family Medical History / Comment(s): Mother in her 80s General Exam Limitations: no limitations General appearance: alert, in no apparent distress Head exam: Present: atraumatic, normocephalic, normal inspection Eye exam: Present: normal appearance, PERRL, EOMI. Absent: scleral icterus, conjunctival injection, periorbital swelling ENT exam: Present: normal exam, normal oropharynx, mucous membranes moist Neck exam: Present: normal inspection. Absent: tenderness, meningismus, lymphadenopathy Respiratory exam: Present: normal lung sounds bilaterally. Absent: respiratory distress, wheezes, rales, rhonchi, stridor Cardiovascular Exam: Present: normal rhythm, tachycardia (Heart rate 107 on triage), normal heart sounds. Absent: systolic murmur, diastolic murmur, rubs, gallop, clicks GI/Abdominal exam: Present: soft, tenderness (Mild epigastric), normal bowel sounds. Absent: distended, guarding, rebound, rigid Back exam: Absent: CVA tenderness (R), CVA tenderness (L) Neurological exam: Present: alert, oriented X3, CN II-XII intact Course Vital Signs 08/23/18 18:46 Temperature 98.2 F Pulse Rate 107 H Respiratory 18 Rate Blood Pressure 144/74 O2 Sat by Pulse 95 Oximetry - Reevaluation(s) Reevaluation #1: 08/23/18 19:32 But is reviewed patient is tachycardic, hypertensive. Patient will follow-up PCP for definitive treatment of her hypertension. Disposition Clinical Impression: Chest pain Disposition: ADMITTED IP TO THIS HOSP Condition: Fair Referrals: Tej Bojorquez MD [Primary Care Provider] - 1-2 days
[2018-08-23 19:44] LABS: Albumin 4.3 g/dL (3.5-5.0); Anion Gap 14 mmol/L; Blood Urea Nitrogen 18 mg/dL (7-17); Calcium 10.1 mg/dL (8.4-10.2); Carbon Dioxide 23 mmol/L (22-30); Chloride 101 mmol/L (98-107); Glucose 288 mg/dL (74-99); Lipase 88 U/L (23-300); Magnesium 1.5 mg/dL (1.6-2.3); Potassium 4.7 mmol/L (3.5-5.1); Sodium 138 mmol/L (137-145); Total Bilirubin 0.5 mg/dL (0.2-1.3); Total Protein 7.3 g/dL (6.3-8.2)
[2018-08-23 19:45] LABS: ALT 31 U/L (9-52); AST 42 U/L (14-36); Alkaline Phosphatase 93 U/L (38-126)
--- NOTE | 2018-08-23 19:48 | XR ---
EXAMINATION TYPE: XR chest 2V DATE OF EXAM: 08/23/2018 COMPARISON: NONE HISTORY: Chest pain TECHNIQUE: Frontal and lateral views of the chest are obtained. FINDINGS: There is no focal air space opacity, pleural effusion, or pneumothorax seen. The cardiac silhouette size is within normal limits. The osseous structures are intact. IMPRESSION: No acute cardiopulmonary process.
[2018-08-23 19:49] LABS: Prothrombin Time 9.9 sec (9.0-12.0)
[2018-08-23 19:57] LABS: Creatine Kinase 51 U/L (30-135)
[2018-08-23 20:08] LABS: Creatine Kinase MB 3.3 ng/mL (0.0-2.4); Troponin I <0.012 ng/mL (0.000-0.034)
[2018-08-23] MEDS ORDERED: KETOROLAC 30 MG/ML 1 ML VIAL IVP STA (20:13)
[2018-08-23] MEDS ORDERED: SODIUM CHLORIDE 0.9% 500 ML 500 ML IV ONE (20:13)
[2018-08-23] MEDS ORDERED: NITROGLYCERIN SL TABS 0.4 MG TAB SUBLINGUAL PRN (20:14)
[2018-08-23] MEDS ORDERED: HEPARIN SODIUM,PORCINE 5,000 UNIT/ML 1 ML VIAL IV ONE (20:14)
[2018-08-23] MEDS ORDERED: HEPARIN SOD,PORK IN 0.45% NACL 25,000 UNIT in 0.45% NACL 1 500ML.BAG IV SCH (20:15)
[2018-08-23] MEDS ORDERED: MAGNESIUM OXIDE 400 MG TAB PO ONE (21:00)
[2018-08-23 23:26] VITALS: BMI 36.5
[2018-08-24 01:17] LABS: Creatine Kinase 40 U/L (30-135)
[2018-08-24 01:31] LABS: Creatine Kinase MB 2.4 ng/mL (0.0-2.4); Troponin I <0.012 ng/mL (0.000-0.034)
[2018-08-24] MEDS ORDERED: CYCLOBENZAPRINE 5 MG TAB PO PRN (01:59)
[2018-08-24] MEDS: ALPRAZolam 1 MG TAB PO PRN ×4 (02:35→23:14)
[2018-08-24 05:52] LABS: Glucose,Whole Blood 261 mg/dL (75-99)
[2018-08-24] MEDS: INSULIN ASPART 100 UNIT/ML 1 ML 10 ML VIAL SQ SCH ×4 (06:09→21:44)
[2018-08-24] MEDS: busPIRone HCl 5 MG TAB PO SCH ×4 (06:09→23:14)
[2018-08-24] MEDS: SUCRALFATE 1 GM TAB PO SCH ×3 (06:09→17:34)
[2018-08-24] MEDS ORDERED: HYDROcodone/APAP 10-325MG 1 EACH TAB PO SCH (07:00)
[2018-08-24 07:55] LABS: Cholesterol 171 mg/dL (<200); HDL Cholesterol 66 mg/dL (40-60); LDL Cholesterol,Calculated 46 mg/dL (0-99); Triglycerides 296 mg/dL (<150)
[2018-08-24] MEDS: HYDROcodone/APAP 10-325MG 1 EACH TAB PO PRN ×2 (08:02→14:00)
[2018-08-24] MEDS: OXYBUTYNIN CHLORIDE 5 MG TAB PO SCH ×2 (08:03→20:06)
[2018-08-24] MEDS: POTASSIUM CHLORIDE ER 20 MEQ TAB.ER PO SCH ×2 (08:03→20:06)
[2018-08-24] MEDS: ATORVASTATIN 40 MG TAB PO SCH (08:03)
[2018-08-24] MEDS: QUEtiapine 50 MG TAB PO SCH ×2 (08:03→20:06)
[2018-08-24] MEDS: PANTOPRAZOLE 40 MG TABLET PO SCH (08:03)
[2018-08-24 08:08] LABS: Creatine Kinase 45 U/L (30-135)
[2018-08-24 08:19] LABS: Creatine Kinase MB 2.4 ng/mL (0.0-2.4); Troponin I <0.012 ng/mL (0.000-0.034)
--- NOTE | 2018-08-24 08:26 | P.CRDCN ---
History of Present Illness Consult date: 08/24/18 Requesting physician: Tej Bojorquez Consult reason: chest pain Chief complaint: Epigastric pain History of present illness: This is a 68-year-old female with history of hypertension, diabetes, hyperlipidemia, anxiety, depression, patient states she also has history of hiatal hernia for which she underwent surgery approximately 2 years ago. She presents to the hospital with symptoms of epigastric discomfort and discomfort in her upper abdominal region. She was in the hospital in January of this year with similar symptoms at that time an echo was performed which revealed a normal left ventricular systolic function. She has had multiple admissions to the hospital since then, CAT scan of the chest was performed in May which was negative for pulmonary embolism. She also underwent an MRI of the abdomen in June 2018 which revealed a small hiatal hernia which revealed some postsurgical change at the GE junction, hepatomegaly with at least moderate hepatic steatosis a tiny 8 mm enhancing lesion peripheral right liver lobe and a larger 1.8 cm vague irregular area of enhancement in the right liver lobe. These are nonspecific and could represent hemangiomas. Patient also has a stable 2 cm left adrenal nodule likely adrenal adenoma, mild left-sided colonic diverticulosis. EKG shows normal sinus rhythm with no acute changes. Chest x- ray does not reveal any acute cardiopulmonary process. Blood pressure 136/90 with a heart rate of 80, 99% on 2 L, temperature 97.9. CBC is normal, sodium 138, potassium 4.7, BUN 18, creatinine. 67. Troponins are negative 2. Cholesterol 171, LDL 46, HDL 66, triglycerides 296. At the time of my examination this morning she continues to complain of significant epigastric discomfort worsened on palpation. Past Medical History Past Medical History: Diabetes Mellitus, GERD/Reflux, Hyperlipidemia, Hypertension, Osteoarthritis (OA), Skin Disorder Additional Past Medical History / Comment(s): IDDM type II, chronic dermatitis/ past cellulitis arms/hands, past falls, gout ,hx of hiatal hernia with surgery, diverticulosis, constipation, arthritis multiple joints, recurrent UTIs, occasionally incontinent.uti, cataracts. "wears depends just in case",edentulous History of Any Multi-Drug Resistant Organisms: None Reported Date of last positivie culture/infection: None MDRO Source:: None Past Surgical History: Cholecystectomy, Hysterectomy, Joint Replacement Additional Past Surgical History / Comment(s): hemorroidectomy, colonoscopy, egd , LAP GUCCI FUNDLOPLICATION,rt knee replacement Past Anesthesia/Blood Transfusion Reactions: No Reported Reaction Additional Past Anesthesia/Blood Transfusion Reaction / Comment(s): . Past Psychological History: Anxiety, Depression Additional Psychological History / Comment(s): Pt's daughter resides with her and assists her. Pt has a wheelchair for longer distances and a cane/walker she uses prn. She has a glucometer. He daughter manages her medications. Her son or son in law drive her to [place]. Smoking Status: Never smoker Past Alcohol Use History: None Reported Past Drug Use History: None Reported - Past Family History Father Family Medical History: Diabetes Mellitus Additional Family Medical History / Comment(s): Father in his 80s. Mother Family Medical History: Diabetes Mellitus Additional Family Medical History / Comment(s): Mother in her 80s Medications and Allergies Home Medications Medication Instructions Recorded Confirmed Type Oxybutynin Chloride 5 mg PO BID 02/05/15 08/24/18 History Potassium Chloride [Klor-Con 20] 20 meq PO BID 02/28/15 08/24/18 History busPIRone HCL 15 mg PO QID@01,07,13,19 08/03/15 08/24/18 History ALPRAZolam 1 mg PO QID@,,,19 06/04/16 08/24/18 History Atorvastatin [Lipitor] 40 mg PO QAM 11/20/16 08/24/18 History Multivitamins, Thera [Multivitamin 1 tab PO DAILY 02/16/17 08/24/18 History (formulary)] Insulin Glargine [Lantus] 40 unit SQ BID 09/03/17 08/24/18 History Cranberry Fruit Extract [Cranberry] 1,000 mg PO BID 12/23/17 08/24/18 History HYDROcodone/APAP 10-325MG [[place] 1 tab PO TID@0700,1300,1900 12/23/17 08/24/18 History 10-325] Magnesium Oxide [Mag-Ox] 500 mg PO AC-SUPPER 12/23/17 08/24/18 History Omeprazole 20 mg PO DAILY 12/23/17 08/24/18 History Aspirin 81 mg PO DAILY 03/27/18 08/24/18 History QUEtiapine [SEROquel] 50 mg PO BID 03/27/18 08/24/18 History Sucralfate [Carafate] 1 gm PO AC-TID 03/27/18 08/24/18 History Vortioxetine Hydrobromide 10 mg PO DAILY 03/27/18 08/24/18 History [Trintellix] Cyclobenzaprine [Flexeril] 5 mg PO TID PRN 07/01/18 08/24/18 History Ondansetron Odt [Zofran Odt] 4 mg PO Q8HR PRN #12 tab 07/01/18 08/24/18 Rx Allergies Allergy/AdvReac Type Severity Reaction Status Date / Time benactyzine AdvReac Abdominal Verified 08/23/18 18:46 Pain ciprofloxacin [From Cipro] AdvReac Abdominal Verified 08/23/18 18:46 Pain dicyclomine [From Bentyl] AdvReac Abdominal Verified 08/23/18 18:46 Pain levofloxacin [From Levaquin] AdvReac Abdominal Verified 08/23/18 18:46 Pain Penicillins AdvReac "Passed Verified 08/23/18 18:46 out" prednisone AdvReac Abdominal Verified 08/23/18 18:46 Pain sulfamethoxazole AdvReac Abdominal Verified 08/23/18 18:46 [From Bactrim] Pain tamsulosin HCl [From Flomax] AdvReac Abdominal Verified 08/23/18 18:46 Pain trimethoprim [From Bactrim] AdvReac Abdominal Verified 08/23/18 18:46 Pain Physical Exam Vitals: Vital Signs Temp Pulse Pulse Resp BP BP Pulse Ox 08/24/18 08:00 97.9 F 83 16 136/92 99 08/24/18 06:18 98.8 F 08/24/18 03:29 86 18 141/62 100 08/23/18 23:23 99.2 F 83 16 116/66 98 08/23/18 22:06 82 16 122/82 98 08/23/18 21:30 84 14 104/72 95 08/23/18 21:00 76 13 107/68 96 08/23/18 20:53 107/68 08/23/18 20:30 96 13 93/82 94 L 08/23/18 20:00 100 14 120/80 96 12/01/18 19:30 89 12 132/69 95 08/23/18 18:46 98.2 F 107 H 18 144/74 95 Intake and Output 08/23/18 08/24/18 08/24/18 22:59 06:59 14:59 Intake Total 151.62 0 Output Total 450 Balance -298.38 0 Intake: Intake, IV Titration 151.62 Amount Heparin Sod,Pork in 0.45% 151.62 NaCl 25,000 unit In 0.45 % NaCl 1 500ml.bag @ 10 UNITS/KG/HR 19.95 mls/hr IV .Q24H [facility] Rx#: [id number] Oral 0 Output: Urine 450 Other: # Voids 1 Weight 99.79 kg 90.5 kg PHYSICAL EXAMINATION: GENERAL: 68-year-old female in no acute distress at the time of my examination HEENT: Head is atraumatic, normocephalic. Pupils equal, round. Sclera anicteric. Conjunctiva are clear. Mucous membranes of the mouth are moist. Neck is supple. There is no elevated jugular venous pressure. No carotid bruit is heard. HEART EXAMINATION: Heart S1, S2 normal. No murmur or gallop heard. CHEST EXAMINATION: Lungs are clear to auscultation and precussion. No chest wall tenderness is noted on palpation or with deep breathing. ABDOMEN: Soft, positive epigastric tenderness on palpation . Bowel sounds are heard. No organomegaly noted. EXTREMITIES: 2+ peripheral pulses with no evidence of peripheral edema and no calf tenderness noted. NEUROLOGIC [patient is awake, alert and oriented X3 . Results 08/23/18 19:15 08/23/18 19:15 Cardiac Enzymes 08/23/18 08/23/18 08/24/18 Range/Units 19:15 19:15 00:34 AST 42 H (14-36) U/L CK-MB (CK-2) 3.3 H 2.4 (0.0-2.4) ng/mL Troponin I <0.012 <0.012 (0.000-0.034) ng/mL Coagulation 08/23/18 08/24/18 Range/Units 19:15 02:44 PT 9.9 (9.0-12.0) sec APTT 22.0 55.1 H (22.0-30.0) sec Lipids 12/02/18 Range/Units 07:15 Triglycerides 296 H (<150) mg/dL Cholesterol 171 (<200) mg/dL HDL Cholesterol 66 H (40-60) mg/dL CBC 08/23/18 Range/Units 19:15 WBC 7.5 (3.8-10.6) k/uL RBC 4.23 (3.80-5.40) m/uL Hgb 13.7 (11.4-16.0) gm/dL Hct 41.2 (34.0-46.0) % Plt Count 300 (150-450) k/uL Comprehensive Metabolic Panel 08/23/18 Range/Units 19:15 Sodium 138 (137-145) mmol/L Potassium 4.7 (3.5-5.1) mmol/L Chloride 101 (98-107) mmol/L Carbon Dioxide 23 (22-30) mmol/L BUN 18 H (7-17) mg/dL Creatinine 0.67 (0.52-1.04) mg/dL Glucose 288 H (74-99) mg/dL Calcium 10.1 (8.4-10.2) mg/dL AST 42 H (14-36) U/L ALT 31 (9-52) U/L Alkaline Phosphatase 93 (38-126) U/L Total Protein 7.3 (6.3-8.2) g/dL Albumin 4.3 (3.5-5.0) g/dL Current Medications Generic Name Dose Route Start Last Admin Trade Name Freq PRN Reason Stop Dose Admin Hydrocodone Bitart/Acetaminophen 1 each 08/24/18 02:28 08/24/18 08:02 [place] 10 PO 1 each TID@0700,1300,1900 PRN Administration moderate to severe pain Alprazolam 1 mg 08/24/18 02:15 08/24/18 02:35 Xanax PO 1 mg QID PRN Administration Anxiety Aspirin 325 mg 08/24/18 09:00 08/24/18 08:03 Aspirin PO 325 mg DAILY [facility] Administration Atorvastatin Calcium 40 mg 08/24/18 09:00 08/24/18 08:03 Lipitor PO 40 mg QAM [facility] Administration Buspirone HCl 15 mg 08/24/18 07:00 08/24/18 06:09 Buspar PO 15 mg QID@,,13,19 [facility] Administration Cyclobenzaprine HCl 5 mg 08/24/18 01:59 Flexeril PO TID PRN Muscle Spasm Heparin Sodium/Sodium Chloride 500 mls @ 19.95 mls/hr 08/23/18 20:15 04:23 25,000 unit/ Sodium Chloride IV 10 units/kg/hr .Q24H [facility] 19.95 mls/hr Titration Protocol 10 UNITS/KG/HR Insulin Aspart 0 unit 08/24/18 07:30 08/24/18 06:09 Novolog SQ 4 unit ACHS [facility] Administration Protocol Insulin Detemir 40 unit 08/24/18 09:00 Levemir SQ BID [facility] Magnesium Oxide 400 mg 08/24/18 17:30 Mag-Ox PO AC-SUPPER [facility] Multivitamins 1 each 08/24/18 12:00 Theragran PO DAILY@1200 [facility] Nitroglycerin 0.4 mg 08/23/18 20:14 Nitrostat SUBLINGUAL Q5M PRN Chest Pain Oxybutynin Chloride 5 mg 08/24/18 09:00 08/24/18 08:03 Ditropan PO 5 mg BID [facility] Administration Pantoprazole Sodium 40 mg 08/24/18 09:00 08/24/18 08:03 Protonix PO 40 mg DAILY [facility] Administration Potassium Chloride 20 meq 08/24/18 09:00 08/24/18 08:03 K-Dur 20 PO 20 meq BID [facility] Administration Quetiapine Fumarate 50 mg 08/24/18 09:00 08/24/18 08:03 Seroquel PO 50 mg BID [facility] Administration Sucralfate 1 gm 08/24/18 07:30 08/24/18 06:09 Carafate PO 1 gm AC-TID [facility] Administration Intake and Output 08/23/18 08/24/18 08/24/18 22:59 06:59 14:59 Intake Total 151.62 0 Output Total 450 Balance -298.38 0 Intake: Intake, IV Titration 151.62 Amount Heparin Sod,Pork in 0.45% 151.62 NaCl 25,000 unit In 0.45 % NaCl 1 500ml.bag @ 10 UNITS/KG/HR 19.95 mls/hr IV .Q24H [facility] Rx#: [id number] Oral 0 Output: Urine 450 Other: # Voids 1 Weight 99.79 kg 90.5 kg 08/23/18 19:15 08/23/18 19:15 EKG Interpretations (text) EKG shows normal sinus rhythm with no acute changes. Assessment and Plan Plan: Assessment and plan #1 epigastric pain, atypical for acute coronary syndrome. Enzymes negative 2. EKG shows normal sinus rhythm with no acute changes #2 hypertension #3 hyperlipidemia #4 diabetes #5 anxiety and depression #6 history of prior hiatal hernia repair Plan Patient had an echocardiogram with Doppler study performed in January of this year which revealed a normal left ventricular systolic function. CTA of the chest performed in May negative for pulmonary embolism. MRI performed in June of this year showed small hiatal hernia, hepatomegaly, tiny enhancing lesions in the right liver and a stable left adrenal nodule. We will discontinue the patient's IV heparin. Decrease her aspirin 81 mg daily. Her pain is very atypical for acute coronary syndrome, recommend further GI evaluation. Further recommendations to follow. DNP note has been reviewed, I agree with a documented findings and plan of care. Patient was seen and examined.
[2018-08-24] MEDS ORDERED: ASPIRIN 325 MG TAB PO SCH (09:00)
[2018-08-24] MEDS: ASPIRIN 81 MG PO SCH (09:11)
[2018-08-24] MEDS: MULTIVITAMINS, THERA 1 EACH TAB PO SCH (11:37)
[2018-08-24] MEDS: INSULIN DETEMIR 100 UNIT/ML 10 ML VIAL SQ SCH ×2 (11:39→21:43)
[2018-08-24 12:04] LABS: Glucose,Whole Blood 160 mg/dL (75-99)
[2018-08-24 16:31] LABS: Glucose,Whole Blood 210 mg/dL (75-99)
[2018-08-24] MEDS: MAGNESIUM OXIDE 400 MG TAB PO SCH (17:34)
--- NOTE | 2018-08-24 18:21 | CT ---
EXAMINATION TYPE: CT abdomen pelvis wo con DATE OF EXAM: 08/24/2018 COMPARISON: 07/14/2018 HISTORY: EPIGASTRIC PAIN CT DLP: 765.4 mGycm Automated exposure control for dose reduction was used. TECHNIQUE: Helical acquisition of images was performed from the lung bases through the pelvis. FINDINGS: Lung bases are clear. There is no pleural effusion. Heart size is normal. There is small hiatal herni a. The remainder of the stomach is intact. There are clips at the gastroesophageal junction. There is some decreased density in the liver consistent with fatty infiltration. The bile ducts are n ot dilated. Spleen appears normal. There is no evidence of pancreatic mass. There is low-density 1.5 cm nodule on the left adrenal gland. Kidneys have normal size and contour. T here is no hydronephrosis. Ureters are not dilated. There is no retroperitoneal adenopathy. Bladder distends smoothly. There is no free fluid in the pelvis. There is no inguinal hernia. Appendix is not seen. There is no sign of appendicitis. There is small umbilical hernia that contains fat. There is no intestinal wall thickening. There are no dilated loops. There are multiple divertic julianne in the descending colon and to lesser extent the sigmoid colon. There are scattered diverticula i n the transverse colon. There is no mesenteric edema or adenopathy. There is no evidence of a bowel o bstruction. There is no free air. Lumbar spine is intact. Bony pelvis appears intact. IMPRESSION: THERE IS FATTY INFILTRATION OF THE LIVER. COLONIC DIVERTICULOSIS WITHOUT DIVERTICULITIS. LEFT ADRENAL MASS IS STABLE AND CONSISTENT WITH BENIGN DISEASE.
[2018-08-24 20:15] LABS: Glucose,Whole Blood 147 mg/dL (75-99)
--- NOTE | 2018-08-24 20:37 | HP ---
HISTORY AND PHYSICAL CHIEF COMPLAINT: A 68-year-old white female with chest pain, epigastric pain. History of hypertension, diabetes, dyslipidemia, anxiety, depression, hiatal hernia surgery 2 years ago, Yung procedure. She has more pain in her epigastric area radiating into her sternal chest area. Cardiology will see her to rule out myocardial infarction and pulmonary embolism. She has had a recent CT scan and MRI of the abdomen. Has had history of diverticulosis. Chest x-ray was negative on admission and blood pressures were reviewed. Oxygen level was good on 2 L. She is acting appropriately. 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 SURGICAL HISTORY: Cholecystectomy, hysterectomy, joint replacement, Yung fundoplication, hemorrhoidectomy, colonoscopy, anxiety, depression. She lives with her daughter and sister. She has a wheelchair to go a long distance. Her son or son-in-law drives her to appointments. She has never smoked. No alcohol. No illicit drugs. FAMILY HISTORY: Father diabetes mellitus. Mother diabetes mellitus. HOME MEDICATIONS: Oxybutynin, potassium chloride, BuSpar, alprazolam, Lipitor, multivitamin, Lantus, cranberry, omeprazole, magnesium, [place], Seroquel, aspirin, Carafate, Trental, Flexeril, Zofran. ALLERGIES: BENACTYZINE, CIPRO, BENTYL LEVAQUIN, PENICILLIN, PREDNISONE, BACTRIM, FLOMAX. PHYSICAL EXAM: Vital signs reviewed. CARDIOVASCULAR; S1, S2. LUNGS: Clear. GI: Soft. Mild tenderness to palpation epigastric. PSYCH: She appears anxious, nervous. ENDOCRINE: As mentioned above. Temp 97.9, pulse 80s, respiratory rate 16-18, blood pressure is 100s to 140s over 60s to 70s, O2 98-100 percent on room air. INTEGUMENT: Some mild sores where she picks her skin on her lower legs. LABS: Reviewed. Hemoglobin 13.7, white count 7.5. Cholesterol 171. Medications reviewed. EKG: No ischemic changes. ASSESSMENT: 1. Epigastric pain. 2. Atypical chest pain. 3. Hypertension. 4. Diabetes mellitus. 5. Dyslipidemia. 6. Anxiety, depression. 7. Hiatal hernia. The pain is very atypical for coronary syndrome. We will get Cardiology and Surgical recommendations. Please see further orders. MMODL / IJN: [id number] /
[2018-08-25 05:54] LABS: Glucose,Whole Blood 109 mg/dL (75-99)
[2018-08-25] MEDS ORDERED: DOBUTamine DRIP for NUC MED 500 MG in DEXTROSE/WATER 1 250ML.BAG IV ONE (06:00)
[2018-08-25] MEDS: SUCRALFATE 1 GM TAB PO SCH ×3 (06:18→17:24)
[2018-08-25] MEDS: busPIRone HCl 5 MG TAB PO SCH ×3 (06:18→19:10)
[2018-08-25] MEDS: INSULIN ASPART 100 UNIT/ML 1 ML 10 ML VIAL SQ SCH ×4 (06:18→20:48)
[2018-08-25] MEDS: ALPRAZolam 1 MG TAB PO PRN ×2 (10:33→19:10)
[2018-08-25] MEDS: QUEtiapine 50 MG TAB PO SCH ×2 (10:33→20:49)
[2018-08-25] MEDS: ASPIRIN 81 MG PO SCH (10:33)
[2018-08-25] MEDS: PANTOPRAZOLE 40 MG TABLET PO SCH (10:33)
[2018-08-25] MEDS: ATORVASTATIN 40 MG TAB PO SCH (10:33)
[2018-08-25] MEDS: OXYBUTYNIN CHLORIDE 5 MG TAB PO SCH ×2 (10:33→20:49)
[2018-08-25] MEDS: POTASSIUM CHLORIDE ER 20 MEQ TAB.ER PO SCH ×2 (10:34→20:49)
[2018-08-25] MEDS: INSULIN DETEMIR 100 UNIT/ML 10 ML VIAL SQ SCH ×2 (10:36→21:59)
--- NOTE | 2018-08-25 10:50 | ECHOS ---
STRESS ECHOCARDIOGRAM DATE OF SERVICE: 08/25/2018 INDICATIONS: Chest pain. MEDICATIONS: BASELINE HEART RATE: 80 BASELINE BLOOD PRESSURE: 126/77 MAXIMUM HEART RATE: 134 MAXIMUM BLOOD PRESSURE: 180/98 85% MPHR: 128 100% MPHR: 151 METS: MAXIMUM STAGE REACHED: TOTAL EXERCISE TIME: CLINICAL INFORMATION: Baseline rhythm is a sinus mechanism, rate of 80, normal axis and intervals, minor nonspecific ST-T wave changes. Baseline blood pressure 126/77 mmHg. Patient received an infusion of dobutamine per protocol. Peak rate 134 beats per minute which is equal to 88% maximum predicted heart rate. Peak blood pressure 180/98 mmHg. Electrocardiograph monitoring revealed no evidence of diagnostic ischemic ST deviation. Baseline echocardiogram revealed normal wall thickening and motion. At peak exercise, there was normal wall motion augmentation with no hypokinesis or dyskinesis. CONCLUSION: 1. Normal electrocardiograph response to dobutamine infusion. 2. Normal stress echocardiogram with no evidence of stress induced ischemia. MMODL / IJN: [id number] /
[2018-08-25 11:30] LABS: Hemoglobin A1C 8.4 % (4.0-6.0)
[2018-08-25 12:24] LABS: Glucose,Whole Blood 191 mg/dL (75-99)
[2018-08-25] MEDS: MULTIVITAMINS, THERA 1 EACH TAB PO SCH (13:15)
--- NOTE | 2018-08-25 13:58 | P.PN ---
Progress Note - Text Progress Note Date: 08/25/18 Epigastric pain and dysphagia. She'll be scheduled for EGD in the a.m.
--- NOTE | 2018-08-25 15:11 | P.GSCN ---
History of Present Illness Consult date: 08/25/18 Reason for Consult: Persistent epigastric discomfort History of present illness: 68-year-old female presented to emergency room with a chief complaint of developing mid epigastric chest discomfort patient stated it had started several hours before arrival to the emergency room. Patient pointed to the central of her chest just to the region that was causing this discomfort. Patient stated that she been having this discomfort for the past several months. What was different was that it hurt to take a deep breath. Patient additionally stated that at times she felt a nausea sensation but did not actually vomit. Patient had a recent CTA which was negative for pulmonary emboli. In the emergency room computed tomography scan of the abdomen and pelvis was obtained report reviewed it showed diverticulosis without diverticulitis. 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 And did undergo a dobutamine stress echo reviewing the report it showed no evidence of stress-induced ischemia. Patient was recently hospitalized for similar discomfort. And on July 15 had an MRI that showed small hiatal hernia hepatomegaly patient states she has not been experiencing any nausea no vomiting no hematuria no hematemesis no change in bowel habits Patient was seen on consultation July 15 for surgical eval for similar discomfort.. Patient had an EGD and a colonoscopy done February 2017. Reviewing the operative report showed mild antral gastritis no evidence of a GE stricture no evidence of gastric outlet obstruction. Colonoscopy showed no evidence of any acute diverticulitis show transverse and descending colon to be normal in the sigmoid extensive diverticular changes noted Review of Systems Essentially unremarkable except as mentioned in the present illness Past Medical History Past Medical History: Diabetes Mellitus, GERD/Reflux, Hyperlipidemia, Hypertension, Osteoarthritis (OA), Skin Disorder Additional Past Medical History / Comment(s): IDDM type II, chronic dermatitis/ past cellulitis arms/hands, past falls, gout ,hx of hiatal hernia with surgery, diverticulosis, constipation, arthritis multiple joints, recurrent UTIs, occasionally incontinent.uti, cataracts. "wears depends just in case",edentulous History of Any Multi-Drug Resistant Organisms: None Reported Year Discovered:: None MDRO Source:: None Past Surgical History: Cholecystectomy, Hysterectomy, Joint Replacement Additional Past Surgical History / Comment(s): hemorroidectomy, colonoscopy, egd , LAP GUCCI FUNDLOPLICATION,rt knee replacement Past Anesthesia/Blood Transfusion Reactions: No Reported Reaction Additional Past Anesthesia/Blood Transfusion Reaction / Comm: . Past Psychological History: Anxiety, Depression Additional Psychological History / Comment(s): Pt's daughter resides with her and assists her. Pt has a wheelchair for longer distances and a cane/walker she uses prn. She has a glucometer. He daughter manages her medications. Her son or son in law drive her to [employer]. Smoking Status: Never smoker Past Alcohol Use History: None Reported Past Drug Use History: None Reported - Past Family History Father Family Medical History: Diabetes Mellitus Additional Family Medical History / Comment(s): Father in his 80s. Mother Family Medical History: Diabetes Mellitus Additional Family Medical History / Comment(s): Mother in her 80s Medications and Allergies Home Medications Medication Instructions Recorded Confirmed Type Oxybutynin Chloride 5 mg PO BID 02/05/15 08/24/18 History Potassium Chloride [Klor-Con 20] 20 meq PO BID 02/28/15 08/24/18 History busPIRone HCL 15 mg PO QID@,,,19 08/03/15 08/24/18 History ALPRAZolam 1 mg PO TID@,07,06/04/16 08/24/18 History Atorvastatin [Lipitor] 40 mg PO QAM 11/20/16 08/24/18 History Insulin Glargine [Lantus] 30 unit SQ DAILY 09/03/17 08/24/18 History Cranberry Fruit Extract [Cranberry] 1,000 mg PO BID 12/23/17 08/24/18 History HYDROcodone/APAP 10-325MG [[place] 1 tab PO TID@0700,1300,1900 12/23/17 08/24/18 History 10-325] Magnesium Oxide [Mag-Ox] 500 mg PO AC-SUPPER 12/23/17 08/24/18 History Omeprazole 20 mg PO DAILY 12/23/17 08/24/18 History Aspirin 81 mg PO DAILY 03/27/18 08/24/18 History QUEtiapine [SEROquel] 50 mg PO BID 03/27/18 08/24/18 History Sucralfate [Carafate] 1 gm PO AC-TID 03/27/18 08/24/18 History Vortioxetine Hydrobromide 10 mg PO DAILY 03/27/18 08/24/18 History [Trintellix] Cyclobenzaprine [Flexeril] 5 mg PO TID PRN 07/01/18 08/24/18 History Cholecalciferol [Vitamin D3] 1,000 unit PO DAILY 08/24/18 08/24/18 History Insulin Glargine [Lantus] 10 unit SQ HS 08/24/18 08/24/18 History Metoclopramide [Reglan] 10 mg PO ACHS 08/24/18 08/24/18 History Allergies Allergy/AdvReac Type Severity Reaction Status Date / Time benactyzine AdvReac Abdominal Verified 08/24/18 10:33 Pain ciprofloxacin [From Cipro] AdvReac Abdominal Verified 08/24/18 10:33 Pain dicyclomine [From Bentyl] AdvReac Abdominal Verified 08/24/18 10:33 Pain levofloxacin [From Levaquin] AdvReac Abdominal Verified 08/24/18 10:33 Pain Penicillins AdvReac "Passed Verified 08/24/18 10:33 out" prednisone AdvReac Abdominal Verified 08/24/18 10:33 Pain sulfamethoxazole AdvReac Abdominal Verified 08/24/18 10:33 [From Bactrim] Pain tamsulosin HCl [From Flomax] AdvReac Abdominal Verified 08/24/18 10:33 Pain trimethoprim [From Bactrim] AdvReac Abdominal Verified 08/24/18 10:33 Pain Surgical - Exam Vital Signs Temp Pulse Resp BP Pulse Ox 98.2 F 107 H 18 144/74 95 08/23/18 18:46 08/23/18 18:46 08/23/18 18:46 08/23/18 18:46 08/23/18 18:46 GENERAL APPEARANCE: patient is alert, oriented, in no acute distress. VITAL SIGNS: Reviewed HEENT: Head is normocephalic and atraumatic. Pupils are equal and reactive. The nares are patent. Oropharynx is clear without lesions. NECK: Supple without lymphadenopathy. Traches midline. HEART: S1, S2. Regular rate and rhythm. Currently denying chest pain LUNGS: No crackles or wheezes are heard. Adequate air movement ABDOMEN: Soft, mild mid epigastric discomfort nontender, nondistended with good bowel sounds. No peritoneal signs. No palpable organomegaly or masses. EXTREMITIES: Normal skin color and turgor. No cyanosis, rash, ulceration, clubbing or edema. Radial pedal pulses are 2/4 bilaterally. NEUROLOGICAL: No focal deficits. Strength and sensation are grossly intact. Results - Labs 08/23/18 19:15 08/23/18 19:15 Abnormal Lab Results - Last 24 Hours (Table) 08/24/18 08/24/18 08/24/18 Range/Units 02:44 16:29 20:14 POC Glucose (mg/dL) 210 H 147 H (75-99) mg/dL Hemoglobin A1c 8.4 H (4.0-6.0) % 08/25/18 08/25/18 Range/Units 05:53 12:07 POC Glucose (mg/dL) 109 H 191 H (75-99) mg/dL Hemoglobin A1c (4.0-6.0) % Diabetes panel 08/24/18 Range/Units 02:44 Hemoglobin A1c 8.4 H (4.0-6.0) % Assessment and Plan Assessment: impression colonoscopy done in February 2017 showed diverticulosis mid sigmoid Anxiety depressive disorder Present on admission mid epigastric chest pain no evidence of an acute coronary syndrome with a normal dobutamine stress echo EGD done in February 2017 with findings of no evidence of gastric outlet obstruction , mild atrophic gastritis, no evidence of GE juncture stricture. Present on admission mid epigastric pain with a CAT scan of the abdomen and pelvis showing no evidence of a bowel obstruction no free air: Diverticulosis without diverticulitis Plan Schedule EGD tomorrow August 26 Continue Carafate and PPI protonix as ordered DVT and GI prophylaxis We'll follow with you with further surgical recommendations pending clinical course Surgical consultation note dictated for dr borrero The above impression and plan of care have been discussed and directed by signing physician. Soni Flower nurse practitioner acting as scribe for signing physician.
[2018-08-25 16:23] LABS: Glucose,Whole Blood 199 mg/dL (75-99)
[2018-08-25] MEDS: MAGNESIUM OXIDE 400 MG TAB PO SCH (17:24)
[2018-08-25 20:41] LABS: Glucose,Whole Blood 189 mg/dL (75-99)
[2018-08-25] MEDS: HYDROcodone/APAP 10-325MG 1 EACH TAB PO PRN (23:48)
[2018-08-26] MEDS: ALPRAZolam 1 MG TAB PO PRN ×3 (01:12→14:26)
[2018-08-26] MEDS: busPIRone HCl 5 MG TAB PO SCH ×3 (01:12→14:25)
[2018-08-26 05:54] LABS: Glucose,Whole Blood 172 mg/dL (75-99)
[2018-08-26 06:03] VITALS: RESP 18
[2018-08-26] MEDS: SUCRALFATE 1 GM TAB PO SCH ×3 (08:25→16:02)
[2018-08-26] MEDS: OXYBUTYNIN CHLORIDE 5 MG TAB PO SCH (08:29)
[2018-08-26] MEDS: PANTOPRAZOLE 40 MG TABLET PO SCH (08:29)
[2018-08-26] MEDS: QUEtiapine 50 MG TAB PO SCH (08:29)
--- NOTE | 2018-08-26 11:03 | PN ---
PROGRESS NOTE DATE OF SERVICE: 08/25/2018 SUBJECTIVE: A 68-year-old white female who was admitted with atypical chest pain and epigastric pain, scheduled for having EGD pneumonia with Dr. Kat. Otherwise, doing fine. CARDIOVASCULAR: S1-S2. LUNGS: Clear. GI: Soft. HEMATOLOGY: Negative Homans. ASSESSMENT: 1. Atypical chest pain. 2. Epigastric pain. EGD will be done in the morning. 3. Anxiety, depression,. 4. Diabetes. Appears to be under good control. Please see further orders. MMODL / IJN: [id number] /
[2018-08-26 12:02] LABS: Glucose,Whole Blood 167 mg/dL (75-99)
[2018-08-26] MEDS ORDERED: LIDOCAINE 1% INJ 10MG/ML (20 ML MDV) ONE (12:41)
[2018-08-26] MEDS ORDERED: PROPOFOL 10 MG/ML 20 ML VIAL IV ONE (12:41)
[2018-08-26] MEDS ORDERED: SODIUM CHLORIDE 0.9% 1,000 ML IV ONE (12:45)
--- NOTE | 2018-08-26 12:54 | P.OP ---
Date of Procedure: 08/26/18 Preoperative Diagnosis: Dysphagia Postoperative Diagnosis: Mild antral gastritis No evidence of hiatal hernia No significant esophagitis Procedure(s) Performed: EGD Anesthesia: MAC Surgeon: Nick Kat Pathology: other (Antral, esophagus) Condition: stable Disposition: PACU Description of Procedure: The patient's placed on the endoscopy table lateral position. She received IV sedation. The gastric scope placed oropharynx passed in the esophagus and stomach. Scope was then placed through the pylorus. The first second portion of duodenum appeared normal. The scope was then brought back the antrum this. Mildly inflamed. A biopsies performed. The scope was unretroflexed and remainder the stomach appeared normal. The GE junction was at 38 7 is. There is no evidence of a hiatal hernia. Patient a previous fundal plication. The distal esophagus appeared normal. A random biopsy the esophagus performed. The proximal esophagus appeared normal. The scope was withdrawn for patient.
[2018-08-26] MEDS: INSULIN ASPART 100 UNIT/ML 1 ML 10 ML VIAL SQ SCH ×2 (14:18→14:31)
[2018-08-26] MEDS: ATORVASTATIN 40 MG TAB PO SCH (14:25)
[2018-08-26] MEDS: POTASSIUM CHLORIDE ER 20 MEQ TAB.ER PO SCH (14:25)
[2018-08-26] MEDS: ASPIRIN 81 MG PO SCH (14:25)
[2018-08-26] MEDS: MULTIVITAMINS, THERA 1 EACH TAB PO SCH (14:26)
[2018-08-26] MEDS: INSULIN DETEMIR 100 UNIT/ML 10 ML VIAL SQ SCH (14:30)
[2018-08-26] MEDS: MAGNESIUM OXIDE 400 MG TAB PO SCH (16:01)
[2018-08-26 16:46] LABS: Glucose,Whole Blood 223 mg/dL (75-99)
[2018-08-26 17:36] VITALS: BP 139/90; PULSE 110; TEMP 97.2
== END 2018-08-26 18:16 | disposition home or self-care (01) ==
LOC: EC 18:36 → 3SCARD 20:33
PROVIDERS: ADMIT Family Medicine; ATTEND Family Medicine
DX: K29.60 Other gastritis without bleeding (principal); R07.89 Other chest pain; E11.9 Type 2 diabetes mellitus without complications; E27.8 Other specified disorders of adrenal gland; K57.30 Diverticulosis of large intestine without perforation or abscess without bleeding; E78.5 Hyperlipidemia, unspecified; F32.9 Major depressive disorder, single episode, unspecified; F41.9 Anxiety disorder, unspecified; I10 Essential (primary) hypertension; K21.9 Gastro-esophageal reflux disease without esophagitis; K76.0 Fatty (change of) liver, not elsewhere classified; R13.10 Dysphagia, unspecified; L30.9 Dermatitis, unspecified; Z79.4 Long term (current) use of insulin; Z79.82 Long term (current) use of aspirin; Z79.899 Other long term (current) drug therapy; Z83.3 Family history of diabetes mellitus; Z87.440 Personal history of urinary (tract) infections; Z90.710 Acquired absence of both cervix and uterus; Z96.651 Presence of right artificial knee joint; Z98.890 Other specified postprocedural states; Z88.1 Allergy status to other antibiotic agents; Z88.0 Allergy status to penicillin; Z88.2 Allergy status to sulfonamides; Z88.8 Allergy status to other drugs, medicaments and biological substances
CPT/HCPCS: 96366 ×3; 96376; 96361; 96365; 96375; 99285; 36415; 93005; 93351; 88305; 80061; 80053; 82550 ×2; 82553 ×2; 83690; 83735; 84484 ×2; 85025; 85610; 85730 ×2; 88342; 82105; 86301; 83036; 71046; 74176; 43239; G0378 ×4; J1250; J1644 ×2; J2001; J1885; J2704

== ENCOUNTER 2018-12-26 11:53 | Observation (INO) | payer MEDICARE ==
[2018-12-26] MEDS ORDERED: ONDANSETRON 4 MG/2 ML VIAL IVP PRN (14:06)
[2018-12-26] MEDS: SODIUM CHLORIDE 0.9% 1,000 ML IV SCH (15:02)
[2018-12-26 15:45] LABS: Basophils % (A) 0 %; Eosinophils # (A) 0.1 k/uL (0-0.7); Eosinophils % (A) 1 %; HGB 14.3 gm/dL (11.4-16.0); Lymphocytes % (A) 10 %; MCH 30.2 pg (25.0-35.0); MCHC 32.6 g/dL (31.0-37.0); MCV 92.6 fL (80.0-100.0); Mean Platelet Volume 9.1; Monocytes # (A) 0.4 k/uL (0-1.0); Monocytes % (A) 4 %; Neutrophils # (A) 8.3 k/uL (1.3-7.7); Neutrophils % (A) 84 %; Platelet Count 416 k/uL (150-450); RBC 4.75 m/uL (3.80-5.40); WBC 9.9 k/uL (3.8-10.6)
[2018-12-26 15:56] LABS: ALT 33 U/L (9-52); AST 27 U/L (14-36); Albumin 4.4 g/dL (3.5-5.0); Alkaline Phosphatase 99 U/L (38-126); Anion Gap 13 mmol/L; Blood Urea Nitrogen 23 mg/dL (7-17); Calcium 10.1 mg/dL (8.4-10.2); Carbon Dioxide 25 mmol/L (22-30); Chloride 101 mmol/L (98-107); Glucose 232 mg/dL (74-99); Lipase 93 U/L (23-300); Potassium 4.4 mmol/L (3.5-5.1); Sodium 139 mmol/L (137-145); Total Bilirubin 0.6 mg/dL (0.2-1.3); Total Protein 7.3 g/dL (6.3-8.2)
[2018-12-26 16:09] VITALS: BMI 24.0
--- NOTE | 2018-12-26 16:38 | XR ---
EXAMINATION TYPE: XR abdomen 3V DATE OF EXAM: 12/26/2018 COMPARISON: 07/14/2018 HISTORY: Abdominal pain and vomiting TECHNIQUE: 3 views FINDINGS: UPRIGHT UPPER ABDOMINAL RADIOGRAPH: The visualized lung bases and pleural spaces are negative. There is no pneumoperitoneum. 2 SUPINE ABDOMINAL PELVIC RADIOGRAPHS: There is no bowel obstruction, and no pneumatosis. There is no evidence of mass or mass effect. No acute skeletal or soft tissue findings. IMPRESSION: Negative examination.
[2018-12-26] MEDS: SUCRALFATE 1 GM TAB PO SCH (18:23)
[2018-12-26] MEDS: POTASSIUM CHLORIDE ER 20 MEQ TAB.ER PO SCH (22:12)
[2018-12-26] MEDS: HYDROcodone/APAP 10-325MG 1 EACH TAB PO SCH (22:12)
[2018-12-26] MEDS: busPIRone HCl 10 MG TAB PO SCH (22:12)
[2018-12-26] MEDS: QUEtiapine 50 MG TAB PO SCH (22:13)
[2018-12-26 23:07] LABS: Glucose,Whole Blood 149 mg/dL (75-99)
[2018-12-27] MEDS: HYDROcodone/APAP 10-325MG 1 EACH TAB PO SCH ×3 (06:04→19:04)
[2018-12-27] MEDS: SODIUM CHLORIDE 0.9% 1,000 ML IV SCH ×2 (06:09→18:02)
[2018-12-27 07:11] LABS: Glucose,Whole Blood 192 mg/dL (75-99)
[2018-12-27] MEDS: busPIRone HCl 10 MG TAB PO SCH ×2 (08:47→20:29)
[2018-12-27] MEDS: ATORVASTATIN 40 MG TAB PO SCH (08:47)
[2018-12-27] MEDS: PANTOPRAZOLE 40 MG TABLET PO SCH (08:47)
[2018-12-27] MEDS: ASPIRIN 81 MG PO SCH (08:47)
[2018-12-27] MEDS: SUCRALFATE 1 GM TAB PO SCH ×3 (08:47→18:11)
[2018-12-27] MEDS: VORTIOXETINE HYDROBROMIDE 10 MG TABLET PO SCH (08:48)
[2018-12-27] MEDS: POTASSIUM CHLORIDE ER 20 MEQ TAB.ER PO SCH ×2 (08:48→20:29)
[2018-12-27] MEDS: FUROSEMIDE 20 MG TAB PO SCH (08:48)
[2018-12-27] MEDS: QUEtiapine 50 MG TAB PO SCH ×2 (08:48→20:29)
--- NOTE | 2018-12-27 10:16 | P.GSCN ---
History of Present Illness Consult date: 12/27/18 Reason for Consult: Dehydration, epigastric pain History of present illness: This is a 68-year-old female who is well-known to myself. Patient said complaints of epigastric pain. Patient had some nausea and dehydration at home. Past Medical History Past Medical History: Diabetes Mellitus, GERD/Reflux, Hyperlipidemia, Hypertension, Osteoarthritis (OA), Skin Disorder Additional Past Medical History / Comment(s): IDDM type II, chronic dermatitis/past cellulitis arms/hands, past falls, gout ,hx of hiatal hernia with surgery, diverticulosis, constipation, arthritis multiple joints, recurrent UTIs, occasionally incontinent.uti, cataracts. "wears depends just in case",edentulous History of Any Multi-Drug Resistant Organisms: None Reported Year Discovered:: None MDRO Source:: None Past Surgical History: Cholecystectomy, Hysterectomy, Joint Replacement Additional Past Surgical History / Comment(s): hemorroidectomy, colonoscopy, egd, LAP GUCCI FUNDLOPLICATION,rt knee replacement Past Anesthesia/Blood Transfusion Reactions: No Reported Reaction Additional Past Anesthesia/Blood Transfusion Reaction / Comm: . Past Psychological History: Anxiety, Depression Additional Psychological History / Comment(s): Pt's daughter resides with her and assists her. Pt has a wheelchair for longer distances and a cane/walker she uses prn. She has a glucometer. He daughter manages her medications. Her son or son in law drive her to [employer]. Smoking Status: Never smoker Past Alcohol Use History: None Reported Past Drug Use History: None Reported - Past Family History Father Family Medical History: Diabetes Mellitus Additional Family Medical History / Comment(s): Father in his 80s. Mother Family Medical History: Diabetes Mellitus Additional Family Medical History / Comment(s): Mother in her 80s Medications and Allergies Home Medications Medication Instructions Recorded Confirmed Type Oxybutynin Chloride 5 mg PO BID 02/05/15 12/26/18 History Potassium Chloride [Klor-Con 20] 20 meq PO BID 02/28/15 12/26/18 History ALPRAZolam 1 mg PO TID 06/04/16 12/26/18 History Atorvastatin [Lipitor] 40 mg PO QAM 11/20/16 12/26/18 History Insulin Glargine [Lantus] 30 unit SQ DAILY 09/03/17 12/26/18 History Cranberry Fruit Extract [Cranberry] 1,000 mg PO BID 12/23/17 12/26/18 History HYDROcodone/APAP 10-325MG [[place] 1 tab PO TID@0700,1300,1900 12/23/17 12/26/18 History 10-325] Magnesium Oxide [Mag-Ox] 500 mg PO AC-SUPPER 12/23/17 12/26/18 History Omeprazole 20 mg PO DAILY 12/23/17 12/26/18 History Aspirin 81 mg PO DAILY 03/27/18 12/26/18 History QUEtiapine [SEROquel] 50 mg PO BID 03/27/18 12/26/18 History Sucralfate [Carafate] 1 gm PO AC-TID 03/27/18 12/26/18 History Vortioxetine Hydrobromide 10 mg PO DAILY 03/27/18 12/26/18 History [Trintellix] Cyclobenzaprine [Flexeril] 5 mg PO TID PRN 07/01/18 12/26/18 History Cholecalciferol [Vitamin D3] 1,000 unit PO DAILY 08/24/18 12/26/18 History Insulin Glargine [Lantus] 10 unit SQ HS 08/24/18 12/26/18 History Furosemide [Lasix] 20 mg PO DAILY 12/26/18 12/26/18 History busPIRone HCl [Buspar] 20 mg PO BID 12/26/18 12/26/18 History Allergies Allergy/AdvReac Type Severity Reaction Status Date / Time benactyzine AdvReac Abdominal Verified 12/26/18 13:31 Pain ciprofloxacin [From Cipro] AdvReac Abdominal Verified 12/26/18 13:31 Pain dicyclomine [From Bentyl] AdvReac Abdominal Verified 12/26/18 13:31 Pain levofloxacin [From Levaquin] AdvReac Abdominal Verified 12/26/18 13:31 Pain Penicillins AdvReac "Passed Verified 12/26/18 13:31 out" prednisone AdvReac Abdominal Verified 12/26/18 13:31 Pain sulfamethoxazole AdvReac Abdominal Verified 12/26/18 13:31 [From Bactrim] Pain tamsulosin HCl [From Flomax] AdvReac Abdominal Verified 12/26/18 13:31 Pain trimethoprim [From Bactrim] AdvReac Abdominal Verified 12/26/18 13:31 Pain Surgical - Exam Vital Signs Temp Pulse Resp BP 98.4 F 113 H 18 126/83 12/26/18 13:06 12/26/18 13:06 12/26/18 13:06 12/26/18 13:06 - General well developed, well nourished, no distress - Eyes PERRL - ENT normal pinna - Neck no masses - Respiratory normal expansion - Cardiovascular Rhythm: regular - Abdomen Abdomen: soft, non tender Results - Labs 12/26/18 15:06 12/26/18 15:06 Abnormal Lab Results - Last 24 Hours (Table) 12/26/18 12/26/18 12/26/18 Range/Units 15:06 15:06 22:56 Neutrophils # 8.3 H (1.3-7.7) k/uL BUN 23 H (7-17) mg/dL Glucose 232 H (74-99) mg/dL POC Glucose (mg/dL) 149 H (75-99) mg/dL 12/27/18 Range/Units 07:10 Neutrophils # (1.3-7.7) k/uL BUN (7-17) mg/dL Glucose (74-99) mg/dL POC Glucose (mg/dL) 192 H (75-99) mg/dL Diabetes panel 12/26/18 Range/Units 15:06 Sodium 139 (137-145) mmol/L Potassium 4.4 (3.5-5.1) mmol/L Chloride 101 (98-107) mmol/L Carbon Dioxide 25 (22-30) mmol/L BUN 23 H (7-17) mg/dL Creatinine 0.63 (0.52-1.04) mg/dL Glucose 232 H (74-99) mg/dL Calcium 10.1 (8.4-10.2) mg/dL AST 27 (14-36) U/L ALT 33 (9-52) U/L Alkaline Phosphatase 99 (38-126) U/L Total Protein 7.3 (6.3-8.2) g/dL Albumin 4.4 (3.5-5.0) g/dL Calcium panel 12/26/18 Range/Units 15:06 Calcium 10.1 (8.4-10.2) mg/dL Albumin 4.4 (3.5-5.0) g/dL Pituitary panel 12/26/18 Range/Units 15:06 Sodium 139 (137-145) mmol/L Potassium 4.4 (3.5-5.1) mmol/L Chloride 101 (98-107) mmol/L Carbon Dioxide 25 (22-30) mmol/L BUN 23 H (7-17) mg/dL Creatinine 0.63 (0.52-1.04) mg/dL Glucose 232 H (74-99) mg/dL Calcium 10.1 (8.4-10.2) mg/dL Adrenal panel 12/26/18 Range/Units 15:06 Sodium 139 (137-145) mmol/L Potassium 4.4 (3.5-5.1) mmol/L Chloride 101 (98-107) mmol/L Carbon Dioxide 25 (22-30) mmol/L BUN 23 H (7-17) mg/dL Creatinine 0.63 (0.52-1.04) mg/dL Glucose 232 H (74-99) mg/dL Calcium 10.1 (8.4-10.2) mg/dL Total Bilirubin 0.6 (0.2-1.3) mg/dL AST 27 (14-36) U/L ALT 33 (9-52) U/L Alkaline Phosphatase 99 (38-126) U/L Total Protein 7.3 (6.3-8.2) g/dL Albumin 4.4 (3.5-5.0) g/dL - Imaging Abdominal x-ray: report reviewed (Nonspecific x-ray) Assessment and Plan Assessment: Dehydration, nausea. Patient has had multiple previous workup for similar symptoms. At this point recommend observation and fluid hydration.
[2018-12-27] MEDS: ALPRAZolam 1 MG TAB PO PRN ×2 (10:18→19:03)
[2018-12-27 11:42] LABS: Glucose,Whole Blood 202 mg/dL (75-99)
--- NOTE | 2018-12-27 12:38 | HP ---
HISTORY AND PHYSICAL CHIEF COMPLAINT: A 68-year-old white female with epigastric pain, dehydration, nausea, admitted with severe vomiting for 3 days, unable to keep any food or liquids down. She is admitted for severe epigastric pain, dehydration, lightheaded, dizziness at rest or with any ambulation, constant nausea, unable to keep any fluids down even. 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 SURGERIES: Cholecystectomy, hysterectomy, joint replacement, Yung fundoplication, anxiety, depression. No smoking. No alcohol. No illicit drugs. FAMILY HISTORY: Father diabetes mellitus. Mother diabetes mellitus. MEDICATIONS: Include Lipitor, Lantus, [place], Mag oxide, omeprazole, aspirin, Seroquel, Carafate, Trintellix, Flexeril, vitamin D3, Lantus, Lasix, BuSpar, potassium chloride, alprazolam. ALLERGIES: Have been BENACTYZINE, CIPRO, BENTYL, LEVAQUIN, PENICILLIN, PREDNISONE, BACTRIM, FLOMAX. On physical exam, pulse 113, respiratory 16-20, blood pressure 120s/80s, temp 98.4. CARDIOVASCULAR: S1, S2. LUNGS: Transmitted upper sounds. HEMATOLOGY: Negative Homans. PSYCH: Fair mood and affect. NEUROLOGIC: Alert and oriented x3. OPHTHALMOLOGIC: Pupils equal, round, reactive to light and accommodation. HEART: Regular rate and rhythm. ABDOMEN: Soft. Labs are reviewed. ASSESSMENT: Dehydration, nausea, chronic gastritis. Fluid rehydration. Diet will be advanced. Await for surgical consultation. H and P is. MMODL / IJN: [id number] /
[2018-12-27 15:40] LABS: Appearance,Urine Clear (Clear); Bilirubin,Urine Negative (Negative); Blood,Urine Negative (Negative); Color,Urine Yellow; Glucose,Urine (UA) Trace (Negative); Ketones,Urine Negative (Negative); Leukocyte Esterase,Urine Negative (Negative); Nitrite,Urine Negative (Negative); Protein,Urine Negative (Negative); Specific Gravity,Urine 1.008 (1.001-1.035); Urobilinogen,Urine <2.0 mg/dL (<2.0)
[2018-12-27 17:05] LABS: Glucose,Whole Blood 190 mg/dL (75-99)
[2018-12-27 19:59] LABS: Glucose,Whole Blood 183 mg/dL (75-99)
[2018-12-27] MEDS ORDERED: MECLIZINE 25 MG TAB PO PRN (20:08)
[2018-12-27] MEDS: INSULIN ASPART (NovoLOG) 100 UNIT/ML VIAL SQ SCH (20:29)
[2018-12-28] MEDS: SODIUM CHLORIDE 0.9% 1,000 ML IV SCH ×2 (04:42→20:07)
[2018-12-28] MEDS: ALPRAZolam 1 MG TAB PO PRN ×2 (04:47→11:56)
[2018-12-28 06:56] LABS: Glucose,Whole Blood 157 mg/dL (75-99)
[2018-12-28] MEDS: HYDROcodone/APAP 10-325MG 1 EACH TAB PO SCH ×3 (08:55→20:13)
[2018-12-28] MEDS: INSULIN ASPART (NovoLOG) 100 UNIT/ML VIAL SQ SCH ×4 (08:55→20:06)
[2018-12-28] MEDS: ASPIRIN 81 MG PO SCH (08:56)
[2018-12-28] MEDS: busPIRone HCl 10 MG TAB PO SCH ×2 (08:56→20:06)
[2018-12-28] MEDS: PANTOPRAZOLE 40 MG TABLET PO SCH (08:56)
[2018-12-28] MEDS: SUCRALFATE 1 GM TAB PO SCH ×3 (08:56→17:25)
[2018-12-28] MEDS: ATORVASTATIN 40 MG TAB PO SCH (08:56)
[2018-12-28] MEDS: FUROSEMIDE 20 MG TAB PO SCH (08:57)
[2018-12-28] MEDS: QUEtiapine 50 MG TAB PO SCH ×2 (08:57→20:06)
[2018-12-28] MEDS: POTASSIUM CHLORIDE ER 20 MEQ TAB.ER PO SCH ×2 (08:57→20:06)
[2018-12-28] MEDS: VORTIOXETINE HYDROBROMIDE 10 MG TABLET PO SCH (08:57)
--- NOTE | 2018-12-28 11:15 | P.PN ---
Progress Note - Text Progress Note Date: 12/28/18 The patient states she feels okay. She still has some complaints of some mild diffuse abdominal pain. She has complaints of constipation. She is also complaining of a headache. On exam her vital signs are stable. Her abdomen soft. Patient has been tolerating her diet. She will be given a Dulcolax suppository for constipation. We will follow with you.
[2018-12-28] MEDS ORDERED: BISACODYL 10 MG SUPP RECTAL STA (11:17)
[2018-12-28 12:00] LABS: Glucose,Whole Blood 195 mg/dL (75-99)
[2018-12-28] MEDS: DOCUSATE 100 MG CAP PO SCH ×2 (13:40→20:07)
[2018-12-28 17:00] LABS: Glucose,Whole Blood 174 mg/dL (75-99)
[2018-12-28 19:34] LABS: Glucose,Whole Blood 238 mg/dL (75-99)
--- NOTE | 2018-12-28 23:20 | PN ---
PROGRESS NOTE SUBJECTIVE: 68-year-old white female with dehydration, acute abdominal pain, acute gastritis. We are going to advance her diet today. Surgery has seen her and has ordered some gastroparesis type medications. Cardiovascular S1, S2. Lungs are clear. GI soft. Hematology negative Homans. Psych: She appears anxious and nervous. She is on Antivert for vertigo, BuSpar for her anxiety, Carafate for stomach. PLAN: Advanced diet. Possible discharge home if we can advance diet and she is doing better. MMODL / IJN: [id number] /
[2018-12-29 03:34] VITALS: RESP 14
[2018-12-29] MEDS: ALPRAZolam 1 MG TAB PO PRN ×2 (06:16→13:48)
[2018-12-29 07:05] LABS: Glucose,Whole Blood 181 mg/dL (75-99)
[2018-12-29 07:56] LABS: Basophils % (A) 1 %; Eosinophils # (A) 0.2 k/uL (0-0.7); Eosinophils % (A) 4 %; HCT 35.8 % (34.0-46.0); HGB 11.5 gm/dL (11.4-16.0); Lymphocytes # (A) 1.3 k/uL (1.0-4.8); Lymphocytes % (A) 26 %; MCH 30.5 pg (25.0-35.0); MCHC 32.1 g/dL (31.0-37.0); MCV 95.1 fL (80.0-100.0); Mean Platelet Volume 6.3; Monocytes # (A) 0.3 k/uL (0-1.0); Monocytes % (A) 6 %; Neutrophils # (A) 3.2 k/uL (1.3-7.7); Neutrophils % (A) 63 %; Platelet Count 311 k/uL (150-450); RBC 3.77 m/uL (3.80-5.40); RDW 13.8 % (11.5-15.5); WBC 5.1 k/uL (3.8-10.6)
[2018-12-29 08:15] LABS: ALT 35 U/L (9-52); AST 26 U/L (14-36); Albumin 3.3 g/dL (3.5-5.0); Alkaline Phosphatase 71 U/L (38-126); Anion Gap 8 mmol/L; Blood Urea Nitrogen 9 mg/dL (7-17); Calcium 9.2 mg/dL (8.4-10.2); Carbon Dioxide 28 mmol/L (22-30); Chloride 105 mmol/L (98-107); Glucose 177 mg/dL (74-99); Potassium 4.3 mmol/L (3.5-5.1); Sodium 141 mmol/L (137-145); Total Bilirubin 0.7 mg/dL (0.2-1.3); Total Protein 5.7 g/dL (6.3-8.2)
[2018-12-29] MEDS: HYDROcodone/APAP 10-325MG 1 EACH TAB PO SCH ×2 (10:17→13:48)
[2018-12-29] MEDS: PANTOPRAZOLE 40 MG TABLET PO SCH (10:17)
[2018-12-29] MEDS: ATORVASTATIN 40 MG TAB PO SCH (10:18)
[2018-12-29] MEDS: busPIRone HCl 10 MG TAB PO SCH (10:18)
[2018-12-29] MEDS: SUCRALFATE 1 GM TAB PO SCH ×2 (10:18→13:48)
[2018-12-29] MEDS: VORTIOXETINE HYDROBROMIDE 10 MG TABLET PO SCH (10:19)
[2018-12-29] MEDS: FUROSEMIDE 20 MG TAB PO SCH (10:19)
[2018-12-29] MEDS: POTASSIUM CHLORIDE ER 20 MEQ TAB.ER PO SCH (10:19)
[2018-12-29] MEDS: QUEtiapine 50 MG TAB PO SCH (10:19)
[2018-12-29] MEDS: ASPIRIN 81 MG PO SCH (10:19)
[2018-12-29] MEDS: DOCUSATE 100 MG CAP PO SCH (10:19)
[2018-12-29] MEDS: INSULIN ASPART (NovoLOG) 100 UNIT/ML VIAL SQ SCH ×2 (10:26→13:47)
[2018-12-29] MEDS: SODIUM CHLORIDE 0.9% 1,000 ML IV SCH (10:27)
[2018-12-29 11:42] LABS: Glucose,Whole Blood 218 mg/dL (75-99)
--- NOTE | 2018-12-29 12:27 | P.PN ---
Subjective Progress Note Date: 12/29/18 HISTORY OF PRESENT ILLNESS: Patient examined at the bedside. Patient states she is feeling well today. She denies abdominal pain. She is tolerating oral intake. Denies nausea or vomiting. She reports having a bowel movement this morning. PHYSICAL EXAM: VITAL SIGNS: Reviewed. GENERAL: Well-developed in no acute distress. HEENT: No sclera icterus. Extraocular movements grossly intact. Moist buccal mucosa. Head is atraumatic, normocephalic. ABDOMEN: Soft. Nondistended. Nontender. NEUROLOGIC: Alert and oriented. Cranial nerves II through XII grossly intact. ASSESSMENT: 1. Nausea, resolved 2. Dehydration 3. Constipation, resolved PLAN: Continue regular diet. No surgical intervention recommended. Stable from a surgical perspective. We will sign off. Please reconsult if needed. Nurse practitioner note has been reviewed by physician. Signing provider agrees with the documented findings, assessment, and plan of care. Objective - Vital Signs Vital signs: Vital Signs Temp 98.5 F 12/29/18 07:25 Pulse 82 12/29/18 07:25 Resp 14 12/29/18 03:31 BP 124/76 12/29/18 07:25 Pulse Ox 96 12/29/18 07:25 Intake & Output 12/28/18 12/29/18 12/29/18 18:59 06:59 18:59 Intake Total 1000 600 Output Total 600 Balance 1000 0 Intake: Intake, IV Titration 600 600 Amount Sodium Chloride 0.9% 1, 600 600 000 ml @ 75 mls/hr IV . [id number] COREY Rx#:[id number] Oral 400 Output: Urine 600 Other: # Voids 3 1 # Bowel Movements 1 - Labs CBC & Chem 7: 12/29/18 06:49 12/29/18 06:49 Labs: Abnormal Lab Results - Last 24 Hours (Table) 12/28/18 12/28/18 12/29/18 Range/Units 16:59 19:23 06:49 RBC 3.77 L (3.80-5.40) m/uL Glucose (74-99) mg/dL POC Glucose (mg/dL) 174 H 238 H (75-99) mg/dL Total Protein (6.3-8.2) g/dL Albumin (3.5-5.0) g/dL 12/29/18 12/29/1819 Range/Units 06:49 07:03 11:41 RBC (3.80-5.40) m/uL Glucose 177 H (74-99) mg/dL POC Glucose (mg/dL) 181 H 218 H (75-99) mg/dL Total Protein 5.7 L (6.3-8.2) g/dL Albumin 3.3 L (3.5-5.0) g/dL
[2018-12-29 15:31] VITALS: BP 123/82; PULSE 100; TEMP 98.6
[2018-12-29 16:36] LABS: Glucose,Whole Blood 156 mg/dL (75-99)
[2018-12-29 17:16] LABS: Hemoglobin A1C 7.1 % (4.0-6.0)
== END 2018-12-29 18:39 | disposition home or self-care (01) ==
LOC: 4SSUR 12:26
PROVIDERS: ADMIT Family Medicine; ATTEND Family Medicine
DX: E86.0 Dehydration (principal); R11.2 Nausea with vomiting, unspecified; F41.9 Anxiety disorder, unspecified; L28.0 Lichen simplex chronicus; K29.50 Unspecified chronic gastritis without bleeding; E11.9 Type 2 diabetes mellitus without complications; K21.9 Gastro-esophageal reflux disease without esophagitis; E78.5 Hyperlipidemia, unspecified; I10 Essential (primary) hypertension; R42 Dizziness and giddiness; K59.00 Constipation, unspecified; M10.9 Gout, unspecified; F31.9 Bipolar disorder, unspecified; M19.90 Unspecified osteoarthritis, unspecified site; Z90.49 Acquired absence of other specified parts of digestive tract; Z90.710 Acquired absence of both cervix and uterus; Z79.82 Long term (current) use of aspirin; Z79.4 Long term (current) use of insulin; Z79.899 Other long term (current) drug therapy; Z88.1 Allergy status to other antibiotic agents; Z88.0 Allergy status to penicillin; Z88.2 Allergy status to sulfonamides; Z88.8 Allergy status to other drugs, medicaments and biological substances; Z91.81 History of falling; Z87.440 Personal history of urinary (tract) infections; Z96.651 Presence of right artificial knee joint; Z83.3 Family history of diabetes mellitus; K29.00 Acute gastritis without bleeding
CPT/HCPCS: 96361; 96374; 93005; 80053 ×2; 83690; 84484; 85025 ×2; 81003; 87502; 83036; 74019; G0378 ×4; G0379; J2405

== ENCOUNTER 2019-09-04 11:02 | Inpatient (IN) | payer MEDICARE, OTHER ==
[2019-09-04] MEDS ORDERED: SODIUM CHLORIDE 0.9% 1,000 ML IV STA (11:44)
--- NOTE | 2019-09-04 11:53 | ED ---
General Adult HPI - General Chief complaint: Weakness Stated complaint: Facial Drooping Time Seen by Provider: 09/04/19 11:30 Source: patient, RN notes reviewed, old records reviewed Mode of arrival: ambulatory Limitations: no limitations - History of Present Illness Initial comments: Sherly is a 69-year-old female she presents emergency department today for evaluation for generalized weakness, headache since Saturday and a right-sided facial droop that she noticed on Saturday. Patient normally ambulates with a wheelchair and has had frequent falls since Saturday. She states that she went to her primary care doctor's office today who sent her here for evaluation. She is not on blood thinners. Does report a history of stroke many years ago. She sta edgardo she is unaware of any residual deficits since that time. - Related Data Home Medications Medication Instructions Recorded Confirmed Oxybutynin Chloride 5 mg PO BID 02/05/15 12/26/18 Potassium Chloride [Klor-Con 20] 20 meq PO BID 02/28/15 12/26/18 ALPRAZolam 1 mg PO TID 06/04/16 12/26/18 Atorvastatin [Lipitor] 40 mg PO QAM 11/20/16 12/26/18 Insulin Glargine [Lantus] 30 unit SQ DAILY 09/03/17 12/26/18 Cranberry Fruit Extract [Cranberry] 1,000 mg PO BID 12/23/17 12/26/18 HYDROcodone/APAP 10-325MG [[place] 1 tab PO TID@0700,1300,1900 12/23/17 12/26/18 10-325] Magnesium Oxide [Mag-Ox] 500 mg PO AC-SUPPER 12/23/17 12/26/18 Omeprazole 20 mg PO DAILY 12/23/17 12/26/18 Aspirin 81 mg PO DAILY 03/27/18 12/26/18 QUEtiapine [SEROquel] 50 mg PO BID 03/27/18 12/26/18 Sucralfate [Carafate] 1 gm PO AC-TID 03/27/18 12/26/18 Vortioxetine Hydrobromide 10 mg PO DAILY 03/27/18 12/26/18 [Trintellix] Cholecalciferol [Vitamin D3 (25 1,000 unit PO DAILY 08/24/18 12/26/18 Mcg = 1000 Iu)] Insulin Glargine [Lantus] 10 unit SQ HS 08/24/18 12/26/18 Furosemide [Lasix] 20 mg PO DAILY 12/26/18 12/26/18 busPIRone HCl [Buspar] 20 mg PO BID 12/26/18 12/26/18 Previous Rx's Medication Instructions Recorded Docusate [Colace] 100 mg PO BID cap 12/29/18 INSULIN ASPART (NovoLOG) [NovoLOG 0 unit SQ ACHS vial 12/29/18 (formulary)] Meclizine [Antivert] 25 mg PO Q8H PRN tab 12/29/18 Allergies Allergy/AdvReac Type Severity Reaction Status Date / Time benactyzine AdvReac Abdominal Verified 09/04/19 11:06 Pain ciprofloxacin [From Cipro] AdvReac Abdominal Verified 09/04/19 11:06 Pain dicyclomine [From Bentyl] AdvReac Abdominal Verified 09/04/19 11:06 Pain levofloxacin [From Levaquin] AdvReac Abdominal Verified 09/04/19 11:06 Pain Penicillins AdvReac "Passed Verified 09/04/19 11:06 out" prednisone AdvReac Abdominal Verified 09/04/19 11:06 Pain sulfamethoxazole AdvReac Abdominal Verified 09/04/19 11:06 [From Bactrim] Pain tamsulosin HCl [From Flomax] AdvReac Abdominal Verified 09/04/19 11:06 Pain trimethoprim [From Bactrim] AdvReac Abdominal Verified 09/04/19 11:06 Pain Review of Systems ROS Statement: Those systems with pertinent positive or pertinent negative responses have been documented in the HPI. ROS Other: All systems not noted in ROS Statement are negative. Past Medical History Past Medical History: Diabetes Mellitus, GERD/Reflux, Hyperlipidemia, Hyp ertension, Osteoarthritis (OA), Skin Disorder Additional Past Medical History / Comment(s): IDDM type II, chronic dermatitis/past cellulitis arms/hands, past falls, gout ,hx of hiatal hernia with surgery, diverticulosis, constipation, arthritis multiple joints, recurrent UTIs, occasionally incontinent.uti, cataracts. "wears depends just in case",edentulous History of Any Multi-Drug Resistant Organisms: None Reported Date of last positivie culture/infection: None MDRO Source:: None Past Surgical History: Cholecystectomy, Hysterectomy, Joint Replacement Additional Past Surgical History / Comment(s): hemorroidectomy, colonoscopy, egd, LAP GUCCI FUNDLOPLICATION,rt knee replacement Past Anesthesia/Blood Transfusion Reactions: No Reported Reaction Additional Past Anesthesia/Blood Transfusion Reaction / Comment(s): . Past Psychological History: Anxiety, Depression Smoking Status: Never smoker Past Alcohol Use History: None Reported Past Drug Use History: None Reported - Past Family History Father Family Medical History: Diabetes Mellitus Additional Family Medical History / Comment(s): Father in his 80s. Mother Family Medical History: Diabetes Mellitus Additional Family Medical History / Comment(s): Mother in her 80s General Exam Limitations: no limitations General appearance: alert, in no apparent distress Head exam: Present: atraumatic, normocephalic, normal inspection Eye exam: Present: normal appearance, PERRL, EOMI. Absent: scleral icterus, conjunctival injection, periorbital swelling ENT exam: Present: normal exam, mucous membranes moist Neck exam: Present: normal inspection. Absent: tenderness, meningismus, lymphadenopathy Respiratory exam: Present: normal lung sounds bilaterally Cardiovascular Exam: Present: regular rate, normal rhythm, normal heart sounds. Absent: systolic murmur, diastolic murmur, rubs, gallop, clicks GI/Abdominal exam: Present: soft Back exam: Present: normal inspection Neurological exam: Present: alert, oriented X3. Absent: CN II-XII intact Expanded Patient oriented to: Present: person, place, time Speech: Present: fluid speech Cranial nerves: EOM's Intact: Normal, Facial Sensation: Abnormal Right (right- sided facial droop), Facial Palsy with Forehead Movement: Abnormal Right Cerebellar function: Finger to Nose: Normal Upper motor neuron: Pronator Drift: Normal Sensory exam: Upper Extremity Light Touch: Normal, Lower Extremity Light Touch: Normal Motor strength exam: RUE: 5, LUE: 5, RLE: 5, LLE: 5 Eye Response: (4) open spontaneously Motor Response: (6) obeys commands Verbal Response: (5) oriented Steve Total: 15 Psychiatric exam: Present: normal affect, normal mood Skin exam: Present: warm, dry, intact, normal color. Absent: rash Course Vital Signs 09/04/19 09/04/19 09/04/19 11:04 13:00 13:15 Temperature 97.9 F 98.0 F Pulse Rate 98 61 69 Respiratory 20 18 20 Rate Blood Pressure 118/73 120/66 128/79 O2 Sat by Pulse 99 98 96 Oximetry 09/04/19 09/04/19 09/04/19 13:30 13:45 14:00 Temperature Pulse Rate 67 68 67 Respiratory 16 17 17 Rate Blood Pressure 128/79 128/79 128/79 O2 Sat by Pulse 97 98 97 Oximetry 09/04/19 14:15 Temperature Pulse Rate 72 Respiratory 17 Rate Blood Pressure 131/85 O2 Sat by Pulse 97 Oximetry Medical Decision Making - Medical Decision Making 6-year-old female presents today for weakness multiple falls. Right-sided facial droop since Saturday. This time Patient has no other significant symptoms or neurological deficits. Urinalysis is positive for infection. Blood work was reviewed to be unremarkable. Patient does have a CT angiogram and neck. CT RDZ head showed some stenosis over the right renal artery. However this is consistent unusual is the same side of patient's symptoms. Discussed case with Dr. Matson agrees to see the Patient. Patient will be admitted under Dr. Landaverde. Urine culture completed. - Lab Data Result diagrams: 09/04/19 12:45 09/04/19 12:01 Lab Results 09/04/19 09/04/19 09/04/19 Range/Units 12:01 12:01 12:20 WBC (3.8-10.6) k/uL RBC (3.80-5.40) m/uL Hgb (11.4-16.0) gm/dL Hct (34.0-46.0) % MCV (80.0-100.0) fL MCH (25.0-35.0) pg MCHC (31.0-37.0) g/dL RDW (11.5-15.5) % Plt Count (150-450) k/uL Neutrophils % % Lymphocytes % % Monocytes % % Eosinophils % % Basophils % % Neutrophils # (1.3-7.7) k/uL Lymphocytes # (1.0-4.8) k/uL Monocytes # (0-1.0) k/uL Eosinophils # (0-0.7) k/uL Basophils # (0-0.2) k/uL PT (9.0-12.0) sec INR (<1.2) APTT (22.0-30.0) sec Sodium 138 (137-145) mmol/L Potassium 4.6 (3.5-5.1) mmol/L Chloride 103 (98-107) mmol/L Carbon Dioxide 25 (22-30) mmol/L Anion Gap 10 mmol/L BUN 18 H (7-17) mg/dL Creatinine 0.89 (0.52-1.04) mg/dL Est GFR (CKD-EPI)AfAm 76 (>60 ml/min/1.73 sqM) Est GFR (CKD-EPI)NonAf 66 (>60 ml/min/1.73 sqM) Glucose 143 H (74-99) mg/dL Plasma Lactic Acid Reginald 1.9 (0.7-2.0) mmol/L Calcium 10.1 (8.4-10.2) mg/dL Magnesium 2.0 (1.6-2.3) mg/dL Total Bilirubin 0.9 (0.2-1.3) mg/dL AST 36 (14-36) U/L ALT 21 (4-34) U/L Alkaline Phosphatase 93 (38-126) U/L Troponin I <0.012 (0.000-0.034) ng/mL Total Protein 7.4 (6.3-8.2) g/dL Albumin 4.4 (3.5-5.0) g/dL Urine Color Urine Appearance (Clear) Urine pH (5.0-8.0) Ur Specific [place] (1.001-1.035) Urine Protein (Negative) Urine Glucose (UA) (Negative) Urine Ketones (Negative) Urine Blood (Negative) Urine Nitrite (Negative) Urine Bilirubin (Negative) Urine Urobilinogen (<2.0) mg/dL Ur Leukocyte Esterase (Negative) Urine RBC (0-5) /hpf Urine WBC (0-5) /hpf Ur Squamous Epith Cells (0-4) /hpf Urine Bacteria (None) /hpf Urine Mucus (None) /hpf 09/04/19 09/04/19 09/04/19 Range/Units 12:45 12:45 12:45 WBC 8.1 (3.8-10.6) k/uL RBC 4.05 (3.80-5.40) m/uL Hgb 12.7 (11.4-16.0) gm/dL Hct 38.9 (34.0-46.0) % MCV 96.2 (80.0-100.0) fL MCH 31.3 (25.0-35.0) pg MCHC 32.5 (31.0-37.0) g/dL RDW 13.5 (11.5-15.5) % Plt Count 280 (150-450) k/uL Neutrophils % 67 % Lymphocytes % 27 % Monocytes % 3 % Eosinophils % 2 % Basophils % 0 % Neutrophils # 5.4 (1.3-7.7) k/uL Lymphocytes # 2.2 (1.0-4.8) k/uL Monocytes # 0.3 (0-1.0) k/uL Eosinophils # 0.2 (0-0.7) k/uL Basophils # 0.0 (0-0.2) k/uL PT 11.0 (9.0-12.0) sec INR 1.0 (<1.2) APTT 25.2 (22.0-30.0) sec Sodium (137-145) mmol/L Potassium (3.5-5.1) mmol/L Chloride (98-107) mmol/L Carbon Dioxide (22-30) mmol/L Anion Gap mmol/L BUN (7-17) mg/dL Creatinine (0.52-1.04) mg/dL Est GFR (CKD-EPI)AfAm (>60 ml/min/1.73 sqM) Est GFR (CKD-EPI)NonAf (>60 ml/min/1.73 sqM) Glucose (74-99) mg/dL Plasma Lactic Acid Reginald (0.7-2.0) mmol/L Calcium (8.4-10.2) mg/dL Magnesium (1.6-2.3) mg/dL Total Bilirubin (0.2-1.3) mg/dL AST (14-36) U/L ALT (4-34) U/L Alkaline Phosphatase (38-126) U/L Troponin I (0.000-0.034) ng/mL Total Protein (6.3-8.2) g/dL Albumin (3.5-5.0) g/dL Urine Color Light Yellow Urine Appearance Clear (Clear) Urine pH 7.0 (5.0-8.0) Ur Specific [place] 1.038 H (1.001-1.035) Urine Protein Negative (Negative) Urine Glucose (UA) Negative (Negative) Urine Ketones Negative (Negative) Urine Blood Negative (Negative) Urine Nitrite Negative (Negative) Urine Bilirubin Negative (Negative) Urine Urobilinogen <2.0 (<2.0) mg/dL Ur Leukocyte Esterase Large H (Negative) Urine RBC 3 (0-5) /hpf Urine WBC 86 H (0-5) /hpf Ur Squamous Epith Cells 1 (0-4) /hpf Urine Bacteria Rare H (None) /hpf Urine Mucus Rare H (None) /hpf 09/04/19 11:56 EKG performed at a 1143 shows normal sinus rhythm possible inferior infarct age undetermined. Abnormal EKG. Ventricular rate of 75 beats were minute. Verbal 160 ms. QRS is 80 ms. QT QTc is 400/46 ms. - Radiology Data Radiology results: report reviewed Bug segment stenosis approximately 50% on the right M1 segment extension onto segment opacity branch vessels major disruption of the middle cervical artery. Disposition Clinical Impression: UTI (urinary tract infection), Weakness, Facial droop Disposition: ADMITTED IP TO THIS HOSP Condition: Stable Is patient prescribed a controlled substance at d/c from ED?: No Referrals: Tej Bojorquez MD [Primary Care Provider] - 1-2 days Time of Disposition: 15:14
[2019-09-04 12:19] LABS: Albumin 4.4 g/dL (3.5-5.0); Calcium 10.1 mg/dL (8.4-10.2); Potassium 4.6 mmol/L (3.5-5.1); Total Bilirubin 0.9 mg/dL (0.2-1.3); Total Protein 7.4 g/dL (6.3-8.2)
--- NOTE | 2019-09-04 13:00 | XR ---
EXAMINATION TYPE: XR chest 2V DATE OF EXAM: 09/04/2019 COMPARISON: 08/23/2018 HISTORY: Weakness TECHNIQUE: Frontal and lateral views of the chest are obtained. FINDINGS: Low lung volumes are seen. There is no focal air space opacity, pleural effusion, or pneum othorax seen. The cardiac silhouette size is within normal limits. The osseous structures are inta ct. Diffuse osseous demineralization. IMPRESSION: No acute cardiopulmonary process.
[2019-09-04 13:03] LABS: Basophils % (A) 0 %; Eosinophils # (A) 0.2 k/uL (0-0.7); Eosinophils % (A) 2 %; HCT 38.9 % (34.0-46.0); HGB 12.7 gm/dL (11.4-16.0); Lymphocytes # (A) 2.2 k/uL (1.0-4.8); Lymphocytes % (A) 27 %; MCH 31.3 pg (25.0-35.0); MCHC 32.5 g/dL (31.0-37.0); MCV 96.2 fL (80.0-100.0); Mean Platelet Volume 7.3; Monocytes # (A) 0.3 k/uL (0-1.0); Monocytes % (A) 3 %; Neutrophils # (A) 5.4 k/uL (1.3-7.7); Neutrophils % (A) 67 %; Platelet Count 280 k/uL (150-450); RBC 4.05 m/uL (3.80-5.40); RDW 13.5 % (11.5-15.5); WBC 8.1 k/uL (3.8-10.6)
--- NOTE | 2019-09-04 13:08 | CT ---
EXAMINATION TYPE: CT brain wo con DATE OF EXAM: 09/04/2019 COMPARISON: 05/28/2018 INDICATION: weakness, facial droop DLP: 1010 mGycm, Automated exposure control for dose reduction was used. CONTRAST: None CT of the brain is performed utilizing 3 mm thick sections through the posterior fossa and 3 mm thick sections through the remaining calvarium. Study is performed within 24 hours of arrival to the hosp ital. No abnormal hyperdensity is present to suggest an acute intracranial hemorrhage. No mass lesion is evident. No acute infarcts are evident. Some minimal chronic appearing subcortical white matter change may be present. Ventricles and sulci are appropriate for the patient age. Paranasal sinuses and mastoid air cells within the [id number] are clear. IMPRESSIONS: 1. No acute intracranial process.
[2019-09-04 13:11] LABS: Partial Thromboplastin Time 25.2 sec (22.0-30.0)
[2019-09-04 13:26] LABS: Appearance,Urine Clear (Clear); Bacteria,Urine Rare /hpf; Bilirubin,Urine Negative (Negative); Blood,Urine Negative (Negative); Color,Urine Light Yellow; Glucose,Urine (UA) Negative (Negative); Ketones,Urine Negative (Negative); Leukocyte Esterase,Urine Large (Negative); Mucus,Urine Rare /hpf; Nitrite,Urine Negative (Negative); Protein,Urine Negative (Negative); RBC,Urine 3 /hpf (0-5); Specific Gravity,Urine 1.038 (1.001-1.035); Squamous Epithelial Cell,Urine 1 /hpf (0-4); Urobilinogen,Urine <2.0 mg/dL (<2.0); WBC,Urine 86 /hpf (0-5)
--- NOTE | 2019-09-04 14:02 | CT ---
EXAMINATION TYPE: CT angio head neck DATE OF EXAM: 09/04/2019 HISTORY: weakness, facial droop COMPARISON: CT brain of the same date CT DLP: 364 mGycm. Automated Exposure Control for Dose Reduction was Utilized. TECHNIQUE: CTA scan of the neck is performed with IV Contrast, patient injected with 65 mL of Isovue 370, axial images are obtained, coronal and sagittal reformatted images are reviewed. Three-D recons tructed images are created on an independent workstation and reviewed. FINDINGS: Carotid/Vascular Structures: There is a conventional three-vessel branch pattern of the aortic arch. Common carotid arteries are patent without hemodynamically significant stenosis. Minimal none hemodyn amically significant calcific atheromatous plaquing of the left carotid bulb and proximal right inter nal carotid artery. Internal carotid arteries in their cervical portions are patent and unremarkable. The left vertebral artery is dominant. Vertebrobasilar system is patent. There are patent posterior c ommunicating arteries and an anterior commuting artery. Posterior circulation is unremarkable. Emergency Department Aide al carotid arteries are patent. There is long segment stenosis of the right M1 segment with narrowing just before the M2 segment that is most significant. There is reduction in caliber of approximately 50%. There is paucity of branch vessels in the anterior right middle cerebral artery distribution in comparison to the left. Other: Visualized portion of the brain are discussed on the CT brain dictation of the same date. Mild to moderate degenerative disc disease of the cervical spine is seen. Minimal apical atelectasis. No adenopathy in the neck. IMPRESSION: Long segment stenosis of approximately 50% of the right M1 segment extending to the M2 se gment with paucity of branch vessels in the anterior distribution of the middle cerebral artery.
[2019-09-04] MEDS ORDERED: cefTRIAXone IN SWFI 1,000 MG/10 ML SYRINGE IVP STA (14:06)
[2019-09-04] MEDS ORDERED: ACETAMINOPHEN TAB 325 MG TAB PO PRN (15:15)
[2019-09-04] MEDS ORDERED: MORPHINE SULFATE 4 MG/ML SYRINGE IV PRN (15:15)
[2019-09-04] MEDS ORDERED: NALOXONE 0.4 MG/ML 1 ML VIAL IV PRN (15:15)
[2019-09-04] MEDS ORDERED: ONDANSETRON 4 MG/2 ML VIAL IVP PRN (15:15)
[2019-09-04] MEDS: SODIUM CHLORIDE 0.9% 1,000 ML IV SCH (16:21)
--- NOTE | 2019-09-04 18:02 | P.CNNES ---
History of Present Illness Consult date: 09/04/19 Requesting physician: Nayana Yarbrough Reason for Consult: Right stroke History of Present Illness: Patient is a 69-year-old female, who lives with her daughter, states that she was noticed to have some facial droop on one side since 08/30/2019. Patient also has been feeling very tired, and also suffered from couple falls this week. There was mild slurring noted, but no focal weakness. No problems with the vision. Patient came to the hospital, was not a candidate for TPA as she has been having symptoms for last 5 days. Computed tomography scan of the head was normal. Paranasal sinuses are clear. CTA of the head and neck was performed, which revealed long segment stenosis of approximately 50% of the right M1 segment extending into the M2 segment with paucity of branch vessels in the anterior distribution of the middle cerebral artery. EKG showed sinus rhythm. Chest x-ray showed no acute cardiopulmonary process. Patient's blood tests shows normal CBC, CMP. UA showed large leukocyte esterase, 86 WBCs and rare bacteria. Patient has been started on Rocephin. Patient's last 2-D echo from 02/07/2018 showed EF 55-60%. Left atrial size is normal. No embolic source. Patient's last hemoglobin A1c 7.1 on 12/29/2018. Her lipids from 08/24/2018 showed cholesterol 171, LDL 46, HDL of 66 and triglycerides 296. Patient used to take aspirin, but has stopped taking it for some time. Patient has been using wheelchair lately. She also has a walker, but her one of her family member has to be by her side, as patient is a fall risk and would fall. She walks with a shuffling gait. Her handwriting is getting smaller and more sloppier. Patient's daughter has noticed that she does have some tremors off and on. Patient does have history of diabetes for 10 years, and hypertension. Never us ed tobacco. Review of Systems As mentioned in detail in HPI. Patient denies problems with vision, hoarseness sore throat dysphagia chest pain or shortness of breath. Past Medical History Past Medical History: Diabetes Mellitus, GERD/Reflux, Hyperlipidemia, Hypertension, Osteoarthritis (OA), Skin Disorder Additional Past Medical History / Comment(s): IDDM type II, chronic dermatitis/past cellulitis arms/hands, past falls, gout ,hx of hiatal hernia with surgery, diverticulosis, constipation, arthritis multiple joints, recurrent UTIs, occasionally incontinent.uti, cataracts. "wears depends just in case ",edentulous History of Any Multi-Drug Resistant Organisms: None Reported Date of last positivie culture/infection: None MDRO Source:: None Past Surgical History: Cholecystectomy, Hysterectomy, Joint Replacement Additional Past Surgical History / Comment(s): hemorroidectomy, colonoscopy, egd, LAP GUCCI FUNDLOPLICATION,rt knee replacement Past Anesthesia/Blood Transfusion Reactions: No Reported Reaction Additional Past Anesthesia/Blood Transfusion Reaction / Comment(s): . Past Psychological History: Anxiety, Depression Smoking Status: Never smoker Past Alcohol Use History: None Reported Past Drug Use History: None Reported - Past Family History Father Family Medical History: Diabetes Mellitus Additional Family Medical History / Comment(s): Father in his 80s. Mother Family Medical History: Diabetes Mellitus Additional Family Medical History / Comment(s): Mother in her 80s Medications and Allergies Home Medications Medication Instructions Recorded Confirmed Type Oxybutynin Chloride 5 mg PO BID 02/05/15 09/04/19 History Potassium Chloride [Klor-Con 20] 20 meq PO BID 02/28/15 09/04/19 History ALPRAZolam 1 mg PO QID PRN 06/04/16 09/04/19 History Atorvastatin [Lipitor] 40 mg PO QAM 11/20/16 09/04/19 History Insulin Glargine [Lantus] 20 unit SQ HS 09/03/17 09/04/19 History Cranberry Fruit Extract [Cranberry] 1,000 mg PO BID 12/23/17 09/04/19 History HYDROcodone/APAP 10-325MG [[place] 1 tab PO TID@0700,1300,1900 12/23/17 09/04/19 History 10-325] Magnesium Oxide [Mag-Ox] 500 mg PO AC-SUPPER 12/23/17 09/04/19 History Omeprazole 20 mg PO DAILY 12/23/17 09/04/19 History QUEtiapine [SEROquel] 50 mg PO BID 03/27/18 09/04/19 History Sucralfate [Carafate] 1 gm PO AC-TID 03/27/18 09/04/19 History Cholecalciferol [Vitamin D3 (25 1,000 unit PO DAILY 08/24/18 09/04/19 History Mcg = 1000 Iu)] Furosemide [Lasix] 10 mg PO DAILY 12/26/18 09/04/19 History Acetaminophen/Diphenhydramine 1 tab PO HS MDD SLEEP,PAIN, AND 09/04/19 09/04/19 History [Tylenol PM 500-25mg] ALLERGY SYMPTO Cyclobenzaprine [Flexeril] 5 mg PO DAILY PRN 09/04/19 09/04/19 History Meclizine [Antivert] 25 mg PO DAILY PRN 09/04/19 09/04/19 History Metoclopramide [Reglan] 10 mg PO QID 09/04/19 09/04/19 History Vortioxetine Hydrobromide 20 mg PO DAILY 09/04/19 09/04/19 History [Trintellix] Allergies Allergy/AdvReac Type Severity Reaction Status Date / Time benactyzine AdvReac Abdominal Verified 09/04/19 15:58 Pain ciprofloxacin [From Cipro] AdvReac Abdominal Verified 09/04/19 15:58 Pain dicyclomine [From Bentyl] AdvReac Abdominal Verified 09/04/19 15:58 Pain levofloxacin [From Levaquin] AdvReac Abdominal Verified 09/04/19 15:58 Pain Penicillins AdvReac "Passed Verified 09/04/19 15:58 out" prednisone AdvReac Abdominal Verified 09/04/19 15:58 Pain sulfamethoxazole AdvReac Abdominal Verified 09/04/19 15:58 [From Bactrim] Pain tamsulosin HCl [From Flomax] AdvReac Abdominal Verified 09/04/19 15:58 Pain trimethoprim [From Bactrim] AdvReac Abdominal Verified 09/04/19 15:58 Pain Physical Examination - Vital Signs Vital Signs: Vital Signs Temp Pulse Resp BP BP Pulse Ox 09/04/19 16:22 97.8 F 65 18 135/88 97 09/04/19 16:00 97.6 F 18 131/59 96 09/04/19 14:15 72 17 131/85 97 09/04/19 14:00 67 17 128/79 97 09/04/19 13:45 68 17 128/79 98 09/04/19 13:30 67 16 128/79 97 09/04/19 13:15 98.0 F 69 20 128/79 96 09/04/19 13:00 61 18 120/66 98 09/04/19 11:04 97.9 F 98 20 118/73 99 Intake and Output 09/04/19 09/04/19 09/04/19 06:59 14:59 22:59 Other: Weight 81.647 kg On examination patient is an elderly female, in no distress. She is alert and awake. She is edentulous, does not have any dentition or dentures. Patient's speech appears clear although at times appears slurred partly because of lack of dentition and lack of support to the lips and the tongue. No aph mateo. On cranial nerve examination, pupils are round and reacting to light, visual yang are full on confrontation with no neglect. Extraocular muscles are intact with no nystagmus. Face is symmetric and tongue protrudes the midline. Palatal elevation and sensation normal. On muscle strength testing there is no pronator drift and the strength is completely normal in the arms and legs distally and proximally with no focal weakness. Patient's tone is at least moderately increased bilaterally with very mild cogwheeling. No obvious resting tremors were noted. Patient does appear significantly bradykinetic. Patient does have flat face, decrease frequency of blinking. Her gait is also somewhat shuffling, as per patient's daughter. Results - Laboratory Findings CBC and BMP: 09/04/19 12:45 09/04/19 12:01 Abnormal Lab Findings: Abnormal Labs 09/04/19 09/04/19 12:01 12:45 BUN 18 H Glucose 143 H Ur Specific [place] 1.038 H Ur Leukocyte Esterase Large H Urine WBC 86 H Urine Bacteria Rare H Urine Mucus Rare H Assessment and Plan Assessment: * 69-year-old female admitted with some generalized weakness, slurred speech, and some falls. Her current examination is completely nonfocal. Her facial asymmetry and slurring could be related to laxity of the labial tissues from lack of dentition. Patient's neurological examination is nonfocal, but she does have parkinsonian features with at least moderate rigidity, bradykinesia and postural instability with shuffling gait. 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 Doubt idiopathic Parkinson's disease. * Diabetes * Hypertension * Possible UTI, currently on Rocephin. Plan: * I would stop Reglan due to presence of drug-induced parkinsonism. Her falls and generalized weakness also likely related to parkinsonism. * No clinical evidence of CVA. Patient does have atherosclerotic cerebrovascular disease, therefore we will start her on aspirin 162 mg daily. Patient was not taking antiplatelet medication at home. Patient was strongly recommended to optimize stroke risk factors including control of diabetes, hypertension. * PT OT evaluate gait. * If her parkinsonian symptoms persist, then may need antiparkinsonian medication. * We will check B12, folate, RPR, TSH, hemoglobin A1c. * Dr. Ochoa will be covering from tomorrow morning.
[2019-09-04 20:32] LABS: Glucose,Whole Blood 151 mg/dL (75-99)
[2019-09-04] MEDS ORDERED: NON FORMULARY DRUG (Cranberry Fruit Extract [Cranberry] 1,000 MG) PO SCH (22:15)
[2019-09-04] MEDS ORDERED: MECLIZINE 25 MG TAB PO PRN (23:00)
[2019-09-04] MEDS ORDERED: ACETAMINOPHEN TAB 500 MG TAB PO SCH (23:00)
[2019-09-04] MEDS ORDERED: CYCLOBENZAPRINE 5 MG TAB PO PRN (23:00)
[2019-09-04] MEDS: ASPIRIN 81 MG PO SCH (23:13)
[2019-09-04] MEDS: OXYBUTYNIN CHLORIDE 5 MG TAB PO SCH (23:15)
[2019-09-04] MEDS: MAGNESIUM OXIDE 400 MG TAB PO SCH (23:15)
[2019-09-04] MEDS: INSULIN DETEMIR (LEVEMIR) 100 UNIT/ML SYR SQ SCH (23:15)
[2019-09-04] MEDS: METOCLOPRAMIDE 10 MG TAB PO SCH (23:15)
[2019-09-04] MEDS: diphenhydrAMINE 25 MG CAP PO SCH (23:15)
[2019-09-04] MEDS: QUEtiapine 50 MG TAB PO SCH (23:15)
[2019-09-04] MEDS: POTASSIUM CHLORIDE ER 20 MEQ TAB.ER PO SCH (23:15)
[2019-09-05] MEDS: ASPIRIN 81 MG PO SCH ×2 (03:18→09:27)
[2019-09-05] MEDS: ACETAMINOPHEN TAB 500 MG TAB PO SCH ×2 (03:19→22:15)
[2019-09-05] MEDS: diphenhydrAMINE 25 MG CAP PO SCH ×2 (03:19→22:16)
[2019-09-05] MEDS: OXYBUTYNIN CHLORIDE 5 MG TAB PO SCH ×3 (03:20→22:16)
[2019-09-05] MEDS: METOCLOPRAMIDE 10 MG TAB PO SCH ×2 (03:20→09:22)
[2019-09-05] MEDS: MAGNESIUM OXIDE 400 MG TAB PO SCH ×2 (03:20→17:26)
[2019-09-05] MEDS: POTASSIUM CHLORIDE ER 20 MEQ TAB.ER PO SCH ×3 (03:21→22:16)
[2019-09-05] MEDS: QUEtiapine 50 MG TAB PO SCH ×3 (03:22→22:16)
[2019-09-05 06:16] LABS: Glucose,Whole Blood 95 mg/dL (75-99)
[2019-09-05] MEDS: HYDROcodone/APAP 10-325MG 1 EACH TAB PO SCH ×3 (06:55→18:52)
[2019-09-05] MEDS: SODIUM CHLORIDE 0.9% 1,000 ML IV SCH ×3 (06:56→22:17)
[2019-09-05] MEDS: SUCRALFATE 1 GM TAB PO SCH ×3 (06:56→17:26)
[2019-09-05] MEDS: FUROSEMIDE 20 MG TAB PO SCH (09:27)
[2019-09-05] MEDS: VORTIOXETINE HYDROBROMIDE 20 MG TABLET PO SCH (09:27)
[2019-09-05] MEDS: ATORVASTATIN 40 MG TAB PO SCH (09:27)
[2019-09-05] MEDS: PANTOPRAZOLE 40 MG TABLET PO SCH (09:27)
[2019-09-05] MEDS: CHOLECALCIFEROL 1,000 UNIT TAB PO SCH (09:28)
--- NOTE | 2019-09-05 10:06 | HP ---
HISTORY AND PHYSICAL 69-year-old white female came to the hospital with some facial drooping since 08/30/2019, very tired, fatigue, super lethargic and sleeping all the time without altered mental status. She was sent to the hospital. Seen in the emergency room and admitted her. She had a CT of the head, neck, which showed 50% blockage in the anterior middle cerebral artery. Chest x-ray is negative. UA shows large amount of leukocyte esterase, 86 white cells, rare bacteria. She has been started on Rocephin. Her last echo in 2018 showed 55-60 percent ejection fraction. A1c is 7.1. Lipids show cholesterol 171, LDL 46, HDL 66, triglycerides 296. She is sleepy, lethargic, and admitted. She has history of Parkinson's with tremors, diabetes mellitus, hypertension, severe anxiety and bipolar, some kind of picker operator syndrome, GERD, hypertension, osteoarthritis, history of hiatal hernia with surgery, diverticulosis, constipation, recurrent UTIs, cataracts. SURGICAL HISTORY: Cholecystectomy, hysterectomy, joint replacement. SOCIAL HISTORY: She lives with her daughter. Does not smoke or drink alcohol or take illicit drugs. FAMILY HISTORY: Father diabetes mellitus. Mother diabetes mellitus. HOME MEDICINES: Include oxybutynin, potassium chloride 10, alprazolam, Lipitor, Lantus, cranberry extract, [place], Mag oxide, omeprazole, Seroquel, Carafate, vitamin D, Lasix, Tylenol p.m., Flexeril, Antivert, Reglan, and Protonix. ALLERGIES: TO BENTYL, CIPRO, LEVAQUIN, PENICILLIN, PREDNISONE, BACTRIM, FLOMAX. PHYSICAL EXAMINATION: Temperature is 97 to 98, pulse 60s to 70s, respiratory 18-20, blood pressure is 120s to 130s over 60s to 90s, O2 97-99. PHYSICAL EXAM: White female, alert, oriented x3. Cardiovascular S1-S2. Lungs transmitted upper airway sounds. Hematology negative Homans. Psych fair mood and affect. NEUROLOGIC: Alert and oriented x3. Ophthalmologic: Pupils equal, round, reactive. NECK: Supple. No mass. CONSTITUTIONAL: She is sleepy, lethargic. Responding slowly to questions. She has some mild facial drooping on neurologic exam in the right lower jaw. Otherwise, she can move her extremities. ASSESSMENT AND PLAN: 1. Generalized weakness. 2. Urinary tract infection with probable sepsis. 3. Slurred speech. 4. Possible transient ischemic attack versus cerebrovascular accident. 5. Admitted with neurologic consult. 6. Carotid stenosis. 7. Insulin-dependent diabetes mellitus. 8. She has severe gastroparesis for which she takes Reglan. 9. Diabetes. 10.Hypertension. 11.Urinary tract infection. 12.Neurology consult. 13.Dr. Garcia's or Denys consult for Infectious Disease. 14.Rehydrate. 15.Please see further orders. MMODL / IJN: [id number] /
--- NOTE | 2019-09-05 11:43 | P.PN ---
Subjective Progress Note Date: 09/05/19 Principal diagnosis: Parkinsonism The patient is seen in neurologic follow-up on September 05, 2019, via teleneurology. The patient feels there has been no change in her symptoms since the discontinuation of her Reglan yesterday. Her daughter, who is present in the room says that the patient has been taking Reglan for approximately 3 months. She feels the patient's difficulty with ambulation and other Parkinsonian-type features began prior to the start of Reglan. The patient reports that her handwriting has changed. She says it is very tiny and messy. Objective - Vital Signs Vital signs: Vital Signs Temp 98.8 F 09/05/19 08:10 Pulse 82 09/05/19 08:10 Resp 18 09/05/19 08:10 BP 119/56 09/05/19 08:10 Pulse Ox 97 09/05/19 08:10 Intake & Output 09/04/19 09/05/19 09/05/19 18:59 06:59 18:59 Intake Total 120 Balance 120 Weight 81.647 kg 81.64 kg Intake: Oral 120 Other: Voiding Method Incontinent Incontinent Incontinent # Voids 1 1 - Exam Gen.: The patient is seated on the edge of the bed. She is in no distress. Neurological examination: The patient has features of Parkinson's disease, masklike face, decreased blink rate and tremor. There is increased tone in the right upper extremity. There is bilateral bradykinesia. - Labs CBC & Chem 7: 09/04/19 12:45 09/04/19 12:01 Labs: Abnormal Lab Results - Last 24 Hours (Table) 09/04/19 09/04/19 09/04/19 Range/Units 12:01 12:45 20:30 BUN 18 H (7-17) mg/dL Glucose 143 H (74-99) mg/dL POC Glucose (mg/dL) 151 H (75-99) mg/dL Ur Specific [place] 1.038 H (1.001-1.035) Ur Leukocyte Esterase Large H (Negative) Urine WBC 86 H (0-5) /hpf Urine Bacteria Rare H (None) /hpf Urine Mucus Rare H (None) /hpf Microbiology - Last 24 Hours (Table) 09/04/19 12:45 Urine Culture - Preliminary Urine,Voided Assessment and Plan Assessment: Impressions/Plan: 1) parkinsonism-possible idiopathic Parkinson's disease versus Reglan-induced. We will assess the patient again tomorrow to see if there are any changes. If nothing has changed, Parkinson's medication will be initiated. Time with Patient: Less than 30 (spent 25 minutes with patient via teleneurology)
[2019-09-05 12:19] LABS: Glucose,Whole Blood 120 mg/dL (75-99)
[2019-09-05] MEDS: IBUPROFEN 400 MG TAB PO PRN (16:10)
[2019-09-05 17:14] LABS: Glucose,Whole Blood 113 mg/dL (75-99)
[2019-09-05 20:54] LABS: Glucose,Whole Blood 153 mg/dL (75-99)
[2019-09-05] MEDS: INSULIN DETEMIR (LEVEMIR) 100 UNIT/ML SYR SQ SCH (22:16)
[2019-09-06] MEDS ORDERED: INSULIN DETEMIR (LEVEMIR) 100 UNIT/ML SYR SQ SCH (05:18)
[2019-09-06 06:14] LABS: Glucose,Whole Blood 69 mg/dL (75-99)
[2019-09-06 06:26] LABS: Glucose,Whole Blood 73 mg/dL (75-99)
[2019-09-06] MEDS: HYDROcodone/APAP 10-325MG 1 EACH TAB PO SCH ×3 (06:48→19:10)
[2019-09-06] MEDS: SUCRALFATE 1 GM TAB PO SCH ×3 (06:48→17:11)
[2019-09-06] MEDS: SODIUM CHLORIDE 0.9% 1,000 ML IV SCH (06:49)
[2019-09-06 06:57] LABS: Basophils % (A) 1 %; Eosinophils # (A) 0.1 k/uL (0-0.7); Eosinophils % (A) 3 %; HCT 34.4 % (34.0-46.0); HGB 10.9 gm/dL (11.4-16.0); Lymphocytes % (A) 45 %; MCH 30.9 pg (25.0-35.0); MCHC 31.7 g/dL (31.0-37.0); MCV 97.5 fL (80.0-100.0); Mean Platelet Volume 7.5; Monocytes # (A) 0.2 k/uL (0-1.0); Monocytes % (A) 5 %; Neutrophils % (A) 45 %; Platelet Count 234 k/uL (150-450); RBC 3.53 m/uL (3.80-5.40); RDW 13.5 % (11.5-15.5); WBC 4.4 k/uL (3.8-10.6)
[2019-09-06 07:21] LABS: ALT 12 U/L (4-34); AST 17 U/L (14-36); African American GFR (CKD) >90 (>60 ml/min/1.73 sqM); Albumin 2.9 g/dL (3.5-5.0); Alkaline Phosphatase 58 U/L (38-126); Anion Gap 7 mmol/L; Blood Urea Nitrogen 8 mg/dL (7-17); Calcium 8.8 mg/dL (8.4-10.2); Carbon Dioxide 24 mmol/L (22-30); Chloride 111 mmol/L (98-107); Glucose 56 mg/dL (74-99); Non-African American GFR(CKD) 87 (>60 ml/min/1.73 sqM); Potassium 3.6 mmol/L (3.5-5.1); Sodium 142 mmol/L (137-145); Total Bilirubin 0.4 mg/dL (0.2-1.3); Total Protein 5.4 g/dL (6.3-8.2)
[2019-09-06] MEDS: POTASSIUM CHLORIDE ER 20 MEQ TAB.ER PO SCH ×2 (08:48→21:25)
[2019-09-06] MEDS: VORTIOXETINE HYDROBROMIDE 20 MG TABLET PO SCH (08:48)
[2019-09-06] MEDS: ATORVASTATIN 40 MG TAB PO SCH (08:48)
[2019-09-06] MEDS: PANTOPRAZOLE 40 MG TABLET PO SCH (08:48)
[2019-09-06] MEDS: ASPIRIN 81 MG PO SCH (08:48)
[2019-09-06] MEDS: OXYBUTYNIN CHLORIDE 5 MG TAB PO SCH ×2 (08:48→21:25)
[2019-09-06] MEDS: QUEtiapine 50 MG TAB PO SCH ×2 (08:49→21:25)
[2019-09-06] MEDS: CHOLECALCIFEROL 1,000 UNIT TAB PO SCH (08:49)
[2019-09-06] MEDS: FUROSEMIDE 20 MG TAB PO SCH (08:49)
--- NOTE | 2019-09-06 09:42 | P.PN ---
Subjective Progress Note Date: 09/06/19 Principal diagnosis: Parkinsonism The patient is sitting up in the bedside chair. 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 She was able to walk to the bathroom with the assistance of a walker. Objective - Vital Signs Vital signs: Vital Signs Temp 97.9 F 09/06/19 04:00 Pulse 73 09/06/19 04:00 Resp 18 09/06/19 04:00 BP 117/58 09/06/19 04:00 Pulse Ox 97 09/06/19 04:00 Intake & Output 09/05/19 09/06/19 09/06/19 18:59 06:59 18:59 Intake Total 1999 360 Balance 1999 360 Weight 81.6 kg Intake: Intake, IV Titration 800 Amount Sodium Chloride 0.9% 1, 800 000 ml @ 100 mls/hr IV . Q10H [facility] Rx#:[id number] Oral 1200 360 Other: Voiding Method Incontinent Incontinent # Voids 4 4 # Bowel Movements 1 1 - Exam Gen.: The patient is seated in the bedside chair. She is in no distress. Neurological examination: The patient has features of Parkinson's disease, mask- like face, decreased blink rate and tremor. The patient does have slightly more facial movement today. There is increased tone in the bilateral upper extremities, at the elbow. There is bilateral bradykinesia. Tremor is noted with eattqx-wjcr-olonky testing, left greater than right. - Labs CBC & Chem 7: 09/06/19 06:08 09/06/19 06:08 Labs: Abnormal Lab Results - Last 24 Hours (Table) 09/05/19 09/05/19 09/05/19 Range/Units 12:06 16:57 20:53 RBC (3.80-5.40) m/uL Hgb (11.4-16.0) gm/dL Chloride (98-107) mmol/L Glucose (74-99) mg/dL POC Glucose (mg/dL) 120 H 113 H 153 H (75-99) mg/dL Total Protein (6.3-8.2) g/dL Albumin (3.5-5.0) g/dL 09/06/19 09/06/19 09/06/19 Range/Units 06:08 06:08 06:13 RBC 3.53 L (3.80-5.40) m/uL Hgb 10.9 L (11.4-16.0) gm/dL Chloride 111 H (98-107) mmol/L Glucose 56 L (74-99) mg/dL POC Glucose (mg/dL) 69 L (75-99) mg/dL Total Protein 5.4 L (6.3-8.2) g/dL Albumin 2.9 L (3.5-5.0) g/dL 09/06/19 Range/Units 06:24 RBC (3.80-5.40) m/uL Hgb (11.4-16.0) gm/dL Chloride (98-107) mmol/L Glucose (74-99) mg/dL POC Glucose (mg/dL) 73 L (75-99) mg/dL Total Protein (6.3-8.2) g/dL Albumin (3.5-5.0) g/dL Microbiology - Last 24 Hours (Table) 09/04/19 12:45 Urine Culture - Final Urine,Voided Assessment and Plan Assessment: Impressions/Plan: 1) Parkinsonism-possible idiopathic Parkinson's disease versus Reglan-induced. We will assess the patient again tomorrow to see if there are any changes. If there are no further significant changes, Parkinson's medications will be started. Time with Patient: Less than 30 (spent 20 minutes with patient via telene urology)
[2019-09-06] MEDS ORDERED: SODIUM CHLORIDE 0.9% 1,000 ML IV SCH (10:00)
[2019-09-06 12:31] LABS: Glucose,Whole Blood 124 mg/dL (75-99)
[2019-09-06] MEDS: ALPRAZolam 1 MG TAB PO PRN (16:42)
[2019-09-06 17:08] LABS: Glucose,Whole Blood 134 mg/dL (75-99)
[2019-09-06] MEDS: IBUPROFEN 400 MG TAB PO PRN (17:11)
[2019-09-06] MEDS: MAGNESIUM OXIDE 400 MG TAB PO SCH (17:11)
[2019-09-06 20:41] LABS: Glucose,Whole Blood 195 mg/dL (75-99)
[2019-09-06] MEDS: diphenhydrAMINE 25 MG CAP PO SCH (21:25)
[2019-09-06] MEDS: ACETAMINOPHEN TAB 500 MG TAB PO SCH (21:25)
--- NOTE | 2019-09-07 00:06 | PN ---
PROGRESS NOTE Followup TIA, UTI, dehydration, parkinsonism. Reglan has been discontinued and Sinemet continues. She is still weak, fatigued, but wants to go home. Apparently, neurology wants to keep her another 24 hours. Cardiovascular S1, S2. Lungs clear. GI soft. Hematology negative Homans. Psych fair mood and affect. ASSESSMENT: 1. Transient ischemic attack. 2. Urinary tract infection. 3. Dehydration. 4. Parkinsonism. Continue IV antibiotics, updraft treatments, Sinemet. Hold Reglan. Possible PT/OT. Possible home in the morning if neurology clears. MMODL / IJN: [id number] /
[2019-09-07 04:54] VITALS: TEMP 97.6
[2019-09-07 06:20] LABS: Glucose,Whole Blood 91 mg/dL (75-99)
[2019-09-07] MEDS: HYDROcodone/APAP 10-325MG 1 EACH TAB PO SCH ×2 (06:51→11:45)
[2019-09-07] MEDS: SUCRALFATE 1 GM TAB PO SCH ×2 (06:51→11:39)
[2019-09-07] MEDS: ASPIRIN 81 MG PO SCH (08:56)
[2019-09-07] MEDS: CHOLECALCIFEROL 1,000 UNIT TAB PO SCH (08:56)
[2019-09-07] MEDS: VORTIOXETINE HYDROBROMIDE 20 MG TABLET PO SCH (08:56)
[2019-09-07] MEDS: FUROSEMIDE 20 MG TAB PO SCH (08:57)
[2019-09-07] MEDS: QUEtiapine 50 MG TAB PO SCH (08:57)
[2019-09-07] MEDS: OXYBUTYNIN CHLORIDE 5 MG TAB PO SCH (08:57)
[2019-09-07] MEDS: POTASSIUM CHLORIDE ER 20 MEQ TAB.ER PO SCH (08:57)
[2019-09-07] MEDS: ATORVASTATIN 40 MG TAB PO SCH (08:57)
[2019-09-07] MEDS: PANTOPRAZOLE 40 MG TABLET PO SCH (08:57)
[2019-09-07 09:00] VITALS: RESP 16
[2019-09-07] MEDS: ALPRAZolam 1 MG TAB PO PRN (11:39)
[2019-09-07 11:47] VITALS: BP 132/58; PULSE 70
[2019-09-07 12:27] LABS: Glucose,Whole Blood 122 mg/dL (75-99)
--- NOTE | 2019-09-07 16:36 | P.DS ---
Providers Date of admission: 09/06/19 08:27 Expected date of discharge: 09/07/19 Attending physician: Tej Bojorquez Consults: 09/04/19 15:15 Consult Physician Stat Consulting Provider: Renu Vieyra Consult Reason/Comments: right stroke Do you want consulting provider notified?: Yes 09/05/19 09:39 Consult Physician Routine Consulting Provider: Rao Mcfarlane Consult Reason/Comments: uti/sepsis Do you want consulting provider notified?: Yes Primary care physician: Tej Bojorquez [facility] Course: final diagnoses Parkinsonism,possibly drug-induced secondary to Reglan which has been discontinued,Possibly idiopathic TIA Dehydration Diabetes Hypertension UTI ruled out, asymptomatic,culture negative sepsis ruled out. Hospital course: This a 69-year-old female presented to the ER with some facial droop,mild slurred speech,complaints of fatigue, sustained a couple falls throughout the week.neuro workup completed.significant clinical improvement, cleared by neurology for discharge. Evaluated by PT/OT, recommending home with family, home care/PT/OT.Daughter at bedside, patient declining inpatient rehab. patient will be discharged home in a stable condition with guarded prognosis today. The impression and plan of care has been dictated as directed. : I performed a history and examination of this patient, discussed the same with the dictator. I agree with the dictator's note ,documented as a scribe. Any additional findings or plans will be noted. Patient Condition at Discharge: Stable Plan - Discharge Summary Discharge Rx Participant: No New Discharge Prescriptions: New Aspirin 81 mg PO DAILY #30 chew Continue Oxybutynin Chloride 5 mg PO BID Potassium Chloride [Klor-Con 20] 20 meq PO BID ALPRAZolam 1 mg PO QID PRN PRN Reason: Anxiety Atorvastatin [Lipitor] 40 mg PO QAM Insulin Glargine [Lantus] 20 unit SQ HS Cranberry Fruit Extract [Cranberry] 1,000 mg PO BID HYDROcodone/APAP 10-325MG [[place] 10-325] 1 tab PO TID@0700,1300,1900 Omeprazole 20 mg PO DAILY Magnesium Oxide [Mag-Ox] 500 mg PO AC-SUPPER Sucralfate [Carafate] 1 gm PO AC-TID QUEtiapine [SEROquel] 50 mg PO BID Cholecalciferol [Vitamin D3 (25 Mcg = 1000 Iu)] 1,000 unit PO DAILY Furosemide [Lasix] 10 mg PO DAILY Meclizine [Antivert] 25 mg PO DAILY PRN PRN Reason: Vertigo Acetaminophen/Diphenhydramine [Tylenol PM 500-25mg] 1 tab PO HS MDD SLEEP,PAIN, AND ALLERGY SYMPTO Cyclobenzaprine [Flexeril] 5 mg PO DAILY PRN PRN Reason: Muscle Spasm Vortioxetine Hydrobromide [Trintellix] 20 mg PO DAILY Discontinued Metoclopramide [Reglan] 10 mg PO QID Discharge Medication List Oxybutynin Chloride 5 mg PO BID 02/05/15 [History] Potassium Chloride [Klor-Con 20] 20 meq PO BID 02/28/15 [History] ALPRAZolam 1 mg PO QID PRN 06/04/16 [History] Atorvastatin [Lipitor] 40 mg PO QAM 11/20/16 [History] Insulin Glargine [Lantus] 20 unit SQ HS 09/03/17 [History] Cranberry Fruit Extract [Cranberry] 1,000 mg PO BID 12/23/17 [History] HYDROcodone/APAP 10-325MG [[place] 10-325] 1 tab PO TID@0700,1300,1900 12/23/17 [History] Magnesium Oxide [Mag-Ox] 500 mg PO AC-SUPPER 12/23/17 [History] Omeprazole 20 mg PO DAILY 12/23/17 [History] QUEtiapine [SEROquel] 50 mg PO BID 03/27/18 [History] Sucralfate [Carafate] 1 gm PO AC-TID 03/27/18 [History] Cholecalciferol [Vitamin D3 (25 Mcg = 1000 Iu)] 1,000 unit PO DAILY 08/24/18 [History] Furosemide [Lasix] 10 mg PO DAILY 12/26/18 [History] Acetaminophen/Diphenhydramine [Tylenol PM 500-25mg] 1 tab PO HS MDD SLEEP,PAIN, AND ALLERGY SYMPTO 09/04/19 [History] Cyclobenzaprine [Flexeril] 5 mg PO DAILY PRN 09/04/19 [History] Meclizine [Antivert] 25 mg PO DAILY PRN 09/04/19 [History] Vortioxetine Hydrobromide [Trintellix] 20 mg PO DAILY 09/04/19 [History] Aspirin 81 mg PO DAILY #30 chew 09/07/19 [Rx] Follow up Appointment(s)/Referral(s): [facility] [NON-STAFF] - ( ) Tej Bojorquez MD [Primary Care Provider] - 09/09/19 11:00 am (Saturday) Kimberly Marroquin MD [Medical Doctor] - 1 Week (Spoke to hand candy cutter. Office will call with appointment time) Ambulatory/Diagnostic Orders: Complete Blood Count w/diff [LAB.AMB] Time Frame: 3 Days, Location: None Selected Activity/Diet/Wound Care/Special Instructions: pending FInal dc rec & clearance from Neurology.antibiotics as per ID.
--- NOTE | 2019-09-07 22:11 | P.PN ---
Progress Note - Text Progress Note Date: 09/07/19 SUBJECTIVE/INTERVAL EVENTS: No acute overnight events. Patient and daughter with no complaints. Daughter states that patient was initially brought to hospital because they thought she might be having a stroke, but it was because she did not have her dentures. Daughter reports that patient has been taking Reglan for ~8 months, but she cannot remember why the patient was started on it. PHYSICAL EXAMINATION: VITAL SIGNS: T 97.6 HR 70 RR 18 BP 136/65 O2 sat 96% on RA GEN.: NAD HEENT: NCAT, sclera without icterus NECK: Supple SKIN AND EXTREMITIES: Warm to touch, no edema NEURO: A&Ox3 to name, place and year. Unable to recall name of current president. mask- like face, decreased blink rate and tremor. There is increased tone in bilateral upper extremities. Tremor is noted with irjbiv-pobp-xbxrqg testing, left greater than right. ASSESSMENT and PLAN: Parkinsonism-possible idiopathic Parkinson's disease versus Reglan-induced. Recommend patient to discontinue Reglan all together, and then follow up with outpatient Neurologist within 2-3 weeks of discharge. Patient's symptoms are not debilitating enough to require medications and also symptoms are likely drug- induced, and thus I do not recommend starting Parkinson's meds at this time. Can be considered as outpatient if patient's symptoms worsen or have not improved. Neurology will sign off at this time.
== END 2019-09-07 16:36 | disposition home health service (06) | DRG 57 ==
LOC: EC 11:02 → 3SCARD 15:21 → OBSVTOIN 09-06 08:27
PROVIDERS: ADMIT Family Medicine; ATTEND Family Medicine
DX: G21.19 Other drug induced secondary parkinsonism (principal); G45.9 Transient cerebral ischemic attack, unspecified; E11.36 Type 2 diabetes mellitus with diabetic cataract; K31.84 Gastroparesis; E86.0 Dehydration; E11.43 Type 2 diabetes mellitus with diabetic autonomic (poly)neuropathy; T45.0X5A Adverse effect of antiallergic and antiemetic drugs, initial encounter; H26.9 Unspecified cataract; I65.29 Occlusion and stenosis of unspecified carotid artery; I10 Essential (primary) hypertension; R29.810 Facial weakness; R47.81 Slurred speech; R40.2362 Coma scale, best motor response, obeys commands, at arrival to emergency department; R40.2142 Coma scale, eyes open, spontaneous, at arrival to emergency department; R40.2252 Coma scale, best verbal response, oriented, at arrival to emergency department; K21.9 Gastro-esophageal reflux disease without esophagitis; K59.00 Constipation, unspecified; E78.5 Hyperlipidemia, unspecified; R32 Unspecified urinary incontinence; M19.90 Unspecified osteoarthritis, unspecified site; R29.6 Repeated falls; F42.4 Excoriation (skin-picking) disorder; F41.9 Anxiety disorder, unspecified; F31.9 Bipolar disorder, unspecified; L30.9 Dermatitis, unspecified; K57.90 Diverticulosis of intestine, part unspecified, without perforation or abscess without bleeding; Z79.4 Long term (current) use of insulin; Z79.899 Other long term (current) drug therapy; Z99.3 Dependence on wheelchair; Z91.81 History of falling; Z86.73 Personal history of transient ischemic attack (TIA), and cerebral infarction without residual deficits; Z98.890 Other specified postprocedural states; Z90.49 Acquired absence of other specified parts of digestive tract; Z90.710 Acquired absence of both cervix and uterus; Z96.651 Presence of right artificial knee joint; Z87.440 Personal history of urinary (tract) infections; Z87.39 Personal history of other diseases of the musculoskeletal system and connective tissue; Z88.1 Allergy status to other antibiotic agents; Z88.0 Allergy status to penicillin; Z88.2 Allergy status to sulfonamides; Z88.8 Allergy status to other drugs, medicaments and biological substances; Y92.009 Unspecified place in unspecified non-institutional (private) residence as the place of occurrence of the external cause; Z83.3 Family history of diabetes mellitus
CPT/HCPCS: 36415; 70450; 70496; 70498; 71046; 80053; 81001; 82607; 82746; 83605; 83735; 83921; 84443; 84484; 85025; 85610; 85730; 86780; 87086; 93005; 96361; 96374; 99285

== ENCOUNTER 2019-09-28 15:56 | Inpatient (IN) | payer MEDICARE ==
[2019-09-28] MEDS ORDERED: SODIUM CHLORIDE 0.9% 1,000 ML IV STA ×2 (16:12)
--- NOTE | 2019-09-28 16:18 | ED ---
General Adult HPI - General Chief complaint: Recheck/Abnormal Lab/Rx Stated complaint: can't swallow, dehydrated Time Seen by Provider: 09/28/19 16:04 Source: patient, family Mode of arrival: wheelchair Limitations: altered mental status - History of Present Illness Initial comments: This 69-year-old white female presents with a complaint of feeling weak throughout her body. She also has had a decreased appetite with decreased food and fluid intake. She states that she has not been eating or drinking much at all for the past one week. She states that it feels like the food or fluid gets stuck in her throat. She does have a history of previous TIA versus CVA. She also apparently has Parkinson's disease. She has an appointment with the neuro logist in a couple of weeks. She denies any fevers or chills. Her daughter is present and gives much of the history. She states that her mother just doesn't seem to be acting right for the past several days and is in her own world. She denies any known fevers or recent infections. She presents very pale but denies any known history of anemia. She denies any GI bleeding. There is no cough or shortness of breath. She denies any chest pain. She does complain of generalized aches and pains throughout her body. No other complaints or modifying factors. She also was seen by the home health care nurse this morning and sent to the ER for further evaluation. - Related Data Home Medications Medication Instructions Recorded Confirmed Oxybutynin Chloride 5 mg PO BID 02/05/15 09/28/19 Potassium Chloride [Klor-Con 20] 20 meq PO BID 02/28/15 09/28/19 ALPRAZolam 1 mg PO QID PRN 06/04/16 09/28/19 Atorvastatin [Lipitor] 40 mg PO QAM 11/20/16 09/28/19 Insulin Glargine [Lantus] 20 unit SQ HS 09/03/17 09/28/19 Cranberry Fruit Extract [Cranberry] 1,000 mg PO BID 12/23/17 09/28/19 HYDROcodone/APAP 10-325MG [[place] 1 tab PO TID@0700,1300,1900 12/23/17 09/28/19 10-325] Magnesium Oxide [Mag-Ox] 500 mg PO AC-SUPPER 12/23/17 09/28/19 Omeprazole 20 mg PO DAILY 12/23/17 09/28/19 QUEtiapine [SEROquel] 50 mg PO BID 03/27/18 09/28/19 Sucralfate [Carafate] 1 gm PO AC-TID 03/27/18 09/28/19 Cholecalciferol [Vitamin D3 (25 1,000 unit PO DAILY 08/24/18 09/28/19 Mcg = 1000 Iu)] Furosemide [Lasix] 10 mg PO DAILY 12/26/18 09/28/19 Acetaminophen/Diphenhydramine 1 tab PO HS MDD SLEEP,PAIN, AND 09/04/19 09/28/19 [Tylenol PM 500-25mg] ALLERGY SYMPTO Cyclobenzaprine [Flexeril] 5 mg PO DAILY PRN 09/04/19 09/28/19 Meclizine [Antivert] 25 mg PO DAILY PRN 09/04/19 09/28/19 Vortioxetine Hydrobromide 20 mg PO DAILY 09/04/19 09/28/19 [Trintellix] Linaclotide [Linzess] 145 mcg PO DAILY 09/28/19 09/28/19 Previous Rx's Medication Instructions Recorded Aspirin 81 mg PO DAILY #30 chew 09/07/19 Allergies Allergy/AdvReac Type Severity Reaction Status Date / Time benactyzine AdvReac Abdominal Verified 09/28/19 17:13 Pain ciprofloxacin [From Cipro] AdvReac Abdominal Verified 09/28/19 17:13 Pain dicyclomine [From Bentyl] AdvReac Abdominal Verified 09/28/19 17:13 Pain levofloxacin [From Levaquin] AdvReac Abdominal Verified 09/28/19 17:13 Pain Penicillins AdvReac "Passed Verified 09/28/19 17:13 out" prednisone AdvReac Abdominal Verified 09/28/19 17:13 Pain sulfamethoxazole AdvReac Abdominal Verified 09/28/19 17:13 [From Bactrim] Pain tamsulosin HCl [From Flomax] AdvReac Abdominal Verified 09/28/19 17:13 Pain trimethoprim [From Bactrim] AdvReac Abdominal Verified 09/28/19 17:13 Pain Review of Systems ROS Statement: Those systems with pertinent positive or pertinent negative responses have been documented in the HPI. ROS Other: All systems not noted in ROS Statement are negative. Past Medical History Past Medical History: Diabetes Mellitus, GERD/Reflux, Hyperlipidemia, Hypertension, Osteoarthritis (OA), Skin Disorder Additional Past Medical History / Comment(s): IDDM type II, chronic dermatitis/past cellulitis arms/hands, past falls, gout ,hx of hiatal hernia with surgery, diverticulosis, constipation, arthritis multiple joints, recurrent UTIs, occasionally incontinent.uti, cataracts. "wears depends just in case",edentulous History of Any Multi-Drug Resistant Organisms: None Reported Date of last positivie culture/infection: None MDRO Source:: None Past Surgical History: Cholecystectomy, Hysterectomy, Joint Replacement Additional Past Surgical History / Comment(s): hemorroidectomy, colonoscopy, eg d, LAP GUCCI FUNDLOPLICATION,rt knee replacement Past Anesthesia/Blood Transfusion Reactions: No Reported Reaction Additional Past Anesthesia/Blood Transfusion Reaction / Comment(s): . Past Psychological History: Anxiety, Depression Smoking Status: Never smoker Past Alcohol Use History: None Reported Past Drug Use History: None Reported - Past Family History Father Family Medical History: Diabetes Mellitus Additional Family Medical History / Comment(s): Father in his 80s. Mother Family Medical History: Diabetes Mellitus Additional Family Medical History / Comment(s): Mother in her 80s General Exam - General Exam Comments Initial Comments: GENERAL: The patient is well nourished and well hydrated. VITAL SIGNS: Heart rate, blood pressure, respiratory rate reviewed as recorded in nurse's notes. EYES: Pupils are round and reactive. Extraocular movements are intact. No conjunctival / lid redness or swelling. ENT: No external evidence of injury, swelling, or ecchymosis. Airway is patent. Throat is clear. Mucous membranes are very dry. NECK: Nontender. No swelling or evidence of injury. No subcutaneous emphysema. Trachea is midline. No thyroid mass. HEART: Regular rate and rhythm. Good peripheral pulses. LUNGS/CHEST: Breath sounds clear and equal bilaterally. No rales, rhonchi, or wheezes. No ecchymosis, subcutaneous emphysema, or tenderness. ABDOMEN: Abdomen soft without tenderness. No palpable masses or organomegaly. No peritoneal signs. No abdominal wall swelling or ecchymosis. EXTREMITIES: No extremity tenderness. Normal muscle tone and function. No thoracolumbar tenderness. NEUROLOGIC: Sensation is grossly intact. Cranial nerve exam reveals face is symmetrical, tongue is midline, speech is slightly slurred. SKIN: No abrasions or ecchymosis is noted. No induration or masses noted. PSYCHIATRIC: Alert and pleasant, cooperative Limitations: altered mental status Course Vital Signs 09/28/19 09/28/19 15:57 17:00 Temperature 98.2 F Pulse Rate 112 H 97 Respiratory 20 18 Rate Blood Pressure 119/80 101/66 O2 Sat by Pulse 97 100 Oximetry Medical Decision Making - Medical Decision Making The patient was seen and examined. All diagnostics are reviewed. Old records are reviewed. She is hydrated. Due to some mild mental status changes and a computed tomography scan of the brain was done and this does not show any acute abnormalities. A chest x-ray is done and there is no evidence of infection. The laboratory shows some mild hyperglycemia. The remainder of laboratory overall is unremarkable. Urinalysis is pending. It appears that the patient is unable to swallow both food and fluids. It is felt as though she benefit from admission to the hospital for further IV hydration and additional diagnostic workup. Case will be discussed with PCP in the near future. - Lab Data Result diagrams: 09/28/19 14:25 09/28/19 14:25 Lab Results 09/28/19 09/28/19 09/28/19 Range/Units 14:25 14:25 14:25 WBC 7.0 (3.8-10.6) k/uL RBC 4.49 (3.80-5.40) m/uL Hgb 14.1 D (11.4-16.0) gm/dL Hct 43.9 (34.0-46.0) % MCV 97.7 (80.0-100.0) fL MCH 31.4 (25.0-35.0) pg MCHC 32.2 (31.0-37.0) g/dL RDW 13.5 (11.5-15.5) % Plt Count 309 (150-450) k/uL Neutrophils % 70 % Lymphocytes % 23 % Monocytes % 4 % Eosinophils % 1 % Basophils % 1 % Neutrophils # 4.9 (1.3-7.7) k/uL Lymphocytes # 1.6 (1.0-4.8) k/uL Monocytes # 0.3 (0-1.0) k/uL Eosinophils # 0.1 (0-0.7) k/uL Basophils # 0.1 (0-0.2) k/uL PT (9.0-12.0) sec INR (<1.2) APTT (22.0-30.0) sec Sodium 139 (137-145) mmol/L Potassium 4.4 (3.5-5.1) mmol/L Chloride 103 (98-107) mmol/L Carbon Dioxide 25 (22-30) mmol/L Anion Gap 11 mmol/L BUN 15 (7-17) mg/dL Creatinine 0.71 (0.52-1.04) mg/dL Est GFR (CKD-EPI)AfAm >90 (>60 ml/min/1.73 sqM) Est GFR (CKD-EPI)NonAf 87 (>60 ml/min/1.73 sqM) Glucose 143 H (74-99) mg/dL Plasma Lactic Acid Reginald 2.0 (0.7-2.0) mmol/L Calcium 10.1 (8.4-10.2) mg/dL Phosphorus 4.4 (2.5-4.5) mg/dL Magnesium 1.8 (1.6-2.3) mg/dL Total Bilirubin 0.7 (0.2-1.3) mg/dL AST 68 H (14-36) U/L ALT 28 (4-34) U/L Alkaline Phosphatase 83 (38-126) U/L Troponin I (0.000-0.034) ng/mL Total Protein 7.2 (6.3-8.2) g/dL Albumin 4.2 (3.5-5.0) g/dL Blood Type Blood Type Recheck Bld Type Recheck Status Antibody Screen Spec Expiration Date 09/28/19 09/28/19 09/28/19 Range/Units 14:25 14:25 14:25 WBC (3.8-10.6) k/uL RBC (3.80-5.40) m/uL Hgb (11.4-16.0) gm/dL Hct (34.0-46.0) % MCV (80.0-100.0) fL MCH (25.0-35.0) pg MCHC (31.0-37.0) g/dL RDW (11.5-15.5) % Plt Count (150-450) k/uL Neutrophils % % Lymphocytes % % Monocytes % % Eosinophils % % Basophils % % Neutrophils # (1.3-7.7) k/uL Lymphocytes # (1.0-4.8) k/uL Monocytes # (0-1.0) k/uL Eosinophils # (0-0.7) k/uL Basophils # (0-0.2) k/uL PT 11.3 (9.0-12.0) sec INR 1.1 (<1.2) APTT 26.1 (22.0-30.0) sec Sodium (137-145) mmol/L Potassium (3.5-5.1) mmol/L Chloride (98-107) mmol/L Carbon Dioxide (22-30) mmol/L Anion Gap mmol/L BUN (7-17) mg/dL Creatinine (0.52-1.04) mg/dL Est GFR (CKD-EPI)AfAm (>60 ml/min/1.73 sqM) Est GFR (CKD-EPI)NonAf (>60 ml/min/1.73 sqM) Glucose (74-99) mg/dL Plasma Lactic Acid Reginald (0.7-2.0) mmol/L Calcium (8.4-10.2) mg/dL Phosphorus (2.5-4.5) mg/dL Magnesium (1.6-2.3) mg/dL Total Bilirubin (0.2-1.3) mg/dL AST (14-36) U/L ALT (4-34) U/L Alkaline Phosphatase (38-126) U/L Troponin I <0.012 (0.000-0.034) ng/mL Total Protein (6.3-8.2) g/dL Albumin (3.5-5.0) g/dL Blood Type O Positive Blood Type Recheck O Pos Bld Type Recheck Status No Antibody Screen NEGATIVE Spec Expiration Date 10/01/20192324 Disposition Clinical Impression: Weakness, Dehydration, Hyperglycemia, Dysphagia, Parkinsons disease Disposition: ADMITTED IP TO THIS [facility] Condition: Fair Is patient prescribed a controlled substance at d/c from ED?: No Time of Disposition: 17:51 Decision Date: 09/28/19 Decision Time: 17:51
[2019-09-28 16:58] LABS: ALT 28 U/L (4-34); AST 68 U/L (14-36); African American GFR (CKD) >90 (>60 ml/min/1.73 sqM); Albumin 4.2 g/dL (3.5-5.0); Alkaline Phosphatase 83 U/L (38-126); Anion Gap 11 mmol/L; Blood Urea Nitrogen 15 mg/dL (7-17); Calcium 10.1 mg/dL (8.4-10.2); Carbon Dioxide 25 mmol/L (22-30); Chloride 103 mmol/L (98-107); Glucose 143 mg/dL (74-99); Magnesium 1.8 mg/dL (1.6-2.3); Non-African American GFR(CKD) 87 (>60 ml/min/1.73 sqM); Phosphorus 4.4 mg/dL (2.5-4.5); Potassium 4.4 mmol/L (3.5-5.1); Sodium 139 mmol/L (137-145); Total Bilirubin 0.7 mg/dL (0.2-1.3); Total Protein 7.2 g/dL (6.3-8.2)
[2019-09-28 17:00] LABS: INR 1.1 (<1.2); Partial Thromboplastin Time 26.1 sec (22.0-30.0); Prothrombin Time 11.3 sec (9.0-12.0)
--- NOTE | 2019-09-28 17:15 | CT ---
EXAMINATION TYPE: CT brain wo con DATE OF EXAM: 09/28/2019 COMPARISON: 09/04/2019 HISTORY: Altered mental status. CT DLP: 1099.4 mGycm Automated exposure control for dose reduction was used. There is mild cerebral cortical atrophy. There is no mass effect nor midline shift. There is no sign of intracranial hemorrhage. The calvarium is intact. There is no evidence of cerebral edema. IMPRESSION: Mild atrophy. No acute intracranial abnormality. No change.
--- NOTE | 2019-09-28 17:18 | XR ---
EXAMINATION TYPE: XR chest 2V DATE OF EXAM: 09/28/2019 COMPARISON: 09/04/2019 HISTORY: Weakness TECHNIQUE: FINDINGS: Heart and mediastinum are normal. Lungs are clear. Diaphragm is normal. There are chest manohar ds. Bony thorax is intact. IMPRESSION: Normal chest. No change.
[2019-09-28 17:22] LABS: Basophils # (A) 0.1 k/uL (0-0.2); Basophils % (A) 1 %; Eosinophils # (A) 0.1 k/uL (0-0.7); Eosinophils % (A) 1 %; HCT 43.9 % (34.0-46.0); Lymphocytes # (A) 1.6 k/uL (1.0-4.8); Lymphocytes % (A) 23 %; MCH 31.4 pg (25.0-35.0); MCHC 32.2 g/dL (31.0-37.0); MCV 97.7 fL (80.0-100.0); Mean Platelet Volume 7.8; Monocytes # (A) 0.3 k/uL (0-1.0); Monocytes % (A) 4 %; Neutrophils # (A) 4.9 k/uL (1.3-7.7); Neutrophils % (A) 70 %; Platelet Count 309 k/uL (150-450); RBC 4.49 m/uL (3.80-5.40); RDW 13.5 % (11.5-15.5)
[2019-09-28 17:27] LABS: HGB 14.1 gm/dL (11.4-16.0)
[2019-09-28] MEDS ORDERED: ONDANSETRON 4 MG/2 ML VIAL IVP PRN (17:52)
[2019-09-28] MEDS ORDERED: NALOXONE 0.4 MG/ML 1 ML VIAL IV PRN (17:52)
[2019-09-28] MEDS ORDERED: MORPHINE SULFATE 4 MG/ML SYRINGE IV PRN (17:58)
[2019-09-28] MEDS: LORazepam 2 MG/ML INJ IV SCH (20:34)
[2019-09-28] MEDS: INSULIN DETEMIR (LEVEMIR) 100 UNIT/ML SYR SQ SCH (23:29)
--- NOTE | 2019-09-29 09:15 | HP ---
HISTORY AND PHYSICAL This is a 69-year-old white female presenting with weakness throughout her entire body, decreased appetite, decreased fluid and oral intake, has not been eating or drinking for at least a week. She feels like food gets stuck in her throat. She has a history of previous TIA versus CVA, Parkinson disease. She has an appointment with neurologist in a couple weeks. She has not been acting well for the last several days. She is very pale. Denies any anemia. Denies any GI bleeding. No cough, shortness of breath, general muscle aches throughout her entire body. She has history of bipolar depression, urinary incontinence, chronic lumbar disc disease, diastolic CHF, GERD, vertigo, opioid induced constipation. ALLERGIES: Allergies are to BENACTYZINE, CIPRO, DICYCLOMINE, LEVAQUIN, PENICILLIN, PREDNISONE, BACTRIM, FLOMAX. HOME MEDICINES: 1. Oxybutynin. 2. Potassium chloride. 3. Alprazolam. 4. Lipitor. 5. Lantus. 6. Cranberry. 7. Lamy. 8. Mag-Ox. 9. Omeprazole. 10.Seroquel. 11.Carafate. 12.Vitamin D. 13.Lasix. 14.Benadryl. 15.Flexeril. 16.Antivert. 17.Trintellix. 18.Linzess. REVIEW OF SYSTEMS: Fourteen-point review of systems as mentioned above, otherwise negative. PAST MEDICAL HISTORY: Diabetes mellitus, GERD, dyslipidemia, hypertension, osteoarthritis, skin disorder, type 2 diabetes mellitus, gout, diverticulosis, constipation, arthritis multiple joints, recurrent UTIs, cataracts. SURGICAL HISTORY: Cholecystectomy, hysterectomy, joint replacement, Yung. Anxiety depression. No smoking. No alcohol. No illicit drugs. FAMILY HISTORY: Diabetes mellitus in the father. Mother with diabetes mellitus. PHYSICAL EXAM: Temperature 98.2, blood pressure , pulse 112, O2 of 97% to 100%, respiratory rate 18 to 20. White count 7, hemoglobin 14.1, BUN is 15, creatinine 0.71. CARDIOVASCULAR: S1, S2. LUNGS: Are clear with decreased breath sounds x4. GI: Soft. Mild tenderness to palpation epigastric. EXTREMITIES: Show 2 to 3+ edema. PSYCH: Flat mood and affect. Cranial nerves appear to be intact neurologically. Troponins are negative. ASSESSMENT: 1. Weakness, dehydration. 2. Hyperglycemia from insulin-dependent diabetes mellitus. 3. Dysphagia. 4. Parkinson disease. Neurology consult. GI consult for dysphagia. A swallow eval will be done. Rehydration is being performed. Please see further orders. MMODL / IJN: [id number] /
[2019-09-29] MEDS: LORazepam 2 MG/ML INJ IV SCH ×4 (09:47→18:51)
[2019-09-29] MEDS: ENOXAPARIN 40 MG/0.4 ML SYRINGE SQ SCH (10:10)
[2019-09-29] MEDS: PANTOPRAZOLE 40 MG/10 ML VIAL IV SCH (10:10)
[2019-09-29 10:57] LABS: Glucose,Whole Blood 160 mg/dL (75-99)
--- NOTE | 2019-09-29 11:13 | FL ---
EXAMINATION TYPE: FL barium swallow w video DATE OF EXAM: 09/29/2019 MODIFIED SWALLOW / DEGLUTITION STUDY CLINICAL HISTORY: Dysphagia. History of Parkinson's disease. TECHNIQUE: Deglutition study is performed utilizing thin liquid barium, honey and nectar thick liqui d barium, barium thick applesauce, and barium coated cracker. 1.02 minutes of fluoroscopy time was ut ilized with 0 images saved as the examination was video recorded. COMPARISON: None. FINDINGS: The oral and pharyngeal phases show delayed initiation and propagation with all modalities tested. Normal mastication is seen with solid modalities tested. There is no evidence of penetratio n or aspiration with any modality tested. No significant pharyngeal residue was appreciated. IMPRESSION: Abnormal oral pharyngeal phase otherwise unremarkable deglutition study with no evidence of laryngeal penetration or aspiration. Please refer to speech therapist notes for further details i f necessary.
[2019-09-29 20:28] LABS: Glucose,Whole Blood 176 mg/dL (75-99)
[2019-09-29] MEDS ORDERED: CYCLOBENZAPRINE 5 MG TAB PO PRN (20:36)
[2019-09-29] MEDS ORDERED: NON FORMULARY DRUG (Omeprazole [Omeprazole] 20 MG) PO SCH (20:45)
[2019-09-29] MEDS: IPRATROPIUM-ALBUTEROL 3 ML NEB INHALATION PRN (20:57)
[2019-09-29] MEDS: QUEtiapine 50 MG TAB PO SCH (21:44)
[2019-09-29] MEDS: OXYBUTYNIN CHLORIDE 5 MG TAB PO SCH (21:44)
[2019-09-29] MEDS: POTASSIUM CHLORIDE ER 20 MEQ TAB.ER PO SCH (21:44)
[2019-09-29] MEDS: SODIUM CHLORIDE 0.9% 1,000 ML IV SCH (21:44)
[2019-09-29] MEDS: ACETAMINOPHEN TAB 500 MG TAB PO SCH (21:47)
[2019-09-29] MEDS: MAGNESIUM OXIDE 400 MG TAB PO SCH (21:55)
[2019-09-29] MEDS: NON FORMULARY DRUG (Cranberry Fruit Extract [Cranberry] 1,000 MG) PO SCH (21:59)
[2019-09-29] MEDS: NON FORMULARY DRUG (Linaclotide [Linzess] 145 MCG) PO SCH (21:59)
[2019-09-29] MEDS: INSULIN DETEMIR (LEVEMIR) 100 UNIT/ML SYR SQ SCH (22:11)
--- NOTE | 2019-09-29 22:36 | CONS ---
CONSULTATION DATE OF DICTATION: 09/29/2019 REASON FOR CONSULTATION: Dysphagia. HISTORY OF PRESENT ILLNESS: The patient is a 69-year-old pleasant white female admitted to the hospital because of not feeling well, decreased appetite, difficulty swallowing for the last several weeks' duration. Her symptoms have been especially worse for the last one week. She feels that the food gets stuck in her throat area, but most of the time she does not eat because she has lack of appetite. She had Yung fundoplication done by Dr. Kat in 2016. Since then she has been having intermittent episodes of dysphagia. She had an upper endoscopy in 2017 and an upper endoscopy in 2018 with dilation of the lower esophageal sphincter. She states that she has been doing reasonably well with dysphagia until 1-2 weeks ago. She denies any abdominal pain. She reports no nausea, vomiting. Denies any rectal bleeding or melena. PAST MEDICAL HISTORY: Her past medical history is significant for hypertension, hyperlipidemia, anxiety, depression, degenerative joint disease, type 2 diabetes mellitus, history of gout, diverticulosis, recurrent UTIs. PAST SURGICAL HISTORY: Cholecystectomy, hysterectomy, Yung fundoplication, bilateral cataract surgery. MEDICATIONS: Medications at home include oxybutynin, potassium chloride, Xanax, Lipitor, Lantus, Issue, magnesium oxide, omeprazole, Seroquel, Carafate, vitamin D, Lasix, Antivert, Trintellix, Linzess, Flexeril and Bentyl. ALLERGIES: NONE. SOCIAL HISTORY: No smoking. No alcohol use. FAMILY HISTORY: Mother had diabetes mellitus. REVIEW OF SYSTEMS: CARDIOPULMONARY: No chest pain or shortness of breath. GENITOURINARY: No dysuria or hematuria. MUSCULOSKELETAL: Unremarkable. SKIN: Unremarkable. ENDOCRINE: Unremarkable. PSYCHIATRIC: Unremarkable. NEUROLOGY: Unremarkable. ENT/VISION: Unremarkable. CONSTITUTIONAL: No recent weight loss. No fever, chills, night sweats. PHYSICAL EXAMINATION: She appears comfortable. No apparent distress. VITAL SIGNS: Stable. Blood pressure is 111/82, pulse rate 78, temperature 97.8. HEENT examination unremarkable. Conjunctivae pink. Sclerae anicteric. Oral cavity no lesions. NECK: No JVD or lymph node enlargement. CHEST: Clear to auscultation. HEART: Regular rate and rhythm. ABDOMEN: Soft. Bowel sounds are positive. No organomegaly. EXTREMITIES: No pedal edema. SKIN: No rashes. NEUROLOGIC: Alert and oriented x3. No focal deficits. LABS/IMAGING: WBC is 7, hemoglobin 14, platelets normal. Basic metabolic panel is within normal limits. PT/INR is within normal limits. ALT normal, AST 68. T-bilirubin and alkaline phosphatase are normal. Albumin is 4.2. She had a modified barium swallow with video fluoroscopy done that showed abnormal oropharyngeal phase, but otherwise it was unremarkable, with no evidence of aspiration or penetration. IMPRESSION: 1. Decreased appetite. 2. Intermittent dysphagia to solids for the last few weeks' duration. She has been having issues with swallowing for the last 3-4 years, status post Yung fundoplication about 2016. After that she had a couple of endoscopies done by Dr. Kat, the last one in 2018 with dilation of the distal esophagus, but no obvious stricture identified. 3. Possible depression. RECOMMENDATIONS: 1. Will obtain barium esophagogram to evaluate the entire esophagus prior to considering any endoscopic intervention. 2. Discussed with the patient about video fluoroscopic barium swallow results which appeared normal with no evidence of aspiration or penetration. 3. Will start her on a soft diet and observe her while in the hospital. 4. It is possible that she has depression that could be causing some of her symptoms at this time, which needs to be addressed. For now, will follow her closely during her hospital stay. Thank you for this consultation. MMVIVIL / KELLY: [id number] /
[2019-09-30] MEDS: LORazepam 2 MG/ML INJ IV SCH ×5 (00:30→23:32)
[2019-09-30] MEDS ORDERED: MECLIZINE 25 MG TAB PO PRN (07:00)
[2019-09-30 07:12] LABS: Glucose,Whole Blood 81 mg/dL (75-99)
[2019-09-30 08:43] LABS: Appearance,Urine Clear (Clear); Bilirubin,Urine Negative (Negative); Blood,Urine Trace (Negative); Color,Urine Light Yellow; Glucose,Urine (UA) Negative (Negative); Ketones,Urine Trace (Negative); Leukocyte Esterase,Urine Negative (Negative); Mucus,Urine Rare /hpf; Nitrite,Urine Negative (Negative); PH, Urine 6.5 (5.0-8.0); Protein,Urine Negative (Negative); RBC,Urine 6 /hpf (0-5); Specific Gravity,Urine 1.009 (1.001-1.035); Urobilinogen,Urine <2.0 mg/dL (<2.0)
[2019-09-30] MEDS: HYDROcodone/APAP 10-325MG 1 EACH TAB PO SCH ×3 (09:34→19:23)
[2019-09-30] MEDS: QUEtiapine 50 MG TAB PO SCH ×2 (09:35→21:21)
[2019-09-30] MEDS: ASPIRIN 81 MG PO SCH (09:35)
[2019-09-30] MEDS: PANTOPRAZOLE 40 MG/10 ML VIAL IV SCH (09:35)
[2019-09-30] MEDS: CHOLECALCIFEROL 1,000 UNIT TAB PO SCH (09:35)
[2019-09-30] MEDS: OXYBUTYNIN CHLORIDE 5 MG TAB PO SCH ×2 (09:35→21:22)
[2019-09-30] MEDS: POTASSIUM CHLORIDE ER 20 MEQ TAB.ER PO SCH ×2 (09:35→21:21)
[2019-09-30] MEDS: SUCRALFATE 1 GM TAB PO SCH ×3 (09:35→16:24)
[2019-09-30] MEDS: ATORVASTATIN 40 MG TAB PO SCH (09:35)
[2019-09-30] MEDS: VORTIOXETINE HYDROBROMIDE 20 MG TABLET PO SCH (09:36)
[2019-09-30] MEDS: ENOXAPARIN 40 MG/0.4 ML SYRINGE SQ SCH (09:36)
[2019-09-30] MEDS: FUROSEMIDE 10 MG TAB PO SCH (09:36)
[2019-09-30] MEDS: NON FORMULARY DRUG (Linaclotide [Linzess] 145 MCG) PO SCH (09:51)
[2019-09-30] MEDS: NON FORMULARY DRUG (Cranberry Fruit Extract [Cranberry] 1,000 MG) PO SCH ×2 (09:51→21:20)
--- NOTE | 2019-09-30 10:00 | FL ---
EXAMINATION TYPE: FL barium swallow DATE OF EXAM: 09/30/2019 CLINICAL INDICATION: 69 year-old female with dysphagia, trouble swallowing solids for 3 weeks. COMPARISON: None Total Fluoroscopy Time: 1 minute 8 seconds Total images: 23 FINDINGS: The cervical portion shows normal anatomy. The thoracic portion shows normal course and caliber. No s uspicious filling defect or mucosal abnormality. There is a small hiatal hernia demonstrated and a th in, smooth circumferential narrowing at the GE junction which persists. The patient became unsteady o n her feet and was determined to be a fall risk. The exam was terminated at this point. Prone drinkin g was not performed. IMPRESSION: 1. Thin, smooth circumferential narrowing at the GE junction suggest a Schatzki ring. Correlate as to if this may be contributing to the patient's symptoms. 2. Small hiatal hernia. 3. The exam was prematurely terminated prior to thin barium as the patient is a fall risk.
[2019-09-30 11:33] LABS: Glucose,Whole Blood 148 mg/dL (75-99)
[2019-09-30 13:21] VITALS: BMI 32.9
[2019-09-30] MEDS: MAGNESIUM OXIDE 400 MG TAB PO SCH (16:24)
[2019-09-30] MEDS: SODIUM CHLORIDE 0.9% 1,000 ML IV SCH (16:24)
[2019-09-30 17:03] LABS: Glucose,Whole Blood 134 mg/dL (75-99)
[2019-09-30 20:45] LABS: Glucose,Whole Blood 158 mg/dL (75-99)
[2019-09-30] MEDS: INSULIN DETEMIR (LEVEMIR) 100 UNIT/ML SYR SQ SCH (21:21)
[2019-09-30] MEDS: ACETAMINOPHEN TAB 500 MG TAB PO SCH (21:22)
--- NOTE | 2019-09-30 23:01 | PN ---
PROGRESS NOTE DATE OF DICTATION: 09/30/2019 The patient is a 69-year-old pleasant white female admitted to the hospital with fatigue, weakness, decreased appetite and dysphagia. She was seen in consultation yesterday. Her barium esophagogram was ordered yesterday which was done and revealed a thin small circumferential narrowing at the GE junction suspicious for a Schatzki's ring and a small hiatal hernia. The patient in the meantime has been eating reasonably well. She still has occasional dysphagia with solids. She is status post Yung fundoplication about [address] Kat. PHYSICAL EXAMINATION: Appears comfortable. No apparent distress. VITAL SIGNS: Stable. Blood pressure is 113/74, pulse rate 94, temperature 97.6. HEENT examination unremarkable. Conjunctivae pink. Sclerae anicteric. Oral cavity no lesions. NECK: No JVD or lymph node enlargement. CHEST: Clear to auscultation. HEART: Regular rate and rhythm. ABDOMEN: Soft. Bowel sounds are positive. No organomegaly. EXTREMITIES: No pedal edema. SKIN: No rashes. NEUROLOGIC: Alert and oriented x3. No focal deficits. LABS: None available from today. IMPRESSION: 1. Intermittent dysphagia to solids for the last few weeks' duration. Recent barium esophagogram showed possible smooth short distal esophageal Schatzki's ring. 2. History of gastroesophageal reflux disease, status post Yung fundoplication [address] Kat. 3. Decreased appetite. 4. Mild depression. RECOMMENDATIONS: I discussed with the patient as well as the family the barium esophagogram results. There was evidence of possible Schatzki's ring in the distal esophagus and with ongoing dysphagia we will proceed with an upper endoscopy with possible dilation tomorrow. I discussed with the patient and family the risks, benefits and complications of the procedure, and she is agreeable to it. Thank you for this consultation. MMODL / IJN: [id number] /
[2019-10-01] MEDS: LORazepam 2 MG/ML INJ IV SCH ×3 (05:44→20:22)
[2019-10-01 07:14] LABS: Glucose,Whole Blood 127 mg/dL (75-99)
[2019-10-01 09:17] LABS: Basophils # (A) 0.1 k/uL (0-0.2); Basophils % (A) 1 %; Eosinophils # (A) 0.2 k/uL (0-0.7); Eosinophils % (A) 4 %; HCT 36.9 % (34.0-46.0); HGB 12.3 gm/dL (11.4-16.0); Lymphocytes # (A) 1.9 k/uL (1.0-4.8); Lymphocytes % (A) 40 %; MCH 32.9 pg (25.0-35.0); MCHC 33.4 g/dL (31.0-37.0); MCV 98.5 fL (80.0-100.0); Mean Platelet Volume 7.3; Monocytes # (A) 0.2 k/uL (0-1.0); Monocytes % (A) 5 %; Neutrophils # (A) 2.5 k/uL (1.3-7.7); Neutrophils % (A) 50 %; Platelet Count 279 k/uL (150-450); RBC 3.74 m/uL (3.80-5.40); RDW 13.3 % (11.5-15.5); WBC 4.9 k/uL (3.8-10.6)
[2019-10-01 09:35] LABS: African American GFR (CKD) >90 (>60 ml/min/1.73 sqM); Anion Gap 6 mmol/L; Blood Urea Nitrogen 10 mg/dL (7-17); Calcium 9.3 mg/dL (8.4-10.2); Carbon Dioxide 28 mmol/L (22-30); Chloride 107 mmol/L (98-107); Glucose 111 mg/dL (74-99); Non-African American GFR(CKD) >90 (>60 ml/min/1.73 sqM); Potassium 4.1 mmol/L (3.5-5.1); Sodium 141 mmol/L (137-145)
[2019-10-01] MEDS: HYDROcodone/APAP 10-325MG 1 EACH TAB PO SCH ×3 (10:54→20:23)
[2019-10-01] MEDS: SUCRALFATE 1 GM TAB PO SCH ×3 (10:54→17:57)
[2019-10-01] MEDS: NON FORMULARY DRUG (Cranberry Fruit Extract [Cranberry] 1,000 MG) PO SCH ×2 (10:54→20:36)
[2019-10-01] MEDS: OXYBUTYNIN CHLORIDE 5 MG TAB PO SCH ×2 (10:55→20:23)
[2019-10-01] MEDS: NON FORMULARY DRUG (Linaclotide [Linzess] 145 MCG) PO SCH (10:55)
[2019-10-01] MEDS: POTASSIUM CHLORIDE ER 20 MEQ TAB.ER PO SCH ×2 (10:55→20:23)
[2019-10-01] MEDS: QUEtiapine 50 MG TAB PO SCH ×2 (10:55→20:22)
[2019-10-01] MEDS: VORTIOXETINE HYDROBROMIDE 20 MG TABLET PO SCH (10:55)
[2019-10-01] MEDS: CHOLECALCIFEROL 1,000 UNIT TAB PO SCH (11:02)
[2019-10-01] MEDS: ASPIRIN 81 MG PO SCH (11:02)
[2019-10-01] MEDS: ENOXAPARIN 40 MG/0.4 ML SYRINGE SQ SCH (11:02)
[2019-10-01] MEDS: ATORVASTATIN 40 MG TAB PO SCH (11:02)
[2019-10-01] MEDS: FUROSEMIDE 10 MG TAB PO SCH (11:03)
[2019-10-01] MEDS: IPRATROPIUM-ALBUTEROL 3 ML NEB INHALATION PRN (11:12)
[2019-10-01] MEDS: PANTOPRAZOLE 40 MG/10 ML VIAL IV SCH (11:17)
[2019-10-01] MEDS ORDERED: LIDOCAINE 1% INJ 10MG/ML (20 ML MDV) ONE (11:57)
[2019-10-01] MEDS ORDERED: MIDAZOLAM 2 MG/2 ML VIAL ONE (11:57)
[2019-10-01] MEDS ORDERED: PROPOFOL 10 MG/ML 20 ML VIAL IV ONE (11:57)
[2019-10-01] MEDS ORDERED: IV FLUID CONTINUATION 1,000 ML IV ONE (11:57)
--- NOTE | 2019-10-01 12:30 | P.PCN ---
Date of Procedure: 10/01/19 Description of Procedure: BRIEF HISTORY: 69-year-old female with complaints of intermittent solid food dysphagia occurring over the past few weeks. Barium esophagram showed possible small short distal esophageal Schatzki's ring. She does have a prior history of gastroesophageal reflux disease as well as prior Yung fundoplication. PROCEDURE PERFORMED: Esophagogastroduodenoscopy with biopsy and gwgnqns-fdt-ybyne balloon dilation of the esophagus. PREOPERATIVE DIAGNOSIS: Esophageal dysphagia. ESTIMATED BLOOD LOSS: Minimal. IV sedation per anesthesia. PROCEDURE: After informed consent was obtained, the patient was brought into the endoscopy unit. IV sedation was administered by Anesthesia under continuous monitoring. Initially the Olympus GIF-190 video endoscope was inserted into the mouth. Esophagus intubated without any difficulty. It was gradually advanced into the stomach and duodenum and carefully examined. The bulb and the second part of the duodenum appeared normal, with biopsies taken. The scope at this time was withdrawn to the stomach, adequately insufflated with air, and upon careful examination, mucosa of the antrum, body, cardia and the fundus appeared normal, except for some mild scattered erythema in the antrum and body suggestive of mild gastritis with biopsies taken. The scope was then withdrawn into the esophagus. The GE junction was located at 36 cm from the incisors and was significant for a benign-appearing stricture likely secondary to prior Yung fundoplication which was dilated serially with a [id number] balloon dilator to 1213.515 mm. The esophagus appeared normal. There were no erosions or ulcerations seen and the patient tolerated the procedure well. IMPRESSION: 1. Benign appearing distal esophageal stricture likely related to prior Yung fundoplication, serially dilated with hmjacjn-iro-[id number] balloon dilator. 2. Mild gastritis antrum and body, biopsied. 3. Duodenal biopsies. RECOMMENDATIONS: The findings of this examination were discussed with the patient and her family. Okay to resume diet. Okay to resume medications. Okay to resume dysphagia 3 diet. Continue PPI therapy. Okay for discharge when otherwise medically stable.
[2019-10-01] MEDS: SODIUM CHLORIDE 0.9% 1,000 ML IV SCH (15:02)
[2019-10-01 15:05] VITALS: RESP 20
[2019-10-01] MEDS ORDERED: LORazepam 2 MG/ML INJ IV STA (16:18)
[2019-10-01] MEDS: SODIUM CHLORIDE 0.65% NASAL SPRAY 44 ML BTL NASAL PRN ×2 (16:24→20:24)
--- NOTE | 2019-10-01 16:58 | P.PN ---
Subjective Progress Note Date: 09/30/19 This is a 69-year-old female admitted with weakness, dehydration, hyperglycemia, dysphagia with history of Parkinson's disease, CVA, diabetes mellitus, gastroesophageal reflux disease, Xu fundoplication and multiple other medical issues. Modified swallow reported abnormal oral pharyngeal phase . Attempted barium swallow this morning suggesting distal esophageal Schatzki's ring, small hiatal hernia with exam prematurely terminated given patient's fall risk. Also presenting with urinary retention. Discussed with patient and family acute rehab upon discharge, declined by all. Denies any chest pain, palpitations or shortness of breath. Denies any lightheadedness, focal deficits. Objective - Vital Signs Vital signs: Vital Signs Temp 97.6 F 09/30/19 13:00 Pulse 94 09/30/19 13:00 Resp 18 09/30/19 13:00 BP 113/74 09/30/19 13:00 Pulse Ox 98 09/30/19 13:00 Intake & Output 09/29/19 09/30/19 09/30/19 18:59 06:59 18:59 Intake Total 400 120 Output Total 2030 Balance 400 -1910 Weight 81.647 kg 81.647 kg 81.647 kg Intake: Oral 400 120 Output: Urine 1550 Straight 900 Uretheral (Dejesus) 550 Post Void Residual 480 Other: Voiding Method Bedside Commode Diaper # Voids 1 0 # Bowel Movements 1 - Exam PHYSICAL EXAM: VITAL SIGNS: [As above] GENERAL: Sitting up in chair, no acute distress HEENT: Conjunctivae normal. eyes normal. Sclerae anicteric NECK: No JVD. No thyroid enlargement. No LNs CARDIOVASCULAR: S1, S2 regular. No murmur RESPIRATION: Breath sounds diminished in the bases. No rhonchi or crackles. No bronchial breathing. ABDOMEN: Soft, nontender . No guarding. no masses palpable. No ascites, No hepatosplenomegaly.Bowel sounds heard. LEGS: Positive edema PSYCHIATRY: Alert and oriented X3, mood and affect flat. NERVOUS SYSTEM: Cranial N 2-12 grossly normal. Moves all 4 limbs. Diffuse weakness, No focal deficits. Skin: no rash - Labs CBC & Chem 7: 10/01/19 08:55 10/01/19 08:55 Labs: Abnormal Lab Results - Last 24 Hours (Table) 09/29/19 09/30/19 09/30/19 Range/Units 20:22 07:46 11:32 POC Glucose (mg/dL) 176 H 148 H (75-99) mg/dL Urine Ketones Trace H (Negative) Urine Blood Trace H (Negative) Urine RBC 6 H (0-5) /hpf Urine Mucus Rare H (None) /hpf 09/30/19 Range/Units 17:01 POC Glucose (mg/dL) 134 H (75-99) mg/dL Urine Ketones (Negative) Urine Blood (Negative) Urine RBC (0-5) /hpf Urine Mucus (None) /hpf Microbiology - Last 24 Hours (Table) 09/28/19 14:25 Blood Culture - Preliminary Blood No Growth after 24 hours Assessment and Plan Assessment: Weakness, dehydration in a patient with ongoing dysphagia Possible Schatzki's ring as per barium esophagram Dysphagia Gastroesophageal reflux disease, history of Xu fundoplication Diabetes mellitus, Hyperglycemia Depression Parkinson's disease History of CVA Plan: Continue on current medication regime ,monitoring and symptomatic treatment. Urology consulted regarding urinary retention. UA/culture ordered. IV fluid hydration. Further GI recommendations regarding suspected esophageal Schatzki's ring. Strict aspiration precautions. Discussed with family, no neurology services available this week, family declining transfer for neurology evaluation. PT/OT. Family/patient declining subacute rehab. Prognosis guarded given multiple complex medical issues. The impression and plan of care has been dictated as directed. : I performed a history and examination of this patient, discussed the same with the dictator. I agree with the dictator's note ,documented as a scribe. Any additional findings or plans will be noted.
--- NOTE | 2019-10-01 17:01 | P.PN ---
Subjective Progress Note Date: 10/01/19 This is a 69-year-old female admitted with weakness, dehydration, hyperglycemia, dysphagia with history of Parkinson's disease, CVA, diabetes mellitus, gastroesophageal reflux disease, Xu fundoplication and multiple other medical issues. Modified swallow reported abnormal oral pharyngeal phase . Attempted barium swallow this morning suggesting distal esophageal Schatzki's ring, small hiatal hernia with exam prematurely terminated given patient's fall risk. Also presenting with urinary retention. Discussed with patient and family acute rehab upon discharge, declined by all. Denies any chest pain, palpitations or shortness of breath. Denies any lightheadedness, focal deficits. 10/01/2019 NPO, scheduled for EGD and dilation.VSS. Denies chest pain, palpitations or shortness of breath. Objective - Vital Signs Vital signs: Vital Signs Temp 98.3 F 10/01/19 06:12 Pulse 88 10/01/19 11:24 Resp 22 10/01/19 06:12 BP 134/80 10/01/19 06:12 Pulse Ox 98 10/01/19 07:20 Intake & Output 09/30/19 10/01/19 10/01/19 18:59 06:59 18:59 Intake Total 120 Output Total 2029 1150 450 Balance -1910 -1150 -450 Weight 81.647 kg Intake: Oral 120 Output: Urine 1550 1150 450 Straight 900 Uretheral (Dejesus) 550 550 Post Void Residual 480 Other: # Bowel Movements 0 - Exam PHYSICAL EXAM: VITAL SIGNS: [As above] GENERAL: Sitting up in chair, no acute distress HEENT: Conjunctivae normal. eyes normal. Sclerae anicteric NECK: No JVD. No thyroid enlargement. No LNs CARDIOVASCULAR: S1, S2 regular. No murmur RESPIRATION: Breath sounds diminished in the bases. No rhonchi or crackles. ABDOMEN: Soft, nontender . No guarding. no masses palpable. Bowel sounds heard. LEGS: Positive edema PSYCHIATRY: Alert and oriented X3, mood and affect flat. NERVOUS SYSTEM: Cranial N 2-12 grossly normal. Moves all 4 limbs. Diffuse weakness, No focal deficits. Skin: no rash - Labs CBC & Chem 7: 10/01/19 08:55 10/01/19 08:55 Labs: Abnormal Lab Results - Last 24 Hours (Table) 09/30/19 09/30/19 10/01/19 Range/Units 17:01 20:43 07:10 RBC (3.80-5.40) m/uL Glucose (74-99) mg/dL POC Glucose (mg/dL) 134 H 158 H 127 H (75-99) mg/dL 10/01/19 10/01/19 Range/Units 08:55 08:55 RBC 3.74 L (3.80-5.40) m/uL Glucose 111 H (74-99) mg/dL POC Glucose (mg/dL) (75-99) mg/dL Microbiology - Last 24 Hours (Table) 09/28/19 14:25 Blood Culture - Preliminary Blood No Growth after 48 hours Assessment and Plan Assessment: Weakness, dehydration in a patient with ongoing dysphagia Possible Schatzki's ring as per barium esophagram Dysphagia Gastroesophageal reflux disease, history of Xu fundoplication Diabetes mellitus, Hyperglycemia Depression Parkinson's disease History of CVA Plan: Continue on current medication regime ,monitoring and symptomatic treatment. Maintain IV fluid hydration. EGD pending. Urology consult in place, recommendations pending. UA/culture pending. IV fluid hydration. Further GI recommendations regarding suspected esophageal Schatzki's ring. Strict aspiration precautions. Prognosis guarded given multiple complex medical issues. The impression and plan of care has been dictated as directed. : I performed a history and examination of this patient, discussed the same with the dictator. I agree with the dictator's note ,documented as a scribe. Any additional findings or plans will be noted.
[2019-10-01 17:13] LABS: Glucose,Whole Blood 131 mg/dL (75-99)
[2019-10-01] MEDS: MAGNESIUM OXIDE 400 MG TAB PO SCH (17:57)
[2019-10-01] MEDS: ACETAMINOPHEN TAB 500 MG TAB PO SCH (20:22)
[2019-10-01 20:32] LABS: Appearance,Urine Clear (Clear); Bacteria,Urine Rare /hpf; Bilirubin,Urine Negative (Negative); Blood,Urine Small (Negative); Color,Urine Light Yellow; Glucose,Urine (UA) Negative (Negative); Ketones,Urine Negative (Negative); Leukocyte Esterase,Urine Small (Negative); Mucus,Urine Rare /hpf; Nitrite,Urine Positive (Negative); Protein,Urine Negative (Negative); RBC,Urine 6 /hpf (0-5); Specific Gravity,Urine 1.015 (1.001-1.035); Squamous Epithelial Cell,Urine <1 /hpf (0-4); Urobilinogen,Urine <2.0 mg/dL (<2.0); WBC,Urine 7 /hpf (0-5)
[2019-10-01 21:23] LABS: Glucose,Whole Blood 155 mg/dL (75-99)
[2019-10-01] MEDS: INSULIN DETEMIR (LEVEMIR) 100 UNIT/ML SYR SQ SCH (21:32)
--- NOTE | 2019-10-01 21:37 | P.GSCN ---
History of Present Illness Consult date: 10/01/19 Reason for Consult: Urinary retention History of present illness: Ms. Currie is a 69-year-old white female patient of Dr Mcintosh that got admitted to the hospital for weakness and dehydration . She has a know hx of recurrent UTI and urinary retention. She was last seen by Dr Mcintosh in 09/2018 and he recommended cysto/ UroD, but patient never followed up. PVR was obtained which was elevated at 500 mL and subsequently potrillo catheter was placed. She indicates that she has hx of difficulty voiding at baseline. Review of Systems - Constitutional Reports weakness, Denies chills, Denies fever - Cardiovascular Denies chest pain, Denies shortness of breath - Respiratory Denies cough, Denies dyspnea - Gastrointestinal Denies abdominal pain, Denies constipation - Genitourinary Genitourinary: Denies flank pain, Denies hematuria Past Medical History Past Medical History: CVA/TIA, Diabetes Mellitus, GERD/Reflux, Hyperlipidemia, Hypertension, Musculoskeletal Disorder, Neurologic Disorder, Osteoarthritis (OA), Skin Disorder Additional Past Medical History / Comment(s): Pt recently diagnosed with parkinson's disease, pt states she has been told in the past that she had a CVA- discovered by cat scan, IDDM type II, chronic dermatitis/past cellulitis arms/hands, past falls, gout ,hx of hiatal hernia with surgery, diverticulosis, constipation, arthritis multiple joints, L knee pain/abdominal pain, recurrent UTIs, occasionally incontinent, bilateral pedal edema, "wears depends just in case",edentulous, vertigo History of Any Multi-Drug Resistant Organisms: None Reported Year Discovered:: None MDRO Source:: None Past Surgical History: Cholecystectomy, Hysterectomy, Joint Replacement Additional Past Surgical History / Comment(s): hemorroidectomy, colonoscopy, egd, LAP GUCCI FUNDLOPLICATION, rt knee replacement Past Anesthesia/Blood Transfusion Reactions: No Reported Reaction Additional Past Anesthesia/Blood Transfusion Reaction / Comm: . Past Psychological History: Anxiety, Depression Additional Psychological History / Comment(s): Pt's daughter resides with her and assists her. Pt has a wheelchair for longer distances and a cane/walker she uses prn. She has a glucometer. He daughter manages her medications and is her caregiver. Her son or son in law drive her to [employer]. Smoking Status: Never smoker Past Alcohol Use History: None Reported Past Drug Use History: None Reported - Past Family History Father Family Medical History: Diabetes Mellitus Additional Family Medical History / Comment(s): Father in his 80s. Mother Family Medical History: Diabetes Mellitus Additional Family Medical History / Comment(s): Mother in her 80s Medications and Allergies Home Medications Medication Instructions Recorded Confirmed Type Oxybutynin Chloride 5 mg PO BID 02/05/15 09/28/19 History Potassium Chloride [Klor-Con 20] 20 meq PO BID 02/28/15 09/28/19 History ALPRAZolam 1 mg PO QID PRN 06/04/16 09/28/19 History Atorvastatin [Lipitor] 40 mg PO QAM 11/20/16 09/28/19 History Insulin Glargine [Lantus] 20 unit SQ HS 09/03/17 09/28/19 History Cranberry Fruit Extract [Cranberry] 1,000 mg PO BID 12/23/17 09/28/19 History HYDROcodone/APAP 10-325MG [[place] 1 tab PO TID@0700,1300,1900 12/23/17 09/28/19 History 10-325] Magnesium Oxide [Mag-Ox] 500 mg PO AC-SUPPER 12/23/17 09/28/19 History Omeprazole 20 mg PO DAILY 12/23/17 09/28/19 History QUEtiapine [SEROquel] 50 mg PO BID 03/27/18 09/28/19 History Sucralfate [Carafate] 1 gm PO AC-TID 03/27/18 09/28/19 History Cholecalciferol [Vitamin D3 (25 1,000 unit PO DAILY 08/24/18 09/28/19 History Mcg = 1000 Iu)] Furosemide [Lasix] 10 mg PO DAILY 12/26/18 09/28/19 History Acetaminophen/Diphenhydramine 1 tab PO HS MDD SLEEP,PAIN, AND 09/04/19 09/28/19 History [Tylenol PM 500-25mg] ALLERGY SYMPTO Cyclobenzaprine [Flexeril] 5 mg PO DAILY PRN 09/04/19 09/28/19 History Meclizine [Antivert] 25 mg PO DAILY PRN 09/04/19 09/28/19 History Vortioxetine Hydrobromide 20 mg PO DAILY 09/04/19 09/28/19 History [Trintellix] Aspirin 81 mg PO DAILY #30 chew 09/07/19 09/28/19 Rx Linaclotide [Linzess] 145 mcg PO DAILY 09/28/19 09/28/19 History Allergies Allergy/AdvReac Type Severity Reaction Status Date / Time benactyzine AdvReac Abdominal Verified 09/28/19 17:13 Pain ciprofloxacin [From Cipro] AdvReac Abdominal Verified 09/28/19 17:13 Pain dicyclomine [From Bentyl] AdvReac Abdominal Verified 09/28/19 17:13 Pain levofloxacin [From Levaquin] AdvReac Abdominal Verified 09/28/19 17:13 Pain Penicillins AdvReac "Passed Verified 09/28/19 17:13 out" prednisone AdvReac Abdominal Verified 09/28/19 17:13 Pain sulfamethoxazole AdvReac Abdominal Verified 09/28/19 17:13 [From Bactrim] Pain tamsulosin HCl [From Flomax] AdvReac Abdominal Verified 09/28/19 17:13 Pain trimethoprim [From Bactrim] AdvReac Abdominal Verified 09/28/19 17:13 Pain Surgical - Exam Vital Signs Temp Pulse Resp BP Pulse Ox 98.2 F 112 H 20 119/80 97 09/28/19 15:57 09/28/19 15:57 09/28/19 15:57 09/28/19 15:57 09/28/19 15:57 - General well developed, well nourished, no distress - Respiratory normal expansion, normal respiratory effort - Abdomen Abdomen: soft, non tender, no distended - Genitourinary Urine is clear yellow - Psychiatric oriented to time, oriented to person, oriented to place Results - Labs 10/01/19 08:55 10/01/19 08:55 Abnormal Lab Results - Last 24 Hours (Table) 09/30/19 09/30/19 09/30/19 Range/Units 07:46 11:32 17:01 POC Glucose (mg/dL) 148 H 134 H (75-99) mg/dL Urine Ketones Trace H (Negative) Urine Blood Trace H (Negative) Urine RBC 6 H (0-5) /hpf Urine Mucus Rare H (None) /hpf 09/30/19 Range/Units 20:43 POC Glucose (mg/dL) 158 H (75-99) mg/dL Urine Ketones (Negative) Urine Blood (Negative) Urine RBC (0-5) /hpf Urine Mucus (None) /hpf Microbiology - Last 24 Hours (Table) 09/28/19 14:25 Blood Culture - Preliminary Blood No Growth after 48 hours Assessment and Plan Assessment: 69 yo female hx of urinary retention and recurrent UTI. admitted with weakness and dehydration. PVR 500 ml, her UA negative for UTI. was recommended to undergo cysto/Urodynamics but she never followed up -Keep portillo for 7 days -D/C ditropan, this is contributing to her urinary retention -F/U 1-[address] Mcintosh for TOV.
[2019-10-02] MEDS: LORazepam 2 MG/ML INJ IV SCH ×2 (02:04→08:19)
[2019-10-02 05:42] VITALS: BP 120/76; PULSE 75; TEMP 98.2
[2019-10-02 07:24] LABS: Glucose,Whole Blood 101 mg/dL (75-99)
[2019-10-02] MEDS: FUROSEMIDE 10 MG TAB PO SCH (08:08)
[2019-10-02] MEDS: PANTOPRAZOLE 40 MG/10 ML VIAL IV SCH (08:08)
[2019-10-02] MEDS: POTASSIUM CHLORIDE ER 20 MEQ TAB.ER PO SCH (08:08)
[2019-10-02] MEDS: ENOXAPARIN 40 MG/0.4 ML SYRINGE SQ SCH (08:08)
[2019-10-02] MEDS: VORTIOXETINE HYDROBROMIDE 20 MG TABLET PO SCH (08:08)
[2019-10-02] MEDS: ASPIRIN 81 MG PO SCH (08:08)
[2019-10-02] MEDS: NON FORMULARY DRUG (Cranberry Fruit Extract [Cranberry] 1,000 MG) PO SCH (08:09)
[2019-10-02] MEDS: QUEtiapine 50 MG TAB PO SCH (08:09)
[2019-10-02] MEDS: SUCRALFATE 1 GM TAB PO SCH (08:09)
[2019-10-02] MEDS: CHOLECALCIFEROL 1,000 UNIT TAB PO SCH (08:09)
[2019-10-02] MEDS: ATORVASTATIN 40 MG TAB PO SCH (08:09)
[2019-10-02] MEDS: HYDROcodone/APAP 10-325MG 1 EACH TAB PO SCH (08:09)
[2019-10-02] MEDS: NON FORMULARY DRUG (Linaclotide [Linzess] 145 MCG) PO SCH (08:10)
[2019-10-02] MEDS: SODIUM CHLORIDE 0.9% 1,000 ML IV SCH (08:10)
[2019-10-02 09:19] LABS: Basophils % (A) 1 %; Eosinophils # (A) 0.1 k/uL (0-0.7); Eosinophils % (A) 2 %; HCT 40.1 % (34.0-46.0); HGB 12.7 gm/dL (11.4-16.0); Hypochromasia Slight; Lymphocytes # (A) 1.6 k/uL (1.0-4.8); Lymphocytes % (A) 28 %; MCH 31.8 pg (25.0-35.0); MCHC 31.6 g/dL (31.0-37.0); MCV 100.5 fL (80.0-100.0); Mean Platelet Volume 7.5; Monocytes # (A) 0.2 k/uL (0-1.0); Monocytes % (A) 4 %; Neutrophils # (A) 3.7 k/uL (1.3-7.7); Neutrophils % (A) 64 %; Platelet Count 284 k/uL (150-450); RBC 3.99 m/uL (3.80-5.40); RDW 13.4 % (11.5-15.5); WBC 5.8 k/uL (3.8-10.6)
[2019-10-02 09:46] LABS: African American GFR (CKD) >90 (>60 ml/min/1.73 sqM); Anion Gap 9 mmol/L; Blood Urea Nitrogen 7 mg/dL (7-17); Calcium 9.3 mg/dL (8.4-10.2); Carbon Dioxide 25 mmol/L (22-30); Chloride 106 mmol/L (98-107); Glucose 136 mg/dL (74-99); Non-African American GFR(CKD) >90 (>60 ml/min/1.73 sqM); Potassium 4.2 mmol/L (3.5-5.1); Sodium 140 mmol/L (137-145)
--- NOTE | 2019-10-02 18:07 | P.DS ---
Providers Date of admission: 09/30/19 10:13 Expected date of discharge: 10/02/19 Attending physician: Tej Bojorquez Consults: 09/28/19 17:54 Consult Physician Routine Consulting Provider: Yun Luz Consult Reason/Comments: dysphagia Do you want consulting provider notified?: Yes 09/30/19 15:50 Consult Physician Routine Consulting Provider: Elvis Lara Consult Reason/Comments: chronic urinary retention Do you want consulting provider notified?: Yes Primary care physician: [facility] Course: Final Diagnoses: Weakness, dehydration in a patient with ongoing dysphagia Possible Schatzki's ring as per barium esophagram . Status post EGD/dilation reporting Dysphagia Gastroesophageal reflux disease, history of Xu fundoplication Diabetes mellitus, Hyperglycemia Depression Parkinson's disease History of CVA Hospital course:This is a 69-year-old female admitted with weakness, dehydration, hyperglycemia, dysphagia with history of Parkinson's disease, CVA, diabetes mellitus, gastroesophageal reflux disease, Xu fundoplication and multiple other medical issues. Modified swallow reported abnormal oral pharyngeal phase . Attempted barium swallow this morning suggesting distal esophageal Schatzki's ring, small hiatal hernia with exam prematurely terminated given patient's fall risk. Also presenting with urinary retention. Discussed with patient and family acute rehab upon discharge, declined by all. Denies any chest pain, palpitations or shortness of breath. Denies any lightheadedness, focal deficits. 10/01/2019 NPO, scheduled for EGD and dilation.VSS. Denies chest pain, palpitations or shortness of breath. Underwent EGD/dilation reporting benign distal esophageal stricture likely related to prior Xu fundoplication, mild gastritis with biopsies obtained. Cleared by all consults for discharge. Patient is being discharged home in a stable condition with guarded prognosis. The impression and plan of care has been dictated as directed. : I performed a history and examination of this patient, discussed the same with the dictator. I agree with the dictator's note ,documented as a scribe. Any additional findings or plans will be noted. Patient Condition at Discharge: Stable Plan - Discharge Summary Discharge Rx Participant: No New Discharge Prescriptions: New Sodium Chloride 0.65% Nasal [[place] (Saline)] 2 spray NASAL QID PRN spray PRN Reason: Dry Nasal Passages Continue Oxybutynin Chloride 5 mg PO BID Potassium Chloride [Klor-Con 20] 20 meq PO BID ALPRAZolam 1 mg PO QID PRN PRN Reason: Anxiety Atorvastatin [Lipitor] 40 mg PO QAM Insulin Glargine [Lantus] 20 unit SQ HS Cranberry Fruit Extract [Cranberry] 1,000 mg PO BID HYDROcodone/APAP 10-325MG [[place] 10-325] 1 tab PO TID@0700,1300,1900 Omeprazole 20 mg PO DAILY Magnesium Oxide [Mag-Ox] 500 mg PO AC-SUPPER Sucralfate [Carafate] 1 gm PO AC-TID QUEtiapine [SEROquel] 50 mg PO BID Cholecalciferol [Vitamin D3 (25 Mcg = 1000 Iu)] 1,000 unit PO DAILY Furosemide [Lasix] 10 mg PO DAILY Meclizine [Antivert] 25 mg PO DAILY PRN PRN Reason: Vertigo Acetaminophen/Diphenhydramine [Tylenol PM 500-25mg] 1 tab PO HS MDD SLEEP,PAIN, AND ALLERGY SYMPTO Cyclobenzaprine [Flexeril] 5 mg PO DAILY PRN PRN Reason: Muscle Spasm Vortioxetine Hydrobromide [Trintellix] 20 mg PO DAILY Aspirin 81 mg PO DAILY #30 chew Linaclotide [Linzess] 145 mcg PO DAILY Discharge Medication List Oxybutynin Chloride 5 mg PO BID 02/05/15 [History] Potassium Chloride [Klor-Con 20] 20 meq PO BID 02/28/15 [History] ALPRAZolam 1 mg PO QID PRN 06/04/16 [History] Atorvastatin [Lipitor] 40 mg PO QAM 11/20/16 [History] Insulin Glargine [Lantus] 20 unit SQ HS 09/03/17 [History] Cranberry Fruit Extract [Cranberry] 1,000 mg PO BID 12/23/17 [History] HYDROcodone/APAP 10-325MG [[place] 10-325] 1 tab PO TID@0700,1300,1900 12/23/17 [History] Magnesium Oxide [Mag-Ox] 500 mg PO AC-SUPPER 12/23/17 [History] Omeprazole 20 mg PO DAILY 12/23/17 [History] QUEtiapine [SEROquel] 50 mg PO BID 03/27/18 [History] Sucralfate [Carafate] 1 gm PO AC-TID 03/27/18 [History] Cholecalciferol [Vitamin D3 (25 Mcg = 1000 Iu)] 1,000 unit PO DAILY 08/24/18 [History] Furosemide [Lasix] 10 mg PO DAILY 12/26/18 [History] Acetaminophen/Diphenhydramine [Tylenol PM 500-25mg] 1 tab PO HS MDD SLEEP,PAIN, AND ALLERGY SYMPTO 09/04/19 [History] Cyclobenzaprine [Flexeril] 5 mg PO DAILY PRN 09/04/19 [History] Meclizine [Antivert] 25 mg PO DAILY PRN 09/04/19 [History] Vortioxetine Hydrobromide [Trintellix] 20 mg PO DAILY 09/04/19 [History] Aspirin 81 mg PO DAILY #30 chew 09/07/19 [Rx] Linaclotide [Linzess] 145 mcg PO DAILY 09/28/19 [History] Sodium Chloride 0.65% Nasal [[place] (Saline)] 2 spray NASAL QID PRN spray 10/02/19 [Rx] Follow up Appointment(s)/Referral(s): NeurologistDr. patient's own [Other] - 1 Week [facility] [NON-STAFF] - Elvis Lara MD [STAFF PHYSICIAN] - 10/13/19 7:20 am Tej Bojorquez MD [Primary Care Provider] - 1 Week (Please call office to make appoinment) True Dailey MD [STAFF PHYSICIAN] - 10/27/19 9:45 am (Biopsy results) Ambulatory/Diagnostic Orders: Complete Blood Count w/diff [LAB.AMB] Time Frame: 3 Days, Location: None Selected Patient Instructions/Handouts: Dehydration (DC), Portillo Catheter Placement and Care (DC), Chronic Urinary Retention in Women (DC) Activity/Diet/Wound Care/Special Instructions: discharge with portillo(inserted 09-30-19) follow up with dr lara in 1-2 weeks activity as tolerated dyspahagia chopped diet, dysphasia 3 diet, consistent carb Strict aspiration precautions Discharge Disposition: HOME WITH HOME HEALTH SERVICES
== END 2019-10-02 12:16 | disposition home health service (06) | DRG 392 ==
LOC: EC 15:56 → 6NMEDSUR 17:52 → OBSVTOIN 09-30 10:13
PROVIDERS: ADMIT Family Medicine; ATTEND Family Medicine
PROC: 0DB78ZX Excision of Stomach, Pylorus, Via Natural or Artificial Opening Endoscopic, Diagnostic (ICD-10-PCS; 2019-10-01)
PROC: 0D748ZZ Dilation of Esophagogastric Junction, Via Natural or Artificial Opening Endoscopic (ICD-10-PCS; principal; 2019-10-01 07:30)
PROC: 0DB98ZX Excision of Duodenum, Via Natural or Artificial Opening Endoscopic, Diagnostic (ICD-10-PCS; 2019-10-01 07:30)
DX: K22.2 Esophageal obstruction (principal); I50.32 Chronic diastolic (congestive) heart failure; F31.30 Bipolar disorder, current episode depressed, mild or moderate severity, unspecified; K44.9 Diaphragmatic hernia without obstruction or gangrene; E11.65 Type 2 diabetes mellitus with hyperglycemia; E78.5 Hyperlipidemia, unspecified; E86.0 Dehydration; G20 Parkinson's disease; I11.0 Hypertensive heart disease with heart failure; F31.9 Bipolar disorder, unspecified; K21.9 Gastro-esophageal reflux disease without esophagitis; K29.50 Unspecified chronic gastritis without bleeding; R13.14 Dysphagia, pharyngoesophageal phase; K59.03 Drug induced constipation; T40.2X5A Adverse effect of other opioids, initial encounter; M51.9 Unspecified thoracic, thoracolumbar and lumbosacral intervertebral disc disorder; R32 Unspecified urinary incontinence; Z79.4 Long term (current) use of insulin; M15.9 Polyosteoarthritis, unspecified; Z79.82 Long term (current) use of aspirin; Z79.899 Other long term (current) drug therapy; Z83.3 Family history of diabetes mellitus; Z86.73 Personal history of transient ischemic attack (TIA), and cerebral infarction without residual deficits; Z87.440 Personal history of urinary (tract) infections; Z90.710 Acquired absence of both cervix and uterus; Z91.81 History of falling; Z96.651 Presence of right artificial knee joint; M10.9 Gout, unspecified; Z90.49 Acquired absence of other specified parts of digestive tract; K57.90 Diverticulosis of intestine, part unspecified, without perforation or abscess without bleeding; M51.36 Other intervertebral disc degeneration, lumbar region; R33.9 Retention of urine, unspecified; Z88.1 Allergy status to other antibiotic agents; Z88.0 Allergy status to penicillin; Z88.2 Allergy status to sulfonamides; Z88.8 Allergy status to other drugs, medicaments and biological substances
CPT/HCPCS: 36415; 43239; 43249; 70450; 71046; 74220; 74230; 80048; 80053; 81001; 83605; 83735; 84100; 84484; 85025; 85610; 85730; 86850; 86900; 86901; 87040; 87077; 87086; 87186; 88305; 93005; 94640; 94760; 96361; 96372; 96374; 96375; 96376; 99285

== ENCOUNTER 2019-11-30 13:27 | Inpatient (IN) | payer MEDICARE ==
[2019-11-30 13:37] LABS: Glucose,Whole Blood 115 mg/dL (75-99)
--- NOTE | 2019-11-30 14:10 | ED ---
General Adult HPI - General Chief complaint: Altered Mental Status Stated complaint: altered mental status Time Seen by Provider: 11/30/19 13:44 Source: family, RN notes reviewed Mode of arrival: EMS Limitations: altered mental status - History of Present Illness Initial comments: Patient is a pleasant 69-year-old female presenting to the emergency department with mental status change. Patient has history of Parkinson's as well as dementia. A amor is a poor historian and offers little information. Majority of history is taken from family. EMS had low blood sugar and gave 25 of glucose with some improvement of symptoms and improvement of blood sugar. Family states patient did have some similar symptoms yesterday and then seemed to improve. Symptoms have been fairly steady today. Patient has no complaints. - Related Data Home Medications Medication Instructions Recorded Confirmed Oxybutynin Chloride 5 mg PO BID 02/05/15 09/28/19 Potassium Chloride [Klor-Con 20] 20 meq PO BID 02/28/15 09/28/19 ALPRAZolam 1 mg PO QID PRN 06/04/16 09/28/19 Atorvastatin [Lipitor] 40 mg PO QAM 11/20/16 09/28/19 Insulin Glargine [Lantus] 20 unit SQ HS 09/03/17 09/28/19 Cranberry Fruit Extract [Cranberry] 1,000 mg PO BID 12/23/17 09/28/19 HYDROcodone/APAP 10-325MG [[place] 1 tab PO TID@0700,1300,1900 12/23/17 09/28/19 10-325] Magnesium Oxide [Mag-Ox] 500 mg PO AC-SUPPER 12/23/17 09/28/19 Omeprazole 20 mg PO DAILY 12/23/17 09/28/19 QUEtiapine [SEROquel] 50 mg PO BID 03/27/18 09/28/19 Sucralfate [Carafate] 1 gm PO AC-TID 03/27/18 09/28/19 Cholecalciferol [Vitamin D3 (25 1,000 unit PO DAILY 08/24/18 09/28/19 Mcg = 1000 Iu)] Furosemide [Lasix] 10 mg PO DAILY 12/26/18 09/28/19 Acetaminophen/Diphenhydramine 1 tab PO HS MDD SLEEP,PAIN, AND 12/13/19 01/06/20 [Tylenol PM 500-25mg] ALLERGY SYMPTO Cyclobenzaprine [Flexeril] 5 mg PO DAILY PRN 09/04/19 09/28/19 Meclizine [Antivert] 25 mg PO DAILY PRN 09/04/19 09/28/19 Vortioxetine Hydrobromide 20 mg PO DAILY 09/04/19 09/28/19 [Trintellix] Linaclotide [Linzess] 145 mcg PO DAILY 09/28/19 09/28/19 Previous Rx's Medication Instructions Recorded Aspirin 81 mg PO DAILY #30 chew 09/07/19 Sodium Chloride 0.65% Nasal [Deep 2 spray NASAL QID PRN spray 10/02/19 Sea (Saline)] Allergies Allergy/AdvReac Type Severity Reaction Status Date / Time benactyzine AdvReac Abdominal Verified 11/30/19 13:43 Pain ciprofloxacin [From Cipro] AdvReac Abdominal Verified 11/30/19 13:43 Pain dicyclomine [From Bentyl] AdvReac Abdominal Verified 11/30/19 13:43 Pain levofloxacin [From Levaquin] AdvReac Abdominal Verified 11/30/19 13:43 Pain Penicillins AdvReac "Passed Verified 11/30/19 13:43 out" prednisone AdvReac Abdominal Verified 11/30/19 13:43 Pain sulfamethoxazole AdvReac Abdominal Verified 11/30/19 13:43 [From Bactrim] Pain tamsulosin HCl [From Flomax] AdvReac Abdominal Verified 11/30/19 13:43 Pain trimethoprim [From Bactrim] AdvReac Abdominal Verified 11/30/19 13:43 Pain Review of Systems ROS Statement: Those systems with pertinent positive or pertinent negative responses have been documented in the HPI. ROS Other: All systems not noted in ROS Statement are negative. Limitations: ROS unobtainable due to patients medical condition Past Medical History Past Medical History: CVA/TIA, Diabetes Mellitus, GERD/Reflux, Hyperlipidemia, Hypertension, Musculoskeletal Disorder, Neurologic Disorder, Osteoarthritis (OA), Skin Disorder Additional Past Medical History / Comment(s): Pt recently diagnosed with parkinson's disease, pt states she has been told in the past that she had a CVA- discovered by cat scan, IDDM type II, chronic dermatitis/past cellulitis arms/hands, past falls, gout ,hx of hiatal hernia with surgery, diverticulosis, constipation, arthritis multiple joints, L knee pain/abdominal pain, recurrent UTIs, occasionally incontinent, bilateral pedal edema, "wears depends just in case",edentulous, vertigo History of Any Multi-Drug Resistant Organisms: None Reported Date of last positivie culture/infection: None MDRO Source:: None Past Surgical History: Cholecystectomy, Hysterectomy, Joint Replacement Additional Past Surgical History / Comment(s): hemorroidectomy, colonoscopy, egd, LAP GUCCI FUNDLOPLICATION, rt knee replacement Past Anesthesia/Blood Transfusion Reactions: No Reported Reaction Additional Past Anesthesia/Blood Transfusion Reaction / Comment(s): . Past Psychological History: Anxiety, Depression Smoking Status: Never smoker Past Alcohol Use History: None Reported Past Drug Use History: None Reported - Past Family History Father Family Medical History: Diabetes Mellitus Additional Family Medical History / Comment(s): Father in his 80s. Mother Family Medical History: Diabetes Mellitus Additional Family Medical History / Comment(s): Mother in her 80s General Exam Limitations: no limitations General appearance: other (Drowsy) Head exam: Present: normocephalic Eye exam: Present: normal appearance, PERRL, EOMI ENT exam: Present: normal oropharynx Neck exam: Present: normal inspection Respiratory exam: Present: normal lung sounds bilaterally Cardiovascular Exam: Present: regular rate, normal rhythm GI/Abdominal exam: Present: soft. Absent: tenderness Extremities exam: Present: normal inspection. Absent: pedal edema, calf tenderness Neurological exam: Present: altered (Drowsy) Expanded Neurological exam: Present: protecting the airway Patient oriented to: Present: person. Absent: place, time (Reported as normal per family) Cranial nerves: EOM's Intact: Normal Motor strength exam: RUE: 3, LUE: 3, RLE: 3, LLE: 3 Eye Response: (2) open to pain Motor Response: (6) obeys commands Verbal Response: incomprehensible sounds Psychiatric exam: Present: flat affect Skin exam: Present: normal color Course Vital Signs 11/30/19 11/30/19 11/30/19 13:39 15:00 15:30 Temperature 97.9 F Pulse Rate 76 77 80 Respiratory 15 16 15 Rate Blood Pressure 110/55 95/68 105/59 O2 Sat by Pulse 93 L 100 100 Oximetry EKG Findings - EKG Comments: EKG Findings:: Normal sinus rhythm at 79. VT 162. QRS 86. QT 366. QTc 419. Left axis. Inferior Q waves. No acute ST change. Medical Decision Making - Medical Decision Making Patient reevaluated and somewhat improved. Family does not feel it was possible for patient to take extra medication. Patient and family updated on results and plan. Case was discussed in detail with Dr. Bojorquez, who will admit his patient. Patient does not meet sepsis criteria - Lab Data Result diagrams: 11/30/19 13:45 11/30/19 13:45 Lab Results 11/30/19 11/30/19 11/30/19 Range/Units 13:31 13:45 13:45 WBC 10.2 (3.8-10.6) k/uL RBC 4.06 (3.80-5.40) m/uL Hgb 12.9 (11.4-16.0) gm/dL Hct 40.4 (34.0-46.0) % MCV 99.6 (80.0-100.0) fL MCH 31.7 (25.0-35.0) pg MCHC 31.9 (31.0-37.0) g/dL RDW 14.0 (11.5-15.5) % Plt Count 379 (150-450) k/uL Neutrophils % 87 % Lymphocytes % 9 % Monocytes % 3 % Eosinophils % 1 % Basophils % 0 % Neutrophils # 8.8 H (1.3-7.7) k/uL Lymphocytes # 0.9 L (1.0-4.8) k/uL Monocytes # 0.3 (0-1.0) k/uL Eosinophils # 0.1 (0-0.7) k/uL Basophils # 0.0 (0-0.2) k/uL PT 10.8 (9.0-12.0) sec INR 1.0 (<1.2) APTT 26.4 (22.0-30.0) sec Sodium (137-145) mmol/L Potassium (3.5-5.1) mmol/L Chloride (98-107) mmol/L Carbon Dioxide (22-30) mmol/L Anion Gap mmol/L BUN (7-17) mg/dL Creatinine (0.52-1.04) mg/dL Est GFR (CKD-EPI)AfAm (>60 ml/min/1.73 sqM) Est GFR (CKD-EPI)NonAf (>60 ml/min/1.73 sqM) Glucose (74-99) mg/dL POC Glucose (mg/dL) 115 H (75-99) mg/dL POC Glu Renewals Specialist ID Adama Ramsey Calcium (8.4-10.2) mg/dL Total Bilirubin (0.2-1.3) mg/dL AST (14-36) U/L ALT (4-34) U/L Alkaline Phosphatase (38-126) U/L Ammonia (<30) umol/L Troponin I (0.000-0.034) ng/mL Total Protein (6.3-8.2) g/dL Albumin (3.5-5.0) g/dL Urine Color Urine Appearance (Clear) Urine pH (5.0-8.0) Ur Specific [place] (1.001-1.035) Urine Protein (Negative) Urine Glucose (UA) (Negative) Urine Ketones (Negative) Urine Blood (Negative) Urine Nitrite (Negative) Urine Bilirubin (Negative) Urine Urobilinogen (<2.0) mg/dL Ur Leukocyte Esterase (Negative) Urine RBC (0-5) /hpf Urine WBC (0-5) /hpf Ur Squamous Epith Cells (0-4) /hpf Urine Bacteria (None) /hpf Hyaline Casts (0-2) /lpf Urine Mucus (None) /hpf Urine Opiates Screen (NotDetected) Ur Oxycodone Screen (NotDetected) Urine Methadone Screen (NotDetected) Ur Propoxyphene Screen (NotDetected) Ur Barbiturates Screen (NotDetected) U Tricyclic Antidepress (NotDetected) Ur Phencyclidine Scrn (NotDetected) Ur Amphetamines Screen (NotDetected) U Methamphetamines Scrn (NotDetected) U Benzodiazepines Scrn (NotDetected) Urine Cocaine Screen (NotDetected) U Marijuana (THC) Screen (NotDetected) 11/30/19 11/30/19 11/30/19 Range/Units 13:45 13:45 13:45 WBC (3.8-10.6) k/uL RBC (3.80-5.40) m/uL Hgb (11.4-16.0) gm/dL Hct (34.0-46.0) % MCV (80.0-100.0) fL MCH (25.0-35.0) pg MCHC (31.0-37.0) g/dL RDW (11.5-15.5) % Plt Count (150-450) k/uL Neutrophils % % Lymphocytes % % Monocytes % % Eosinophils % % Basophils % % Neutrophils # (1.3-7.7) k/uL Lymphocytes # (1.0-4.8) k/uL Monocytes # (0-1.0) k/uL Eosinophils # (0-0.7) k/uL Basophils # (0-0.2) k/uL PT (9.0-12.0) sec INR (<1.2) APTT (22.0-30.0) sec Sodium 135 L (137-145) mmol/L Potassium 4.0 (3.5-5.1) mmol/L Chloride 100 (98-107) mmol/L Carbon Dioxide 28 (22-30) mmol/L Anion Gap 7 mmol/L BUN 13 (7-17) mg/dL Creatinine 0.51 L (0.52-1.04) mg/dL Est GFR (CKD-EPI)AfAm >90 (>60 ml/min/1.73 sqM) Est GFR (CKD-EPI)NonAf >90 (>60 ml/min/1.73 sqM) Glucose 120 H (74-99) mg/dL POC Glucose (mg/dL) (75-99) mg/dL POC Glu Renewals Specialist ID Calcium 8.8 (8.4-10.2) mg/dL Total Bilirubin 0.5 (0.2-1.3) mg/dL AST 26 (14-36) U/L ALT <6 (4-34) U/L Alkaline Phosphatase 119 (38-126) U/L Ammonia <9 (<30) umol/L Troponin I <0.012 (0.000-0.034) ng/mL Total Protein 6.0 L (6.3-8.2) g/dL Albumin 3.0 L (3.5-5.0) g/dL Urine Color Urine Appearance (Clear) Urine pH (5.0-8.0) Ur Specific [place] (1.001-1.035) Urine Protein (Negative) Urine Glucose (UA) (Negative) Urine Ketones (Negative) Urine Blood (Negative) Urine Nitrite (Negative) Urine Bilirubin (Negative) Urine Urobilinogen (<2.0) mg/dL Ur Leukocyte Esterase (Negative) Urine RBC (0-5) /hpf Urine WBC (0-5) /hpf Ur Squamous Epith Cells (0-4) /hpf Urine Bacteria (None) /hpf Hyaline Casts (0-2) /lpf Urine Mucus (None) /hpf Urine Opiates Screen (NotDetected) Ur Oxycodone Screen (NotDetected) Urine Methadone Screen (NotDetected) Ur Propoxyphene Screen (NotDetected) Ur Barbiturates Screen (NotDetected) U Tricyclic Antidepress (NotDetected) Ur Phencyclidine Scrn (NotDetected) Ur Amphetamines Screen (NotDetected) U Methamphetamines Scrn (NotDetected) U Benzodiazepines Scrn (NotDetected) Urine Cocaine Screen (NotDetected) U Marijuana (THC) Screen (NotDetected) 11/30/19 11/30/19 11/30/19 Range/Units 13:45 14:29 14:54 WBC (3.8-10.6) k/uL RBC (3.80-5.40) m/uL Hgb (11.4-16.0) gm/dL Hct (34.0-46.0) % MCV (80.0-100.0) fL MCH (25.0-35.0) pg MCHC (31.0-37.0) g/dL RDW (11.5-15.5) % Plt Count (150-450) k/uL Neutrophils % % Lymphocytes % % Monocytes % % Eosinophils % % Basophils % % Neutrophils # (1.3-7.7) k/uL Lymphocytes # (1.0-4.8) k/uL Monocytes # (0-1.0) k/uL Eosinophils # (0-0.7) k/uL Basophils # (0-0.2) k/uL PT (9.0-12.0) sec INR (<1.2) APTT (22.0-30.0) sec Sodium (137-145) mmol/L Potassium (3.5-5.1) mmol/L Chloride (98-107) mmol/L Carbon Dioxide (22-30) mmol/L Anion Gap mmol/L BUN (7-17) mg/dL Creatinine (0.52-1.04) mg/dL Est GFR (CKD-EPI)AfAm (>60 ml/min/1.73 sqM) Est GFR (CKD-EPI)NonAf (>60 ml/min/1.73 sqM) Glucose (74-99) mg/dL POC Glucose (mg/dL) 86 83 (75-99) mg/dL POC Glu Renewals Specialist ID Rhys Breen Calcium (8.4-10.2) mg/dL Total Bilirubin (0.2-1.3) mg/dL AST (14-36) U/L ALT (4-34) U/L Alkaline Phosphatase (38-126) U/L Ammonia (<30) umol/L Troponin I (0.000-0.034) ng/mL Total Protein (6.3-8.2) g/dL Albumin (3.5-5.0) g/dL Urine Color Dark Brown Urine Appearance Clear (Clear) Urine pH 5.5 (5.0-8.0) Ur Specific [place] 1.018 (1.001-1.035) Urine Protein Negative (Negative) Urine Glucose (UA) Negative (Negative) Urine Ketones 1+ H (Negative) Urine Blood Negative (Negative) Urine Nitrite Positive H (Negative) Urine Bilirubin Negative (Negative) Urine Urobilinogen <2.0 (<2.0) mg/dL Ur Leukocyte Esterase Small H (Negative) Urine RBC 3 (0-5) /hpf Urine WBC 25 H (0-5) /hpf Ur Squamous Epith Cells <1 (0-4) /hpf Urine Bacteria Many H (None) /hpf Hyaline Casts 6 H (0-2) /lpf Urine Mucus Rare H (None) /hpf Urine Opiates Screen Detected H (NotDetected) Ur Oxycodone Screen Not Detected (NotDetected) Urine Methadone Screen Not Detected (NotDetected) Ur Propoxyphene Screen Not Detected (NotDetected) Ur Barbiturates Screen Not Detected (NotDetected) U Tricyclic Antidepress Detected H (NotDetected) Ur Phencyclidine Scrn Not Detected (NotDetected) Ur Amphetamines Screen Not Detected (NotDetected) U Methamphetamines Scrn Not Detected (NotDetected) U Benzodiazepines Scrn Detected H (NotDetected) Urine Cocaine Screen Not Detected (NotDetected) U Marijuana (THC) Screen Not Detected (NotDetected) - Radiology Data Radiology results: report reviewed (Computed tomography scan of the brain shows no acute abnormality. Atrophy.), image reviewed (Chest x-ray shows atelectasis and trace fluid right minor fissure.) Disposition Clinical Impression: Altered mental status, Urinary tract infection Disposition: ADMITTED IP TO THIS HOSP Is patient prescribed a controlled substance at d/c from ED?: No Referrals: Tej Bojorquez MD [Primary Care Provider] - 1-2 days Decision Time: 16:07
[2019-11-30 14:31] LABS: Glucose,Whole Blood 86 mg/dL (75-99)
[2019-11-30 14:32] LABS: Basophils % (A) 0 %; Eosinophils # (A) 0.1 k/uL (0-0.7); Eosinophils % (A) 1 %; HCT 40.4 % (34.0-46.0); HGB 12.9 gm/dL (11.4-16.0); Lymphocytes # (A) 0.9 k/uL (1.0-4.8); Lymphocytes % (A) 9 %; MCH 31.7 pg (25.0-35.0); MCHC 31.9 g/dL (31.0-37.0); MCV 99.6 fL (80.0-100.0); Mean Platelet Volume 7.2; Monocytes # (A) 0.3 k/uL (0-1.0); Monocytes % (A) 3 %; Neutrophils # (A) 8.8 k/uL (1.3-7.7); Neutrophils % (A) 87 %; Platelet Count 379 k/uL (150-450); RBC 4.06 m/uL (3.80-5.40); WBC 10.2 k/uL (3.8-10.6)
[2019-11-30 14:40] LABS: Appearance,Urine Clear (Clear); Bacteria,Urine Many /hpf; Bilirubin,Urine Negative (Negative); Blood,Urine Negative (Negative); Color,Urine Dark Brown; Glucose,Urine (UA) Negative (Negative); Hyaline Casts,Urine 6 /lpf (0-2); Ketones,Urine 1+ (Negative); Leukocyte Esterase,Urine Small (Negative); Mucus,Urine Rare /hpf; Nitrite,Urine Positive (Negative); PH, Urine 5.5 (5.0-8.0); Protein,Urine Negative (Negative); RBC,Urine 3 /hpf (0-5); Specific Gravity,Urine 1.018 (1.001-1.035); Squamous Epithelial Cell,Urine <1 /hpf (0-4); Urobilinogen,Urine <2.0 mg/dL (<2.0); WBC,Urine 25 /hpf (0-5)
[2019-11-30 14:42] LABS: Amphetamine Screen,Urine Not Detected (NotDetected); Barbiturate Screen,Urine Not Detected (NotDetected); Benzodiazepines Screen,Urine Detected (NotDetected); Cocaine Screen,Urine Not Detected (NotDetected); Methadone Screen, Urine Not Detected (NotDetected); Opiate Screen,Urine Detected (NotDetected); Oxycodone Screen, Urine Not Detected (NotDetected); Phencyclidine Screen,Urine Not Detected (NotDetected); Tricyclic Antidepressant,Urine Detected (NotDetected); Urn Cannabinoid Scrn Not Detected (NotDetected)
[2019-11-30 14:44] LABS: Partial Thromboplastin Time 26.4 sec (22.0-30.0); Prothrombin Time 10.8 sec (9.0-12.0)
[2019-11-30 14:45] LABS: ALT <6 U/L (4-34); AST 26 U/L (14-36); African American GFR (CKD) >90 (>60 ml/min/1.73 sqM); Alkaline Phosphatase 119 U/L (38-126); Anion Gap 7 mmol/L; Blood Urea Nitrogen 13 mg/dL (7-17); Calcium 8.8 mg/dL (8.4-10.2); Carbon Dioxide 28 mmol/L (22-30); Chloride 100 mmol/L (98-107); Glucose 120 mg/dL (74-99); Non-African American GFR(CKD) >90 (>60 ml/min/1.73 sqM); Sodium 135 mmol/L (137-145); Total Bilirubin 0.5 mg/dL (0.2-1.3)
[2019-11-30 14:57] LABS: Glucose,Whole Blood 83 mg/dL (75-99)
--- NOTE | 2019-11-30 14:58 | CT ---
EXAMINATION TYPE: CT brain wo con DATE OF EXAM: 11/30/2019 COMPARISON: CT brain 09/28/2019 HISTORY: Altered mental status. CT DLP: 1094.4 mGycm Automated exposure control for dose reduction was used. Head CT performed using departmental protocol FINDINGS: No interval change. White matter low-attenuation changes are again seen. IMPRESSION: NO ACUTE ABNORMALITY. CORTICAL ATROPHY AND PROBABLE NONSPECIFIC WHITE MATTER DEMYELINATION.
--- NOTE | 2019-11-30 14:59 | XR ---
EXAMINATION TYPE: XR chest 2V DATE OF EXAM: 11/30/2019 COMPARISON: 09/28/2019 HISTORY: Altered mental status TECHNIQUE: Frontal and lateral views of the chest are obtained. FINDINGS: Platelike right basilar atelectasis and trace minor fissural fluid. There is no focal air s pace opacity, pleural effusion, or pneumothorax seen. The cardiac silhouette size is within normal l imits. The osseous structures are intact. There is diffuse osseous demineralization. Mild degenerat kristi change of the spine. IMPRESSION: New platelike subsegmental right basilar atelectasis and new trace fluid in the right mi nor fissure.
[2019-11-30] MEDS ORDERED: NALOXONE 0.4 MG/ML 1 ML VIAL IV PRN (16:07)
[2019-11-30] MEDS: SODIUM CHLORIDE 0.9% 1,000 ML IV SCH (16:52)
[2019-11-30 18:25] LABS: Glucose,Whole Blood 54 mg/dL (75-99)
[2019-11-30 18:43] LABS: Glucose,Whole Blood 71 mg/dL (75-99)
[2019-11-30] MEDS ORDERED: SODIUM CHLORIDE 0.65% NASAL SPRAY 44 ML BTL NASAL PRN (19:43)
[2019-11-30 19:49] LABS: Glucose,Whole Blood 108 mg/dL (75-99)
[2019-11-30] MEDS ORDERED: NON FORMULARY DRUG (Cranberry Fruit Extract [Cranberry] 1,000 MG) PO SCH (21:00)
[2019-11-30] MEDS ORDERED: NON FORMULARY DRUG (Acetaminophen/Diphenhydramine [Tylenol Pm 500-25mg] 1 TAB) PO SCH (21:00)
--- NOTE | 2019-11-30 21:17 | P.CNNES ---
History of Present Illness Consult date: 11/30/19 Requesting physician: Mark Wilcox Reason for Consult: Altered mental status History of Present Illness: Patient is a 69-year-old female, who was brought to the hospital this morning with mental status change. Patient has history of Parkinson's disease as well as dementia. Patient not able to provide any history. Patient was found to have low blood glucose of 40. She was given 25 g of glucose with some improvement of symptoms. When she arrived, her blood sugar was 54 and then went up to 71. Her symptoms did improve. Family members have noticed that patient was more confused than usual. She is usually alert and oriented 1-2, and she was worse than her baseline. Patient does not eat much. Patient had computed tomography scan of the head, which revealed no acute abnormality. Cortical atrophy and probable nonspecific white matter demyelination. Chest x-ray showed new platelike subsegmental right basilar atelectasis and new trace fluid in the right minor fissure. EKG shows normal sinus rhythm. Blood test shows normal WBC, neutrophils are mildly elevated. Sodium 135 potassium 4.2 and renal funct ions normal. Patient's B12 was 341 on 09/05/2019, MMA 0.18 folate 3.0. TSH 1.020 and hemoglobin A1c 7.1 on 12/29/2018. Patient's CTA of head and neck from 09/04/2019 showed long segment stenosis of approximately 50% of the right M1 segment extending to the M2 segment and paucity of branch vessels in the anterior distribution of the middle cerebral artery. Patient takes aspirin 81 mg daily. Also on Lipitor 40 mg. No focal symptoms were reported. Review of Systems As above in detail. Patient denies headache, problem with the vision, hoarseness sore throat or dysphagia. Denies any chest pain shortness of breath. She does claim her shoulder hurts. Past Medical History Past Medical History: CVA/TIA, Diabetes Mellitus, GERD/Reflux, Hyperlipidemia, Hypertension, Musculoskeletal Disorder, Neurologic Disorder, Osteoarthritis (OA), Skin Disorder Additional Past Medical History / Comment(s): Pt recently diagnosed with parkinson's disease, pt states she has been told in the past that she had a CVA- discovered by cat scan, IDDM type II, chronic dermatitis/past cellulitis arms/hands, past falls, gout ,hx of hiatal hernia with surgery, diverticulosis, constipation, arthritis multiple joints, L knee pain/abdominal pain, recurrent UTIs, occasionally incontinent, bilateral pedal edema, "wears depends just in case",edentulous, vertigo History of Any Multi-Drug Resistant Organisms: None Reported Date of last positivie culture/infection: None MDRO Source:: None Past Surgical History: Cholecystectomy, Hysterectomy, Joint Replacement Additional Past Surgical History / Comment(s): hemorroidectomy, colonoscopy, egd, LAP GUCCI FUNDLOPLICATION, rt knee replacement Past Anesthesia/Blood Transfusion Reactions: No Reported Reaction Additional Past Anesthesia/Blood Transfusion Reaction / Comment(s): . Past Psychological History: Anxiety, Depression Additional Psychological History / Comment(s): Pt's daughter resides with her and assists her. Pt has a wheelchair for longer distances and a cane/walker she uses prn. She has a glucometer. He daughter manages her medications and is her caregiver. Her son or son in law drive her to [employer]. Smoking Status: Never smoker Past Alcohol Use History: None Reported Past Drug Use History: None Reported - Past Family History Father Family Medical History: Diabetes Mellitus Additional Family Medical History / Comment(s): Father in his 80s. Mother Family Medical History: Diabetes Mellitus Additional Family Medical History / Comment(s): Mother in her 80s Medications and Allergies Home Medications Medication Instructions Recorded Confirmed Type Oxybutynin Chloride 5 mg PO BID 02/05/15 11/30/19 History Potassium Chloride [Klor-Con 20] 20 meq PO BID 02/28/15 11/30/19 History ALPRAZolam 2 mg PO DAILY@0700 06/04/16 11/30/19 History Atorvastatin [Lipitor] 40 mg PO DAILY 11/20/16 11/30/19 History Insulin Glargine [Lantus] 20 unit SQ HS 09/03/17 11/30/19 History Cranberry Fruit Extract [Cranberry] 1,000 mg PO BID 12/23/17 11/30/19 History HYDROcodone/APAP 10-325MG [[place] 1 tab PO TID@0700,1300,1900 12/23/17 11/30/19 History 10-325] Magnesium Oxide [Mag-Ox] 500 mg PO HS 12/23/17 11/30/19 History Omeprazole 20 mg PO DAILY 12/23/17 11/30/19 History QUEtiapine [SEROquel] 50 mg PO BID 03/27/18 11/30/19 History Cholecalciferol [Vitamin D3 (25 1,000 unit PO DAILY 08/24/18 11/30/19 History Mcg = 1000 Iu)] Furosemide [Lasix] 10 mg PO DAILY 12/26/18 11/30/19 History Acetaminophen/Diphenhydramine 1 tab PO HS 09/04/19 11/30/19 History [Tylenol PM 500-25mg] Vortioxetine Hydrobromide 20 mg PO DAILY 09/04/19 11/30/19 History [Trintellix] Aspirin 81 mg PO DAILY #30 chew 09/07/19 11/30/19 Rx Linaclotide [Linzess] 145 mcg PO DAILY 09/28/19 11/30/19 History Sodium Chloride 0.65% Nasal [Deep 2 spray NASAL QID PRN spray 10/02/19 11/30/19 Rx Sea (Saline)] ALPRAZolam [Xanax] 1 mg PO BID@1300,1900 11/30/19 11/30/19 History Carbidopa-Levodopa 25-100 mg 1 tab PO TID 11/30/19 11/30/19 History [Sinemet 25-100] Allergies Allergy/AdvReac Type Severity Reaction Status Date / Time benactyzine AdvReac Abdominal Verified 11/30/19 16:24 Pain ciprofloxacin [From Cipro] AdvReac Abdominal Verified 11/30/19 16:24 Pain dicyclomine [From Bentyl] AdvReac Abdominal Verified 11/30/19 16:24 Pain levofloxacin [From Levaquin] AdvReac Abdominal Verified 11/30/19 16:24 Pain Penicillins AdvReac "Passed Verified 11/30/19 16:24 out" prednisone AdvReac Abdominal Verified 11/30/19 16:24 Pain sulfamethoxazole AdvReac Abdominal Verified 11/30/19 16:24 [From Bactrim] Pain tamsulosin HCl [From Flomax] AdvReac Abdominal Verified 11/30/19 16:24 Pain trimethoprim [From Bactrim] AdvReac Abdominal Verified 11/30/19 16:24 Pain Physical Examination - Vital Signs Vital Signs: Vital Signs Temp Pulse Pulse Resp BP BP Pulse Ox 11/30/19 20:26 96.2 F L 88 16 117/61 99 03/09/20 18:30 97.4 F L 85 16 124/56 100 11/30/19 17:00 98.5 F 92 15 100/58 99 11/30/19 16:00 80 12 105/59 100 11/30/19 15:30 80 15 105/59 100 11/30/19 15:00 77 16 95/68 100 11/30/19 13:39 97.9 F 76 15 110/55 93 L Intake and Output 11/30/19 11/30/19 11/30/19 06:59 14:59 22:59 Other: Weight 73.482 kg 74 kg On examination patient is an elderly female, in no distress. She is laying comfortably in the bed. Patient knows her name, but states she is 59 years of age and could not tell her date of . She states it is October 29 and the year is "5". She could not tell name of the current president. When I gave multiple choices, patient states was Obama. Speech is clear with no aphasia or dysarthria. On cranial nerve examination pupils are round and reacting, visual yang appears full. Face is symmetric. Tongue protrudes the midline. Hearing is decreased. Patient has slow mentation. 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 Her tone is increased moderately bilaterally. Ankles appears normal. Hip flexion is about 3+ bilaterally. Reflexes are 1+ and plantars are withdrawal bilaterally. Results - Laboratory Findings CBC and BMP: 11/30/19 13:45 11/30/19 13:45 Abnormal Lab Findings: Abnormal Labs 11/30/19 11/30/19 11/30/19 13:31 13:45 13:45 Neutrophils # 8.8 H Lymphocytes # 0.9 L Sodium 135 L Creatinine 0.51 L Glucose 120 H POC Glucose (mg/dL) 115 H Total Protein 6.0 L Albumin 3.0 L Urine Ketones Urine Nitrite Ur Leukocyte Esterase Urine WBC Urine Bacteria Hyaline Casts Urine Mucus Urine Opiates Screen U Tricyclic Antidepress U Benzodiazepines Scrn 11/30/19 11/30/19 11/30/19 13:45 18:23 18:42 Neutrophils # Lymphocytes # Sodium Creatinine Glucose POC Glucose (mg/dL) 54 L 71 L Total Protein Albumin Urine Ketones 1+ H Urine Nitrite Positive H Ur Leukocyte Esterase Small H Urine WBC 25 H Urine Bacteria Many H Hyaline Casts 6 H Urine Mucus Rare H Urine Opiates Screen Detected H U Tricyclic Antidepress Detected H U Benzodiazepines Scrn Detected H 11/30/19 19:48 Neutrophils # Lymphocytes # Sodium Creatinine Glucose POC Glucose (mg/dL) 108 H Total Protein Albumin Urine Ketones Urine Nitrite Ur Leukocyte Esterase Urine WBC Urine Bacteria Hyaline Casts Urine Mucus Urine Opiates Screen U Tricyclic Antidepress U Benzodiazepines Scrn Assessment and Plan Assessment: * Altered mental status, most likely related to hypoglycemia. Patient's blood glucose was 40 at the scene. * Dementia * Parkinson's disease versus parkinsonism. * Diabetes * Hypertension * Possible UTI. Plan: * Avoid episodes of hypoglycemia. * Patient currently on ceftriaxone to treat possible UTI. Urine cultures pending. * Continue Sinemet 25/100, 1 tablet 3 times a day for Parkinson's. 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 Continue aspirin and Lipitor 40 mg.
--- NOTE | 2019-11-30 21:42 | XR ---
EXAMINATION TYPE: XR shoulder complete RT DATE OF EXAM: 11/30/2019 CLINICAL HISTORY: Pain after fall injury. TECHNIQUE: Three views of the right shoulder are obtained. COMPARISON: None. FINDINGS: Osseous structures are demineralized. There is no acute fracture/dislocation evident in th e right shoulder. Moderate narrowing at the acromioclavicular joint is seen with mild inferior spurri ng. Glenohumeral joint is preserved. The visualized ribs are intact and unremarkable. IMPRESSION: There is no acute fracture or dislocation in the right shoulder.
[2019-11-30] MEDS: ACETAMINOPHEN TAB 500 MG TAB PO SCH (21:54)
[2019-11-30] MEDS: MAGNESIUM OXIDE 400 MG TAB PO SCH (21:55)
[2019-11-30] MEDS: QUEtiapine 50 MG TAB PO SCH (21:55)
[2019-11-30] MEDS: diphenhydrAMINE 25 MG CAP PO SCH (21:55)
[2019-11-30] MEDS: CARBIDOPA-LEVODOPA 25-100 MG 1 EACH TAB PO SCH (21:55)
[2019-11-30] MEDS: OXYBUTYNIN CHLORIDE 5 MG TAB PO SCH (21:55)
[2019-11-30] MEDS: POTASSIUM CHLORIDE ER 20 MEQ TAB.ER PO SCH (21:55)
[2019-12-01 02:14] LABS: Glucose,Whole Blood 92 mg/dL (75-99)
[2019-12-01 06:59] LABS: Glucose,Whole Blood 65 mg/dL (75-99)
[2019-12-01 07:21] LABS: Glucose,Whole Blood 74 mg/dL (75-99)
[2019-12-01 08:28] LABS: Basophils % (A) 0 %; Eosinophils # (A) 0.1 k/uL (0-0.7); Eosinophils % (A) 1 %; HCT 38.5 % (34.0-46.0); Lymphocytes % (A) 8 %; MCH 31.1 pg (25.0-35.0); MCHC 31.3 g/dL (31.0-37.0); MCV 99.5 fL (80.0-100.0); Mean Platelet Volume 7.6; Monocytes # (A) 0.4 k/uL (0-1.0); Monocytes % (A) 3 %; Neutrophils # (A) 11.1 k/uL (1.3-7.7); Neutrophils % (A) 88 %; Platelet Count 438 k/uL (150-450); RBC 3.87 m/uL (3.80-5.40); RDW 13.8 % (11.5-15.5); WBC 12.7 k/uL (3.8-10.6)
[2019-12-01 08:48] LABS: ALT 12 U/L (4-34); AST 25 U/L (14-36); African American GFR (CKD) >90 (>60 ml/min/1.73 sqM); Albumin 2.8 g/dL (3.5-5.0); Alkaline Phosphatase 124 U/L (38-126); Anion Gap 8 mmol/L; Blood Urea Nitrogen 10 mg/dL (7-17); Calcium 8.8 mg/dL (8.4-10.2); Carbon Dioxide 26 mmol/L (22-30); Chloride 102 mmol/L (98-107); Glucose 81 mg/dL (74-99); Non-African American GFR(CKD) >90 (>60 ml/min/1.73 sqM); Potassium 4.2 mmol/L (3.5-5.1); Sodium 136 mmol/L (137-145); Total Bilirubin 0.5 mg/dL (0.2-1.3); Total Protein 5.8 g/dL (6.3-8.2)
[2019-12-01] MEDS: POTASSIUM CHLORIDE ER 20 MEQ TAB.ER PO SCH ×2 (08:54→22:14)
[2019-12-01] MEDS: ALPRAZolam 1 MG TAB PO SCH ×2 (08:54→13:54)
[2019-12-01] MEDS: QUEtiapine 50 MG TAB PO SCH ×2 (08:54→22:14)
[2019-12-01] MEDS: ATORVASTATIN 40 MG TAB PO SCH (08:54)
[2019-12-01] MEDS: PANTOPRAZOLE 40 MG TABLET PO SCH (08:54)
[2019-12-01] MEDS: VORTIOXETINE HYDROBROMIDE 20 MG TABLET PO SCH (08:54)
[2019-12-01] MEDS: ASPIRIN 81 MG PO SCH (08:55)
[2019-12-01] MEDS: HYDROcodone/APAP 10-325MG 1 EACH TAB PO SCH ×3 (08:55→22:14)
[2019-12-01] MEDS: CHOLECALCIFEROL 1,000 UNIT TAB PO SCH (08:55)
[2019-12-01] MEDS: OXYBUTYNIN CHLORIDE 5 MG TAB PO SCH ×2 (08:55→22:15)
[2019-12-01] MEDS: CARBIDOPA-LEVODOPA 25-100 MG 1 EACH TAB PO SCH ×3 (08:55→22:14)
[2019-12-01] MEDS ORDERED: FUROSEMIDE 20 MG TAB PO SCH (09:00)
[2019-12-01 09:34] LABS: Glucose,Whole Blood 130 mg/dL (75-99)
[2019-12-01] MEDS: SODIUM CHLORIDE 0.9% 1,000 ML IV SCH (11:55)
[2019-12-01 12:11] LABS: Glucose,Whole Blood 133 mg/dL (75-99)
--- NOTE | 2019-12-01 13:23 | HP ---
HISTORY AND PHYSICAL This is a 69-year-old white female who came in with mental status changes. She is much better than when she was admitted. She has been given IV fluids overnight. She possibly had severe dehydration and hypoglycemia and taken off her long-acting insulin that she was taking at home. She is on an Accu-Chek protocol at this point. She had low blood sugar 40 up to 54 in the ER up to 71. CT scan of the head was negative. She has been diagnosed with Parkinson's. She had a recent MRI of the head and neck at [facility] in the past week, which is pending. B12 was 341. TSH is 1.0. Hemoglobin A1c is 7.1. CTA of the head and neck on 09/04/2019 showed stenosis 50% of the right ME segment. She is on aspirin. She is on Lipitor. PAST MEDICAL HISTORY: CVA, TIA, diabetes mellitus, GERD, dyslipidemia, hypertension, muscular disorder, neurologic disorder, osteoarthritis, skin disorder, CVA, insulin-dependent diabetes type 2. Surgery: Cholecystectomy, hysterectomy, joint replacement, Yung fundoplication, right knee replacement. History of depression. FAMILY HISTORY: Father with diabetes mellitus. Mother diabetes mellitus. MEDICATIONS: See list. ALLERGIES: See list. PHYSICAL EXAMINATION: Temp 96, pulse 80 to 85, respiratory rate 16 to 18, blood pressure 95 to 100 over 50s to 60s,. O2 is 99% to 100% on 2 L. Weight is 74 kg. CARDIOVASCULAR: S1, S2. LUNGS: Decreased breath sounds. PSYCH: She has a flat mood and affect. Hearing is decreased. She has generalized weakness and head tilted to the right shows she has a posterior neck tenderness and some swollen paracervical muscles for which cervical collar will be placed. LABS: Labs were reviewed; 25 white cells in the urine. ASSESSMENT: 1. Altered mental status secondary to hypoglycemia and dehydration. 2. Dementia. 3. Parkinson disease parkinsonism. 4. Diabetes. 5. Hypertension. 6. Possible urinary tract infection. Discontinue her long-acting insulin, Rocephin for UTI. Continue Sinemet. Continue aspirin and Lipitor. Please see further orders. MMODL / IJN: [id number] /
[2019-12-01] MEDS: LIDOCAINE 5% PATCH TOPICAL SCH (13:55)
[2019-12-01] MEDS: LINACLOTIDE 145 MCG PO SCH (13:56)
--- NOTE | 2019-12-01 15:04 | XR ---
EXAMINATION TYPE: XR shoulder complete LT DATE OF EXAM: 12/01/2019 CLINICAL HISTORY: Pain after fall injury. TECHNIQUE: Three views of the left shoulder are obtained. COMPARISON: Prior left shoulder x-ray March 27, 2015.. FINDINGS: Demineralization is redemonstrated. Acute comminuted minimally displaced fracture through t he distal aspect of the clavicle. Acromion clavicular joint is maintained with mild to moderate narro wing. Glenohumeral joint is preserved. Visualized ribs and scapula are intact. Overlying clothing mat erial is seen. IMPRESSION: There is acute comminuted minimally displaced fracture through distal left clavicle with out AC joint separation. (An initial Encounter closed type post traumatic fracture)
[2019-12-01 16:15] VITALS: BMI 29.8
[2019-12-01 17:20] LABS: Glucose,Whole Blood 116 mg/dL (75-99)
[2019-12-01 19:58] LABS: Glucose,Whole Blood 159 mg/dL (75-99)
[2019-12-01] MEDS: MAGNESIUM OXIDE 400 MG TAB PO SCH (22:15)
[2019-12-02] MEDS: diphenhydrAMINE 25 MG CAP PO SCH ×2 (02:42→21:16)
[2019-12-02] MEDS: ALPRAZolam 1 MG TAB PO SCH ×4 (02:42→19:36)
[2019-12-02] MEDS: ACETAMINOPHEN TAB 500 MG TAB PO SCH ×2 (02:42→21:16)
[2019-12-02] MEDS: SODIUM CHLORIDE 0.9% 1,000 ML IV SCH ×4 (02:47→22:43)
[2019-12-02 02:50] LABS: Glucose,Whole Blood 223 mg/dL (75-99)
[2019-12-02 07:40] LABS: Glucose,Whole Blood 134 mg/dL (75-99)
[2019-12-02] MEDS: LIDOCAINE 5% PATCH TOPICAL SCH (08:28)
[2019-12-02] MEDS: HYDROcodone/APAP 10-325MG 1 EACH TAB PO SCH ×3 (08:32→19:35)
[2019-12-02] MEDS: OXYBUTYNIN CHLORIDE 5 MG TAB PO SCH ×2 (08:32→21:16)
[2019-12-02] MEDS: CHOLECALCIFEROL 1,000 UNIT TAB PO SCH (08:33)
[2019-12-02] MEDS: LINACLOTIDE 145 MCG PO SCH (08:33)
[2019-12-02] MEDS: VORTIOXETINE HYDROBROMIDE 20 MG TABLET PO SCH (08:33)
[2019-12-02] MEDS: CARBIDOPA-LEVODOPA 25-100 MG 1 EACH TAB PO SCH ×3 (08:33→21:17)
[2019-12-02] MEDS: ASPIRIN 81 MG PO SCH (08:33)
[2019-12-02] MEDS: PANTOPRAZOLE 40 MG TABLET PO SCH (08:33)
[2019-12-02] MEDS: QUEtiapine 50 MG TAB PO SCH ×2 (08:33→21:17)
[2019-12-02] MEDS: POTASSIUM CHLORIDE ER 20 MEQ TAB.ER PO SCH ×2 (08:33→21:17)
[2019-12-02] MEDS: ATORVASTATIN 40 MG TAB PO SCH (08:41)
[2019-12-02 11:44] LABS: Glucose,Whole Blood 146 mg/dL (75-99)
--- NOTE | 2019-12-02 16:07 | P.PN ---
Subjective Progress Note Date: 12/03/19 This is a 69-year-old female admitted with altered mental status, hypoglycemia, dementia, Parkinson's disease, diabetes, hypertension, possible UTI and multiple other medical issues. Maintained on Rocephin. Afebrile. WBC 12.7. Vital signs stable, maintaining O2 sats in the high 90s to 100s on 2 L nasal cannula. Diet intake poor, consuming 25%, which is not new per family. Blood sugars controlled. Recent fall, left arm in sling, x-ray reporting acute comminuted minimally displaced fracture through the distal left clavicle without before meals joint separation. Orthopedic surgery consulted, recommendations pending. Cervical collar currently off-staff reports it's too big. Patient's daughter states patient has one that fits better, and is bringing in. Evaluated by neurology with recommendations noted and appreciated. Objective - Vital Signs Vital signs: Vital Signs Temp 98.0 F 12/02/19 05:00 Pulse 92 12/02/19 05:00 Resp 16 12/02/19 05:00 BP 118/75 12/02/19 05:00 Pulse Ox 98 12/02/19 05:00 Intake & Output 12/01/19 12/02/19 12/02/19 18:59 06:59 18:59 Intake Total 200 600 Balance 200 600 Weight 74 kg Intake: Intake, IV Titration 600 Amount Sodium Chloride 0.9% 1, 550 000 ml @ 75 mls/hr IV . [id number] COREY Rx#:[id number] cefTRIAXone 1 gm In 50 Sodium Chloride 0.9% 50 ml @ 100 mls/hr IVPB Q24HR COREY Rx#:[id number] Oral 200 Other: Voiding Method Diaper Diaper Diaper # Voids 2 3 1 - Exam PHYSICAL EXAM: VITAL SIGNS: As above GENERAL: Sitting up in bed, leaning to the right, wearing sling on left arm, no acute distress. HEENT: Conjunctivae normal. eyes normal, round and react. Tongue is midline. Decreased hearing. NECK: No JVD. No thyroid enlargement. No LNs CARDIOVASCULAR: S1, S2 regular. No murmur RESPIRATION: Breath sounds diminished in the bases. No rhonchi or crackles. No wheezing ABDOMEN: Soft, nontender . No guarding. no masses palpable. Bowel sounds heard. LEGS: No edema. no swelling PSYCHIATRY: Alert and oriented X1, mood and affect flat, slow. NERVOUS SYSTEM: Moves all 4 limbs. Diffuse weakness, Skin:no rash. No calf tenderness - Labs CBC & Chem 7: 12/01/19 07:26 12/01/19 07:26 Labs: Abnormal Lab Results - Last 24 Hours (Table) 12/01/19 12/01/19 12/02/19 Range/Units 16:59 19:56 02:49 POC Glucose (mg/dL) 116 H 159 H 223 H (75-99) mg/dL 12/02/19 12/02/19 Range/Units 07:22 11:33 POC Glucose (mg/dL) 134 H 146 H (75-99) mg/dL Microbiology - Last 24 Hours (Table) 11/30/19 13:45 Urine Culture - Preliminary Urine,Catheterized Gram Neg Bacilli Assessment and Plan Assessment: Altered mental status, acute metabolic encephalopathy secondary to hypoglycemia and dehydration Diabetes mellitus II, uncontrolled, both hypo-and hyperglycemic, currently controlled, hemoglobin A1c pending Recent fall, left acute comminuted minimally displaced fracture, orthopedic surgery following Acute UTI, gram-negative bacilli in a patient with history of recurrent UTIs Atelectasis Parkinson's disease, possible Parkinsonism Dementia secondary to the above CVA, TIA with History of right MCA stenosis 50%, maintained on statin and aspirin Gastroesophageal reflux disease Hypertension Hyperlipidemia Anxiety depression Plan: Continue on current medication regime ,Sinemet, ASA, Statin, monitoring and symptomatic treatment. Daughter bringing in cervical collar that fits better .Close monitoring of Accu-Cheks. Orthopedic recommendations pending. Continue on IV antibiotics. Aggressive pulmonary toileting with incentive spirometer ordered. Encourage oral intake. Patient is a total assist, evaluated by PT with subacute rehab recommended at discharge. The impression and plan of care has been dictated as directed. : I performed a history and examination of this patient, discussed the same with the dictator. I agree with the dictator's note ,documented as a scribe. Any additional findings or plans will be noted.
[2019-12-02 17:32] LABS: Glucose,Whole Blood 136 mg/dL (75-99)
[2019-12-02] MEDS: INSULIN ASPART (NovoLOG) 100 UNIT/ML VIAL SQ SCH ×2 (17:35→21:16)
[2019-12-02 20:16] LABS: Glucose,Whole Blood 176 mg/dL (75-99)
[2019-12-02] MEDS: MAGNESIUM OXIDE 400 MG TAB PO SCH (21:16)
[2019-12-03 02:04] LABS: Glucose,Whole Blood 116 mg/dL (75-99)
[2019-12-03] MEDS: SODIUM CHLORIDE 0.9% 1,000 ML IV SCH (05:27)
[2019-12-03 07:08] LABS: Glucose,Whole Blood 95 mg/dL (75-99)
[2019-12-03] MEDS: ALPRAZolam 1 MG TAB PO SCH ×2 (08:20→12:49)
[2019-12-03] MEDS: QUEtiapine 50 MG TAB PO SCH (08:20)
[2019-12-03] MEDS: CHOLECALCIFEROL 1,000 UNIT TAB PO SCH (08:20)
[2019-12-03] MEDS: VORTIOXETINE HYDROBROMIDE 20 MG TABLET PO SCH (08:20)
[2019-12-03] MEDS: PANTOPRAZOLE 40 MG TABLET PO SCH (08:20)
[2019-12-03] MEDS: POTASSIUM CHLORIDE ER 20 MEQ TAB.ER PO SCH (08:21)
[2019-12-03] MEDS: ASPIRIN 81 MG PO SCH (08:21)
[2019-12-03] MEDS: LIDOCAINE 5% PATCH TOPICAL SCH (08:21)
[2019-12-03] MEDS: HYDROcodone/APAP 10-325MG 1 EACH TAB PO SCH ×2 (08:21→12:48)
[2019-12-03] MEDS: CARBIDOPA-LEVODOPA 25-100 MG 1 EACH TAB PO SCH (08:21)
[2019-12-03] MEDS: OXYBUTYNIN CHLORIDE 5 MG TAB PO SCH (08:21)
[2019-12-03] MEDS: LINACLOTIDE 145 MCG PO SCH (08:22)
[2019-12-03] MEDS: INSULIN ASPART (NovoLOG) 100 UNIT/ML VIAL SQ SCH ×2 (08:22→12:49)
[2019-12-03] MEDS: ATORVASTATIN 40 MG TAB PO SCH (08:23)
[2019-12-03 09:21] LABS: Basophils % (A) 1 %; Eosinophils # (A) 0.1 k/uL (0-0.7); Eosinophils % (A) 3 %; HCT 38.7 % (34.0-46.0); HGB 12.2 gm/dL (11.4-16.0); Lymphocytes # (A) 1.2 k/uL (1.0-4.8); Lymphocytes % (A) 28 %; MCH 31.4 pg (25.0-35.0); MCHC 31.5 g/dL (31.0-37.0); MCV 99.5 fL (80.0-100.0); Mean Platelet Volume 7.7; Monocytes # (A) 0.2 k/uL (0-1.0); Monocytes % (A) 5 %; Neutrophils # (A) 2.7 k/uL (1.3-7.7); Neutrophils % (A) 62 %; Platelet Count 357 k/uL (150-450); RBC 3.89 m/uL (3.80-5.40); RDW 13.9 % (11.5-15.5); WBC 4.4 k/uL (3.8-10.6)
[2019-12-03 09:23] LABS: African American GFR (CKD) >90 (>60 ml/min/1.73 sqM); Anion Gap 7 mmol/L; Blood Urea Nitrogen 6 mg/dL (7-17); Calcium 8.7 mg/dL (8.4-10.2); Carbon Dioxide 28 mmol/L (22-30); Chloride 104 mmol/L (98-107); Glucose 120 mg/dL (74-99); Non-African American GFR(CKD) >90 (>60 ml/min/1.73 sqM); Potassium 4.2 mmol/L (3.5-5.1); Sodium 139 mmol/L (137-145)
[2019-12-03 11:44] LABS: Glucose,Whole Blood 168 mg/dL (75-99)
[2019-12-03 11:53] VITALS: BP 103/66; PULSE 76; RESP 20; TEMP 98.1
[2019-12-03 20:33] LABS: Hemoglobin A1C 5.6 % (4.0-6.0)
--- NOTE | 2019-12-07 20:13 | DS ---
DISCHARGE SUMMARY DATE OF ADMISSION: 11/30/2019 DATE OF DISCHARGE: 12/03/2019 MEDICATIONS: 1. Oxybutynin 5 mg twice a day. 2. Potassium chloride 20 mEq twice a day. 3. Alprazolam 2 mg daily. 4. Lipitor 40 mg daily. 5. Lantus 20 units daily. 6. Omeprazole 20 mg daily. 7. Mag-Oxide 500 mg daily. 8. [place] 10 three times a day. 9. Seroquel 50 twice a day. 10.Lasix 20 mg daily. 11.Vitamin D 1000 units daily. 12.Trintellix 20 mg daily. 13.Aspirin 81 mg daily. 14.Linzess 145 mg daily. 15.Sinemet 25/100 three times a day. 16.Xanax 1 mg twice a day. 17.Ceftin 500 twice a day for 5 days. CONDITION: Stable. PROGNOSIS: Guarded. Ambulate as tolerated. HOSPITAL COURSE OF EVENTS: White female was admitted with severe community-acquired pneumonia, chronic obstructive pulmonary disease exacerbation/urinary tract infection with sepsis. The patient was treated with intravenous antibiotics. She was also found to have severe cervical/lumbar disc disease, for which an epidural will be scheduled as an outpatient. She was placed in a cervical collar while in the hospital. She was found to have a clavicle fracture in her left shoulder, for which a sling was placed on the patient. Orthopedic consult; never saw the patient. Anesthetic doctor for a cervical injection never saw the patient. Will have to work up for these as an outpatient. Can send her with a sling for the left arm. She will follow up in the office. MMODL / IJN: [id number] /
== END 2019-12-03 16:21 | disposition home health service (06) | DRG 637 ==
LOC: EC 13:27 → 5NMEDONC 16:07
PROVIDERS: ADMIT Family Medicine; ATTEND Family Medicine
DX: E11.649 Type 2 diabetes mellitus with hypoglycemia without coma (principal); G93.41 Metabolic encephalopathy; N39.0 Urinary tract infection, site not specified; J98.11 Atelectasis; G20 Parkinson's disease; F02.80 Dementia in other diseases classified elsewhere, unspecified severity, without behavioral disturbance, psychotic disturbance, mood disturbance, and anxiety; K21.9 Gastro-esophageal reflux disease without esophagitis; I10 Essential (primary) hypertension; E78.5 Hyperlipidemia, unspecified; M19.90 Unspecified osteoarthritis, unspecified site; K57.90 Diverticulosis of intestine, part unspecified, without perforation or abscess without bleeding; E86.0 Dehydration; I66.01 Occlusion and stenosis of right middle cerebral artery; S42.032A Displaced fracture of lateral end of left clavicle, initial encounter for closed fracture; E11.65 Type 2 diabetes mellitus with hyperglycemia; B96.20 Unspecified Escherichia coli [E. coli] as the cause of diseases classified elsewhere; M10.9 Gout, unspecified; R32 Unspecified urinary incontinence; F41.9 Anxiety disorder, unspecified; F32.9 Major depressive disorder, single episode, unspecified; W19.XXXA Unspecified fall, initial encounter; Z79.4 Long term (current) use of insulin; Z79.899 Other long term (current) drug therapy; Z79.82 Long term (current) use of aspirin; Z86.73 Personal history of transient ischemic attack (TIA), and cerebral infarction without residual deficits; Z86.19 Personal history of other infectious and parasitic diseases; Z87.440 Personal history of urinary (tract) infections; Z90.710 Acquired absence of both cervix and uterus; Z90.49 Acquired absence of other specified parts of digestive tract; Z96.651 Presence of right artificial knee joint; Z87.2 Personal history of diseases of the skin and subcutaneous tissue; Z98.890 Other specified postprocedural states; Z88.1 Allergy status to other antibiotic agents; Z88.0 Allergy status to penicillin; Z88.2 Allergy status to sulfonamides; Z88.8 Allergy status to other drugs, medicaments and biological substances; Z83.3 Family history of diabetes mellitus
CPT/HCPCS: 36415; 70450; 71046; 80048; 80053; 80306; 81001; 82140; 83036; 84484; 85025; 85610; 85730; 87077; 87086; 87186; 93005; 96365; 99285

== ENCOUNTER 2019-12-11 10:02 | Inpatient (IN) | payer MEDICARE ==
[2019-12-11] MEDS ORDERED: IPRATROPIUM-ALBUTEROL 3 ML NEB INHALATION PRN (13:40)
[2019-12-11 13:49] LABS: Basophils % (A) 1 %; Eosinophils # (A) 0.1 k/uL (0-0.7); Eosinophils % (A) 1 %; HCT 48.5 % (34.0-46.0); HGB 14.8 gm/dL (11.4-16.0); Lymphocytes # (A) 1.7 k/uL (1.0-4.8); Lymphocytes % (A) 18 %; MCH 30.7 pg (25.0-35.0); MCHC 30.5 g/dL (31.0-37.0); MCV 100.5 fL (80.0-100.0); Macrocytosis Slight; Mean Platelet Volume 7.2; Monocytes # (A) 0.3 k/uL (0-1.0); Monocytes % (A) 3 %; Neutrophils # (A) 7.5 k/uL (1.3-7.7); Neutrophils % (A) 78 %; Platelet Count 505 k/uL (150-450); RBC 4.83 m/uL (3.80-5.40); RDW 14.1 % (11.5-15.5); WBC 9.6 k/uL (3.8-10.6)
[2019-12-11 14:02] LABS: ALT 26 U/L (4-34); AST 80 U/L (14-36); African American GFR (CKD) >90 (>60 ml/min/1.73 sqM); Albumin 3.5 g/dL (3.5-5.0); Alkaline Phosphatase 151 U/L (38-126); Anion Gap 16 mmol/L; Blood Urea Nitrogen 17 mg/dL (7-17); Calcium 9.4 mg/dL (8.4-10.2); Carbon Dioxide 26 mmol/L (22-30); Chloride 99 mmol/L (98-107); Glucose 202 mg/dL (74-99); Non-African American GFR(CKD) 90 (>60 ml/min/1.73 sqM); Potassium 4.5 mmol/L (3.5-5.1); Sodium 141 mmol/L (137-145); Total Bilirubin 0.6 mg/dL (0.2-1.3); Total Protein 6.9 g/dL (6.3-8.2)
--- NOTE | 2019-12-11 14:16 | XR ---
EXAMINATION TYPE: XR chest 2V DATE OF EXAM: 12/11/2019 COMPARISON: Chest x-ray November 30, 2019. HISTORY: Hypoxia. TECHNIQUE: Frontal and lateral views of the chest are obtained. FINDINGS: There is some chronic parenchymal change without suspicious focal air space opacity, pleur al effusion, or pneumothorax seen. The cardiac silhouette size is within normal limits. The osseou s structures are demineralized. IMPRESSION: Chronic changes without acute pulmonary process.
[2019-12-11] MEDS: IPRATROPIUM-ALBUTEROL 3 ML NEB INHALATION SCH ×2 (16:15→19:33)
--- NOTE | 2019-12-11 17:22 | P.CNNES ---
History of Present Illness Consult date: 12/11/19 Requesting physician: Tej Bojorquez Reason for Consult: Weakness, confusion, Parkinson's History of Present Illness: Patient is a 69-year-old female, well-known to me from previous admissions to the hospital. Patient has history of Parkinson's disease versus drug-induced Parkinson's from previous use of metoclopramide. Patient is currently on Sinemet 25/100, 1 tablet 3 times a day. Patient was brought to the hospital for lethargic and is, not eating, and possible COPD exacerbation. Patient not able to give any more history. No report of hypoglycemia on this visit. Chest x-ray showed chronic changes without acute process. Patient's blood test shows normal WBC, hemoglobin 14.8 with elevated MCV 100.5, platelets 505. Electrolytes are normal. Renal functions normal. AST is 80, ALT 26. TSH normal. Review of Systems ROS unobtainable: due to mental status Past Medical History Past Medical History: CVA/TIA, Diabetes Mellitus, GERD/Reflux, Hyperlipidemia, Hypertension, Musculoskeletal Disorder, Neurologic Disorder, Osteoarthritis (OA), Skin Disorder Additional Past Medical History / Comment(s): Pt recently diagnosed with parkinson's disease, pt states she has been told in the past that she had a CVA- discovered by cat scan, IDDM type II, chronic dermatitis/past cellulitis arms/hands, past falls, gout ,hx of hiatal hernia with surgery, diverticulosis, constipation, arthritis multiple joints, L knee pain/abdominal pain, recurrent UTIs, occasionally incontinent, bilateral pedal edema, "wears depends just in case",edentulous, vertigo History of Any Multi-Drug Resistant Organisms: None Reported Date of last positivie culture/infection: None MDRO Source:: None Past Surgical History: Cholecystectomy, Hysterectomy, Joint Replacement Additional Past Surgical History / Comment(s): hemorroidectomy, colonoscopy, egd, LAP GUCCI FUNDLOPLICATION, rt knee replacement Past Anesthesia/Blood Transfusion Reactions: No Reported Reaction Additional Past Anesthesia/Blood Transfusion Reaction / Comment(s): . Past Psychological History: Anxiety, Depression Additional Psychological History / Comment(s): Pt's daughter resides with her and assists her. Pt has a wheelchair for longer distances and a cane/walker she uses prn. She has a glucometer. He daughter manages her medications and is her caregiver. Her son or son in law drive her to [employer]. Smoking Status: Never smoker Past Alcohol Use History: None Reported Past Drug Use History: None Reported - Past Family History Father Family Medical History: Diabetes Mellitus Additional Family Medical History / Comment(s): Father in his 80s. Mother Family Medical History: Diabetes Mellitus Additional Family Medical History / Comment(s): Mother in her 80s Medications and Allergies Home Medications Medication Instructions Recorded Confirmed Type Oxybutynin Chloride 5 mg PO BID 02/05/15 12/11/19 History Potassium Chloride [Klor-Con 20] 20 meq PO BID 02/28/15 12/11/19 History Atorvastatin [Lipitor] 40 mg PO DAILY 11/20/16 12/11/19 History Insulin Glargine [Lantus] 20 unit SQ HS 09/03/17 12/11/19 History Cranberry Fruit Extract [Cranberry] 1,000 mg PO BID 12/23/17 12/11/19 History HYDROcodone/APAP 10-325MG [[place] 1 tab PO TID@0700,1300,1900 12/23/17 12/11/19 History 10-325] Magnesium Oxide [Mag-Ox] 500 mg PO HS 12/23/17 12/11/19 History Omeprazole 20 mg PO DAILY 12/23/17 12/11/19 History QUEtiapine [SEROquel] 50 mg PO BID 03/27/18 12/11/19 History Cholecalciferol [Vitamin D3 (25 1,000 unit PO DAILY 08/24/18 12/11/19 History Mcg = 1000 Iu)] Furosemide [Lasix] 10 mg PO DAILY 12/26/18 12/11/19 History Acetaminophen/Diphenhydramine 1 tab PO HS 09/04/19 12/11/19 History [Tylenol PM 500-25mg] Vortioxetine Hydrobromide 20 mg PO DAILY 09/04/19 12/11/19 History [Trintellix] Aspirin 81 mg PO DAILY #30 chew 09/07/19 12/11/19 Rx Linaclotide [Linzess] 145 mcg PO DAILY 09/28/19 12/11/19 History ALPRAZolam [Xanax] 1 mg PO TID@0700,1300,1900 11/30/19 12/11/19 History Carbidopa-Levodopa 25-100 mg 1 tab PO TID 11/30/19 12/11/19 History [Sinemet 25-100 mg] Allergies Allergy/AdvReac Type Severity Reaction Status Date / Time benactyzine AdvReac Abdominal Verified 12/11/19 12:17 Pain ciprofloxacin [From Cipro] AdvReac Abdominal Verified 12/11/19 12:17 Pain dicyclomine [From Bentyl] AdvReac Abdominal Verified 12/11/19 12:17 Pain levofloxacin [From Levaquin] AdvReac Abdominal Verified 12/11/19 12:17 Pain Penicillins AdvReac "Passed Verified 12/11/19 12:17 out" prednisone AdvReac Abdominal Verified 12/11/19 12:17 Pain sulfamethoxazole AdvReac Abdominal Verified 12/11/19 12:17 [From Bactrim] Pain tamsulosin HCl [From Flomax] AdvReac Abdominal Verified 12/11/19 12:17 Pain trimethoprim [From Bactrim] AdvReac Abdominal Verified 12/11/19 12:17 Pain Physical Examination - Vital Signs Vital Signs: Vital Signs Temp Pulse Pulse Resp BP Pulse Ox 12/11/19 16:17 91 12/11/19 15:00 97.9 F 84 17 134/64 92 L 12/11/19 11:56 97.9 F 110 H 18 129/82 100 Intake and Output 12/11/19 12/11/19 12/11/19 06:59 14:59 22:59 Other: Voiding Method Diaper Incontinent # Voids 1 Weight 67 kg On examination patient is an elderly female, who is laying comfortably in the bed, in mild to moderate respiratory distress, due to difficulty breathing. She has oxygen by nasal cannula. Patient knows her name, things is September and the year is . She states she is 39 years of age. Patient does have dementia. Her pupils are round and reacting. Face is symmetric. She did speak very little. Tone is increased moderately bilaterally, left more than right. Tone is also increased in the legs. Patient does move her arms and legs very minimally, but equally. Patient is very severely bradykinetic. No tremors at rest were noted. Bulk of muscles appears normal. Plantars are withdrawal. Results - Laboratory Findings CBC and BMP: 12/11/19 13:37 12/11/19 13:37 Abnormal Lab Findings: Abnormal Labs 12/11/19 12/11/19 13:37 13:37 Hct 48.5 H MCV 100.5 H MCHC 30.5 L Plt Count 505 H Glucose 202 H AST 80 H Alkaline Phosphatase 151 H Assessment and Plan Assessment: * Altered mental status, possible due to toxic metabolic encephalopathy due to COPD exacerbation. Patient does appear mild to moderate short of breath. * Advanced dementia * Parkinsonsonism * Diabetes * Hypertension * Chronic disability due to above Plan: * Continue Sinemet 25/100, 1 tablet 3 times a day. * Your medical management. * No other neurological workup indicated. * Please call neurology if you have any other specific concerns. Dr. Ochoa covering over the weekend.
[2019-12-11] MEDS: CARBIDOPA-LEVODOPA 25-100 MG 1 EACH TAB PO SCH ×2 (17:43→22:06)
[2019-12-11] MEDS: ATORVASTATIN 40 MG TAB PO SCH (17:43)
[2019-12-11] MEDS: INSULIN ASPART (NovoLOG) 100 UNIT/ML VIAL SQ SCH ×2 (17:43→20:50)
[2019-12-11] MEDS: SODIUM CHLORIDE 0.9% 1,000 ML IV SCH (17:48)
[2019-12-11] MEDS: HYDROcodone/APAP 10-325MG 1 EACH TAB PO SCH (19:11)
[2019-12-11] MEDS: ALPRAZolam 1 MG TAB PO SCH (19:11)
[2019-12-11 20:23] LABS: Glucose,Whole Blood 175 mg/dL (75-99)
[2019-12-11] MEDS: INSULIN DETEMIR (LEVEMIR) 100 UNIT/ML SYR SQ SCH (20:51)
[2019-12-11] MEDS: OXYBUTYNIN CHLORIDE 5 MG TAB PO SCH (20:53)
[2019-12-11] MEDS: ACETAMINOPHEN TAB 500 MG TAB PO SCH (20:53)
[2019-12-11] MEDS: MAGNESIUM OXIDE 400 MG TAB PO SCH (20:54)
[2019-12-11] MEDS: QUEtiapine 50 MG TAB PO SCH (20:54)
[2019-12-11] MEDS: diphenhydrAMINE 25 MG CAP PO SCH (20:54)
[2019-12-11] MEDS ORDERED: POTASSIUM CHLORIDE ER 20 MEQ TAB.ER PO SCH (21:00)
[2019-12-12 04:48] LABS: Glucose,Whole Blood 135 mg/dL (75-99)
[2019-12-12 06:48] LABS: Glucose,Whole Blood 123 mg/dL (75-99)
[2019-12-12 06:57] LABS: Basophils % (A) 0 %; Eosinophils # (A) 0.1 k/uL (0-0.7); Eosinophils % (A) 1 %; HCT 38.3 % (34.0-46.0); HGB 12.2 gm/dL (11.4-16.0); Lymphocytes # (A) 1.6 k/uL (1.0-4.8); Lymphocytes % (A) 23 %; MCHC 31.7 g/dL (31.0-37.0); MCV 97.6 fL (80.0-100.0); Mean Platelet Volume 7.3; Monocytes # (A) 0.3 k/uL (0-1.0); Monocytes % (A) 5 %; Neutrophils % (A) 70 %; Platelet Count 426 k/uL (150-450); RBC 3.93 m/uL (3.80-5.40); RDW 14.2 % (11.5-15.5); WBC 7.2 k/uL (3.8-10.6)
[2019-12-12 07:16] LABS: ALT 11 U/L (4-34); AST 39 U/L (14-36); African American GFR (CKD) >90 (>60 ml/min/1.73 sqM); Albumin 2.7 g/dL (3.5-5.0); Alkaline Phosphatase 111 U/L (38-126); Anion Gap 6 mmol/L; Blood Urea Nitrogen 17 mg/dL (7-17); Calcium 8.5 mg/dL (8.4-10.2); Carbon Dioxide 28 mmol/L (22-30); Chloride 103 mmol/L (98-107); Glucose 139 mg/dL (74-99); Non-African American GFR(CKD) >90 (>60 ml/min/1.73 sqM); Potassium 3.9 mmol/L (3.5-5.1); Sodium 137 mmol/L (137-145); Total Bilirubin 0.4 mg/dL (0.2-1.3); Total Protein 5.7 g/dL (6.3-8.2)
[2019-12-12] MEDS: IPRATROPIUM-ALBUTEROL 3 ML NEB INHALATION SCH ×4 (07:49→19:52)
[2019-12-12] MEDS: HYDROcodone/APAP 10-325MG 1 EACH TAB PO SCH ×3 (08:07→20:56)
[2019-12-12] MEDS: INSULIN ASPART (NovoLOG) 100 UNIT/ML VIAL SQ SCH ×4 (08:07→20:57)
[2019-12-12] MEDS: ALPRAZolam 1 MG TAB PO SCH ×3 (08:08→19:32)
[2019-12-12] MEDS: CARBIDOPA-LEVODOPA 25-100 MG 1 EACH TAB PO SCH ×4 (08:35→20:56)
[2019-12-12] MEDS: QUEtiapine 50 MG TAB PO SCH ×2 (08:36→20:57)
[2019-12-12] MEDS: ASPIRIN 81 MG PO SCH (08:36)
[2019-12-12] MEDS: CHOLECALCIFEROL 1,000 UNIT TAB PO SCH (08:36)
[2019-12-12] MEDS: OXYBUTYNIN CHLORIDE 5 MG TAB PO SCH ×2 (08:36→20:57)
[2019-12-12] MEDS: ATORVASTATIN 40 MG TAB PO SCH (08:36)
[2019-12-12] MEDS: VORTIOXETINE HYDROBROMIDE 20 MG TABLET PO SCH (08:36)
[2019-12-12] MEDS: PANTOPRAZOLE 40 MG TABLET PO SCH (08:36)
[2019-12-12] MEDS ORDERED: FUROSEMIDE 20 MG TAB PO SCH (09:00)
[2019-12-12 10:30] VITALS: BMI 27.0
[2019-12-12] MEDS: NON FORMULARY DRUG (Linaclotide [Linzess] 145 MCG) PO SCH (11:09)
[2019-12-12 11:34] LABS: Glucose,Whole Blood 137 mg/dL (75-99)
--- NOTE | 2019-12-12 11:44 | HP ---
HISTORY AND PHYSICAL 69-year-old white female, history of Parkinson disease, drug-induced Parkinson's from use of possible Reglan which is questionable. Reglan has been used for gastroparesis in this patient, and she has been seen by outpatient Neurology, Dr. Young who recommended Sinemet for Parkinson 3 times a day. She is admitted with dehydration, COPD exacerbation. She has a recent clavicle fracture. She is unable to eat and drink at home and very lethargic at which time she was brought to the hospital. REVIEW OF SYMPTOMS: Review of systems poor due to poor mental status. PAST MEDICAL HISTORY: History of CVA, TIA, diabetes mellitus, GERD, dyslipidemia, hypertension, insulin- dependent diabetes mellitus with gastroparesis, osteoarthritis, recent bipolar disorder, recent fractured left clavicle from a fall, history of gout, arthritis, diastolic CHF, urinary incontinence. SURGERIES: Cholecystectomy, hysterectomy, joint replacement, Yung fundoplication, hemorrhoidectomy colonoscopy. FAMILY HISTORY: Father diabetes mellitus. Mother diabetes mellitus. MEDICATIONS: Home medicines include oxybutynin, potassium chloride, Lipitor, Lantus, [place], Mag oxide, omeprazole, Seroquel, Lasix, Benadryl, aspirin, Xanax, Sinemet ALLERGIES: BENACTYZINE, CIPRO, LEVOFLOXACIN, PENICILLIN, PREDNISONE, BACTRIM, FLOMAX. PHYSICAL EXAMINATION: Vital signs temp 97.9, pulse 80 to 84, respiratory 16-18, blood pressure is 130s over 60s and 92% on room air. PSYCH: She is flat mood and affect. NEURO: She is lethargic, does not move any extremities, not responding. She is lethargic. CARDIOVASCULAR S1, S2. LUNGS showed decreased breath sounds x4. HEMATOLOGY 2+ edema. CARDIOVASCULAR: S1-S2. LUNGS: Wheezes at the bases. LABS: Are reviewed. ASSESSMENT: 1. Altered mental status, possibly metabolic encephalopathy. 2. Chronic obstructive pulmonary disease exacerbation. 3. Advanced dementia. 4. Parkinson's. 5. Diabetes. 6. Hypertension. 7. Chronic disability. RECOMMENDATIONS: Continue Sinemet, possibly IV steroids, updraft treatments. Rehydration for dehydration with acute tubular necrosis and dehydration. Please see further orders. Neurology consult pending. MMODL / IJN: [id number] /
--- NOTE | 2019-12-12 12:29 | P.CNPUL ---
History of Present Illness Reason for consult: dyspnea, pneumonia Chief complaint: Shortness of breath History of present illness: Patient is a 69-year-old female with prior history advanced Parkinson's disease came into the hospital with the increased lethargy not eating much and COPD exacerbation, due to lethargy nonmetastatic M to obtain from R, chest x-ray shows chronic changes no new acute infiltrate, labs revealed normal WBC count, Review of Systems ROS unobtainable: due to mental status All systems: negative Past Medical History Past Medical History: CVA/TIA, Diabetes Mellitus, GERD/Reflux, Hyperlipidemia, Hypertension, Musculoskeletal Disorder, Neurologic Disorder, Osteoarthritis (OA), Skin Disorder Additional Past Medical History / Comment(s): Pt recently diagnosed with parkinson's disease, pt states she has been told in the past that she had a CVA- discovered by cat scan, IDDM type II, chronic dermatitis/past cellulitis arms/hands, past falls, gout ,hx of hiatal hernia with surgery, diverticulosis, constipation, arthritis multiple joints, L knee pain/abdominal pain, recurrent UTIs, occasionally incontinent, bilateral pedal edema, "wears depends just in case",edentulous, vertigo History of Any Multi-Drug Resistant Organisms: None Reported Date of last positivie culture/infection: None MDRO Source:: None Past Surgical History: Cholecystectomy, Hysterectomy, Joint Replacement Additional Past Surgical History / Comment(s): hemorroidectomy, colonoscopy, egd, LAP GUCCI FUNDLOPLICATION, rt knee replacement Past Anesthesia/Blood Transfusion Reactions: No Reported Reaction Additional Past Anesthesia/Blood Transfusion Reaction / Comment(s): . Past Psychological History: Anxiety, Depression Additional Psychological History / Comment(s): Pt's daughter resides with her and assists her. Pt has a wheelchair for longer distances and a cane/walker she uses prn. She has a glucometer. He daughter manages her medications and is her caregiver. Her son or son in law drive her to [place]. Smoking Status: Never smoker Past Alcohol Use History: None Reported Past Drug Use History: None Reported - Past Family History Father Family Medical History: Diabetes Mellitus Additional Family Medical History / Comment(s): Father in his 80s. Mother Family Medical History: Diabetes Mellitus Additional Family Medical History / Comment(s): Mother in her 80s Medications and Allergies Home Medications Medication Instructions Recorded Confirmed Type Oxybutynin Chloride 5 mg PO BID 02/05/15 12/11/19 History Potassium Chloride [Klor-Con 20] 20 meq PO BID 02/28/15 12/11/19 History Atorvastatin [Lipitor] 40 mg PO DAILY 11/20/16 12/11/19 History Insulin Glargine [Lantus] 20 unit SQ HS 09/03/17 12/11/19 History Cranberry Fruit Extract [Cranberry] 1,000 mg PO BID 12/23/17 12/11/19 History HYDROcodone/APAP 10-325MG [[place] 1 tab PO TID@0700,1300,1900 12/23/17 12/11/19 History 10-325] Magnesium Oxide [Mag-Ox] 500 mg PO HS 12/23/17 12/11/19 History Omeprazole 20 mg PO DAILY 12/23/17 12/11/19 History QUEtiapine [SEROquel] 50 mg PO BID 03/27/18 12/11/19 History Cholecalciferol [Vitamin D3 (25 1,000 unit PO DAILY 08/24/18 12/11/19 History Mcg = 1000 Iu)] Furosemide [Lasix] 10 mg PO DAILY 12/26/18 12/11/19 History Acetaminophen/Diphenhydramine 1 tab PO HS 09/04/19 12/11/19 History [Tylenol PM 500-25mg] Vortioxetine Hydrobromide 20 mg PO DAILY 09/04/19 12/11/19 History [Trintellix] Aspirin 81 mg PO DAILY #30 chew 09/07/19 12/11/19 Rx Linaclotide [Linzess] 145 mcg PO DAILY 09/28/19 12/11/19 History ALPRAZolam [Xanax] 1 mg PO TID@0700,1300,1900 11/30/19 12/11/19 History Carbidopa-Levodopa 25-100 mg 1 tab PO TID 11/30/19 12/11/19 History [Sinemet 25-100 mg] Allergies Allergy/AdvReac Type Severity Reaction Status Date / Time benactyzine AdvReac Abdominal Verified 12/11/19 12:17 Pain ciprofloxacin [From Cipro] AdvReac Abdominal Verified 12/11/19 12:17 Pain dicyclomine [From Bentyl] AdvReac Abdominal Verified 12/11/19 12:17 Pain levofloxacin [From Levaquin] AdvReac Abdominal Verified 12/11/19 12:17 Pain Penicillins AdvReac "Passed Verified 12/11/19 12:17 out" prednisone AdvReac Abdominal Verified 12/11/19 12:17 Pain sulfamethoxazole AdvReac Abdominal Verified 12/11/19 12:17 [From Bactrim] Pain tamsulosin HCl [From Flomax] AdvReac Abdominal Verified 12/11/19 12:17 Pain trimethoprim [From Bactrim] AdvReac Abdominal Verified 12/11/19 12:17 Pain Physical Exam Vitals: Vital Signs Temp Pulse Pulse Resp BP Pulse Ox 12/12/19 12:00 101 H 12/12/19 11:43 92 12/12/19 08:00 84 15 12/12/19 07:59 92 12/12/19 07:49 88 12/12/19 07:07 97.7 F 84 15 109/71 100 12/12/19 03:42 16 12/12/19 02:11 98.0 F 85 18 108/81 95 12/11/19 23:09 18 12/11/19 19:42 91 12/11/19 19:35 90 12/11/19 19:32 98.1 F 90 18 111/78 99 12/11/19 18:56 18 12/11/19 16:17 91 12/11/19 15:00 97.9 F 84 17 134/64 92 L Intake and Output 12/11/19 12/12/19 12/12/19 22:59 06:59 14:59 Intake Total 600 Output Total 600 750 Balance -600 -150 Intake: Intake, IV Titration 600 Amount Sodium Chloride 0.9% 1, 600 000 ml @ 75 mls/hr IV . [id number] [facility] Rx#:[id number] Output: Urine 600 750 Uretheral (Dejesus) 750 Other: Voiding Method Incontinent Incontinent # Bowel Movements 1 Weight 67 kg - Constitutional General appearance: average body habitus, cooperative, disheveled - EENT Eyes: PERRLA, poor dentition ENT: hearing grossly normal - Neck Neck: normal ROM Carotids: bilateral: upstroke normal Thyroid: bilateral: normal size - Respiratory Respiratory: bilateral: diminished, rales - Cardiovascular Rhythm: regular Heart sounds: normal: S1, S2 - Gastrointestinal General gastrointestinal: decreased bowel sounds, soft - Neurologic Neurologic: CNII-XII intact - Musculoskeletal Musculoskeletal: generalized weakness, strength equal bilaterally - Psychiatric Psychiatric: A&O x's 3 Results - Laboratory Findings CBC and BMP: 12/12/19 06:07 12/12/19 06:07 Abnormal lab findings: Abnormal Labs 12/11/19 12/11/19 12/11/19 13:37 13:37 20:21 Hct 48.5 H MCV 100.5 H MCHC 30.5 L Plt Count 505 H Glucose 202 H POC Glucose (mg/dL) 175 H AST 80 H Alkaline Phosphatase 151 H Total Protein Albumin 12/12/19 12/12/19 12/12/19 04:46 06:07 06:45 Hct MCV MCHC Plt Count Glucose 139 H POC Glucose (mg/dL) 135 H 123 H AST 39 H Alkaline Phosphatase Total Protein 5.7 L Albumin 2.7 L 12/12/19 11:30 Hct MCV MCHC Plt Count Glucose POC Glucose (mg/dL) 137 H AST Alkaline Phosphatase Total Protein Albumin - Diagnostic Findings Chest x-ray: report reviewed, image reviewed (X-ray finding as noted above) Assessment and Plan Assessment: Altered mental status metabolic encephalopathy likely related to Parkinson's disease COPD exacerbation Advanced Parkinson's disease Altered mental status likely related to advanced Parkinson's disease Diabetes mellitus Plan: Continue bronchodilator Hold on steroids for now Continue home medications Observe clinical course closely Time with Patient: Greater than 30
[2019-12-12 13:31] LABS: Hemoglobin A1C 5.5 % (4.0-6.0)
[2019-12-12 16:49] LABS: Glucose,Whole Blood 170 mg/dL (75-99)
[2019-12-12] MEDS: SODIUM CHLORIDE 0.9% 1,000 ML IV SCH (19:31)
[2019-12-12] MEDS: ACETAMINOPHEN TAB 500 MG TAB PO SCH (20:35)
[2019-12-12 20:36] LABS: Glucose,Whole Blood 172 mg/dL (75-99)
[2019-12-12] MEDS: MAGNESIUM OXIDE 400 MG TAB PO SCH (20:57)
[2019-12-12] MEDS: diphenhydrAMINE 25 MG CAP PO SCH (20:57)
[2019-12-12] MEDS: INSULIN DETEMIR (LEVEMIR) 100 UNIT/ML SYR SQ SCH (20:57)
[2019-12-13] MEDS: SODIUM CHLORIDE 0.9% 1,000 ML IV SCH ×2 (06:14→22:00)
[2019-12-13 06:55] LABS: Glucose,Whole Blood 44 mg/dL (75-99)
[2019-12-13 07:08] LABS: Glucose,Whole Blood 70 mg/dL (75-99)
[2019-12-13] MEDS: NON FORMULARY DRUG (Linaclotide [Linzess] 145 MCG) PO SCH (07:11)
[2019-12-13] MEDS: INSULIN ASPART (NovoLOG) 100 UNIT/ML VIAL SQ SCH ×4 (07:11→21:21)
[2019-12-13] MEDS: IPRATROPIUM-ALBUTEROL 3 ML NEB INHALATION SCH ×4 (07:11→20:57)
[2019-12-13 07:49] LABS: Basophils % (A) 1 %; Eosinophils # (A) 0.1 k/uL (0-0.7); Eosinophils % (A) 1 %; HCT 32.6 % (34.0-46.0); HGB 10.4 gm/dL (11.4-16.0); Lymphocytes # (A) 1.7 k/uL (1.0-4.8); Lymphocytes % (A) 30 %; MCH 31.3 pg (25.0-35.0); MCHC 31.9 g/dL (31.0-37.0); MCV 98.2 fL (80.0-100.0); Mean Platelet Volume 7.2; Monocytes # (A) 0.3 k/uL (0-1.0); Monocytes % (A) 5 %; Neutrophils # (A) 3.3 k/uL (1.3-7.7); Neutrophils % (A) 61 %; Platelet Count 374 k/uL (150-450); RBC 3.32 m/uL (3.80-5.40); RDW 14.3 % (11.5-15.5); WBC 5.5 k/uL (3.8-10.6)
[2019-12-13 07:51] LABS: ALT 14 U/L (4-34); AST 25 U/L (14-36); African American GFR (CKD) >90 (>60 ml/min/1.73 sqM); Albumin 2.2 g/dL (3.5-5.0); Alkaline Phosphatase 74 U/L (38-126); Anion Gap 3 mmol/L; Blood Urea Nitrogen 9 mg/dL (7-17); Calcium 7.6 mg/dL (8.4-10.2); Carbon Dioxide 28 mmol/L (22-30); Chloride 110 mmol/L (98-107); Non-African American GFR(CKD) >90 (>60 ml/min/1.73 sqM); Potassium 3.2 mmol/L (3.5-5.1); Sodium 141 mmol/L (137-145); Total Bilirubin 0.3 mg/dL (0.2-1.3); Total Protein 4.8 g/dL (6.3-8.2)
[2019-12-13 08:04] LABS: Glucose 37 mg/dL (74-99)
[2019-12-13] MEDS: VORTIOXETINE HYDROBROMIDE 20 MG TABLET PO SCH (09:14)
[2019-12-13] MEDS: OXYBUTYNIN CHLORIDE 5 MG TAB PO SCH (09:14)
[2019-12-13] MEDS: CHOLECALCIFEROL 1,000 UNIT TAB PO SCH (09:14)
[2019-12-13] MEDS: PANTOPRAZOLE 40 MG TABLET PO SCH (09:14)
[2019-12-13] MEDS: ASPIRIN 81 MG PO SCH (09:14)
[2019-12-13] MEDS: CARBIDOPA-LEVODOPA 25-100 MG 1 EACH TAB PO SCH ×3 (09:14→21:59)
[2019-12-13] MEDS: ATORVASTATIN 40 MG TAB PO SCH (09:14)
[2019-12-13] MEDS: QUEtiapine 50 MG TAB PO SCH ×2 (09:14→21:59)
--- NOTE | 2019-12-13 10:50 | P.PN ---
Subjective Progress Note Date: 12/13/19 Principal diagnosis: Altered mental status metabolic encephalopathy likely related to Parkinson's disease COPD exacerbation Advanced Parkinson's disease Altered mental status likely related to advanced Parkinson's disease Diabetes mellitus 12/13/2019, patient seen eval examined during the rounds labs reviewed medications reviewed the stress short of breath severity has improved less cough and congestion is present, patient remains afebrile with stable hemodynamics, oxygen saturation 100% to liter oxygen, Patient is a 69-year-old female with prior history advanced Parkinson's disease came into the hospital with the increased lethargy not eating much and COPD exacerbation, due to lethargy nonmetastatic M to obtain from R, chest x-ray shows chronic changes no new acute infiltrate, labs revealed normal WBC count, Objective - Vital Signs Vital signs: Vital Signs Temp 97.5 F L 12/13/19 07:30 Pulse 92 12/13/19 08:32 Resp 16 12/13/19 08:12 BP 127/92 12/13/19 07:30 Pulse Ox 100 12/13/19 07:30 Intake & Output 12/12/19 12/13/19 12/13/19 18:59 06:59 18:59 Intake Total 525 Output Total 600 1025 Balance -75 -1025 Weight 67 kg Intake: Intake, IV Titration 525 Amount Sodium Chloride 0.9% 1, 525 000 ml @ 75 mls/hr IV . [id number] [facility] Rx#:[id number] Output: Urine 1025 Uretheral (Dejesus) 500 Post Void Residual 600 Other: Voiding Method Incontinent Indwelling Catheter Indwelling Catheter - Exam - Constitutional General appearance: average body habitus, cooperative, disheveled - EENT Eyes: PERRLA, poor dentition ENT: hearing grossly normal - Neck Neck: normal ROM Carotids: bilateral: upstroke normal Thyroid: bilateral: normal size - Respiratory Respiratory: bilateral: diminished, rales - Cardiovascular Rhythm: regular Heart sounds: normal: S1, S2 - Gastrointestinal General gastrointestinal: decreased bowel sounds, soft - Neurologic Neurologic: CNII-XII intact - Musculoskeletal Musculoskeletal: generalized weakness, strength equal bilaterally - Psychiatric Psychiatric: A&O x's 3 - Labs CBC & Chem 7: 12/13/19 06:42 12/13/19 06:42 Labs: Abnormal Lab Results - Last 24 Hours (Table) 12/12/19 12/12/1920 Range/Units 11:30 16:39 20:34 RBC (3.80-5.40) m/uL Hgb (11.4-16.0) gm/dL Hct (34.0-46.0) % Potassium (3.5-5.1) mmol/L Chloride (98-107) mmol/L Creatinine (0.52-1.04) mg/dL Glucose (74-99) mg/dL POC Glucose (mg/dL) 137 H 170 H 172 H (75-99) mg/dL Calcium (8.4-10.2) mg/dL Total Protein (6.3-8.2) g/dL Albumin (3.5-5.0) g/dL 12/13/19 12/13/19 12/13/19 Range/Units 06:42 06:42 06:48 RBC 3.32 L (3.80-5.40) m/uL Hgb 10.4 L (11.4-16.0) gm/dL Hct 32.6 L (34.0-46.0) % Potassium 3.2 L (3.5-5.1) mmol/L Chloride 110 H (98-107) mmol/L Creatinine 0.44 L (0.52-1.04) mg/dL Glucose 37 L* (74-99) mg/dL POC Glucose (mg/dL) 44 L (75-99) mg/dL Calcium 7.6 L (8.4-10.2) mg/dL Total Protein 4.8 L (6.3-8.2) g/dL Albumin 2.2 L (3.5-5.0) g/dL 12/13/19 Range/Units 07:06 RBC (3.80-5.40) m/uL Hgb (11.4-16.0) gm/dL Hct (34.0-46.0) % Potassium (3.5-5.1) mmol/L Chloride (98-107) mmol/L Creatinine (0.52-1.04) mg/dL Glucose (74-99) mg/dL POC Glucose (mg/dL) 70 L (75-99) mg/dL Calcium (8.4-10.2) mg/dL Total Protein (6.3-8.2) g/dL Albumin (3.5-5.0) g/dL Assessment and Plan Assessment: Altered mental status metabolic encephalopathy likely related to Parkinson's disease COPD exacerbation Advanced Parkinson's disease Altered mental status likely related to advanced Parkinson's disease Diabetes mellitus Plan: Continue bronchodilator Hold on steroids for now Continue home medications Observe clinical course closely Time with Patient: Greater than 30
[2019-12-13 11:39] LABS: Glucose,Whole Blood 100 mg/dL (75-99)
[2019-12-13] MEDS: HYDROcodone/APAP 10-325MG 1 EACH TAB PO SCH (11:41)
[2019-12-13] MEDS: ALPRAZolam 1 MG TAB PO SCH (11:41)
[2019-12-13] MEDS ORDERED: HYDROcodone/APAP 10-325MG 1 EACH TAB PO PRN (11:43)
--- NOTE | 2019-12-13 12:56 | PN ---
PROGRESS NOTE A 69-year-old white female with COPD exacerbation, tracheobronchitis, advanced Parkinson disease. We will give her Xanax and [place] only as needed. She is more awake today. We had to cut out her oxybutynin and Benadryl. That can also make her be confused and we are going to watch her. Her brother . She is very upset. Her brother today in the hospital. PHYSICAL EXAMINATION: Vital signs reviewed. Cardiovascular S1-S2. Lungs transmitted upper airway sounds, scattered wheeze. HEMATOLOGY: Negative Homans. ASSESSMENT: 1. Chronic obstructive pulmonary disease exacerbation. 2. Advanced Parkinson's. 3. Dementia. 4. Hypertension. 5. Diabetes mellitus. Continue current medications. We will withhold the medications as mentioned above, Benadryl as well as Oxybutynin. Cut [place] to p.r.n. and try to wake her up more and see if she gets better. Continue with the sling on the left arm for clavicle fracture. Please see further orders. MMODL / IJN: [id number] /
[2019-12-13] MEDS: ALPRAZolam 1 MG TAB PO PRN (16:44)
[2019-12-13 16:45] LABS: Glucose,Whole Blood 114 mg/dL (75-99)
[2019-12-13 20:59] LABS: Glucose,Whole Blood 112 mg/dL (75-99)
[2019-12-13] MEDS: ACETAMINOPHEN TAB 500 MG TAB PO SCH (21:59)
[2019-12-13] MEDS: MAGNESIUM OXIDE 400 MG TAB PO SCH (21:59)
[2019-12-14 07:06] LABS: Glucose,Whole Blood 136 mg/dL (75-99)
[2019-12-14] MEDS: INSULIN ASPART (NovoLOG) 100 UNIT/ML VIAL SQ SCH ×4 (08:02→20:38)
[2019-12-14] MEDS: QUEtiapine 50 MG TAB PO SCH ×2 (08:15→21:24)
[2019-12-14] MEDS: VORTIOXETINE HYDROBROMIDE 20 MG TABLET PO SCH (08:15)
[2019-12-14] MEDS: CHOLECALCIFEROL 1,000 UNIT TAB PO SCH (08:16)
[2019-12-14] MEDS: ATORVASTATIN 40 MG TAB PO SCH (08:16)
[2019-12-14] MEDS: PANTOPRAZOLE 40 MG TABLET PO SCH (08:16)
[2019-12-14] MEDS: ASPIRIN 81 MG PO SCH (08:16)
[2019-12-14] MEDS: CARBIDOPA-LEVODOPA 25-100 MG 1 EACH TAB PO SCH ×3 (08:16→21:23)
[2019-12-14] MEDS: IPRATROPIUM-ALBUTEROL 3 ML NEB INHALATION SCH ×4 (09:28→20:40)
[2019-12-14] MEDS: NON FORMULARY DRUG (Linaclotide [Linzess] 145 MCG) PO SCH (09:52)
[2019-12-14 11:33] LABS: Glucose,Whole Blood 153 mg/dL (75-99)
--- NOTE | 2019-12-14 11:40 | P.PN ---
Subjective Progress Note Date: 12/14/19 Principal diagnosis: Altered mental status metabolic encephalopathy likely related to Parkinson's disease COPD exacerbation Advanced Parkinson's disease Altered mental status likely related to advanced Parkinson's disease Diabetes mellitus 12/14/2019, patient is sitting upright in chair breathing comfortably at room air denies any chest pain denies any shortness of breath breathing comfortably, medications reviewed, patient remains off of steroids 12/13/2019, patient seen eval examined during the rounds labs reviewed medications reviewed the stress short of breath severity has improved less cough and congestion is present, patient remains afebrile with stable hemodynamics, oxygen saturation 100% to liter oxygen, Patient is a 69-year-old female with prior history advanced Parkinson's disease came into the hospital with the increased lethargy not eating much and COPD exacerbation, due to lethargy nonmetastatic M to obtain from R, chest x-ray shows chronic changes no new acute infiltrate, labs revealed normal WBC count, Objective - Vital Signs Vital signs: Vital Signs Temp 97.7 F 12/14/19 07:00 Pulse 82 12/14/19 09:39 Resp 18 12/14/19 07:00 BP 114/72 12/14/19 07:00 Pulse Ox 96 12/14/19 07:00 Intake & Output 12/13/19 12/14/19 12/14/19 18:59 06:59 18:59 Output Total 500 Balance -500 Output: Urine 500 Other: Voiding Method Indwelling Catheter Indwelling Catheter Indwelling Catheter # Bowel Movements 1 - Exam - Constitutional General appearance: average body habitus, cooperative, disheveled - EENT Eyes: PERRLA, poor dentition ENT: hearing grossly normal - Neck Neck: normal ROM Carotids: bilateral: upstroke normal Thyroid: bilateral: normal size - Respiratory Respiratory: bilateral: diminished, clear to auscultation otherwise - Cardiovascular Rhythm: regular Heart sounds: normal: S1, S2 - Gastrointestinal General gastrointestinal: decreased bowel sounds, soft - Neurologic Neurologic: CNII-XII intact - Musculoskeletal Musculoskeletal: generalized weakness, strength equal bilaterally - Psychiatric Psychiatric: A&O x's 3 - Labs CBC & Chem 7: 12/13/19 06:42 12/13/19 06:42 Labs: Abnormal Lab Results - Last 24 Hours (Table) 12/13/19 12/13/19 12/13/19 Range/Units 11:37 16:39 20:57 POC Glucose (mg/dL) 100 H 114 H 112 H (75-99) mg/dL 12/14/19 12/14/19 Range/Units 07:03 11:31 POC Glucose (mg/dL) 136 H 153 H (75-99) mg/dL Assessment and Plan Assessment: Altered mental status metabolic encephalopathy likely related to Parkinson's disease COPD exacerbation Advanced Parkinson's disease Altered mental status likely related to advanced Parkinson's disease Diabetes mellitus Plan: Continue bronchodilator Hold on steroids for now Continue home medications Observe clinical course closely Agree with discharge planning from pulmonary standpoint Time with Patient: Greater than 30
[2019-12-14] MEDS: SODIUM CHLORIDE 0.9% 1,000 ML IV SCH ×2 (11:48→23:56)
[2019-12-14 13:35] LABS: HGB 12.9 gm/dL (11.4-16.0); MCH 30.7 pg (25.0-35.0); MCHC 31.5 g/dL (31.0-37.0); MCV 97.6 fL (80.0-100.0); Mean Platelet Volume 7.2; Platelet Count 488 k/uL (150-450); RDW 14.4 % (11.5-15.5); WBC 8.7 k/uL (3.8-10.6)
[2019-12-14 13:44] LABS: African American GFR (CKD) >90 (>60 ml/min/1.73 sqM); Anion Gap 10 mmol/L; Blood Urea Nitrogen 10 mg/dL (7-17); Calcium 9.2 mg/dL (8.4-10.2); Carbon Dioxide 28 mmol/L (22-30); Chloride 98 mmol/L (98-107); Glucose 142 mg/dL (74-99); Non-African American GFR(CKD) >90 (>60 ml/min/1.73 sqM); Sodium 136 mmol/L (137-145)
--- NOTE | 2019-12-14 15:20 | P.DS ---
Providers Date of admission: 12/11/19 11:26 Expected date of discharge: 12/14/19 Attending physician: Tej Bojorquez Consults: 12/11/19 13:18 Consult Physician Routine Consulting Provider: Renu Vieyra Consult Reason/Comments: weakness/confusion/parkinson Do you want consulting provider notified?: Yes 12/12/19 11:18 Consult Physician Routine Consulting Provider: Ernst Cherry Consult Reason/Comments: hypoxia Do you want consulting provider notified?: Yes Primary care physician: [facility] Hospital Course: Final Diagnoses: Acute COPD exacerbation Dehydration Acute metabolic encephalopathy, multifactorial , secondary to the above Advanced Parkinson's disease with dementia Hypertension Diabetes mellitus Recent left clavicle fracture with sling Hospital course: This a 69-year-old female admitted with acute COPD exacerbation, tracheobronchitis, dehydration, Parkinson's disease and multiple other medical issues. Evaluated/treated by pulmonary. Maintained on gentle IV fluid hydration, nebulized bronchodilators. Pain/anxiety medications adjusted. Evaluated by PT/OT, recommending subacute rehab. Family declines. Patient is a high risk for readmission. Cleared by pulmonary for discharge. Patient will be discharged home in a stable condition, with guarded prognosis. The impression and plan of care has been dictated as directed. : I performed a history and examination of this patient, discussed the same with the dictator. I agree with the dictator's note ,documented as a scribe. Any additional findings or plans will be noted. Patient Condition at Discharge: Stable Plan - Discharge Summary Discharge Rx Participant: No New Discharge Prescriptions: New Acetaminophen Tab [Tylenol] 500 mg PO HS tab Ipratropium-Albuterol Nebulize [Duoneb 0.5 mg-3 mg/3 ml Soln] 3 ml INHALATION RT-QID #120 ml Continue Potassium Chloride [Klor-Con 20] 20 meq PO BID Atorvastatin [Lipitor] 40 mg PO DAILY Cranberry Fruit Extract [Cranberry] 1,000 mg PO BID Omeprazole 20 mg PO DAILY Magnesium Oxide [Mag-Ox] 500 mg PO HS QUEtiapine [SEROquel] 50 mg PO BID Cholecalciferol [Vitamin D3 (25 Mcg = 1000 Iu)] 1,000 unit PO DAILY Furosemide [Lasix] 10 mg PO DAILY Vortioxetine Hydrobromide [Trintellix] 20 mg PO DAILY Aspirin 81 mg PO DAILY #30 chew Linaclotide [Linzess] 145 mcg PO DAILY Carbidopa-Levodopa 25-100 mg [Sinemet 25-100 mg] 1 tab PO TID Changed HYDROcodone/APAP 10-325MG [[place] 10-325] 1 tab PO TID@0700,1300,1900 PRN #0 PRN Reason: Pain ALPRAZolam [Xanax] 1 mg PO TID@0700,1300,1900 PRN #0 PRN Reason: Anxiety Discontinued Oxybutynin Chloride 5 mg PO BID Insulin Glargine [Lantus] 20 unit SQ HS Acetaminophen/Diphenhydramine [Tylenol PM 500-25mg] 1 tab PO HS Discharge Medication List Potassium Chloride [Klor-Con 20] 20 meq PO BID 02/28/15 [History] Atorvastatin [Lipitor] 40 mg PO DAILY 11/20/16 [History] Cranberry Fruit Extract [Cranberry] 1,000 mg PO BID 12/23/17 [History] Magnesium Oxide [Mag-Ox] 500 mg PO HS 12/23/17 [History] Omeprazole 20 mg PO DAILY 12/23/17 [History] QUEtiapine [SEROquel] 50 mg PO BID 03/27/18 [History] Cholecalciferol [Vitamin D3 (25 Mcg = 1000 Iu)] 1,000 unit PO DAILY 08/24/18 [History] Furosemide [Lasix] 10 mg PO DAILY 12/26/18 [History] Vortioxetine Hydrobromide [Trintellix] 20 mg PO DAILY 09/04/19 [History] Aspirin 81 mg PO DAILY #30 chew 09/07/19 [Rx] Linaclotide [Linzess] 145 mcg PO DAILY 09/28/19 [History] Carbidopa-Levodopa 25-100 mg [Sinemet 25-100 mg] 1 tab PO TID 11/30/19 [History] ALPRAZolam [Xanax] 1 mg PO TID@0700,1300,1900 PRN #0 12/14/19 [Rx] Acetaminophen Tab [Tylenol] 500 mg PO HS tab 12/14/19 [Rx] HYDROcodone/APAP 10-325MG [[place] 10-325] 1 tab PO TID@0700,1300,1900 PRN #0 12/14/19 [Rx] Ipratropium-Albuterol Nebulize [Duoneb 0.5 mg-3 mg/3 ml Soln] 3 ml INHALATION RT-QID #120 ml 12/14/19 [Rx] Follow up Appointment(s)/Referral(s): [facility] [NON-STAFF] - ( ) Tej Bojorquez MD [Primary Care Provider] - 12/17/19 10:00 am Ernst Cherry MD [STAFF PHYSICIAN] - 2 Weeks (Office closed. Please call to make follow up. ) Patient Instructions/Handouts: Dehydration (DC), COPD (Chronic Obstructive Pulmonary Disease) (DC) Activity/Diet/Wound Care/Special Instructions: Labs pending/follow-up potassium level ; Lantus remains on hold this admission secondary to hypoglycemia, poor diet intake. Accu-Cheks before meals and at bedtime, maintain log and take to follow-up visit with PCP for further recommendations Patient requires a nebulizer to help manage her COPD. It will be delivered to the bedside by [facility]
[2019-12-14 16:26] LABS: Glucose,Whole Blood 149 mg/dL (75-99)
--- NOTE | 2019-12-14 18:36 | CT ---
"EXAMINATION TYPE: CT brain wo con DATE OF EXAM: 12/14/2019 HISTORY: Syncope and weakness. CT DLP: 1319.4 mGycm. Automated Exposure Control for Dose Reduction was Utilized. TECHNIQUE: CT scan of the head is performed without contrast. COMPARISON: CT brain 2 weeks ago and older CTs FINDINGS: Current exam suboptimal with marked artifact overlying the bilateral frontal lobes. There is no acute intracranial hemorrhage or midline shift identified. There is diffuse ventricular and sul katie prominence consistent with diffuse age-related cerebral atrophy. There is low-attenuation in the periventricular white matter consistent with chronic small vessel ischemic change. The globes are i ntact and the visualized sinuses are clear. IMPRESSION: No acute intracranial hemorrhage or midline shift. There is mild diffuse age-related ce rebral atrophy and chronic small vessel ischemic change redemonstrated in the visualized portion of b rain. Suboptimal essentially nondiagnostic evaluation bilateral frontal lobes. Advise repeat study. Cannot exclude new ischemic change. A Yellow level critical message alert has been initiated for Tej Bojorquez MD via the [employer] 36 0 | Critical Results System on 12/14/2019 6:33 PM. This message alert has been sent to Tej Bojorquez MD via the preferences provided by the clinician for the receipt of Radiology Critical Findings. [facility] ID [id number]."
--- NOTE | 2019-12-14 19:22 | US ---
EXAMINATION TYPE: US carotid duplex BILAT DATE OF EXAM: 12/14/2019 COMPARISON: CTA neck September 04, 2019 CLINICAL HISTORY: tia. TIA EXAM MEASUREMENTS: RIGHT: Peak Systolic Velocity (PSV) cm/sec ----- Right CCA: 85.1 ----- Right ICA: 85.5 ----- Right ECA: 112 ICA/CCA ratio: 1.0 RIGHT: End Diastole cm/sec ----- Right CCA: 18.2 ----- Right ICA: 29.7 ----- Right ECA: 0.0 LEFT: Peak Systolic Velocity (PSV) cm/sec ----- Left CCA: 61.1 ----- Left ICA: 69.6 ----- Left ECA: 81.3 ICA/CCA ratio: 1.14 LEFT: End Diastole cm/sec ----- Left CCA: 16.5 ----- Left ICA: 27.1 ----- Left ECA: 10.1 VERTEBRALS (direction of flow): Right Vertebral: unable to visualize Left Vertebral: unable to visualize Rhythm: Normal suboptimal study as patient unable to move and change positioning for ideal imaging. Grayscale images of bilateral internal carotid arteries show mild peripheral plaque. Velocity measurements and ratios remain within normal limits bilaterally. IMPRESSION: Suboptimal study without hemodynamically significant stenosis seen in either internal car otid artery. Findings correlate with CTA neck study roughly 3 months earlier. This study documented p atent bilateral vertebral arteries. Criteria for Assigning % of Stenosis / Diameter reduction (Estimation based on the indirect measurements of the internal carotid artery velocities (ICA PSV). 1. Normal (no stenosis)=ICA PSV < 125 cm/s: ratio < 2.0: ICA EDV<40 cm/s. 2. Less than 50% stenosis=ICA PSV < 125 cm/s: ratio < 2.0: ICA EDV<40 cm/s. 3. 50 to 69% stenosis=ICA PSV of 125 to 230 cm/s: ration 2.0 ? 4.0: ICA EDV 40-100 cm/s. 4. Greater than 70% stenosis to near occlusion= ICA PSV > 230 cm/s: ratio > 4.0: ICA EDV > 100 cm/s. 5. Near occlusion= ICA PSV velocities may be low or undetectable: variable ratio and ICA EDV. 6. Total occlusion=unable to detect flow.
[2019-12-14 20:34] LABS: Glucose,Whole Blood 107 mg/dL (75-99)
[2019-12-14] MEDS: ACETAMINOPHEN TAB 500 MG TAB PO SCH (21:23)
[2019-12-14] MEDS: MAGNESIUM OXIDE 400 MG TAB PO SCH (21:24)
[2019-12-15 07:02] LABS: Glucose,Whole Blood 147 mg/dL (75-99)
[2019-12-15] MEDS: INSULIN ASPART (NovoLOG) 100 UNIT/ML VIAL SQ SCH ×2 (07:23→11:59)
[2019-12-15] MEDS: IPRATROPIUM-ALBUTEROL 3 ML NEB INHALATION SCH ×3 (07:27→15:12)
[2019-12-15] MEDS: NON FORMULARY DRUG (Linaclotide [Linzess] 145 MCG) PO SCH (08:05)
[2019-12-15] MEDS: ASPIRIN 81 MG PO SCH (08:11)
[2019-12-15] MEDS: CARBIDOPA-LEVODOPA 25-100 MG 1 EACH TAB PO SCH (08:11)
[2019-12-15] MEDS: PANTOPRAZOLE 40 MG TABLET PO SCH (08:11)
[2019-12-15] MEDS: ATORVASTATIN 40 MG TAB PO SCH (08:11)
[2019-12-15] MEDS: QUEtiapine 50 MG TAB PO SCH (08:11)
[2019-12-15] MEDS: VORTIOXETINE HYDROBROMIDE 20 MG TABLET PO SCH (08:11)
[2019-12-15] MEDS: CHOLECALCIFEROL 1,000 UNIT TAB PO SCH (08:11)
[2019-12-15] MEDS: ALPRAZolam 1 MG TAB PO PRN (09:13)
--- NOTE | 2019-12-15 09:30 | P.PN ---
Subjective Progress Note Date: 12/15/19 Principal diagnosis: Altered mental status metabolic encephalopathy likely related to Parkinson's disease COPD exacerbation Advanced Parkinson's disease Altered mental status likely related to advanced Parkinson's disease Diabetes mellitus 12/15/2019, patient seen eval examined during the rounds labs reviewed medications reviewed patient remains afebrile with stable hemodynamics oxygen saturation 97% room air, neurological workup has been completed, duplex ultrasound of both carotids are negative for any significant stenosis, computed tomography scan of the chest age-related atrophic changes are seen, no acute changes identified however bilateral frontal lobes showing some artifact will defer to neurology 12/14/2019, patient is sitting upright in chair breathing comfortably at room air denies any chest pain denies any shortness of breath breathing comfortably, medications reviewed, patient remains off of steroids 12/13/2019, patient seen eval examined during the rounds labs reviewed medications reviewed the stress short of breath severity has improved less cough and congestion is present, patient remains afebrile with stable hemodynamics, oxygen saturation 100% to liter oxygen, Patient is a 69-year-old female with prior history advanced Parkinson's disease came into the hospital with the increased lethargy not eating much and COPD exacerbation, due to lethargy nonmetastatic M to obtain from R, chest x-ray shows chronic changes no new acute infiltrate, labs revealed normal WBC count, Objective - Vital Signs Vital signs: Vital Signs Temp 98.7 F 12/15/19 07:00 Pulse 88 12/15/19 07:28 Resp 16 12/15/19 07:00 BP 124/74 12/15/19 07:00 Pulse Ox 97 12/15/19 07:00 Intake & Output 12/14/19 12/15/19 12/15/19 18:59 06:59 18:59 Intake Total 600 Output Total 600 1100 Balance 0 -1100 Intake: IV 600 Sodium Chloride 0.9% 1, 600 000 ml @ 75 mls/hr IV . [id number] [facility] Rx#:[id number] Output: Urine 600 1100 Straight 1100 Uretheral (Dejesus) 600 Other: Voiding Method Indwelling Catheter # Bowel Movements 1 - Exam - Constitutional General appearance: average body habitus, cooperative, disheveled - EENT Eyes: PERRLA, poor dentition ENT: hearing grossly normal - Neck Neck: normal ROM Carotids: bilateral: upstroke normal Thyroid: bilateral: normal size - Respiratory Respiratory: bilateral: diminished, clear to auscultation otherwise - Cardiovascular Rhythm: regular Heart sounds: normal: S1, S2 - Gastrointestinal General gastrointestinal: decreased bowel sounds, soft - Neurologic Neurologic: CNII-XII intact - Musculoskeletal Musculoskeletal: generalized weakness, strength equal bilaterally - Psychiatric Psychiatric: A&O x's 3 - Labs CBC & Chem 7: 12/14/19 13:14 12/14/19 13:14 Labs: Abnormal Lab Results - Last 24 Hours (Table) 12/14/19 12/14/19 12/14/19 Range/Units 11:31 13:14 13:14 Plt Count 488 H (150-450) k/uL Sodium 136 L (137-145) mmol/L Creatinine 0.46 L (0.52-1.04) mg/dL Glucose 142 H (74-99) mg/dL POC Glucose (mg/dL) 153 H (75-99) mg/dL 12/14/19 12/14/19 12/15/19 Range/Units 16:24 20:32 07:01 Plt Count (150-450) k/uL Sodium (137-145) mmol/L Creatinine (0.52-1.04) mg/dL Glucose (74-99) mg/dL POC Glucose (mg/dL) 149 H 107 H 147 H (75-99) mg/dL Assessment and Plan Assessment: Altered mental status metabolic encephalopathy likely related to Parkinson's disease COPD exacerbation Advanced Parkinson's disease Altered mental status likely related to advanced Parkinson's disease Diabetes mellitus Plan: Continue bronchodilator Hold on steroids for now Continue home medications Observe clinical course closely Agree with discharge planning from pulmonary standpoint Time with Patient: Greater than 30
[2019-12-15 11:49] LABS: Glucose,Whole Blood 176 mg/dL (75-99)
[2019-12-15] MEDS: SODIUM CHLORIDE 0.9% 1,000 ML IV SCH (11:54)
[2019-12-15 14:34] VITALS: BP 119/74; PULSE 113; RESP 18; TEMP 97.9
--- NOTE | 2019-12-15 15:00 | P.PN ---
Subjective Progress Note Date: 12/15/19 Neurology reconsulted to evaluate for abnormal computed tomography scan of head. Patient sitting comfortably in the bed. Having her lunch. He offers no complaints. Patient much more alert and awake. Denies headache. Patient had a computed tomography scan of head performed yesterday, which revealed no acute intracranial hemorrhage or midline shift. There is mild diffuse age-related cerebral atrophy and chronic small vessel ischemic change redemonstrated in the visualized portion of the brain. Suboptimal essentially nondiagnostic evaluation bilateral frontal lobes. Advised repeat study. Cannot exclude new ischemic change. I reviewed computed tomography scan of the head on the computer. It is clearly artifactual. No signs of an acute stroke. No need to repeat the study. Carotid Doppler showed suboptimal study without hemodynamically significant stenosis seen in either ICA. Findings correlate with CTA next study is a 53 months earlier. There is patent bilateral vertebral arteries. Objective - Vital Signs Vital signs: Vital Signs Temp 97.9 F 12/15/19 14:34 Pulse 113 H 12/15/19 14:34 Resp 18 12/15/19 14:34 BP 119/74 12/15/19 14:34 Pulse Ox 99 12/15/19 14:34 Intake & Output 12/14/19 12/15/19 12/15/19 18:59 06:59 18:59 Intake Total 600 840 Output Total 600 1100 425 Balance 0 -1100 415 Weight 67 kg Intake: IV 600 Sodium Chloride 0.9% 1, 600 000 ml @ 75 mls/hr IV . [id number] [facility] Rx#:[id number] Oral 840 Output: Urine 600 1100 425 Straight 1100 Uretheral (Dejesus) 600 425 Other: Voiding Method Indwelling Catheter # Bowel Movements 1 - Exam Patient is alert and awake. Speech is slightly nasal. Patient does not speak much. No obvious aphasia. Face is symmetric. Muscle strength is equal. She does have moderately increased tone bilaterally with evidence of cogwheeling. Patient is bradykinetic. - Labs CBC & Chem 7: 12/14/19 13:14 12/14/19 13:14 Labs: Abnormal Lab Results - Last 24 Hours (Table) 12/14/19 12/14/19 12/15/19 Range/Units 16:24 20:32 07:01 POC Glucose (mg/dL) 149 H 107 H 147 H (75-99) mg/dL 12/15/19 Range/Units 11:46 POC Glucose (mg/dL) 176 H (75-99) mg/dL Assessment and Plan Assessment: * Altered mental status, possible due to toxic metabolic encephalopathy due to COPD exacerbation. * Advanced dementia * Parkinsonsonism * Diabetes * Hypertension * Chronic disability due to above Plan: * Repeat computed tomography scan of head from yesterday was reviewed. No signs of an acute stroke. All abnormalities reported are artifactual. There is no radiographic or clinical signs of stroke. * Continue Sinemet 25/100, 1 tablet 3 times a day. * Your medical management. * Neurologically clear for discharge.
== END 2019-12-15 15:15 | disposition home health service (06) | DRG 190 ==
LOC: 4SSUR 11:26
PROVIDERS: ADMIT Family Medicine; ATTEND Family Medicine
DX: J44.1 Chronic obstructive pulmonary disease with (acute) exacerbation (principal); G93.41 Metabolic encephalopathy; I50.32 Chronic diastolic (congestive) heart failure; E11.43 Type 2 diabetes mellitus with diabetic autonomic (poly)neuropathy; F02.80 Dementia in other diseases classified elsewhere, unspecified severity, without behavioral disturbance, psychotic disturbance, mood disturbance, and anxiety; G20 Parkinson's disease; I11.0 Hypertensive heart disease with heart failure; E78.5 Hyperlipidemia, unspecified; E86.0 Dehydration; K31.84 Gastroparesis; F32.9 Major depressive disorder, single episode, unspecified; F41.9 Anxiety disorder, unspecified; K21.9 Gastro-esophageal reflux disease without esophagitis; K57.90 Diverticulosis of intestine, part unspecified, without perforation or abscess without bleeding; L30.9 Dermatitis, unspecified; M10.9 Gout, unspecified; M15.9 Polyosteoarthritis, unspecified; R32 Unspecified urinary incontinence; R33.9 Retention of urine, unspecified; Z79.4 Long term (current) use of insulin; Z79.82 Long term (current) use of aspirin; Z79.899 Other long term (current) drug therapy; Z87.440 Personal history of urinary (tract) infections; Z90.710 Acquired absence of both cervix and uterus; Z96.651 Presence of right artificial knee joint; Z86.73 Personal history of transient ischemic attack (TIA), and cerebral infarction without residual deficits; Z90.49 Acquired absence of other specified parts of digestive tract; Z83.3 Family history of diabetes mellitus; Z88.1 Allergy status to other antibiotic agents; Z88.0 Allergy status to penicillin; Z88.2 Allergy status to sulfonamides; Z88.8 Allergy status to other drugs, medicaments and biological substances
CPT/HCPCS: 70450; 71046; 80048; 80053; 83036; 83880; 84443; 84484; 85025; 85027; 93880; 94640

== ENCOUNTER 2020-02-08 11:33 | Emergency (ER) | payer MEDICARE ==
[2020-02-08 11:40] VITALS: RESP 18
[2020-02-08] MEDS ORDERED: SODIUM CHLORIDE 0.9% 1,000 ML IV ONE ×2 (11:58→12:56)
[2020-02-08] MEDS ORDERED: SODIUM CHLORIDE 0.9% 1,000 ML IV SCH (12:00)
--- NOTE | 2020-02-08 12:05 | ED ---
ENT HPI - General Chief complaint: ENT Stated complaint: Ear infection Time Seen by Provider: 02/08/20 11:42 Source: patient, family, RN notes reviewed, old records reviewed Mode of arrival: wheelchair Limitations: no limitations - History of Present Illness Initial comments: Patient is a 69-year-old female who presents emergency department today for ev aluation with concern for left ear pain, sore throat. Patient reportedly is been having left ear pain since last Saturday a total of 5 days. Family reports putting [id number] drops in the ear. She presents here crying with complaining of severe pain of the left ear, behind the ear and into the neck. She denies any specific fevers. Patient has not been eating or drinking well due to the sore throat. Patient denies any history of sick contacts. - Related Data Home Medications Medication Instructions Recorded Confirmed Potassium Chloride [Klor-Con 20] 20 meq PO BID 02/28/15 12/11/19 Atorvastatin [Lipitor] 40 mg PO DAILY 11/20/16 12/11/19 Cranberry Fruit Extract [Cranberry] 1,000 mg PO BID 12/23/17 12/11/19 Magnesium Oxide [Mag-Ox] 500 mg PO HS 12/23/17 12/11/19 Omeprazole 20 mg PO DAILY 12/23/17 12/11/19 QUEtiapine [SEROquel] 50 mg PO BID 03/27/18 12/11/19 Cholecalciferol [Vitamin D3 (25 1,000 unit PO DAILY 08/24/18 12/11/19 Mcg = 1000 Iu)] Furosemide [Lasix] 10 mg PO DAILY 12/26/18 12/11/19 Vortioxetine Hydrobromide 20 mg PO DAILY 09/04/19 12/11/19 [Trintellix] Linaclotide [Linzess] 145 mcg PO DAILY 09/28/19 12/11/19 Carbidopa-Levodopa 25-100 mg 1 tab PO TID 11/30/19 12/11/19 [Sinemet 25-100 mg] Previous Rx's Medication Instructions Recorded Aspirin 81 mg PO DAILY #30 chew 09/07/19 ALPRAZolam [Xanax] 1 mg PO TID@0700,1300,1900 PRN #0 12/14/19 Acetaminophen Tab [Tylenol] 500 mg PO HS tab 12/14/19 HYDROcodone/APAP 10-325MG [[place] 1 tab PO TID@0700,1300,1900 PRN #0 12/14/19 10-325] Ipratropium-Albuterol Nebulize 3 ml INHALATION RT-QID #120 ml 12/14/19 [Duoneb 0.5 mg-3 mg/3 ml Soln] Allergies Allergy/AdvReac Type Severity Reaction Status Date / Time benactyzine AdvReac Abdominal Verified 02/08/20 11:36 Pain ciprofloxacin [From Cipro] AdvReac Abdominal Verified 02/08/20 11:36 Pain dicyclomine [From Bentyl] AdvReac Abdominal Verified 02/08/20 11:36 Pain levofloxacin [From Levaquin] AdvReac Abdominal Verified 02/08/20 11:36 Pain Penicillins AdvReac "Passed Verified 02/08/20 11:36 out" prednisone AdvReac Abdominal Verified 02/08/20 11:36 Pain sulfamethoxazole AdvReac Abdominal Verified 02/08/20 11:36 [From Bactrim] Pain tamsulosin HCl [From Flomax] AdvReac Abdominal Verified 02/08/20 11:36 Pain trimethoprim [From Bactrim] AdvReac Abdominal Verified 02/08/20 11:36 Pain Review of Systems ROS Statement: Those systems with pertinent positive or pertinent negative responses have been documented in the HPI. ROS Other: All systems not noted in ROS Statement are negative. Past Medical History Past Medical History: CVA/TIA, Diabetes Mellitus, GERD/Reflux, Hyperlipidemia, Hypertension, Musculoskeletal Disorder, Neurologic Disorder, Osteoarthritis (OA), Skin Disorder Additional Past Medical History / Comment(s): Pt recently diagnosed with parkinson's disease, pt states she has been told in the past that she had a CVA- discovered by cat scan, IDDM type II, chronic dermatitis/past cellulitis arms/hands, past falls, gout ,hx of hiatal hernia with surgery, diverticulosis, constipation, arthritis multiple joints, L knee pain/abdominal pain, recurrent UTIs, occasionally incontinent, bilateral pedal edema, "wears depends just in case",edentulous, vertigo History of Any Multi-Drug Resistant Organisms: None Reported Date of last positivie culture/infection: None MDRO Source:: None Past Surgical History: Cholecystectomy, Hysterectomy, Joint Replacement Additional Past Surgical History / Comment(s): hemorroidectomy, colonoscopy, egd, LAP GUCCI FUNDLOPLICATION, rt knee replacement Past Anesthesia/Blood Transfusion Reactions: No Reported Reaction Additional Past Anesthesia/Blood Transfusion Reaction / Comment(s): . Past Psychological History: Anxiety, Depression Smoking Status: Never smoker Past Alcohol Use History: None Reported Past Drug Use History: None Reported - Past Family History Father Family Medical History: Diabetes Mellitus Additional Family Medical History / Comment(s): Father in his 80s. Mother Family Medical History: Diabetes Mellitus Additional Family Medical History / Comment(s): Mother in her 80s General Exam - General Exam Comments Initial Comments: 69 yo female, no fraile, moderate discomfort. Limitations: no limitations General appearance: alert, in no apparent distress Head exam: Present: atraumatic Eye exam: Present: normal appearance, PERRL, EOMI. Absent: scleral icterus, conjunctival injection, periorbital swelling ENT exam: Present: normal exam, mucous membranes dry, mucous membranes moist, TM's normal bilaterally ( slight effusion on L TM, no significant erythema. Preauricular and mastoid tendreness. No skin changes. ). Absent: normal oropharynx Neck exam: Present: normal inspection, other (patient has candidal rash over neck fold on L side, no open wound. ). Absent: tenderness, meningismus, ly mphadenopathy Respiratory exam: Present: normal lung sounds bilaterally. Absent: respiratory distress, wheezes, rales, rhonchi, stridor Cardiovascular Exam: Present: regular rate, normal rhythm, normal heart sounds. Absent: systolic murmur, diastolic murmur, rubs, gallop, clicks GI/Abdominal exam: Present: soft, normal bowel sounds. Absent: distended, tenderness, guarding, rebound, rigid Extremities exam: Present: normal inspection, full ROM, normal capillary refill. Absent: tenderness, pedal edema, joint swelling, calf tenderness Back exam: Present: normal inspection. Absent: full ROM (stage 2 decubitus ulcer ) Neurological exam: Present: alert, oriented X3, CN II-XII intact Psychiatric exam: Present: normal affect, normal mood Skin exam: Present: warm, dry, intact, normal color. Absent: rash Course Vital Signs 02/08/20 02/08/20 11:36 15:53 Temperature 98 F 98.0 F Pulse Rate 105 H 88 Respiratory 18 18 Rate Blood Pressure 109/72 112/72 O2 Sat by Pulse 100 98 Oximetry Medical Decision Making - Medical Decision Making This is a 69-year-old female who presents emergency department today for evaluation with chief complaint of severe left ear pain for the past 5 days. The Patient arrived to emergency department she is crying. Number severe discomfort. Patient has tenderness over the mastoid Tej side of the face. Patient clinical presentation and had IV established and blood work obtained. Patient's blood work was reviewed showed significant leukocytosis. Also has evidence of elevated lactic at 6.0. Patient was given fluid bolus. She's had no fever in the emergency department. She denies any other significant placed myself. Patient had a CT of the mastoid completed which showed concern for air within the spinal canal as well as surrounding the left vertebral artery. Discussed the case with Dr. Jamison who recommended doing a CT angiogram head and neck as well as CT chest and pelvis dictated by any abnormal sources of air. CT angios the neck shows continued air within the spinal canal around C1-C2 concern for possible occult fracture, infection, vs venous air from IV start. Patient denies any fall or trauma to relate to this finding. Patient continues to have significant left-sided ear pain is now complaining of a headache. She's been given morphine and emergency department for pain. Patient was started on IV Rocephin and vancomycin due concern for sepsis. She has evdience of slight UTI and CT shows some ground glass opacity on CT. I discussed case with Dr. Wilcox, who recommends to transfer the Patient with neurosurgery capabilities due to abnormal CT findings. At that time I discussed the case with Jonnathan Medrano and discussed the case with Dr. Larson. He recommended to have MR venogram. I attempted to have the Patient have an MRI at our hospital [facility] however in the MRI is closed for the evening. Discussed again with Dr. Wilcox, whom recommeded proceed with transfer to [place] at this time. Patient daughter informed of transfer, discussed possibility of no visitors due to COVID. Patient will be accepted in ER by Dr. Ruiz. - Lab Data Result diagrams: 02/08/20 12:05 02/08/20 12:05 Lab Results 02/08/20 02/08/20 02/08/20 Range/Units 12:05 12:05 12:05 WBC 17.8 H (3.8-10.6) k/uL RBC 4.22 (3.80-5.40) m/uL Hgb 13.5 (11.4-16.0) gm/dL Hct 43.1 (34.0-46.0) % MCV 102.0 H (80.0-100.0) fL MCH 32.1 (25.0-35.0) pg MCHC 31.4 (31.0-37.0) g/dL RDW 16.8 H (11.5-15.5) % Plt Count 498 H (150-450) k/uL Neutrophils % 82 % Lymphocytes % 12 % Monocytes % 4 % Eosinophils % 1 % Basophils % 0 % Neutrophils # 14.6 H (1.3-7.7) k/uL Lymphocytes # 2.2 (1.0-4.8) k/uL Monocytes # 0.7 (0-1.0) k/uL Eosinophils # 0.2 (0-0.7) k/uL Basophils # 0.0 (0-0.2) k/uL Hypochromasia Slight Anisocytosis Slight Macrocytosis Moderate ESR (0-20) mm/hr Sodium 139 (137-145) mmol/L Potassium 5.9 H (3.5-5.1) mmol/L Chloride 109 H (98-107) mmol/L Carbon Dioxide 18 L (22-30) mmol/L Anion Gap 12 mmol/L BUN 31 H (7-17) mg/dL Creatinine 0.81 (0.52-1.04) mg/dL Est GFR (CKD-EPI)AfAm 86 (>60 ml/min/1.73 sqM) Est GFR (CKD-EPI)NonAf 74 (>60 ml/min/1.73 sqM) Glucose 191 H (74-99) mg/dL Lactic Ac Sepsis Rflx Plasma Lactic Acid Reginald 6.0 H* (0.7-2.0) mmol/L Calcium 9.1 (8.4-10.2) mg/dL Total Bilirubin 0.9 (0.2-1.3) mg/dL AST 82 H (14-36) U/L ALT 42 H (4-34) U/L Alkaline Phosphatase 248 H (38-126) U/L C-Reactive Protein 68.1 H (<10.0) mg/L Total Protein 6.1 L (6.3-8.2) g/dL Albumin 2.7 L (3.5-5.0) g/dL Urine Color Urine Appearance (Clear) Urine pH (5.0-8.0) Ur Specific [place] (1.001-1.035) Urine Protein (Negative) Urine Glucose (UA) (Negative) Urine Ketones (Negative) Urine Blood (Negative) Urine Nitrite (Negative) Urine Bilirubin (Negative) Urine Urobilinogen (<2.0) mg/dL Ur Leukocyte Esterase (Negative) Urine RBC (0-5) /hpf Urine WBC (0-5) /hpf Urine WBC Clumps (None) /hpf Ur Squamous Epith Cells (0-4) /hpf Amorphous Sediment (None) /hpf Urine Bacteria (None) /hpf Hyaline Casts (0-2) /lpf Urine Mucus (None) /hpf 02/08/20 02/08/20 02/08/20 Range/Units 12:14 12:53 13:15 WBC (3.8-10.6) k/uL RBC (3.80-5.40) m/uL Hgb (11.4-16.0) gm/dL Hct (34.0-46.0) % MCV (80.0-100.0) fL MCH (25.0-35.0) pg MCHC (31.0-37.0) g/dL RDW (11.5-15.5) % Plt Count (150-450) k/uL Neutrophils % % Lymphocytes % % Monocytes % % Eosinophils % % Basophils % % Neutrophils # (1.3-7.7) k/uL Lymphocytes # (1.0-4.8) k/uL Monocytes # (0-1.0) k/uL Eosinophils # (0-0.7) k/uL Basophils # (0-0.2) k/uL Hypochromasia Anisocytosis Macrocytosis ESR 34 H (0-20) mm/hr Sodium (137-145) mmol/L Potassium (3.5-5.1) mmol/L Chloride (98-107) mmol/L Carbon Dioxide (22-30) mmol/L Anion Gap mmol/L BUN (7-17) mg/dL Creatinine (0.52-1.04) mg/dL Est GFR (CKD-EPI)AfAm (>60 ml/min/1.73 sqM) Est GFR (CKD-EPI)NonAf (>60 ml/min/1.73 sqM) Glucose (74-99) mg/dL Lactic Ac Sepsis Rflx Y Plasma Lactic Acid Reginald (0.7-2.0) mmol/L Calcium (8.4-10.2) mg/dL Total Bilirubin (0.2-1.3) mg/dL AST (14-36) U/L ALT (4-34) U/L Alkaline Phosphatase (38-126) U/L C-Reactive Protein (<10.0) mg/L Total Protein (6.3-8.2) g/dL Albumin (3.5-5.0) g/dL Urine Color Yellow Urine Appearance Cloudy H (Clear) Urine pH 5.0 (5.0-8.0) Ur Specific [place] 1.022 (1.001-1.035) Urine Protein Trace H (Negative) Urine Glucose (UA) Negative (Negative) Urine Ketones Negative (Negative) Urine Blood Negative (Negative) Urine Nitrite Positive H (Negative) Urine Bilirubin Negative (Negative) Urine Urobilinogen <2.0 (<2.0) mg/dL Ur Leukocyte Esterase Large H (Negative) Urine RBC 1 (0-5) /hpf Urine WBC 8 H (0-5) /hpf Urine WBC Clumps Few H (None) /hpf Ur Squamous Epith Cells 1 (0-4) /hpf Amorphous Sediment Rare H (None) /hpf Urine Bacteria Many H (None) /hpf Hyaline Casts 17 H (0-2) /lpf Urine Mucus Rare H (None) /hpf 02/08/20 13:38 EKG performed at 1307 shows normal sinus rhythm voltage QRS. Borderline EKG per ventricular rate of 79 bpm. Was 142 ms. Frustration a 66 ms. QT QTC 392/449 ms. - Radiology Data Radiology results: report reviewed CT shows mastoid is with anterior not and the spinal canal level CI and C2 with surrounding left vertebral artery. CT a neck is recommended to ensure no vertebral artery injury. Questionable C1 fracture can also be further assessed on subsequent exams there is Patient motion and the current exam. Etiology of the air within the spinal canal could be traumatic or nontraumatic. Correlate for any recent lumbar puncture surgical procedure trauma or pneumothorax. The areas redemonstrated within the spinal canal surrounding the left vertebral artery however etiology is not identified. Considerations for culture medic fracture is her some limitation in the evaluation of fracture as detailed above infectious etiology or venous injection of air given the provided history of no recent spinal surgeries or procedures. MRI of the cervical spine can be considered to evaluate for bone marrow edema for occult fracture. There is no acute evidence of contrast extremity dictation arterially particularly surrounding the left vertebral artery no hemodynamically significant stenosis seen in major vascular occlusion of the head or neck. CT chest abdomen pelvis shows no pneumothorax or pneumomediastinum. New very s ubtle vertebral body loss at T10 and S than 10% comparison on exam from 2018. Overall age-indeterminate mild compression deformity. Punctate focus of air in the right lateral recess L5-S1 typically fermented adjacent to degenerative disc disease. CT chest injury also shows groundglass opacities left lower lobe may relate to bronchiolitis atelectasis or pneumonia. Chest x-ray is negative for any acute process. Disposition Clinical Impression: Abnormal CT of spine, Left ear pain, Sepsis, UTI (urinary tract infection), Ground glass opacity present on imaging of lung Disposition: ADMITTED IP TO THIS HOSP Condition: Stable Is patient prescribed a controlled substance at d/c from ED?: No Referrals: Tej Bojorquez MD [Primary Care Provider] - 1-2 days Time of Disposition: 16:40
[2020-02-08] MEDS ORDERED: OFLOXACIN 0.3% OPHTH DROPS 5 ML BOTTLE LEFT EAR STA (12:26)
[2020-02-08 12:33] LABS: Anisocytosis Slight; Basophils % (A) 0 %; Eosinophils # (A) 0.2 k/uL (0-0.7); Eosinophils % (A) 1 %; HCT 43.1 % (34.0-46.0); HGB 13.5 gm/dL (11.4-16.0); Hypochromasia Slight; Lymphocytes # (A) 2.2 k/uL (1.0-4.8); Lymphocytes % (A) 12 %; MCH 32.1 pg (25.0-35.0); MCHC 31.4 g/dL (31.0-37.0); Macrocytosis Moderate; Mean Platelet Volume 7.5; Monocytes # (A) 0.7 k/uL (0-1.0); Monocytes % (A) 4 %; Neutrophils # (A) 14.6 k/uL (1.3-7.7); Neutrophils % (A) 82 %; Platelet Count 498 k/uL (150-450); RBC 4.22 m/uL (3.80-5.40); RDW 16.8 % (11.5-15.5); WBC 17.8 k/uL (3.8-10.6)
[2020-02-08 12:48] LABS: Albumin 2.7 g/dL (3.5-5.0); C Reactive Protein 68.1 mg/L (<10.0); Calcium 9.1 mg/dL (8.4-10.2); Potassium 5.9 mmol/L (3.5-5.1); Total Bilirubin 0.9 mg/dL (0.2-1.3); Total Protein 6.1 g/dL (6.3-8.2)
[2020-02-08] MEDS ORDERED: MORPHINE SULFATE 2 MG/ML SYRINGE IVP STA (13:03)
--- NOTE | 2020-02-08 13:20 | CT ---
EXAMINATION TYPE: CT mastoid wo con DATE OF EXAM: 02/08/2020 COMPARISON: CT brain dated 12/14/2019 HISTORY: Left mastoid tenderness CT DLP: 404.7 mGycm. Automated Exposure Control for Dose Reduction was Utilized. TECHNIQUE: CT scan of mastoids was performed without contrast, thin cut axial images are obtained, co mao reformatted images are also reviewed. FINDINGS: There are numerous foci of air seen posterior to the dens, surrounding the lateral mass of C1, near the jugular foramen, and within the spinal canal at the level of C2. Punctate focus of air i s also seen at the lateral pterygoid plate on the left. There is some irregularity of the anterior ar ch of C1 at its left lateral aspect on series 201 image 6. However there is slight patient motion rodrigez iting evaluation overall for fracture. The posterior arch appears intact. On coronal images the skull base appears aligned. The mastoid air cells are well aerated as are the visualized portions of the paranasal sinuses. The c alvarium demonstrates diffuse osseous demineralization. External auditory canals are unremarkable. Te mporomandibular joints display mild arthropathy but are nearly symmetric. No dislocation of the tempo romandibular joints. IMPRESSION: Pneumorrachis with air not only noted in the spinal canal at the level of C1 and C2 with surrounding the left vertebral artery. CTA neck is recommended to ensure no vertebral artery injury. A questionab le C1 fracture is also seen that can be further assessed on the subsequent exam as there is some eliezer ent motion on the current exam. Etiology of the air within the spinal canal could be traumatic or non traumatic. Correlate for any recent lumbar puncture, surgical procedure, trauma, or pneumothorax. Ron eller discussed with the ordering provider Nayana Yarbrough by Dr. Urbina [id number] on 02/08/20.
[2020-02-08] MEDS ORDERED: cefTRIAXone IN SWFI 1,000 MG/10 ML SYRINGE IVP STA (13:28)
[2020-02-08] MEDS ORDERED: MORPHINE SULFATE 4 MG/ML SYRINGE IVP STA ×3 (13:29→15:41)
[2020-02-08] MEDS ORDERED: VANCOMYCIN IV PER PHARMACY 1 EACH MISC MISCELLANE PRN (13:31)
[2020-02-08] MEDS ORDERED: VANCOMYCIN 1,250 MG in SODIUM CHLORIDE 0.9% 250 ML IVPB STA (13:39)
[2020-02-08 13:47] LABS: Amorphous Sediment,Urine Rare /hpf; Appearance,Urine Cloudy (Clear); Bacteria,Urine Many /hpf; Bilirubin,Urine Negative (Negative); Blood,Urine Negative (Negative); Color,Urine Yellow; Glucose,Urine (UA) Negative (Negative); Hyaline Casts,Urine 17 /lpf (0-2); Ketones,Urine Negative (Negative); Leukocyte Esterase,Urine Large (Negative); Mucus,Urine Rare /hpf; Nitrite,Urine Positive (Negative); Protein,Urine Trace (Negative); RBC,Urine 1 /hpf (0-5); Specific Gravity,Urine 1.022 (1.001-1.035); Squamous Epithelial Cell,Urine 1 /hpf (0-4); Urobilinogen,Urine <2.0 mg/dL (<2.0); WBC,Urine 8 /hpf (0-5)
--- NOTE | 2020-02-08 14:49 | CT ---
EXAMINATION TYPE: CT ChestAbdPelvis w con DATE OF EXAM: 02/08/2020 COMPARISON: 08/24/2018 HISTORY: Vertebral air, unknown trauma. Unknown source of vertebral air. CT DLP: 548 mGycm. Automated Exposure Control for Dose Reduction was Utilized. CONTRAST: CT scan of the thorax, abdomen and pelvis is performed with IV Contrast, patient injected with 100 mL of Isovue 370. FINDINGS: LUNGS: Patchy superior segment left lower lobe groundglass opacities are seen with the site nodular a ppearance on some images such as image 30. Considerations are for pneumonia, bronchiolitis or atelect asis. No pneumothorax is seen. Some motion artifact is present in the midlungs limiting evaluation for subc entimeter pulmonary nodules. No pleural effusion. The tracheobronchial tree is patent. MEDIASTINUM: There are no greater than 1 cm hilar or mediastinal lymph nodes. No pericardial effusi on is seen. Mild coronary calcifications. LIVER/GB: Hepatic parenchyma is diffusely hypoattenuated in comparison to that of the spleen, most co mmonly seen in hepatic steatosis. This finding limits evaluation for hepatic masses. Relative areas o f hyperattenuation in the periphery of the right hepatic lobe could relate to altered areas of hepati c perfusion, areas of focal fatty sparing, or transient hepatic attenuation differences. No intrahepa tic biliary ductal dilatation. Gallbladder is either surgically absent or significantly contracted an d nonvisualized. PANCREAS: No significant abnormality is seen. SPLEEN: No significant abnormality is seen. Small splenule is seen adjacent to the [place] spleen. ADRENALS: Redemonstration of a 1.5 cm nodule of the left adrenal gland demonstrating no significant i nterval growth from 06/03/2016. Right adrenal gland is unremarkable. KIDNEYS: Incidentally noted column of [place] on the right. No hydronephrosis of either kidney. BOWEL: Postsurgical change at the gastroesophageal junction. Scattered colonic diverticula without pe ricolonic fat stranding. Air-fluid levels in the colon suggests a degree of malabsorption. No dilated bowel to suggest obstruction. LYMPH NODES: No greater than 1cm abdominal or pelvic lymph nodes are appreciated. OSSEOUS STRUCTURES: Contiguous linear sclerosis of the anterior lateral margins of ribs 2, 3, 4, 5, a nd 6 and presumably from prior healed rib fractures given the continuity. Similar sclerosis of the po sterior aspect of ribs 12, 11, and 10 on the right are also presumably from prior healed rib fracture s. Additionally sclerosis of the posterior margin of rib 2 on the left is also linear and likely from prior trauma. Sclerotic focus of the superior endplate of T11 is indeterminate. Very subtle and mini mal vertebral body height loss of T10 is new from 2018. No retropulsion seen. Punctate sclerotic focu s of the left inferior pubic ramus is indeterminant. OTHER: A very punctate focus of air is seen in the right lateral recess of L5-S1 on sagittal image 62 and axial image 82, although at this location this is most likely on the basis of degenerative disc disease with very punctate minimal vacuum disc disease at L4-L5 and L5-S1. Evaluation of the spinal c anal overall is limited on CT. IMPRESSION: 1. No pneumothorax or pneumomediastinum. 2. New very subtle vertebral body height loss of T10 of less than 10% in comparison to the exam from 2018. This overall is an age-indeterminate mild compression deformity without retropulsion. Correlate with point tenderness. 3. Punctate focus of air in the right lateral recess at L5-S1 is typically from adjacent degenerative disc disease.
--- NOTE | 2020-02-08 14:51 | XR ---
EXAMINATION TYPE: XR chest 2V DATE OF EXAM: 02/08/2020 COMPARISON: 12/11/2019 HISTORY: Shortness of breath TECHNIQUE: Frontal and lateral views of the chest are obtained. FINDINGS: Scattered senescent parenchymal changes noted. Hyperinflation compatible with COPD. No evidence for infiltrate. No evidence for atelectasis. Heart size is stable. Mediastinal structures are stable and grossly unremarkable. No evidence for hilar prominence. Degenerative changes dorsal spine. IMPRESSION: 1. No evidence for acute pulmonary disease.
--- NOTE | 2020-02-08 15:15 | CT ---
EXAMINATION TYPE: CT angio head neck DATE OF EXAM: 02/08/2020 HISTORY: vertebral air COMPARISON: CT mastoid to the same date CT DLP: 268.6 mGycm. Automated Exposure Control for Dose Reduction was Utilized. TECHNIQUE: CTA scan of the neck is performed with IV Contrast, patient injected with 100 mL of Isovu e 370, axial images are obtained, coronal and sagittal reformatted images are reviewed. Three-D recon structed images were not created on an independent workstation due to a machine malfunction. FINDINGS: Carotid/Vascular Structures: No pneumomediastinum is seen in the superior mediastinum. The major bran ch vessels of the aortic arch are patent with very mild narrowing of the left common carotid artery p roximally (less than 50%). There is medial course of the common carotid arteries bilaterally posterio r to the trachea and pharynx. 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 The vertebral arteries, although also small in size, do appear patent throughout the gland ut ilizing reformatted images. The posterior and anterior circulation intracranially are patent. There is dominance of the left vert ebral artery. No sizable intracranial aneurysm seen. No contrast extravasation of the vertebral arter ies. Other: The previously seen air in the spinal canal in the upper cervical spine beginning at the level of C3 and extending to C1 is redemonstrated. A punctate focus of air near the left lateral pterygoid plate is no longer visualized. No pneumocephalus identified. Spinal canal is limited on CT. Evaluation for fracture is somewhat limited given exaggerated kyphosis of the cervical spine/patient positioning/patient motion however no discrete acute displaced fracture is definitively seen. The pre viously questioned left anterior arch C1 fracture is not redemonstrated. Posterior disc osteophyte co mplexes are seen at C4-C5, C5-C6 and C6-C7 with multilevel degenerative disc disease of the cervical spine. IMPRESSION: 1. Air is redemonstrated within the spinal canal and surrounding the left vertebral artery, however e tiology is not identified. Considerations are for occult traumatic fracture as there is some limitati on in evaluation of fracture as detailed above, infectious etiology, or venous injection of air given the provided history of no recent spinal surgeries or procedures. MRI of the cervical spine could be considered to evaluate for bone marrow edema of an occult fracture. 2. No evidence of contrast extravasation arterially, particularly surrounding the left vertebral [place]. No hemodynamically significant stenosis seen or major vascular occlusion of the head or neck.
[2020-02-08] MEDS ORDERED: SODIUM POLYSTYRENE SULFONATE 15 GM/60 ML BOTTLE PO ONE (16:22)
[2020-02-08 18:10] VITALS: BP 122/70; PULSE 80; TEMP 97.9
[2020-02-09] MEDS ORDERED: VANCOMYCIN 1,250 MG in SODIUM CHLORIDE 0.9% 250 ML IVPB SCH (03:00)
== END 2020-02-08 18:12 | disposition other institution (70) ==
LOC: EC 11:33
DX: N39.0 Urinary tract infection, site not specified (principal); R91.8 Other nonspecific abnormal finding of lung field; H92.02 Otalgia, left ear; A41.9 Sepsis, unspecified organism; R51 Headache; J02.9 Acute pharyngitis, unspecified; R21 Rash and other nonspecific skin eruption; F41.9 Anxiety disorder, unspecified; F32.9 Major depressive disorder, single episode, unspecified; K21.9 Gastro-esophageal reflux disease without esophagitis; E78.5 Hyperlipidemia, unspecified; I10 Essential (primary) hypertension; M10.9 Gout, unspecified; M19.90 Unspecified osteoarthritis, unspecified site; G20 Parkinson's disease; Z79.899 Other long term (current) drug therapy; Z88.1 Allergy status to other antibiotic agents; Z88.2 Allergy status to sulfonamides; Z88.8 Allergy status to other drugs, medicaments and biological substances; Z88.0 Allergy status to penicillin; Z86.73 Personal history of transient ischemic attack (TIA), and cerebral infarction without residual deficits; Z96.651 Presence of right artificial knee joint
CPT/HCPCS: 36415; 93005; 80053; 85652; 83605; 85025; 86140; 81001; 87040; 71046; 70486; 70496; 71260; 70498; 74177; 99285; 96365; 96375 ×2; 96376; 96366; 96361 ×2; J3370; J2270; J0696; Q9967